=== PATIENT | male | born 1940 | race Caucasian/White ===

== ENCOUNTER → 2017-01-24 | Outpatient (CLI) | payer OTHER ==
[~2017-01-24] MED LIST: ATOR-22 PO; BIMA0.01 OPB; CARV25TA PO; CHOL100027 PO; GADAVIST IV PRN; LISI10TA PO; METO2.5T PO; NTRGSL/4 UT; PANT40TA PO; SITA50TA5 PO; TRAZ50TA35 PO
--- NOTE | 2017-01-24 11:41 | DIAGNOSTIC IMAGING REPORT ---
MRI OF THE BRAIN WITHOUT AND WITH IV CONTRAST CLINICAL HISTORY: I63.9 Stroke [id number] Occlusion of left internal carotid a COMPARISON STUDY: No previous studies for comparison. TECHNIQUE: MRI of the brain was performed from the vertex to the skull base utilizing various T1 and T2 weighted sequences. Following the IV administration of 9 mL of Gadavist contrast, additional enhanced images were obtained. FINDINGS: Sagittal T1, axial diffusion, proton density and T2 weighted axial, coronal FLAIR, and pre and post axial T1-weighted images were acquired. These were supplemented with post gadolinium coronal T1 weighted images. No intra or extra-axial mass lesions are visualized. Axial diffusion-weighted images reveal no evidence of acute or subacute infarction. Peripheral foci of increased signal on the diffusion-weighted images in the left hemisphere, likely are artifactual. There is no evidence of ventricular dilatation. Proton density T2-weighted and FLAIR images reveal scattered foci of increased T2 signal within the white matter, likely on a small vessel basis. There is an absent flow void within the left internal carotid artery, consistent with the clinical history of occlusion. There are foci of increased T2 signal within the mastoids, likely on an inflammatory basis There is mild left-sided dural enhancement, likely postsurgical. Postsurgical changes involve the left calvarium. IMPRESSION: 1. Postsurgical changes on the left 2. No evidence of intracranial mass 3. No evidence of acute or subacute infarction 4. Absent flow void within the left internal carotid artery consistent with history of occlusion 5. Scattered foci of increased T2 signal within the white matter, likely on a small vessel basis. Electronically signed by: Bhavesh Robison M.D. 01/24/2017 11:39 AM Dictated Date/Time: 01/24/2017 11:35 AM
--- NOTE | 2017-01-24 11:46 | DIAGNOSTIC IMAGING REPORT ---
MR ANGIOGRAM OF THE BRAIN CLINICAL HISTORY: Strokelike symptoms. COMPARISON STUDY: MRI of the brain performed concurrently on 01/24/2017. TECHNIQUE: 3-D [id number] MR angiography of the intracranial circulation is performed. 3-D tumble views are created and assessed. IV contrast was not administered for this examination. FINDINGS: There is a large left posterior communicating artery. The right P1 segment is diminutive. There is occlusion of the left internal carotid artery at the skull base. There is reconstitution at the carotid apex. The right internal carotid artery is widely patent at the skull base. The anterior and middle cervical arteries are patent bilaterally. The vertebrobasilar system and posterior cerebral arteries are widely patent. The right vertebral artery is dominant. There is no aneurysm or evidence of high-grade stenosis. The brain parenchyma is normal as visualized. IMPRESSION: 1. 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 There is reconstitution at the apex, likely through the northway of [place]. 2. The remaining intracranial vessels are patent. Electronically signed by: Eliot Bruner M.D. 01/24/2017 11:44 AM Dictated Date/Time: 01/24/2017 11:40 AM
--- NOTE | 2017-01-24 11:53 | DIAGNOSTIC IMAGING REPORT ---
MRA OF THE NECK WITH AND WITHOUT CONTRAST CLINICAL HISTORY: Stroke syndrome. Occlusion of left internal carotid artery. History of carotid bypass. COMPARISON STUDY: None. TECHNIQUE: Unenhanced and contrast-enhanced MRA of the neck was performed. Injection of 9 mL of Gadavist IV was uneventful. NASCET criteria were utilized to estimate the degree of carotid stenosis. FINDINGS: The origin of the brachiocephalic trunk is patent. There is no significant stenosis within the right common carotid or internal carotid artery. There is mild irregularity of the proximal right internal carotid artery likely due to atherosclerosis. The right vertebral artery is patent. The origin of the left vertebral artery is suboptimally assessed on this exam. The remainder of the left vertebral artery is patent. Please note that the MRA of the intracranial circulation will be reported separately. There is occlusion of the proximal left internal carotid artery. Note is made of a bypass graft which extends from the left external carotid artery branches to the intracranial circulation. Visualized portions of the graft are patent. However, the graft is difficult to assess at the level of the craniotomy due to susceptibility artifact from surgical material. However, the intracranial portion of the graft is patent and therefore the graft is likely patent. Apparent narrowing of the distal extracranial portion of the graft is noted. This could reflect stenosis or artifact. IMPRESSION: 1. Occlusion of the proximal left internal carotid artery. Visualized portions of the left carotid bypass graft are patent. Susceptibility artifact due to surgical material at the level of the craniotomy obscures the graft at this level. However, the distal intracranial portion of the graft is patent and therefore the graft is likely patent. Apparent narrowing of the distal extracranial portion of the graft could reflect artifact or stenosis. 2. Diminished contrast within the proximal left vertebral artery which may reflect stenosis or artifact. 3. Patent right common carotid and internal carotid arteries without significant stenosis. Electronically signed by: Trent Gr M.D. 01/24/2017 11:52 AM Dictated Date/Time: 01/24/2017 11:40 AM
== END | disposition home or self-care (01) ==
LOC: C.MRI 09:27
PROVIDERS: ATTEND Psychiatry & Neurology Neurology
DX: I65.22 Occlusion and stenosis of left carotid artery (principal); I63.9 Cerebral infarction, unspecified

== ENCOUNTER → 2017-09-04 | Outpatient (CLI) | payer OTHER ==
[~2017-09-04] MED LIST changes: +ASPI81TA28 PO; +CARV6.252 PO; -GADAVIST IV PRN; +LATA0.5S OP; +OXYC-57 PO; +PHEN-876 PO; +PRT/20 PO; +SERT25TA PO
== END | disposition home or self-care (01) ==
LOC: C.PATHSPEC 17:08
PROVIDERS: ATTEND Urology
DX: R31.0 Gross hematuria (principal)

== ENCOUNTER → 2017-10-13 | Outpatient (CLI) | payer OTHER ==
[~2017-10-13] MED LIST changes: -BIMA0.01 OPB; -CARV25TA PO; -METO2.5T PO; +OPTIRAY 320 IV PRN; -PANT40TA PO
--- NOTE | 2017-10-13 09:01 | DIAGNOSTIC IMAGING REPORT ---
CHEST CT WITH CONTRAST CT DOSE: 601.47 mGycm HISTORY: C67.9 Malignant tumor of urinary bladder C61 Neoplasm of prostate TECHNIQUE: Multiaxial CT images of the chest were performed following the intravenous administration of contrast. A dose lowering technique was utilized adhering to the principles of ALARA. COMPARISON: Abdomen and pelvis CT 08/01/2011. FINDINGS: There is a 4 mm indeterminate pulmonary nodule within the right upper lobe adjacent to the right minor fissure. This is best seen on image 144. Punctate calcified granuloma within the left lung apex on image 47. No pneumothorax. The central airways are patent. Poststernotomy changes. No suspicious lytic or blastic osseous lesions. The visualized liver, spleen, adrenal glands are unremarkable. No mediastinal lymphadenopathy. Subcentimeter bilateral hilar lymph nodes do not meet CT criteria for pathologic involvement. Normal caliber thoracic aorta. The central pulmonary arteries are patent. Minimal right pleural fluid. IMPRESSION: 1. An indeterminate 4 mm pulmonary nodule within the right upper lobe. Please refer to the chart below for recommended follow-up. 2. Minimal right pleural fluid. Please refer to below summary of Fleischner criteria recommendations for follow-up of incidental CT nodules (Wyatt Calderon, Guidelines for management of small pulmonary nodules detected on CT scans: A statement from the Fleischner Society, Radiology 237: [phone].) SOLID NODULES Solitary nodule size: <6 mm * Low risk patients: no follow-up needed * high risk patients: optional CT at 12 months Solitary nodule size: 6-8 mm * Low risk patients: follow-up at 6-12 months, then consider further follow-up at 18-24 months * high risk patients: initial follow-up CT at 6-12 months and then at 18-24 months if no change Solitary nodule size: >8 mm * either low or high risk patients - consider follow-up CT at 3 months, and/or CT-PET, and/or biopsy Multiple nodules size: <6 mm * Low risk patients: no routine follow-up * high risk patients: optional CT at 12 months Multiple nodules size: 6-8 mm * Low risk patients: follow-up at 3-6 months, then consider further follow-up at 18-24 months * high risk patients: follow-up at 3-6 months, then at 18-24 months if no change Multiple nodules size: >8 mm * Low risk patients: follow-up at 3-6 months, then consider further follow-up at 18-24 months * high risk patients: follow-up at 3-6 months, then at 18-24 months if no change Note: newly detected indeterminate nodule in persons 35 years of age or older. * Low risk patients: minimal or absent history of smoking and/or other known risk factors * high risk patients: history of smoking or of other known risk factors (e.g. first degree relative with lung cancer, or exposure to asbestos, radon, uranium) * if a nodule up to 8 mm is partly solid or is ground glass further follow-up is required after 24 months to exclude possible slow growing adenocarcinoma (MITZI) SUBSOLID NODULES Solitary pure ground-glass nodule * nodule size <6 mm - no CT follow-up required * nodule size >=6 mm - follow-up CT at 6-12 months, then every 2 years until 5 years Solitary part-solid nodule * nodule size <6 mm - no CT follow-up required * nodule size >=6 mm - follow-up CT at 3-6 months. If unchanged, and solid component remains <6 mm, then annual follow-up for 5 years Multiple subsolid nodules * nodule size <6 mm - follow-up CT at 3-6 months, consider further follow-up at 2 and 4 years if stable * nodule size >=6 mm - follow-up CT at 3-6 months, subsequent management based on the most suspicious nodule(s) Electronically signed by: Aleksandr Garcia M.D. 10/13/2017 8:59 AM Dictated Date/Time: 10/13/2017 8:49 AM
== END | disposition home or self-care (01) ==
LOC: C.CTS 08:29
PROVIDERS: ATTEND Urology
DX: C61 Malignant neoplasm of prostate (principal); C67.9 Malignant neoplasm of bladder, unspecified

== ENCOUNTER → 2017-10-21 | Outpatient (CLI) | payer OTHER ==
[~2017-10-21] MED LIST changes: +ASPEC81 PO; +DTR/5 PO; -OPTIRAY 320 IV PRN; +PANT40TA PO; +TAMS0.4C38 PO
[2017-10-21 12:18] LABS: HEMATOCRIT 39.9 % (42-52); MEAN CELL VOLUME 95.9 fL (80-100); MEAN CORPUSCULAR HGB CONC 32.3 g/dl (32-36); MEAN PLATELET VOLUME 10.2 fL (7.4-10.4); PLATELET COUNT 195 K/uL (130-400); RED BLOOD COUNT 4.16 M/uL (4.7-6.1); WHITE BLOOD COUNT 9.58 K/uL (4.8-10.8)
[2017-10-21 13:01] LABS: ALT/SGPT 34 U/L (12-78); BLOOD UREA NITROGEN 21 mg/dl (7-18); BUN/CREATININE RATIO 19.3 (10-20); CALCIUM 9.2 mg/dl (8.5-10.1); CARBON DIOXIDE 28 mmol/L (21-32); CHLORIDE 104 mmol/L (98-107); CREATININE 1.07 mg/dl (0.60-1.40); GLUCOSE 188 mg/dl (70-99); POTASSIUM 4.2 mmol/L (3.5-5.1); SODIUM 139 mmol/L (136-145)
[2017-10-21 13:03] LABS: ALKALINE PHOSPHATASE 53 U/L (45-117); AST/SGOT 20 U/L (15-37)
== END | disposition home or self-care (01) ==
LOC: C.LABPBG 10:26
PROVIDERS: ATTEND Urology
DX: C67.9 Malignant neoplasm of bladder, unspecified (principal); C61 Malignant neoplasm of prostate; E11.9 Type 2 diabetes mellitus without complications; R31.9 Hematuria, unspecified

== ENCOUNTER 2017-10-23 12:45 | Observation (INO) | payer OTHER ==
[~2017-10-23] VITALS: Ht 160 cm; Wt 88.5 kg
[~2017-10-23 12:45] MED LIST changes: -ASPEC81 PO; -PANT40TA PO
--- NOTE | 2017-10-23 13:28 | EMERGENCY ROOM VISIT NOTE ---
History Report prepared by Lana: Keyla Benoit Under the Supervision of: Dr. Raina Chávez M.D. First contact with patient: 13:20 Chief Complaint: URINARY SYMPTOMS Stated Complaint: UNCONTROLLED URINARY BLEEDING History of Present Illness The patient is a 77 year old male who presents to the Emergency Room with complaints of urinary symptoms beginning today. The patient states that he was referred to the ED due to bloody urine. The patient states that he is probably emptying his bladder, but is also expelling blood clots. Per his , the patient has been leaking urine and blood. The patient reports that he has back pain when he feels like he needs to urinate. He denies having fevers. He also denies being on blood thinners. The patient has a history of bladder cancer for which he will be starting chemo tx soon. Source of History: patient, spouse/significant other ( ) Onset: today Position: other (global) Quality: other (urinary symptoms ) Associated Symptoms: + back pain, No fevers Review of Systems See HPI for pertinent positives & negatives. A total of 10 systems reviewed and were otherwise negative. Past Medical & Surgical Medical Problems: (1) Diabetes mellitus type II, controlled (2) HLD (hyperlipidemia) (3) Hypertension (4) Prostate cancer Family History Cancer Heart disease Hypertension Social History Smoking Status: Never Smoker Marital Status: Housing Status: lives with significant other Occupation Status: retired Current/Historical Medications Scheduled Atorvastatin (Lipitor), 20 MG PO HS Cholecalciferol (Vitamin D 1000 Unit), 2,000 INTER.UNIT PO QAM Lisinopril (Prinivil), 10 MG PO QAM Nitroglycerin (Nitrostat), 0.4 MG UT PRN Pantoprazole (Protonix), 40 MG PO QAM Sitagliptin-Metformin Hcl (Janumet), 1 TAB PO QAM Trazodone Hcl (Trazodone), 25 MG PO QPM Allergies Coded Allergies: No Known Allergies (Unverified , 10/23/17) Physical Exam Vital Signs Date Time Temp Pulse Resp B/P (MAP) Pulse Ox O2 Delivery O2 Flow Rate FiO2 10/23/17 16:14 66 20 149/88 94 Room Air 10/23/17 15:18 59 22 138/71 96 Room Air 10/23/17 14:15 64 10/23/17 14:09 64 18 140/65 91 Room Air 10/23/17 12:58 36.4 68 18 139/84 92 Room Air Physical Exam Vital signs reviewed. General: Well-appearing male, in no significant distress. HEENT: No scleral icterus, PERRLA, neck supple. Atraumatic. Cardiovascular: Regular rate and rhythm, no extra sounds. Pulmonary: Clear to auscultation bilaterally, normal work of breathing. Abdomen: Soft, tenderness to palpation of suprapubic region, nondistended, positive bowel sounds. Musculoskeletal: Atraumatic, no peripheral edema. : Circumcised male. Incontinent of a grossly bloody urine. Neurologic: Patient awake alert and oriented x 3 Skin: Warm, dry, no rash Medical Decision & Procedures Laboratory Results Test 10/23/17 13:50 10/23/17 14:40 Immature Granulocyte % (Auto) 0.4 % White Blood Count 11.13 K/uL (4.8-10.8) Red Blood Count 4.07 M/uL (4.7-6.1) Hemoglobin 12.5 g/dL (14.0-18.0) Hematocrit 38.5 % (42-52) Mean Corpuscular Volume 94.6 fL (80-100) Mean Corpuscular Hemoglobin 30.7 pg (25-34) Mean Corpuscular Hemoglobin Concent 32.5 g/dl (32-36) Platelet Count 202 K/uL (130-400) Mean Platelet Volume 10.2 fL (7.4-10.4) Neutrophils (%) (Auto) 77.4 % Lymphocytes (%) (Auto) 11.8 % Monocytes (%) (Auto) 9.1 % Eosinophils (%) (Auto) 0.9 % Basophils (%) (Auto) 0.4 % Neutrophils # (Auto) 8.63 K/uL (1.4-6.5) Lymphocytes # (Auto) 1.31 K/uL (1.2-3.4) Monocytes # (Auto) 1.01 K/uL (0.11-0.59) Eosinophils # (Auto) 0.10 K/uL (0-0.5) Basophils # (Auto) 0.04 K/uL (0-0.2) Immature Granulocyte # (Auto) 0.04 K/uL (0.00-0.02) Activated Partial Thromboplast Time 28.1 SECONDS (21.0-31.0) Partial Thromboplastin Ratio 1.1 Total Bilirubin 0.5 mg/dl (0.2-1) Direct Bilirubin 0.2 mg/dl (0-0.2) Aspartate Amino Transf (AST/SGOT) 20 U/L (15-37) Alanine Aminotransferase (ALT/SGPT) 30 U/L (12-78) Alkaline Phosphatase 54 U/L (45-117) Total Protein 7.0 gm/dl (6.4-8.2) Albumin 3.7 gm/dl (3.4-5.0) Urine Pathogenic Casts /lpf (0) Laboratory results per my review. ED Course 1320: Past medical records reviewed. The patient was evaluated in room B7. A complete history and physical examination was performed. 1511: I reviewed the patient's case with Brenna Finney PA-C. She will evaluate the patient for further management. 1515: Upon reevaluation, the patient is resting comfortably. I discussed laboratory and radiographic results with him. He verbalized agreement of the treatment plan. The patient will be evaluated for further management and care. Oncology will also see the patient. Medical Decision The patient is a 77 year old male who presents to the ED with complaints of urinary symptoms. Differentials include bladder mass, kidney stone, urinary obstruction, prostatitis, UTI. This pt was evaluated and appeared to be in no distress. Bladder scan reveals 400 ml urine in bladder, a bruner was placed. Pt had >500 mL blood urine out. It was dark and irrigated to clear. Pt then again had grossly bloody urine. Pt was again irrigated. He was d/w [facility] of urology. Pt will be d/w hospitalist service for further management and urologic consultation. Pt expressed an understanding and agrees. Medication Reconcilliation Current Medication List: was personally reviewed by me Blood Pressure Screening Patient's blood pressure: Normal blood pressure Consults Time Called: 1440 Consulting Physician: Brenna Obando Returned Call: 1511 I reviewed the patient's case with Brenna Finney PA-C. She will evaluate the patient for further management. Impression Primary Impression: Gross hematuria Additional Impression: Bladder cancer Scribe Attestation The scribe's documentation has been prepared under my direction and personally reviewed by me in its entirety. I confirm that the note above accurately reflects all work, treatment, procedures, and medical decision making performed by me. Departure Information Dispostion Being Evaluated By Hospitalist Referrals Jono Souza M.D. (PCP) Patient Instructions My [facility] Problem Qualifiers
[2017-10-23 14:14] LABS: BASO % 0.4 %; BASO ABS # 0.04 K/uL (0-0.2); COMPLETE YES; EOS % 0.9 %; HEMATOCRIT 38.5 % (42-52); IG% 0.4 %; LYMPH % 11.8 %; LYMPH ABS # 1.31 K/uL (1.2-3.4); MEAN CELL VOLUME 94.6 fL (80-100); MEAN CORPUSCULAR HEMOGLOBIN 30.7 pg (25-34); MEAN CORPUSCULAR HGB CONC 32.5 g/dl (32-36); MEAN PLATELET VOLUME 10.2 fL (7.4-10.4); MONO % 9.1 %; NEUT % 77.4 %; PLATELET COUNT 202 K/uL (130-400); RED BLOOD COUNT 4.07 M/uL (4.7-6.1); WHITE BLOOD COUNT 11.13 K/uL (4.8-10.8)
[2017-10-23 14:23] LABS: PARTIAL THROMBOPLASTIN RATIO 1.1
[2017-10-23 14:34] LABS: BUN/CREATININE RATIO 22.3 (10-20); CALCIUM 9.4 mg/dl (8.5-10.1); CREATININE 1.07 mg/dl (0.60-1.40); POTASSIUM 4.1 mmol/L (3.5-5.1)
[2017-10-23] MEDS ORDERED: PANT40TA PO (14:50)
[2017-10-23 15:21] LABS: URINE APPEARANCE CLOUDY (CLEAR); URINE BILIRUBIN NEG (NEG); URINE COLOR RED; URINE NITRITE POS (NEG); URINE SPECIFIC GRAVITY 1.018 (1.000-1.030); UROBILINOGEN NEG (NEG); ZZURINE CULT IF INDIC CATH NO
[2017-10-23 15:28] LABS: MANUAL MICROSCOPIC REQUIRED? NO; REVIEW REQ? YES
[2017-10-23] MEDS ORDERED: GLUCAGON FOR INJ 1 MG VIAL SQ PRN (16:15)
[2017-10-23] MEDS ORDERED: GLUCOSE 40% GEL 15 GM TUBE PO PRN (16:15)
[2017-10-23] MEDS ORDERED: DEXTROSE 50% 50 ML SYR IV PRN (16:15)
[2017-10-23] MEDS ORDERED: GLUCOSE 10 TABS/TUBE PO PRN (16:15)
[2017-10-23 16:50] LABS: HEMATOCRIT 37.6 % (42-52)
[2017-10-23] MEDS ORDERED: IV FLUIDS COMPLETED PRN (17:00)
[2017-10-23] MEDS ORDERED: NITROGLYCERIN 0.4 MG SL PER TAB CHARGE UT PRN (17:00)
[2017-10-23 17:37] VITALS: BP 174/78; PULSE 70; TEMP 36.6; O2SAT 92
[2017-10-23] MEDS ORDERED: ACETAMINOPHEN 325 MG TAB PO PRN (17:45)
[2017-10-23] MEDS ORDERED: MoRPHine SULFATE 2 MG/ML CARP IV PRN (17:45)
[2017-10-23] MEDS: OXYCODONE HCL IR 5 MG TAB (IMMEDIATE RELEASE) PO PRN (17:49)
[2017-10-23 18:04] VITALS: BP 174/78; PULSE 70; TEMP 36.6; O2SAT 92; Ht 160 cm; Wt 88.5 kg
--- NOTE | 2017-10-23 19:16 | History and Physical ---
History & Physical Date & Time of Service: Oct 23, 2017 at 19:05 Chief Complaint: Bladder Cancer, Gross Hematuria Primary Care Physician: Jono Souza M.D. History of Present Illness Source: patient, family ( and daughter at bedside), clinic records, hospital records This is a 77yo M with PMH of newly diagnosed bladder cancer, h/o prostate cancer (treated with XRT and ADT 8 yrs ago), DM II, CAD, HTN and HLD who presents with worsening hematuria beginning this morning. Patient originally presented with hematuria and urinary discomfort a month ago and was found to have a 7cm bladder tumor. 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 Saw a urologist in [place] to discuss treatment options but due to previous h/o XRT to pelvis, the only remaining options were cystectomy and chemo. Both the urologist and patient felt that when weighing the risks and benefits, that medical oncology management with chemo was the better route. Patient had initial appt with Dr. Velásquez and is scheduled for his pre-treatment CT scan and hearing screen this week. Plans for Gemzar and Platinol to be initiated soon. Patient states that he has experiencing hematuria intermittently since bladder resection a few weeks ago but that it was significantly worse this morning. Describes hematuria as bright red with clots and states that he has been urinating frequently all day with some leakage as well. Associated symptoms include pain with urination that radiates to L flank and lower back. Denies any fever, chills, lightheadedness, CP, palpitations, SOB. Does not take any blood thinners. Past Medical/Surgical History Medical Problems: (1) Diabetes mellitus type II, controlled Status: Chronic (2) HLD (hyperlipidemia) Status: Chronic (3) Hypertension Status: Chronic (4) Prostate cancer Permanent Comment: Rising PSA pretreatment PSA 10.39 Status post biopsy revealing adenocarcinoma [place] 4+3, 4+4, 4+5, and 5+4. Biopsy stage TIIc Androgen deprivation from 07/09/2011 until January 2014 Status post completion of external beam radiation 12/11/2011 Status: Resolved Family History Cancer Heart disease Hypertension Social History Smoking Status: Former Smoker Alcohol Use: none Marital Status: Housing status: lives with significant other Occupational Status: retired Multi-Drug Resistant Organisms History of MDRO: No Allergies Coded Allergies: No Known Allergies (Unverified , 10/23/17) Home Medications Scheduled Aspirin (Aspirin EC Low Dose), 1 TAB PO DAILY Atorvastatin (Lipitor), 20 MG PO HS Cholecalciferol (Vitamin D 1000 Unit), 2,000 INTER.UNIT PO QAM Lisinopril (Prinivil), 10 MG PO QAM Nitroglycerin (Nitrostat), 0.4 MG UT PRN Pantoprazole (Protonix), 40 MG PO QAM Sitagliptin-Metformin Hcl (Janumet), 1 TAB PO QAM Trazodone Hcl (Trazodone), 25 MG PO QPM Review of Systems Ten systems reviewed and negative except as noted in the HPI. Physical Exam Vital Signs Date Time Temp Pulse Resp B/P (MAP) Pulse Ox O2 Delivery O2 Flow Rate FiO2 10/23/17 18:04 36.6 70 18 174/78 92 Room Air 10/23/17 17:37 36.6 70 18 174/78 (110) 92 Room Air 10/23/17 17:14 64 18 143/79 95 Room Air 10/23/17 16:14 66 20 149/88 94 Room Air 10/23/17 15:18 59 22 138/71 96 Room Air 10/23/17 14:15 64 10/23/17 14:09 64 18 140/65 91 Room Air 10/23/17 12:58 36.4 68 18 139/84 92 Room Air General Appearance: WD/WN, + mild distress Head: normocephalic, atraumatic Eyes: normal inspection, PERRL, sclerae normal ENT: normal ENT inspection, hearing grossly normal, pharynx normal (moist mucous membranes ) Neck: supple, no adenopathy, trachea midline Respiratory/Chest: chest non-tender, lungs clear, normal breath sounds, no respiratory distress, no accessory muscle use Cardiovascular: regular rate, rhythm, no murmur, normal peripheral pulses Abdomen/GI: non tender, soft, no organomegaly Genitourinary - Male: normal male genitalia, + pertinent finding (Puri catheter in place ) Back: normal inspection, no CVA tenderness, + pertinent finding (TTP in band distribution along lower back ) Extremities/Musculoskelatal: no calf tenderness, no pedal edema, non-tender Neurologic/Psych: no motor/sensory deficits, alert, normal mood/affect, oriented x 3 Skin: normal color, warm/dry, no rash Diagnostics Laboratory Results Results Past 24 Hours Test 10/23/17 13:50 10/23/17 14:40 10/23/17 16:35 10/23/17 18:00 Range/Units White Blood Count 11.13 4.8-10.8 K/uL Red Blood Count 4.07 4.7-6.1 M/uL Hemoglobin 12.5 12.4 14.0-18.0 g/dL Hematocrit 38.5 37.6 42-52 % Mean Corpuscular Volume 94.6 80-100 fL Mean Corpuscular Hemoglobin 30.7 25-34 pg Mean Corpuscular Hemoglobin Concent 32.5 32-36 g/dl Platelet Count 202 130-400 K/uL Mean Platelet Volume 10.2 7.4-10.4 fL Neutrophils (%) (Auto) 77.4 % Lymphocytes (%) (Auto) 11.8 % Monocytes (%) (Auto) 9.1 % Eosinophils (%) (Auto) 0.9 % Basophils (%) (Auto) 0.4 % Neutrophils # (Auto) 8.63 1.4-6.5 K/uL Lymphocytes # (Auto) 1.31 1.2-3.4 K/uL Monocytes # (Auto) 1.01 0.11-0.59 K/uL Eosinophils # (Auto) 0.10 0-0.5 K/uL Basophils # (Auto) 0.04 0-0.2 K/uL RDW Standard Deviation 43.1 36.4-46.3 fL RDW Coefficient of Variation 12.5 11.5-14.5 % Immature Granulocyte % (Auto) 0.4 % Immature Granulocyte # (Auto) 0.04 0.00-0.02 K/uL Prothrombin Time 11.0 9.0-12.0 SECONDS Prothromb Time International Ratio 1.0 0.9-1.1 Activated Partial Thromboplast Time 28.1 21.0-31.0 SECONDS Partial Thromboplastin Ratio 1.1 Sodium Level 140 136-145 mmol/L Potassium Level 4.1 3.5-5.1 mmol/L Chloride Level 105 98-107 mmol/L Carbon Dioxide Level 26 21-32 mmol/L Anion Gap 9.0 3-11 mmol/L Blood Urea Nitrogen 24 7-18 mg/dl Creatinine 1.07 0.60-1.40 mg/dl Est Creatinine Clear Calc Drug Dose 57.5 ml/min Estimated GFR () 76.7 Estimated GFR (Non- 66.1 BUN/Creatinine Ratio 22.3 10-20 Random Glucose 133 70-99 mg/dl Calcium Level 9.4 8.5-10.1 mg/dl Total Bilirubin 0.5 0.2-1 mg/dl Direct Bilirubin 0.2 0-0.2 mg/dl Aspartate Amino Transf (AST/SGOT) 20 15-37 U/L Alanine Aminotransferase (ALT/SGPT) 30 12-78 U/L Alkaline Phosphatase 54 45-117 U/L Total Protein 7.0 6.4-8.2 gm/dl Albumin 3.7 3.4-5.0 gm/dl Urine Color RED Urine Appearance CLOUDY CLEAR Urine pH 6.0 4.5-7.5 Urine Specific [place] 1.018 1.000-1.030 Urine Protein 3+ NEG Urine Glucose (UA) NEG NEG Urine Ketones NEG NEG Urine Occult Blood 3+ NEG Urine Nitrite POS NEG Urine Bilirubin NEG NEG Urine Urobilinogen NEG NEG Urine Leukocyte Esterase MODERATE NEG Urine WBC (Auto) 1-5 0-5 /hpf Urine RBC (Auto) >30 0-4 /hpf Urine Hyaline Casts (Auto) 0 0-5 /lpf Urine Epithelial Cells (Auto) 5-10 0-5 /lpf Urine Bacteria (Auto) NEG NEG Urine Pathogenic Casts 0 /lpf Bedside Glucose 124 70-99 mg/dl Impression Assessment and Plan This is a 77yo M with PMH of newly diagnosed bladder cancer, h/o prostate cancer (treated with XRT and ADT 8 yrs ago), DM II, CAD, HTN and HLD who presents with worsening hematuria beginning this morning. Hematuria: -In setting of muscle invasive urothelial cancer -Follows with Dr. Brown for urology and Dr. Velásquez for oncology -Serial H&H's, type and screen, transfuse <7 -Pain control -Per urology recommendations -Continuous bladder irrigation -NPO except meds after midnight DM II: -Hgb a1c of 6.4 in Aug 2017 -Home home agents -SSI while in-patient -BSG checks AC HS HTN: -Elevated 2/2 pain -Continue home dose lisinopril CAD: -H/o NH -Denies CP -Cont atorvastatin -Hold baby aspirin HLD: -Cont statin DVT Ppx: SCDs Code status: FULL PCP: [facility] Dispo: Plan to return home once medically stable Patient seen in collaboration with Dr. Ramirez. Please see addendum. ADDENDUM: I have seen and examined the patient and agree with the assessment and plan above. H/H is stable, no lightheadedness. Some bladder pain is present but controlled with pain meds. DO James Level of Care Med/Surg Advanced Directives Existing Living Will: No Existing Power of Design Chief: Yes () Resuscitation Status FULL RESUSCITATION VTE Prophylaxis VTE Risk Assessment Done? Y/N: Yes Risk Level: Moderate Given or contraindicated: SCD's, Contraindicated Social Service Consult None Apply
[2017-10-23 19:21] VITALS: BP 135/75; PULSE 71; TEMP 36.6; O2SAT 92
[2017-10-23] MEDS ORDERED: ASPEC81 PO (19:40)
[2017-10-23] MEDS: INSULIN ASPART 100 UNITS/ML 3 ML PEN SC SCH (21:00)
[2017-10-23] MEDS: ATORVASTATIN 20 MG TAB PO SCH (21:03)
[2017-10-23] MEDS: TRAZODONE HCL 50 MG TAB PO SCH (21:04)
[2017-10-23] MEDS: INSULIN GLARGINE SOLOSTAR 100 UNITS/ML 3 ML PEN SC SCH (21:06)
[2017-10-23 22:17] LABS: HEMATOCRIT 37.6 % (42-52)
[2017-10-23 23:29] VITALS: BP_SYST 122; BP_SYST 152; BP_DIAS 60; BP_DIAS 69; PULSE 65; PULSE 67; TEMP 36.6; TEMP 36.7; O2SAT 93; O2SAT 96
[2017-10-24 04:14] VITALS: BP 141/72; PULSE 60; TEMP 36.6; O2SAT 95
[2017-10-24 06:03] LABS: HEMATOCRIT 37.3 % (42-52); MEAN CELL VOLUME 94.7 fL (80-100); MEAN CORPUSCULAR HEMOGLOBIN 31.2 pg (25-34); MEAN PLATELET VOLUME 10.1 fL (7.4-10.4); PLATELET COUNT 208 K/uL (130-400); RED BLOOD COUNT 3.94 M/uL (4.7-6.1); WHITE BLOOD COUNT 12.02 K/uL (4.8-10.8)
[2017-10-24 06:09] LABS: INR 1.1 (0.9-1.1); PROTHROMBIN TIME (PATIENT) 11.4 SECONDS (9.0-12.0)
[2017-10-24] MEDS: INSULIN ASPART 100 UNITS/ML 3 ML PEN SC SCH ×4 (06:30→20:44)
[2017-10-24 06:33] LABS: ESTIMATED AVERAGE GLUCOSE 120 mg/dl; HA1C FLAG Normal (Normal)
[2017-10-24 06:36] LABS: BUN/CREATININE RATIO 21.1 (10-20); CALCIUM 8.9 mg/dl (8.5-10.1); CREATININE 1.04 mg/dl (0.60-1.40); POTASSIUM 3.7 mmol/L (3.5-5.1)
--- NOTE | 2017-10-24 07:06 | GENITOURINARY CONSULTATION ---
DATE OF CONSULTATION: 10/23/2017 REASON FOR THE CONSULT: Gross hematuria with clots. 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 He had some gross hematuria, was seen by Dr. Brown who has followed in the past for a Rudy 9 adenocarcinoma of the prostate that was treated aggressively with x-ray therapy, hormonal therapy and brachytherapy approximately 8 years ago. He had a large bladder tumor resection on September 18 which did show invasion. He did not have significant hematuria postoperatively until 3 days ago he began to develop some intermittent hematuria, had a hematocrit of 39.9 on the and today his hematuria is worse with clots. He presented here to the emergency room where he had a hematocrit of 38.5 and then just recently a repeat was 37.6. He had a catheter placed here with some irrigation with some clots. I did place a 3-way 22 Macedonian Puri catheter, irrigated him with some clots out and started him on 3-way bladder irrigation with normal saline. At this time, his urine is relatively pink and draining well. The patient has seen Dr. Strong to discuss cystectomy, but because of his cardiovascular disease, he is not felt to be a great candidate. He was to see oncology to discuss chemotherapy. Also, there have to be consideration given to possible radiation to treat this invasive cancer if cystectomy is not an option; however, he has had radiation to the bladder already and this may not be possible. 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 He has hyperlipidemia and diabetes mellitus. PAST SURGICAL HISTORY: Significant for coronary artery bypass surgery 25 years ago, carotid bypass surgery, hernia repair and TURBT. MEDICATIONS: Include oxybutynin, Xalatan, nitroglycerin spray, Coreg 6.25 mg a day, Lipitor 20 mg a day, trazodone 50 mg tablets daily, Janumet 50/500 mg tablets and Protonix 40 mg a day. SOCIAL HISTORY: He is a smoker, does not currently. He rarely drinks alcohol. 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 ALLERGIES: He has no known drug allergies. PHYSICAL EXAMINATION: GENERAL: The patient is a slightly overweight male in [id number] distress. He has no flank pain. He had a Puri catheter in place when I first saw him and this was changed. Of note, his previous stated recent hematocrit was 37.6 and a PSA that was done on 10/17/2017 was undetectable. GENITOURINARY: Prostate exam is deferred at this time. He has normal circumcised male phallus. Testes descended bilaterally. EXTREMITIES: Unremarkable. ABDOMEN: Soft, nontender. LUNGS: He has no respiratory distress. HEENT: Noncontributory. REVIEW OF SYSTEMS: Please refer to the review of systems done in the Emergency Room by the admitting hospitalists. PLAN: Serial H&H, bladder irrigation. He will be reevaluated in the a.m. We will keep him n.p.o. for the time being until we are sure that he does not develop clot retention. He may need to have alum bladder irrigation. We will discuss with Dr. Brown who will be elementary education tutor in the morning. Thank you very much.
[2017-10-24 07:27] VITALS: BP 144/78; PULSE 70; TEMP 36.7; O2SAT 92
[2017-10-24] MEDS: PANTOprazole SOD 40 MG TAB PO SCH (07:54)
[2017-10-24] MEDS: LISINOPRIL 10 MG TAB PO SCH (07:54)
[2017-10-24] MEDS: OXYCODONE HCL IR 5 MG TAB (IMMEDIATE RELEASE) PO PRN (07:54)
[2017-10-24] MEDS: CHOLECALCIFEROL 1000 INTER.UNIT TAB PO SCH (07:54)
[2017-10-24] MEDS: INSULIN GLARGINE SOLOSTAR 100 UNITS/ML 3 ML PEN SC SCH ×2 (07:57→20:43)
--- NOTE | 2017-10-24 09:25 | Progress Note ---
Subjective Date of Service: Oct 24, 2017. Subjective Pt evaluation today including: conversation w/ patient, chart review, lab review Voiding: bruner catheter in place (patent, draining light diallo colored urine with CBI running) 77 yo male with gross hematuria secondary to bladder cancer. Urine is light diallo without clot with CBI running this morning. H&H has remained stable. Pt denies pain this morning. He seems to be in good spirits. He was to start chemotherapy at [facility], but does not have a definitive date yet. Problem List Medical Problems: (1) Bladder cancer Status: Acute (2) Gross hematuria Status: Acute Review of Systems Constitutional: No fever, No chills Respiratory: No shortness of breath Cardiac: No chest pain Abdomen: No pain, No nausea, No vomiting Male : + hematuria Heme: + abnormal bleeding/bruising Objective Vital Signs Date Time Temp Pulse Resp B/P (MAP) Pulse Ox O2 Delivery O2 Flow Rate FiO2 10/24/17 07:27 36.7 70 19 144/78 (100) 92 10/24/17 04:14 36.6 60 18 141/72 (95) 95 Room Air 10/24/17 00:00 Room Air 10/23/17 23:29 36.6 67 20 152/69 (96) 93 Room Air 10/23/17 19:21 36.6 71 20 135/75 (95) 92 Room Air 10/23/17 18:04 36.6 70 18 174/78 92 Room Air 10/23/17 17:37 36.6 70 18 174/78 (110) 92 Room Air 10/23/17 17:14 64 18 143/79 95 Room Air 10/23/17 16:14 66 20 149/88 94 Room Air 10/23/17 15:18 59 22 138/71 96 Room Air 10/23/17 14:15 64 10/23/17 14:09 64 18 140/65 91 Room Air 10/23/17 12:58 36.4 68 18 139/84 92 Room Air Physical Exam General Appearance: no apparent distress, + obese Eyes: normal inspection ENT: hearing grossly normal Neck: no JVD Respiratory/Chest: no respiratory distress, no accessory muscle use Cardiovascular: no JVD Extremities: normal inspection Neurologic/Psychiatric: alert, normal mood/affect, oriented x 3 Skin: normal color Laboratory Results Last 24 Hours Test 10/23/17 13:50 10/23/17 14:40 10/23/17 16:35 10/23/17 18:00 White Blood Count 11.13 K/uL Red Blood Count 4.07 M/uL Hemoglobin 12.5 g/dL 12.4 g/dL Hematocrit 38.5 % 37.6 % Mean Corpuscular Volume 94.6 fL Mean Corpuscular Hemoglobin 30.7 pg Mean Corpuscular Hemoglobin Concent 32.5 g/dl Platelet Count 202 K/uL Mean Platelet Volume 10.2 fL Neutrophils (%) (Auto) 77.4 % Lymphocytes (%) (Auto) 11.8 % Monocytes (%) (Auto) 9.1 % Eosinophils (%) (Auto) 0.9 % Basophils (%) (Auto) 0.4 % Neutrophils # (Auto) 8.63 K/uL Lymphocytes # (Auto) 1.31 K/uL Monocytes # (Auto) 1.01 K/uL Eosinophils # (Auto) 0.10 K/uL Basophils # (Auto) 0.04 K/uL RDW Standard Deviation 43.1 fL RDW Coefficient of Variation 12.5 % Immature Granulocyte % (Auto) 0.4 % Immature Granulocyte # (Auto) 0.04 K/uL Prothrombin Time 11.0 SECONDS Prothromb Time International Ratio 1.0 Activated Partial Thromboplast Time 28.1 SECONDS Partial Thromboplastin Ratio 1.1 Sodium Level 140 mmol/L Potassium Level 4.1 mmol/L Chloride Level 105 mmol/L Carbon Dioxide Level 26 mmol/L Anion Gap 9.0 mmol/L Blood Urea Nitrogen 24 mg/dl Creatinine 1.07 mg/dl Est Creatinine Clear Calc Drug Dose 57.5 ml/min Estimated GFR () 76.7 Estimated GFR (Non- 66.1 BUN/Creatinine Ratio 22.3 Random Glucose 133 mg/dl Calcium Level 9.4 mg/dl Total Bilirubin 0.5 mg/dl Direct Bilirubin 0.2 mg/dl Aspartate Amino Transf (AST/SGOT) 20 U/L Alanine Aminotransferase (ALT/SGPT) 30 U/L Alkaline Phosphatase 54 U/L Total Protein 7.0 gm/dl Albumin 3.7 gm/dl Urine Color RED Urine Appearance CLOUDY Urine pH 6.0 Urine Specific [place] 1.018 Urine Protein 3+ Urine Glucose (UA) NEG Urine Ketones NEG Urine Occult Blood 3+ Urine Nitrite POS Urine Bilirubin NEG Urine Urobilinogen NEG Urine Leukocyte Esterase MODERATE Urine WBC (Auto) 1-5 /hpf Urine RBC (Auto) >30 /hpf Urine Hyaline Casts (Auto) 0 /lpf Urine Epithelial Cells (Auto) 5-10 /lpf Urine Bacteria (Auto) NEG Urine Pathogenic Casts /lpf Bedside Glucose 124 mg/dl Test 10/23/17 20:09 10/23/17 22:06 10/24/17 05:36 10/24/17 06:12 Bedside Glucose 156 mg/dl 147 mg/dl Hemoglobin 12.6 g/dL 12.3 g/dL Hematocrit 37.6 % 37.3 % White Blood Count 12.02 K/uL Red Blood Count 3.94 M/uL Mean Corpuscular Volume 94.7 fL Mean Corpuscular Hemoglobin 31.2 pg Mean Corpuscular Hemoglobin Concent 33.0 g/dl RDW Standard Deviation 42.8 fL RDW Coefficient of Variation 12.4 % Platelet Count 208 K/uL Mean Platelet Volume 10.1 fL Prothrombin Time 11.4 SECONDS Prothromb Time International Ratio 1.1 Sodium Level 137 mmol/L Potassium Level 3.7 mmol/L Chloride Level 105 mmol/L Carbon Dioxide Level 27 mmol/L Anion Gap 5.0 mmol/L Blood Urea Nitrogen 22 mg/dl Creatinine 1.04 mg/dl Est Creatinine Clear Calc Drug Dose 59.2 ml/min Estimated GFR () 79.3 Estimated GFR (Non- 68.4 BUN/Creatinine Ratio 21.1 Random Glucose 136 mg/dl Estimated Average Glucose 120 mg/dl Hemoglobin A1c 5.8 % Calcium Level 8.9 mg/dl Assessment and Plan A/P: Gross hematuria secondary to bladder cancer AFVSS. Hematuria improving. Will continue CBI for now. Would consider adding Alum to CBI if bleeding were to worsen. Will provide a diet this morning. Plan to avoid OR unless absolutely necessary. Continue to monitor H&H. Daily H&H should be fine unless bleeding worsening. Will continue to follow along with primary service.
[2017-10-24 10:11] LABS: HEMATOCRIT 39.1 % (42-52)
[2017-10-24] MEDS ORDERED: NURSING VERBAL MED ORDER ONE (10:15)
[2017-10-24] MEDS ORDERED: NURSING DECISION MEDICATION ORDER SCH (11:00)
[2017-10-24] MEDS ORDERED: MICONAZOLE NITRATE POWDER 43 GM EXT PRN (11:15)
[2017-10-24 15:31] VITALS: BP 137/76; PULSE 82; TEMP 36.4; O2SAT 94
[2017-10-24 16:00] VITALS: O2SAT 94
--- NOTE | 2017-10-24 19:26 | Progress Note ---
Internal Med Progress Note Date of Service: Oct 24, 2017. Provider Documentation: SUBJECTIVE: has mild discomfort at catheter site no fever or chills on CBI bladder irrigation catheter draining faint reddish urine no corey hematuria OBJECTIVE: Vital Signs-as noted below Exam: General-no sign of distress, conserving Eyes-sclera non icteric, PERRLA/EOMI ENT-normal oropharynx , Neck-no thyromegaly , trachea midline Lungs-CTA Heart-regular S1/S2 Abdomen-soft, non tender Extremities-no lower ext edema Neuro-AAO x3, no focal deficit Lab data as noted below. ASSESSMENT & PLAN: Hematuria: -In setting of muscle invasive urothelial cancer -Follows with Dr. Brown for urology and Dr. benavides for oncology appreciate input form urology continued with Cont bladder irrigation -hematuria has improved markedly .no drop in H&H cont to monitor no urological procedure needed at presenet DM II: -Hgb a1c of 6.4 in Aug 2017 -Home home agents -SSI while in-patient -BSG checks AC HS HTN: -Continue home dose lisinopril CAD: -H/o [place] -Denies CP -Cont atorvastatin -D/c Aspirin , given bladder Ca , recurrent bleeding risk remains high pt and his updated HLD: -Cont statin DVT Ppx: SCDs -due to hematuria Code status: FULL PCP: Harley Dispo: Plan to return home once medically stable given update over the phone Vital Signs: Date Time Temp Pulse Resp B/P (MAP) Pulse Ox O2 Delivery O2 Flow Rate FiO2 10/24/17 16:00 94 Room Air 10/24/17 15:31 36.4 82 18 137/76 (96) 94 10/24/17 08:00 Room Air 10/24/17 07:27 36.7 70 19 144/78 (100) 92 10/24/17 04:14 36.6 60 18 141/72 (95) 95 Room Air 10/24/17 00:00 Room Air 10/23/17 23:29 36.6 67 20 152/69 (96) 93 Room Air Lab Results: Results Past 24 Hours Test 10/23/17 22:06 10/24/17 05:36 10/24/17 06:12 10/24/17 10:01 Range/Units Hemoglobin 12.6 12.3 13.0 14.0-18.0 g/dL Hematocrit 37.6 37.3 39.1 42-52 % White Blood Count 12.02 4.8-10.8 K/uL Red Blood Count 3.94 4.7-6.1 M/uL Mean Corpuscular Volume 94.7 80-100 fL Mean Corpuscular Hemoglobin 31.2 25-34 pg Mean Corpuscular Hemoglobin Concent 33.0 32-36 g/dl RDW Standard Deviation 42.8 36.4-46.3 fL RDW Coefficient of Variation 12.4 11.5-14.5 % Platelet Count 208 130-400 K/uL Mean Platelet Volume 10.1 7.4-10.4 fL Prothrombin Time 11.4 9.0-12.0 SECONDS Prothromb Time International Ratio 1.1 0.9-1.1 Sodium Level 137 136-145 mmol/L Potassium Level 3.7 3.5-5.1 mmol/L Chloride Level 105 98-107 mmol/L Carbon Dioxide Level 27 21-32 mmol/L Anion Gap 5.0 3-11 mmol/L Blood Urea Nitrogen 22 7-18 mg/dl Creatinine 1.04 0.60-1.40 mg/dl Est Creatinine Clear Calc Drug Dose 59.2 ml/min Estimated GFR () 79.3 Estimated GFR (Non- 68.4 BUN/Creatinine Ratio 21.1 10-20 Random Glucose 136 70-99 mg/dl Estimated Average Glucose 120 mg/dl Hemoglobin A1c 5.8 4.5-5.6 % Calcium Level 8.9 8.5-10.1 mg/dl Bedside Glucose 147 70-99 mg/dl Test 10/24/17 11:47 10/24/17 16:27 10/24/17 20:24 Range/Units Bedside Glucose 177 154 142 70-99 mg/dl
[2017-10-24] MEDS: ATORVASTATIN 20 MG TAB PO SCH (20:39)
[2017-10-24] MEDS: TRAZODONE HCL 50 MG TAB PO SCH (20:40)
[2017-10-24 23:04] VITALS: BP 139/71; PULSE 68; TEMP 36.7; O2SAT 93
[2017-10-25 06:52] LABS: HEMATOCRIT 38.4 % (42-52); MEAN CELL VOLUME 94.1 fL (80-100); MEAN CORPUSCULAR HEMOGLOBIN 31.4 pg (25-34); MEAN CORPUSCULAR HGB CONC 33.3 g/dl (32-36); MEAN PLATELET VOLUME 10.5 fL (7.4-10.4); PLATELET COUNT 226 K/uL (130-400); RED BLOOD COUNT 4.08 M/uL (4.7-6.1); WHITE BLOOD COUNT 11.03 K/uL (4.8-10.8)
[2017-10-25 07:50] VITALS: BP 95/61; PULSE 68; TEMP 36.7; O2SAT 95
[2017-10-25 09:00] VITALS: BP 123/75; PULSE 92
[2017-10-25] MEDS: PANTOprazole SOD 40 MG TAB PO SCH (09:04)
[2017-10-25] MEDS: LISINOPRIL 10 MG TAB PO SCH (09:04)
[2017-10-25] MEDS: CHOLECALCIFEROL 1000 INTER.UNIT TAB PO SCH (09:04)
[2017-10-25] MEDS: INSULIN GLARGINE SOLOSTAR 100 UNITS/ML 3 ML PEN SC SCH ×2 (09:10→20:20)
[2017-10-25] MEDS: INSULIN ASPART 100 UNITS/ML 3 ML PEN SC SCH ×4 (09:10→20:18)
[2017-10-25] MEDS: OXYCODONE HCL IR 5 MG TAB (IMMEDIATE RELEASE) PO PRN (10:44)
[2017-10-25 11:07] LABS: URINE APPEARANCE CLEAR (CLEAR); URINE BILIRUBIN NEG (NEG); URINE COLOR YELLOW; URINE EPITHELIAL CELL AUTO 20-30 /lpf (0-5); URINE NITRITE NEG (NEG); URINE SPECIFIC GRAVITY 1.012 (1.000-1.030); UROBILINOGEN NEG (NEG); ZZURINE CULT IF INDIC CATH YES
[2017-10-25 11:11] LABS: MANUAL MICROSCOPIC REQUIRED? NO; REVIEW REQ? NO
--- NOTE | 2017-10-25 12:18 | Progress Note ---
Progress Note Date of Service Oct 25, 2017. Progress Note Patient's afebrile vital signs are stable Urine has cleared with CBI Patient has no complaints Abdomen is soft nontender Extremities show no calf pain or edema Hematocrit is stable Assessment Hematuria secondary to muscle invasive bladder cancer Hematuria has since cleared We'll discontinue CBI As long as his urine stays clear Will discontinue Puri tomorrow Patient is scheduled to start chemotherapy at [facility]
[2017-10-25 14:50] VITALS: BP 100/67; PULSE 95; TEMP 36.4; O2SAT 97
--- NOTE | 2017-10-25 18:41 | Progress Note ---
Internal Med Progress Note Date of Service: Oct 25, 2017. Provider Documentation: SUBJECTIVE: hematuria has resolved Puri draining clear yellow urine OBJECTIVE: Vital Signs-as noted below Exam: General-no sign of distress, conserving Eyes-sclera non icteric, PERRLA/EOMI ENT-normal oropharynx , Neck-no thyromegaly , trachea midline Lungs-CTA Heart-regular S1/S2 Abdomen-soft, non tender Extremities-no lower ext edema Neuro-AAO x3, no focal deficit Lab data as noted below. ASSESSMENT & PLAN: GROSS HEMATURIA resolved -In setting of invasive urothelial cancer -Follows with Dr. Brown for urology and Dr. benavides for oncology appreciate input form urology pt is treated with continuous bladder irrigation -hematuria has resolved , urine appears to be concentrated will give NSS @ 75 ml x 1 liter overnight plan is to D/c Puri tomorrow if no episode of hematuria overnight can be discharged home tomorrow Follow up with Heme onc for Chemo therapy given invasive bladder CA risk of recurrent Hematuria remains considerably high pt is asked not take Aspirin updated will be in hospital around noon time DM II: -Hgb a1c of 6.4 in Aug 2017 -SSI while in-patient -BSG checks AC HS HTN: -Continue home dose lisinopril CAD: -H/o [place] -Denies CP -Cont atorvastatin -D/c Aspirin , given bladder Ca , recurrent bleeding risk remains high pt and his updated HLD: -Cont statin DVT Ppx: SCDs -due to hematuria Code status: FULL PCP: Harley Dispo: discharge home tomorrow noon given update over the phone Vital Signs: Date Time Temp Pulse Resp B/P (MAP) Pulse Ox O2 Delivery O2 Flow Rate FiO2 10/25/17 16:00 Room Air 10/25/17 14:50 36.4 95 18 100/67 (78) 97 Room Air 10/25/17 09:00 92 123/75 (91) 10/25/17 08:15 Room Air 10/25/17 07:50 36.7 68 18 95/61 (72) 95 Room Air 10/25/17 00:15 Room Air 10/24/17 23:04 36.7 68 18 139/71 (93) 93 Room Air Lab Results: Results Past 24 Hours Test 10/24/17 20:24 10/25/17 05:48 10/25/17 07:35 10/25/17 10:42 Range/Units Bedside Glucose 142 146 70-99 mg/dl White Blood Count 11.03 4.8-10.8 K/uL Red Blood Count 4.08 4.7-6.1 M/uL Hemoglobin 12.8 14.0-18.0 g/dL Hematocrit 38.4 42-52 % Mean Corpuscular Volume 94.1 80-100 fL Mean Corpuscular Hemoglobin 31.4 25-34 pg Mean Corpuscular Hemoglobin Concent 33.3 32-36 g/dl RDW Standard Deviation 42.3 36.4-46.3 fL RDW Coefficient of Variation 12.4 11.5-14.5 % Platelet Count 226 130-400 K/uL Mean Platelet Volume 10.5 7.4-10.4 fL Urine Color YELLOW Urine Appearance CLEAR CLEAR Urine pH 5.0 4.5-7.5 Urine Specific [place] 1.012 1.000-1.030 Urine Protein NEG NEG Urine Glucose (UA) NEG NEG Urine Ketones NEG NEG Urine Occult Blood 3+ NEG Urine Nitrite NEG NEG Urine Bilirubin NEG NEG Urine Urobilinogen NEG NEG Urine Leukocyte Esterase LARGE NEG Urine WBC (Auto) >30 0-5 /hpf Urine RBC (Auto) 10-30 0-4 /hpf Urine Hyaline Casts (Auto) 1-5 0-5 /lpf Urine Epithelial Cells (Auto) 20-30 0-5 /lpf Urine Bacteria (Auto) NEG NEG Test 10/25/17 12:04 10/25/17 17:04 Range/Units Bedside Glucose 141 121 70-99 mg/dl Microbiology Results 10/25/17 Urine Culture, Received Pending
--- NOTE | 2017-10-25 18:43 | Discharge Instructions ---
Discharge Instructions Date of Service Oct 25, 2017. Admission Reason for Admission: Bladder Cancer, Gross Hematuria Discharge Discharge Diagnosis / Problem: BLADDER CANCER /HEMATURIA Discharge Goals Goal(s): Increase independence, Improve disease control, Diagnostic testing, Therapeutic intervention Activity Recommendations Activity Limitations: resume your previous activity . Instructions / Follow-Up Instructions / Follow-Up HOSPITAL FOLLOW UP WITH DR LIM IN A WEEK HEME ONC FOLLOW UP WITH DR CALLAWAY FOR CHEMO [place] FOLLOW UP WITH UROLOGY DR YBARRA IN OFFICE FOR CYSTOSCOPY AFTER COMPLETING CHEMO THERAPY PLEASE NOTIFY YOUR PHYSICIAN OR COME TO ER IF YOU NOTICE BLOOD IN URINE DO NOT TAKE ASPIRIN AVOID TAKING ANY FORM OF BLOOD THINNER -WILL CAUSE BLEEDING IN YOU URINARY BLADDER Current Hospital Diet Patient's current hospital diet: Diabetes Type 2 Diet Discharge Diet Recommended Diet: Diabetes Type 2 Diet Pending Studies Studies pending at discharge: no Laboratory Results Hemoglobin A1c Test 10/24/17 05:36 Range/Units Estimated Average Glucose 120 mg/dl Hemoglobin A1c 5.8 H 4.5-5.6 % Medical Emergencies . Who to Call and When: Medical Emergencies: If at any time you feel your situation is an emergency, please call 911 immediately. . Non-Emergent Contact Non-Emergency issues call your: Primary Care Provider . . "Provider Documentation" section prepared by Ria Auguste. . VTE Core Measure Inpt VTE Proph given/why not?: SCD's, Contraindicated
[2017-10-25] MEDS ORDERED: SODIUM CHLORIDE 0.9% 1000ML 1,000 ML IV SCH (20:00)
[2017-10-25] MEDS: ATORVASTATIN 20 MG TAB PO SCH (20:19)
[2017-10-25] MEDS: TRAZODONE HCL 50 MG TAB PO SCH (20:19)
[2017-10-25 22:46] VITALS: BP 146/71; PULSE 73; TEMP 36.6; O2SAT 92
[2017-10-26 07:21] VITALS: BP 136/82; PULSE 98; TEMP 36.3; O2SAT 94
[2017-10-26] MEDS: LISINOPRIL 10 MG TAB PO SCH (07:50)
[2017-10-26] MEDS: CHOLECALCIFEROL 1000 INTER.UNIT TAB PO SCH (07:50)
[2017-10-26] MEDS: OXYCODONE HCL IR 5 MG TAB (IMMEDIATE RELEASE) PO PRN (07:50)
[2017-10-26] MEDS: PANTOprazole SOD 40 MG TAB PO SCH (07:50)
[2017-10-26] MEDS: INSULIN GLARGINE SOLOSTAR 100 UNITS/ML 3 ML PEN SC SCH (07:53)
[2017-10-26] MEDS ORDERED: ALUMINUM/MAGNESIUM/SIMETH (MAALOX MAX) 30 ML UDC PO PRN (08:00)
[2017-10-26] MEDS: INSULIN ASPART 100 UNITS/ML 3 ML PEN SC SCH ×2 (09:00→12:51)
--- NOTE | 2017-10-26 10:56 | Progress Note ---
Progress Note Date of Service Oct 26, 2017. Progress Note Patient with high-grade muscle invasive bladder cancer admitted with gross hematuria Puri catheter has been removed Patient says he's been voiding fine urine is now clear Remains afebrile vital signs are stable Hematocrit and creatinine are stable He is scheduled to receive chemotherapy at [facility] He is stable for discharge from a urologic point of view He should follow-up in our office for cystoscopy after completion of his chemotherapy which I discussed with him
[2017-10-26 13:43] VITALS: BP 136/82; PULSE 98; TEMP 36.3; O2SAT 94
--- NOTE | 2017-10-26 16:34 | Discharge Summary ---
Discharge Summary Date of Service Oct 26, 2017. Discharge Summary Admission Date: Oct 23, 2017 at 16:27 Discharge Date: Oct 26, 2017 Discharge Disposition: Home Principal Diagnosis: BLADDER CANCER /HEMATURIA Consultations: UROLOGY DR BROWN Medication Reconciliation Continued Medications: Atorvastatin (Lipitor) 20 Mg Tab 20 MG PO HS, TAB Cholecalciferol (Vitamin D 1000 Unit) 1,000 Unit Cap 2000 INTER.UNIT PO QAM, CAP Lisinopril (Prinivil) 10 Mg Tab 10 MG PO QAM, 0 Refills Nitroglycerin (Nitrostat) 0.4 Mg Tab 0.4 MG UT PRN, 0 Refills Pantoprazole (Protonix) 40 Mg Tab 40 MG PO QAM Sitagliptin-Metformin Hcl (Janumet) 1 Tab Tab 1 TAB PO QAM 50/500 MG Trazodone Hcl (Trazodone) 50 Mg Tab 25 MG PO QPM Discontinued Medications: Aspirin (Aspirin EC Low Dose) 81 Mg Ectab 1 TAB PO DAILY Referrals At Discharge Follow up Referrals: Oncology/Hematology Referral - Please Call For Appointment with Mikhail Callaway M.D. Urologist Referral - Please Call For Appointment with Mikhail Brown MD Admission Information HPI (per Admitting provider): This is a 77yo M with PMH of newly diagnosed bladder cancer, h/o prostate cancer (treated with XRT and ADT 8 yrs ago), DM II, CAD, HTN and HLD who presents with worsening hematuria beginning this morning. Patient originally presented with hematuria and urinary discomfort a month ago and was found to have a 7cm bladder tumor. Underwent resection on 09/18 at [facility] and was found to have muscle invasive urothelial cancer. Saw a urologist in [place] to discuss treatment options but due to previous h/o XRT to pelvis, the only remaining options were cystectomy and chemo. Both the urologist and patient felt that when weighing the risks and benefits, that medical oncology management with chemo was the better route. Patient had initial appt with Dr. Velásquez and is scheduled for his pre-treatment CT scan and hearing screen this week. Plans for Gemzar and Platinol to be initiated soon. Patient states that he has experiencing hematuria intermittently since bladder resection a few weeks ago but that it was significantly worse this morning. Describes hematuria as bright red with clots and states that he has been urinating frequently all day with some leakage as well. Associated symptoms include pain with urination that radiates to L flank and lower back. Denies any fever, chills, lightheadedness, CP, palpitations, SOB. Does not take any blood thinners. Physical Exam (per Admitting): General Appearance: WD/WN, + mild distress Head: normocephalic, atraumatic Eyes: normal inspection, PERRL, sclerae normal ENT: normal ENT inspection, hearing grossly normal, pharynx normal (moist mucous membranes ) Neck: supple, no adenopathy, trachea midline Respiratory/Chest: chest non-tender, lungs clear, normal breath sounds, no respiratory distress, no accessory muscle use Cardiovascular: regular rate, rhythm, no murmur, normal peripheral pulses Abdomen/GI: non tender, soft, no organomegaly Genitourinary - Male: normal male genitalia, + pertinent finding (Puri catheter in place ) Back: normal inspection, no CVA tenderness, + pertinent finding (TTP in band distribution along lower back ) Extremities/Musculoskelatal: no calf tenderness, no pedal edema, non-tender Neurologic/Psych: no motor/sensory deficits, alert, normal mood/affect, oriented x 3 Skin: normal color, warm/dry, no rash Hospital Course feels fine , no further episode of hematuria since yesterday , Puri catheter d/ pedro luis this AM able to void clear urine no fever or chills stable to be discharged home Exam: General-no sign of distress, conserving Eyes-sclera non icteric, PERRLA/EOMI ENT-normal oropharynx , Neck-no thyromegaly , trachea midline Lungs-CTA Heart-regular S1/S2 Abdomen-soft, non tender Extremities-no lower ext edema Neuro-AAO x3, no focal deficit GROSS HEMATURIA resolved -In setting of invasive urothelial cancer -Follows with Dr. Brown for urology and Dr. benavides for oncology appreciate input form urology pt is treated with continuous bladder irrigation -hematuria has resolved , no episode of hematuria overnight Puri D/pedro luis this AM , able to void clear urine Urology evaluated the pt earlier stable to be discharged home today Follow up with Heme onc for Chemo therapy given invasive bladder CA risk of recurrent Hematuria remains considerably high pt is asked not take Aspirin pt will be followed at Urology Dr Brown's office after completion of Chemo tx for Cystoscopic eval of bladder DM II: resume out pt med at discharge HTN: -Continue home dose lisinopril CAD: -H/o [place] -Denies CP -Cont atorvastatin -D/c Aspirin , given bladder Ca , recurrent bleeding risk remains high pt and his updated HLD: -Cont statin DVT Ppx: SCDs -due to hematuria Code status: FULL PCP: Harley Dispo: discharge home today Discharge Instructions Discharge Instructions Date of Service Oct 25, 2017. Admission Reason for Admission: Bladder Cancer, Gross Hematuria Discharge Discharge Diagnosis / Problem: BLADDER CANCER /HEMATURIA Discharge Goals Goal(s): Increase independence, Improve disease control, Diagnostic testing, Therapeutic intervention Activity Recommendations Activity Limitations: resume your previous activity . Instructions / Follow-Up Instructions / Follow-Up HOSPITAL FOLLOW UP WITH DR LIM IN A WEEK HEME ONC FOLLOW UP WITH DR CALLAWAY FOR CHEMO TX FOLLOW UP WITH UROLOGY DR BROWN IN OFFICE FOR CYSTOSCOPY AFTER COMPLETING CHEMO THERAPY PLEASE NOTIFY YOUR PHYSICIAN OR COME TO ER IF YOU NOTICE BLOOD IN URINE DO NOT TAKE ASPIRIN AVOID TAKING ANY FORM OF BLOOD THINNER -WILL CAUSE BLEEDING IN YOU URINARY BLADDER Current Hospital Diet Patient's current hospital diet: Diabetes Type 2 Diet Discharge Diet Recommended Diet: Diabetes Type 2 Diet Pending Studies Studies pending at discharge: no Laboratory Results Hemoglobin A1c Test 10/24/17 05:36 Range/Units Estimated Average Glucose 120 mg/dl Hemoglobin A1c 5.8 H 4.5-5.6 % Medical Emergencies . Who to Call and When: Medical Emergencies: If at any time you feel your situation is an emergency, please call 911 immediately. . Non-Emergent Contact Non-Emergency issues call your: Primary Care Provider . . "Provider Documentation" section prepared by Ria Auguste. . VTE Core Measure Inpt VTE Proph given/why not?: SCD's, Contraindicated Additional Copies To Mikhail Brown MD, H. Jeanne M.D.
== END 2017-10-26 13:53 | disposition home or self-care (01) ==
LOC: C.EDB 12:46 → ENRESERV 15:59 → C.4E 16:27
PROVIDERS: ADMIT Hospitalist; ATTEND Hospitalist
DX: C67.9 Malignant neoplasm of bladder, unspecified (principal); R31.0 Gross hematuria; I25.10 Atherosclerotic heart disease of native coronary artery without angina pectoris; I10 Essential (primary) hypertension; E78.5 Hyperlipidemia, unspecified; E11.9 Type 2 diabetes mellitus without complications; Z79.899 Other long term (current) drug therapy; I25.2 Old myocardial infarction; Z85.46 Personal history of malignant neoplasm of prostate

== ENCOUNTER → 2017-10-31 | Outpatient (CLI) | payer OTHER ==
[~2017-10-31] MED LIST changes: +ASPI-320 PO; +CEPH500C PO; +CEPH500T PO; +CPR500 PO; +FURO20TA PO; +LCTX PO; +METR-163 PO; +PANT40TA PO; +PHEN-1043 PO; -PHEN-876 PO; -PRT/20 PO; -SERT25TA PO; +SERT50TA PO; +SITA50TA PO; -TAMS0.4C38 PO
[2017-10-31 13:23] VITALS: BP 91/58; PULSE 52; TEMP 36.3; O2SAT 95
--- NOTE | 2017-10-31 14:52 | Radiation Oncology Follow-Up ---
Radiation Oncology Follow-Up Date of Visit Oct 31, 2017. 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 Biopsy stage TIIc Androgen deprivation from 07/09/2011 until January 2014 Status post completion of external beam radiation 12/11/2011 Last Edited By: Yohana Sena on Jun 29, 2015 13:34 History of Present Illness Mr. mckeon is well known to our office from his prior treatment of prostate cancer. He had been diagnosed in 2010. He underwent hormone suppression. He had a prostate seed implant followed by external beam therapy. He tolerated this well. He has had recheck PSAs. Most recent PSA 07/17/2017 is less than 0.02. Today he completed an AUA score sheet and gave a score of 14. He completed expanded prostate cancer index composite for clinical practice and gave a score of 4 of 12 and urinary incontinence symptoms. He gave a score of 9 of 12 and urinary irritation symptoms. He gave a score of 3 of 12 and bowel symptoms. He gave a score of 10 of 12 in sexual symptoms. He gave a score of 5 of 12 and hormonal vitality symptoms. His total was 31 of 60. Interim History In August 2017 he developed lower urinary tract symptoms as well as gross hematuria. He was seen by Dr. Brown and was evaluated first with urine cytology. This was nondiagnostic. He then had an in office cystoscopy which revealed a bladder tumor. He was then brought to the emergency room for TURBT. That was performed on 09/18/2017. This revealed a poorly differentiated invasive urothelial carcinoma. This invades into the muscularis propria. There is no vascular invasion identified. Case [id number]. He is seen Dr. Madera in medical oncology. He was seen in [place] by Dr. Alexandre. He was felt due to his comorbidities he was not a candidate for cystectomy. Dr. Madera has recommended chemotherapy. He also had a second opinion with Dr. Sánchez. He was in agreement with Dr. Madera. He is now referred to our office to discuss radiation therapy. Allergies Coded Allergies: No Known Allergies (Unverified , 10/23/17) Home Medications Scheduled Atorvastatin (Lipitor), 20 MG PO HS Carvedilol (Coreg), 1 TAB PO BID Cholecalciferol (Vitamin D 1000 Unit), 2,000 INTER.UNIT PO QAM Latanoprost (Xalatan 0.005% Oph Yolanda), 1 DROPS OP HS Lisinopril (Prinivil), 10 MG PO QAM Nitroglycerin (Nitrostat), 0.4 MG UT PRN Pantoprazole (Protonix), 40 MG PO QAM Sitagliptin-Metformin Hcl (Janumet), 1 TAB PO QAM Trazodone Hcl (Trazodone), 25 MG PO QPM Scheduled PRN Oxybutynin Chloride (Ditropan), 1 TAB PO Q8 PRN for Bladder pain Oxycodone/Acetaminophen 5MG/325MG (Percocet 5MG/325MG), 1-2 TABLETS PO Q4H PRN for Pain Review of Systems Gastrointestinal: Symptoms: WNL GI Comments: 1 formed BM Q1-2 days;No fiber supplements; Oral: Symptoms: No Problems, Scant Saliva/Dry Mouth Respiratory: Symptoms: SOB With Exertion Urinary: Symptoms: Burning, Incontinence, Frequency Comments: Intermit. burning w/urination in penis;Urgency;2hrs is limit betw' n voids; Skin: Symptoms: No Problems Physical Exam Vital Signs Date Time Temp Pulse Resp B/P (MAP) Pulse Ox O2 Delivery O2 Flow Rate FiO2 10/31/17 13:23 36.3 52 20 91/58 95 Fatigue: None General Appearance: no apparent distress Eyes: normal inspection, EOMI ENT: normal ENT inspection, hearing grossly normal Respiratory/Chest: lungs clear, no respiratory distress, no accessory muscle use Cardiovascular: regular rate, rhythm, no gallop, no murmur Abdomen: non tender, soft, no organomegaly Extremities: no pedal edema Neurologic/Psychiatric: no motor/sensory deficits, alert, normal mood/affect Skin: warm/dry Pain Management Patient Reports Pain: No Pain Management Plan He denies pain therefore requires no pain management. Laboratory Laboratory Results: were reviewed, and pertinent findings noted in HPI Pathology Pathology Results: were reviewed, and pertinent findings noted below Pathology Comments [facility] SURGICAL PATHOLOGY REPORT Name MILES SIMS Case: [id number] SURGICAL PATHOLOGY REPORT Page 3 of [address] [address] Miles Torres M.D. bag sealer PATHOLOGY REPORT SURGICAL PATHOLOGY REPORT Page 1 of 2 Name MILES SIMS Age/Sex 77/M Location: [facility] MR# [id number] : 1940 Rm/Bed Physician: Mikhail Brown MD Case: [id number] Received 09/18/17 Specimen Date 09/18/17 CLINICAL HISTORY Bladder tumor. GROSS DESCRIPTION A. BLADDER The specimen is received in a container labeled as bladder tumor with patient name Miles Sims. The specimen consists of multiple irregular fragments of pink-ellington, red-carvajal and yellowish, soft to rubbery tissue, in the aggregate measuring 4 x 4 x 2.5 cm. A portion of the specimen is submitted for frozen section as AFS. Additional medical device sales representative sections are submitted for permanent sections in five cassettes as A. FROZEN SECTION DIAGNOSIS: HIGH-GRADE CARCINOMA. NO DEFINITIVE MUSCULARIS PROPRIA IN TISSUE SAMPLING. /PM B. BLADDER TUMOR The specimen is received in a container labeled as bladder tumor with patient name Miles Sims. The specimen consists of multiple irregular fragments of pink-ellington, red-carvajal and dark red, soft to rubbery tissue, in the aggregate measuring 6 x 6 x 2.5 cm. Enterprise Cloud Architect sections are submitted in five cassettes as B. SH/pw MICROSCOPIC DESCRIPTION Sections show a poorly differentiated invasive malignant neoplasm extensively involving the specimen. There is very extensive necrosis present. Muscularis propria tissue is present in the tumor and clearly invades the muscularis propria tissue. No lymph-vascular space invasion is noted. No carcinoma in situ or exophytic component is identified, though very little surface epithelium is present to evaluate. The tumor cells are strongly and fairly diffusely positive for vimentin, a nonspecific intermediate filament, and cytokeratin MARVIN, which is similar to the low molecular weight keratin CAM5.2. The tumor cells are negative for cytokeratin AE1/AE3, cytokeratin 903, cytokeratin 5/6, cytokeratin 7, and cytokeratin 20. The tumor cells are negative for P40 and P63, two markers of urothelial and squamous cell carcinomas. The tumor cells are negative for GATA3, another marker of urothelial carcinoma. Tumor cells are negative for S100 and Melan-A ruling out melanoma. The tumor cells are negative for smooth muscle actin and SMMS-1 ruling out leiomyosarcoma. They are also negative for the vascular marker CD31. Immunohistochemical stains at [facility] ([facility]) are performed for diagnostic reasons (i.e. detection of malignancy, tumor subtyping, infection identification), therapy selection (i.e. estrogen receptor) and genetic disorder evaluation (i.e. Garcia syndrome). The quantity and specific types of immunohistochemistry stains are purposely chosen in the context of the clinical history, morphologic findings and best clinical practice. Immunohistochemical stains are performed at [facility] on a C4 Imaging automated system with performance determined by the [facility] Laboratory. Some stains may be performed by other laboratories ([facility] or [facility]) with development and performance characteristics determined by that laboratory. When necessary, on- line positive controls are reviewed at that particular laboratory. These tests have not been cleared or approved for specific use by the U.S. Food and Drug Administration. The FDA has determined that such approval is not necessary. The test is used for clinical purposes. It should not be regarded as investigational or for research. This laboratory is certified under CLIA 1988 as qualified to perform high complexity testing. Immunohistochemistry performed on decalcified specimens is done with antigen retrieval which has been internally validated in the [facility] laboratory. Immunocytochemistry may be performed on alcohol fixed smears, cytospins or Thin Prep slides. Immunocytochemistry on all of these types of slides has been internally validated in the [facility] laboratory. FINAL DIAGNOSIS A. URINARY BLADDER, TRANSURETHRAL RESECTION: 1. POORLY DIFFERENTIATED INVASIVE CARCINOMA CONSISTENT WITH HIGH-GRADE UROTHELIAL CARCINOMA. SEE COMMENT. 2. TUMOR INVADES MUSCULARIS PROPRIA. 3. NO LYMPH-VASCULAR SPACE INVASION IDENTIFIED. B. URINARY BLADDER, TRANSURETHRAL RESECTION: 1. POORLY DIFFERENTIATED INVASIVE CARCINOMA CONSISTENT WITH HIGH-GRADE UROTHELIAL CARCINOMA. SEE COMMENT. 2. TUMOR INVADES MUSCULARIS PROPRIA. 3. NO LYMPH-VASCULAR SPACE INVASION IDENTIFIED. COMMENT: The tumor is extremely poorly differentiated with extensive necrosis. In some areas the tumor cells are clearly epithelioid and appear cohesive though in other areas the cells are more pleomorphic with a more single-cell appearance. In many areas there are extremely large cells with very large nuclei and prominent nucleoli. The cells generally have fairly abundant cytoplasm. No distinct spindle cell component is identified. The tumor cells are positive for cytokeratin MARVIN and vimentin and negative for numerous other markers. I considered whether this could be prostate carcinoma as the patient has a previous history of high-grade prostatic carcinoma ([id number]) but a stain for NKX3.1, a marker of prostate carcinomas, is negative. I also considered whether this could be a sarcoma or sarcomatoid carcinoma given the history of radiation therapy, the poorly differentiated nature of the tumor, and the strong staining for vimentin and absence of most cytokeratins. However given the fairly diffuse strong staining for cytokeratin MARVIN I am not able to identify a distinct sarcomatous component and therefore I would interpret this as being most likely a very poorly differentiated carcinoma that is most likely urothelial. Please see the microscopic description for a full list of immunohistochemical stains that were performed. This case was reviewed as an intradepartmental consultation with concurrence. BK/mario COPIES TO Jono Souza M.D. [address] [place] [address] Mikhail Brown MD [address] [place] [id number] Signed: <signature on file> 10/01/17 Tamir Trejo MD Imaging Imaging Studies: were reviewed, and pertinent findings noted below Imaging Comments Patient: MILES SIMS Address1: [address] [place] [address] Rec: [id number] Address2: Acct ID: [id number] [facility] Zip: [place] [address] Date: 1940 Sex: M Room/Bed: Ref Phy: Jono Souza M.D. SC: JULIO Att Phy: Lavon Strong D.O. Report #: [id number] Chiara Phy: Jono Souza M.D. Test: CX Admit Phy: Dry Mill Operator: GEOVANNA Interpreting Phy: Aleksandr Garcia MD Diagnosis: BLADDER AND PROSTATE CA Ordering Phy: TINY Strong Stephen H D.O. Service Date: 10/13/17 Admit Date: 10/13/17 MNE: [id number] CONF: DICTATED BY: Aleksandr Garcia M.D.]] CC: Jono Souza M.D., Stephen H., D.O. Endcc: [~ rep ct add3]] CHEST CT WITH CONTRAST CT DOSE: 601.47 mGycm HISTORY: C67.9 Malignant tumor of urinary bladder C61 Neoplasm of prostate TECHNIQUE: Multiaxial CT images of the chest were performed following the intravenous administration of contrast. A dose lowering technique was utilized adhering to the principles of ALARA. COMPARISON: Abdomen and pelvis CT 08/01/2011. FINDINGS: There is a 4 mm indeterminate pulmonary nodule within the right upper lobe adjacent to the right minor fissure. This is best seen on image 144. Punctate calcified granuloma within the left lung apex on image 47. No pneumothorax. The central airways are patent. Poststernotomy changes. No suspicious lytic or blastic osseous lesions. The visualized liver, spleen, adrenal glands are unremarkable. No mediastinal lymphadenopathy. Subcentimeter bilateral hilar lymph nodes do not meet CT criteria for pathologic involvement. Normal caliber thoracic aorta. The central pulmonary arteries are patent. Minimal right pleural fluid. IMPRESSION: 1. An indeterminate 4 mm pulmonary nodule within the right upper lobe. Please refer to the chart below for recommended follow-up. 2. Minimal right pleural fluid. Please refer to below summary of Fleischner criteria recommendations for follow-up of incidental CT nodules (Wyatt Calderon, Guidelines for management of small pulmonary nodules detected on CT scans: A statement from the Fleischner Society, Radiology 237: [phone].) SOLID NODULES Solitary nodule size: <6 mm * Low risk patients: no follow-up needed * high risk patients: optional CT at 12 months Solitary nodule size: 6-8 mm * Low risk patients: follow-up at 6-12 months, then consider further follow-up at 18-24 months * high risk patients: initial follow-up CT at 6-12 months and then at 18-24 months if no change Solitary nodule size: >8 mm * either low or high risk patients - consider follow-up CT at 3 months, and/or CT-PET, and/or biopsy Multiple nodules size: <6 mm * Low risk patients: no routine follow-up * high risk patients: optional CT at 12 months Multiple nodules size: 6-8 mm * Low risk patients: follow-up at 3-6 months, then consider further follow-up at 18-24 months * high risk patients: follow-up at 3-6 months, then at 18-24 months if no change Multiple nodules size: >8 mm * Low risk patients: follow-up at 3-6 months, then consider further follow-up at 18-24 months * high risk patients: follow-up at 3-6 months, then at 18-24 months if no change Note: newly detected indeterminate nodule in persons 35 years of age or older. * Low risk patients: minimal or absent history of smoking and/or other known risk factors * high risk patients: history of smoking or of other known risk factors (e.g. first degree relative with lung cancer, or exposure to asbestos, radon, uranium) * if a nodule up to 8 mm is partly solid or is ground glass further follow-up is required after 24 months to exclude possible slow growing adenocarcinoma (MITZI) SUBSOLID NODULES Solitary pure ground-glass nodule * nodule size <6 mm - no CT follow-up required * nodule size >=6 mm - follow-up CT at 6-12 months, then every 2 years until 5 years Solitary part-solid nodule * nodule size <6 mm - no CT follow-up required * nodule size >=6 mm - follow-up CT at 3-6 months. If unchanged, and solid component remains <6 mm, then annual follow-up for 5 years Multiple subsolid nodules * nodule size <6 mm - follow-up CT at 3-6 months, consider further follow-up at 2 and 4 years if stable * nodule size >=6 mm - follow-up CT at 3-6 months, subsequent management based on the most suspicious nodule(s) Electronically signed by: Aleksandr Garcia M.D. 10/13/2017 8:59 AM Dictated Date/Time: 10/13/2017 8:49 AM Date/Time of Imaging Study Study Completed: 09/03/2017 9:05 AM [facility] PACS Image Narrative EXAM CT ABDOMEN /PELVIS WITH/WITHOUT IV CONTRAST WITHOUT ORAL- 09/03/2017 9:05 am HISTORY GROSS HEMATURIA, FREQUENCY OF MICTURITION, PERSONAL HX MALIG LOLIS PROSTATE TECHNIQUE CT urogram was performed before and following the administration of IV contrast. Acquired images were also sent to an independent 3-D workstation and multiplanar/volume rendered reconstructions were performed. COMPARISON None. FINDINGS There is no nephrolithiasis or urinary tract calcification on precontrast imaging. There is a left renal cyst and too small to characterize subcentimeter hypoattenuating lesions in both kidneys. On excretion phase imaging, the entire urinary tract is well opacified and adequately distended . There is no mass, filling defect, wall thickening, or dilatation in the upper urinary tract. There is a 4.6 x 3 cm lobulated mass within the urinary bladder, compatible with neoplasm. Additional findings: Liver is unremarkable, without focal lesion. Gallbladder is unremarkable. No biliary dilatation. Spleen is unremarkable. Pancreas is unremarkable. Adrenal glands are unremarkable. GI tract is grossly unremarkable. Prostate brachytherapy seeds are present. No intra-abdominal or intrapelvic lymphadenopathy. No ascites or pneumoperitoneum. Abdominal aorta is normal in caliber with moderate calcification. Small fat containing ventral hernia. Multilevel degenerative changes in the spine. IMPRESSION Urinary bladder mass, compatible with neoplasm. Recommend cystoscopy. Authenticated By Authenticating Date Authenticating Time Reading Providers(s) VIVEK PALMA MD 09-08-2017 14:49 VIVEK PALMA MD Assessment & Plan (Attending) Mr. Sims is a 77-year-old male was diagnosed with a high-grade prostate cancer with Rudy grade 4+5 and 5+4 in June 2011. He was subsequently treated with combination therapy consisting of a course of hormonal suppression followed by prostate seed implant followed by a course of external radiation. Patient has had an excellent response with a prostate-specific antigen that is presently undetectable. Patient subsequently presented with hematuria in August 2017 and increasing bladder symptoms. A CT scan of the abdomen and pelvis with and without contrast was performed on 09/03/2017. This noted a 4.6 x 3.0 cm lobulated mass within the urinary bladder compatible with a bladder neoplasm. No intra- abdominal or intrapelvic lymphadenopathy was appreciated. The prostate seeds were again noted. Multilevel degenerative changes in the spine was appreciated. Dr. Brown performed a cystoscopy for the hematuria on 2016 and confirmed the presence of a bladder tumor. The patient therefore returned on September [address] Brown performed a TURBT. He identified a very large bladder tumor along the left lateral wall. A satellite lesion was also noted along the right trigone. The tumor was resected in its entirety and the area was fulgurated. The TUR resection specimen confirmed a poorly differentiated invasive carcinoma consistent with a high-grade urothelial carcinoma. The tumor invaded the muscularis propria. There was no lymphovascular space invasion identified. This was present in both tissue samples were excised. The tumor was felt to be extremely poorly differentiated with extensive necrosis. Given the prior diagnosis of a high-grade prostate cancer stains were performed to differentiate this from the prostatic primary. There also considered whether this could be a sarcoma or sarcomatoid carcinoma given the prior history of radiation and the poorly differentiated nature of the tumor. The staining however was consistent with a very poorly differentiated carcinoma likely urothelial. Case: [id number]. The patient was seen by Dr. Mikhail Madera for discussion of treatment options. Given the previous history of pelvic radiation he was appropriately concerned that the patient may not be a candidate for additional radiation. However he was kind enough to ask us to see the patient to review his chart and to evaluate the possibility of additional radiation. To that end we've pulled his previous radiation gonzalez. Although an aggressive treatment was delivered including prostate seed implant and pelvic dennis irradiation the patient's bladder received minimal radiation with the exception of the bladder neck and small portions of the trigone. I will didn't touch with Dr. Brown to have him better define for me exactly where this disease was. Given the description to date describes a lesion on the left lateral wall which may very well be outside of the previous radiation gonzalez. It would be best in order to make an appropriate decision to re-simulate the patient and reconstruct his prior treatment with outline of where the disease was identified on recent CAT scan and by discussion with Dr. Brown. If as anticipated the majority of the bladder is outside of the previous radiation field a decision will have to be made whether it is appropriate to proceed with additional radiation including the bladder neck. The patient is scheduled to receive systemic chemotherapy. I believe however if we can provide additional radiation in combination especially since the patient is not a surgical candidate that his outcome may be improved. I will discuss this with Dr. Madera and proceed according to the outcome of our discussion. Thank you for allowing us to participate in the care of this patient. This chart was completed in part utilizing [employer] Voice Recognition software. Attempts were made to minimize the grammatical errors, random word insertions, pronoun errors and incomplete sentences. Any formal questions or concerns about the content, text or information contained within the body of this dictation should be directly addressed to the provider for clarification. Anton Berry MD Department of Radiation Oncology VirgilioJulianna Portillo [facility] Total Time In Follow-Up I spent 20 minutes speaking to the patient performing examination. I spent 15 minutes reviewing information in completing this note. AK Total Time (Attending) In Follow-Up I spent 20 minutes in discussion of treatment options with the patient and his and 20 minutes reviewing his prior treatment records and his most recent scans, discussion with referring physicians and preparation of this document. NICOLAS Copy To Jono Souza M.D.; Mikhail Madera M.D. Problem Qualifiers (1) Bladder cancer: Bladder location: overlapping sites Qualified Codes: C67.8 - Malignant neoplasm of overlapping sites of bladder
== END | disposition home or self-care (01) ==
LOC: C.ONC 13:11
PROVIDERS: ATTEND Physician Assistant Medical
DX: C67.9 Malignant neoplasm of bladder, unspecified (principal); Z85.46 Personal history of malignant neoplasm of prostate

== ENCOUNTER → 2017-11-03 | Outpatient (CLI) | payer OTHER | END | disposition home or self-care (01) | LOC: C.ONC 08:10 | PROVIDERS: ATTEND Urology | DX: Z51.0 Encounter for antineoplastic radiation therapy (principal); C67.9 Malignant neoplasm of bladder, unspecified ==

== ENCOUNTER 2017-12-05 12:24 | Emergency (ER) | payer OTHER ==
[~2017-12-05] VITALS: Ht 157.5 cm; Wt 89.0 kg
[~2017-12-05 12:24] MED LIST changes: -ASPI-320 PO; -ASPI81TA28 PO; -CEPH500C PO; -CEPH500T PO; -CPR500 PO; -FURO20TA PO; -LCTX PO; -METR-163 PO; -PHEN-1043 PO; -SERT50TA PO; -SITA50TA PO
[2017-12-05 12:28] VITALS: TEMP 37; Ht 157.5 cm; Wt 89.0 kg
--- NOTE | 2017-12-05 13:13 | EMERGENCY ROOM VISIT NOTE ---
History First contact with patient: 12:42 Chief Complaint: INFECTION Stated Complaint: CELLULITIS L LOWER LEG Nursing Triage Summary: cellulitis of LLE History of Present Illness The patient is a 77 year old male who presents to the Emergency Room with complaints of swelling and redness to his left lower leg. The patient reports that he first noticed this last night. He had a visiting nurse come this morning and she told him she thought he had cellulitis. He called his primary care provider and they told him to come here. He reports it is slightly painful. He does have some leg swelling at baseline, but states that his left leg is more swollen than normal. He denies any history of cellulitis. He denies any recent injuries. He denies any fevers/chills. Review of Systems A complete 10 point review of systems was reviewed with the patient with pertinent positives and negatives as per history of present illness. All else were negative. Past Medical/Surgical History Medical Problems: (1) Diabetes mellitus type II, controlled (2) HLD (hyperlipidemia) (3) Hypertension (4) Prostate cancer Family History Cancer Heart disease Hypertension Social History Smoking Status: Former Smoker Marital Status: Housing Status: lives with significant other Occupation Status: retired Current/Historical Medications Scheduled Carvedilol (Coreg), 1 TAB PO BID Cephalexin Monohydrate (Keflex), 500 MG PO BID Cholecalciferol (Vitamin D 1000 Unit), 2,000 INTER.UNIT PO QAM Latanoprost (Xalatan 0.005% Oph Yolanda), 1 DROPS OP HS Lisinopril (Prinivil), 10 MG PO QAM Nitroglycerin (Nitrostat), 0.4 MG UT PRN Pantoprazole (Protonix), 40 MG PO QAM Sitagliptin-Metformin Hcl (Janumet), 1 TAB PO QAM Trazodone Hcl (Trazodone), 25 MG PO QPM Scheduled PRN Oxybutynin Chloride (Ditropan), 1 TAB PO Q8 PRN for Bladder pain Oxycodone/Acetaminophen 5MG/325MG (Percocet 5MG/325MG), 1-2 TABLETS PO Q4H PRN for Pain Physical Exam Vital Signs Date Time Temp Pulse Resp B/P (MAP) Pulse Ox O2 Delivery O2 Flow Rate FiO2 12/05/17 15:55 65 20 131/47 97 Room Air 12/05/17 14:28 67 20 133/57 96 Room Air 12/05/17 12:28 37.0 72 16 109/57 93 Physical Exam VITALS: Vitals are noted on the nurse's note and reviewed by myself. Vital signs stable. GENERAL: This is a 77-year-old male, in no acute distress, nondiaphoretic, well- developed well-nourished. EXTREMITIES: There is erythema extending from distal to the left knee to the left foot. 3+ pitting edema to the left lower extremity, 1+ pitting edema to the right lower extremity. No open wounds. NEURO: Patient was alert and oriented to person place and time. Medical Decision & Procedures ER Provider Diagnostic Interpretation: L VENOUS DOPP LOWER EXT UNILAT CLINICAL HISTORY: left leg pain, swelling, r/o DVT pain. Edema. TECHNIQUE: Venous Doppler COMPARISON STUDY: None FINDINGS: Normal evaluation of the venous structures of the left leg. Mild soft tissue edema lower calf. IMPRESSION: No evidence for acute deep venous thrombosis. Laboratory Results 12/05/17 13:05 Red Blood Count 3.10, Mean Corpuscular Volume 94.5, Mean Corpuscular Hemoglobin 31.3, Mean Corpuscular Hemoglobin Concent 33.1, Mean Platelet Volume 9.5, Neutrophils (%) (Auto) 84.3, Lymphocytes (%) (Auto) 11.5, Monocytes (%) (Auto) 3.0, Eosinophils (%) (Auto) 0.7, Basophils (%) (Auto) 0.3, Neutrophils # (Auto) 4.86, Lymphocytes # (Auto) 0.66, Monocytes # (Auto) 0.17, Eosinophils # (Auto) 0.04, Basophils # (Auto) 0.02 12/05/17 13:05 Test 12/05/17 13:05 White Blood Count 5.76 K/uL (4.8-10.8) Red Blood Count 3.10 M/uL (4.7-6.1) Hemoglobin 9.7 g/dL (14.0-18.0) Hematocrit 29.3 % (42-52) Mean Corpuscular Volume 94.5 fL (80-100) Mean Corpuscular Hemoglobin 31.3 pg (25-34) Mean Corpuscular Hemoglobin Concent 33.1 g/dl (32-36) Platelet Count 373 K/uL (130-400) Mean Platelet Volume 9.5 fL (7.4-10.4) Neutrophils (%) (Auto) 84.3 % Lymphocytes (%) (Auto) 11.5 % Monocytes (%) (Auto) 3.0 % Eosinophils (%) (Auto) 0.7 % Basophils (%) (Auto) 0.3 % Neutrophils # (Auto) 4.86 K/uL (1.4-6.5) Lymphocytes # (Auto) 0.66 K/uL (1.2-3.4) Monocytes # (Auto) 0.17 K/uL (0.11-0.59) Eosinophils # (Auto) 0.04 K/uL (0-0.5) Basophils # (Auto) 0.02 K/uL (0-0.2) RDW Standard Deviation 48.2 fL (36.4-46.3) RDW Coefficient of Variation 14.1 % (11.5-14.5) Immature Granulocyte % (Auto) 0.2 % Immature Granulocyte # (Auto) 0.01 K/uL (0.00-0.02) Anion Gap 7.0 mmol/L (3-11) Est Creatinine Clear Calc Drug Dose 36.6 ml/min Estimated GFR () 46.8 Estimated GFR (Non- 40.4 BUN/Creatinine Ratio 24.1 (10-20) Calcium Level 9.0 mg/dl (8.5-10.1) Medications Administered Medications (Trade) Dose Ordered Sig/Kailash Route Start Time Stop Time Status Last Admin Dose Admin Ceftriaxone Sodium (Rocephin Inj) 1 gm NOW STAT IV 12/05/17 15:06 12/05/17 15:08 DC 12/05/17 15:51 1 GM Medical Decision Differential diagnosis includes cellulitis, abscess, DVT, among others. The patient is a 77-year-old male who presents today complaining of left leg pain and swelling. Labs revealed no leukocytosis. Patient is anemic with hemoglobin of 9.7. Creatinine is elevated at 1.61. The patient's recent labs were obtained from the [facility] system and it does show that the patient has had a steady decline in his hemoglobin, with his most recent being 10.1 on . He has also had a gradually increasing creatinine, with his most recent at 1.5 on 12/01/17. The patient does have bladder cancer and is currently receiving chemotherapy. He does report he has had some hematuria intermittently, but nothing significant recently. I do feel that the patient's cellulitis may be treated as an outpatient with Keflex. He was given one dose of Rocephin in the ER. However, he will need very close follow-up with his primary care provider regarding these abnormal lab findings. I did discuss the case with his PCP, Dr. Souza. She will follow-up with the patient early next week. The patient was advised to return here if he has worsening cellulitis or other/concerning symptoms. The patient was independently evaluated by Dr. De Luna, ED attending physician, who agreed with my assessment and treatment plan. Based on the patient's presentation and work up, I feel the patient is stable for outpatient treatment. The patient was educated to return to the emergency department for any worsening of their current condition or new/concerning symptoms. He will follow up with his PCP. Medication Reconcilliation Current Medication List: was personally reviewed by me Blood Pressure Screening Patient's blood pressure: Normal blood pressure Impression Primary Impression: Cellulitis of left lower leg Departure Information Dispostion Home / Self-Care Condition GOOD Prescriptions Cephalexin Monohydrate (Keflex) 500 Mg Cap 500 MG PO BID for 10 Days, #20 CAP Prov: Karis Orellana ., HARMONY 12/05/17 Referrals Jono Souza M.D. (PCP) Patient Instructions My [facility] Additional Instructions You were prescribed Keflex to be taken twice daily as prescribed. This is an antibiotic. All antibiotics have the potential to cause diarrhea. Stop this medication and contact a medical provider if you were to develop any significant adverse side effects including: wheezing, shortness of breath, passing out, vomiting, or a diffuse rash. Always take antibiotics as directed and COMPLETE the ENTIRE course regardless of the improvement of your symptoms. Keep leg elevated to help reduce swelling. Return to the emergency department immediately if you have worsening redness, fevers, or any worsening or new/concerning symptoms.
[2017-12-05 13:41] LABS: BASO % 0.3 %; BASO ABS # 0.02 K/uL (0-0.2); EOS % 0.7 %; EOS ABS # 0.04 K/uL (0-0.5); HEMATOCRIT 29.3 % (42-52); HEMOGLOBIN 9.7 g/dL (14.0-18.0); IG# 0.01 K/uL (0.00-0.02); LYMPH % 11.5 %; LYMPH ABS # 0.66 K/uL (1.2-3.4); MEAN CELL VOLUME 94.5 fL (80-100); MEAN CORPUSCULAR HEMOGLOBIN 31.3 pg (25-34); MEAN CORPUSCULAR HGB CONC 33.1 g/dl (32-36); MEAN PLATELET VOLUME 9.5 fL (7.4-10.4); MONO ABS # 0.17 K/uL (0.11-0.59); NEUT % 84.3 %; NEUT ABS # 4.86 K/uL (1.4-6.5); PLATELET COUNT 373 K/uL (130-400); RED CELL DISTRIBUTION WIDTH CV 14.1 % (11.5-14.5); RED CELL DISTRIBUTION WIDTH SD 48.2 fL (36.4-46.3); WHITE BLOOD COUNT 5.76 K/uL (4.8-10.8)
[2017-12-05 14:12] LABS: CREATININE 1.61 mg/dl (0.60-1.40); POTASSIUM 4.2 mmol/L (3.5-5.1)
--- NOTE | 2017-12-05 14:54 | DIAGNOSTIC IMAGING REPORT ---
L VENOUS DOPP LOWER EXT UNILAT CLINICAL HISTORY: left leg pain, swelling, r/o DVT pain. Edema. TECHNIQUE: Venous Doppler COMPARISON STUDY: None FINDINGS: Normal evaluation of the venous structures of the left leg. Mild soft tissue edema lower calf. IMPRESSION: No evidence for acute deep venous thrombosis. The above report was generated using voice recognition software. It may contain grammatical, syntax or spelling errors. Electronically signed by: Michel Villafana M.D. 12/05/2017 2:53 PM Dictated Date/Time: 12/05/2017 2:52 PM
[2017-12-05] MEDS ORDERED: CEFTRIAXONE SOD INJ 1 GM ADDVIAL IV STA (15:06)
[2017-12-05] MEDS ORDERED: CEPH500C PO (15:12)
--- NOTE | 2017-12-05 15:30 | EMERGENCY ROOM VISIT NOTE ---
ED Visit Note First contact with patient: 14:15 This Patient was discussed with the physician User Interface Designer, Karis Orellana PA-C. The pertinent historical and physical exam findings were confirmed. I agree with the studies ordered and with the interpretations of these studies. I agree with the disposition and care plan.
[2017-12-05 15:55] VITALS: BP 131/47; PULSE 65; O2SAT 97
== END 2017-12-05 16:15 | disposition home or self-care (01) ==
LOC: C.EDB 12:27
DX: L03.116 Cellulitis of left lower limb (principal); E11.9 Type 2 diabetes mellitus without complications; E78.5 Hyperlipidemia, unspecified; I10 Essential (primary) hypertension; Z85.46 Personal history of malignant neoplasm of prostate; Z80.9 Family history of malignant neoplasm, unspecified; Z82.49 Family history of ischemic heart disease and other diseases of the circulatory system; Z87.891 Personal history of nicotine dependence; Z79.899 Other long term (current) drug therapy

== ENCOUNTER → 2018-01-12 | Outpatient (CLI) | payer OTHER ==
[~2018-01-12] MED LIST changes: -ATOR-22 PO
--- NOTE | 2018-01-12 13:17 | DIAGNOSTIC IMAGING REPORT ---
BILATERAL LOWER EXTREMITY VENOUS DOPPLER CLINICAL HISTORY: REDNESS/SWELLING BOTH LEGS, R/O DVT COMPARISON STUDY: Left lower extremity venous Doppler December 05, 2017. TECHNIQUE: Sonography of the deep venous system of the bilateral lower extremities was performed. Compression and augmentation were evaluated. FINDINGS: The bilateral common femoral, superficial femoral and popliteal veins were compressible. Augmentation was normal. Flow was shown within the deep calf vessels. Lower extremity edema was noted. IMPRESSION: No evidence of deep venous thrombus within the bilateral lower extremities. Electronically signed by: Trent Gr M.D. 01/12/2018 1:15 PM Dictated Date/Time: 01/12/2018 1:14 PM
== END | disposition home or self-care (01) ==
LOC: C.ULTR 12:33
PROVIDERS: ATTEND Urology
DX: C67.9 Malignant neoplasm of bladder, unspecified (principal); M79.89 Other specified soft tissue disorders

== ENCOUNTER 2018-01-22 04:30 | Inpatient (IN) | payer OTHER ==
[2018-01-22] VITALS (7 sets, daily range): BP systolic 130–159; BP diastolic 64–67; PULSE 77–102; TEMP 36.5–38.2; O2SAT 90–98; BMI 36.2
[~2018-01-22] VITALS: Ht 157.5 cm; Wt 84.5 kg
[2018-01-22] MEDS ORDERED: SODIUM CHLORIDE 0.9% 1000ML 1,000 ML IV STA (04:42)
[2018-01-22] MEDS ORDERED: FENTANYL CITRATE INJ 50 MCG/1 ML 2 ML VIAL IV STA ×2 (04:42→06:04)
--- NOTE | 2018-01-22 04:50 | EMERGENCY ROOM VISIT NOTE ---
History Report prepared by Lana: Carissa Zaman Under the Supervision of: Dr. Cb Almaraz M.D. First contact with patient: 04:37 Chief Complaint: FALL Stated Complaint: FALL/LEG PAIN History of Present Illness The patient is a 78 year old male who presents to the Emergency Room with complaints of a resolved trauma secondary to a fall that occurred prior to arrival. He states that he fell of the toilet, noting he was unable to stand up. The patient states that he landed on his buttocks, but is currently experiencing right leg pain. He denies any fevers, but reports that he has been feeling very weak and tired lately. The patient denies a history of having an irregular heart beat. Source of History: patient Onset: prior to arrival Position: other (global) Quality: other (trauma secondary to fall) Timing: resolved Associated Symptoms: + weakness (weak), No fevers Note: Associated symptoms include: feeling tired and right leg pain Review of Systems See HPI for pertinent positives & negatives. A total of 10 systems reviewed and were otherwise negative. Past Medical & Surgical Medical Problems: (1) Diabetes mellitus type II, controlled (2) HLD (hyperlipidemia) (3) Hypertension (4) Prostate cancer (5) Respiratory failure Family History Cancer Heart disease Hypertension Social History Smoking Status: Former Smoker Marital Status: Housing Status: lives with significant other Occupation Status: retired Current/Historical Medications Scheduled Carvedilol (Coreg), 1 TAB PO BID Cholecalciferol (Vitamin D 1000 Unit), 2,000 INTER.UNIT PO QAM Latanoprost (Xalatan 0.005% Oph Yolanda), 1 DROPS OP HS Lisinopril (Prinivil), 10 MG PO QAM Nitroglycerin (Nitrostat), 0.4 MG UT PRN Pantoprazole (Protonix), 40 MG PO QAM Sitagliptin-Metformin Hcl (Janumet), 1 TAB PO QAM Trazodone Hcl (Trazodone), 25 MG PO QPM Scheduled PRN Oxybutynin Chloride (Ditropan), 1 TAB PO Q8 PRN for Bladder pain Oxycodone/Acetaminophen 5MG/325MG (Percocet 5MG/325MG), 1-2 TABLETS PO Q4H PRN for Pain Allergies Coded Allergies: No Known Allergies (Unverified , 01/22/18) Physical Exam Vital Signs Date Time Temp Pulse Resp B/P (MAP) Pulse Ox O2 Delivery O2 Flow Rate FiO2 01/22/18 05:06 39.6 85 24 127/60 94 Nasal Cannula 2.0 01/22/18 04:50 88 Room Air 01/22/18 04:50 Nasal Cannula 2.0 01/22/18 04:41 104 01/22/18 04:32 37.6 112 24 144/69 91 Room Air Physical Exam GENERAL: Patient is unwell appearing, in mild distress, and uncomfortable. HEENT: No acute trauma, normocephalic atraumatic, mucous membranes are dry with cracked lips, no nasal congestion, no scleral icterus. NECK: No stridor, no adenopathy, no meningismus, trachea is midline. LUNGS: Mild junky cough with crackles in bilateral bases. HEART: Tachycardic rate. No murmurs, rubs, gallops appreciated. ABDOMEN: Soft, nontender, bowel sounds positive, no masses appreciated, no peritonitis. BACK: No midline tenderness, no CVA tenderness EXTREMITIES: Moderate pain with range of motion of right hip and tenderness with palpation. Moderate pedal edema bilaterally in lower legs. NEUROLOGIC: Alert and oriented, no acute motor or sensory deficits, no focal weakness, cranial nerves grossly intact. SKIN: Poor skin turgor. No rash, no jaundice, no diaphoresis. Medical Decision & Procedures ER Provider Diagnostic Interpretation: X ray results are stated below per my interpretation: Chest x-ray: 1 view: Chronic lung disease. No obvious pneumonia nor effusion appreciated. Right femur x-ray: 4 view: Orthotic changes. No fracture or dislocation appreciated. Pelvis x-ray: 1 view: Surgical clips over bladder. Laboratory Results 01/22/18 05:08 Red Blood Count 2.65, Mean Corpuscular Volume 98.1, Mean Corpuscular Hemoglobin 33.2, Mean Corpuscular Hemoglobin Concent 33.8, Mean Platelet Volume 9.4, Neutrophils (%) (Auto) 93.2, Lymphocytes (%) (Auto) 4.8, Monocytes (%) (Auto) 1.8, Eosinophils (%) (Auto) 0.0, Basophils (%) (Auto) 0.1, Neutrophils # (Auto) 6.80, Lymphocytes # (Auto) 0.35, Monocytes # (Auto) 0.13, Eosinophils # (Auto) 0.00, Basophils # (Auto) 0.01 01/22/18 05:08 Test 01/22/18 04:59 01/22/18 05:00 01/22/18 05:08 01/22/18 06:22 Bedside Lactic Acid Venous 1.28 mmol/L (0.90-1.70) Urine Color DK YELLOW Urine Appearance TURBID (CLEAR) Urine pH 5.5 (4.5-7.5) Urine Specific [place] 1.016 (1.000-1.030) Urine Protein 2+ (NEG) Urine Glucose (UA) NEG (NEG) Urine Ketones NEG (NEG) Urine Occult Blood 3+ (NEG) Urine Nitrite POS (NEG) Urine Bilirubin NEG (NEG) Urine Urobilinogen NEG (NEG) Urine Leukocyte Esterase LARGE (NEG) Urine WBC (Auto) >30 /hpf (0-5) Urine RBC (Auto) >30 /hpf (0-4) Urine Hyaline Casts (Auto) 1-5 /lpf (0-5) Urine Epithelial Cells (Auto) 0-5 /lpf (0-5) Urine Bacteria (Auto) 4+ (NEG) Urine Yeast (Auto) (NONE PRSENT) White Blood Count 7.30 K/uL (4.8-10.8) Red Blood Count 2.65 M/uL (4.7-6.1) Hemoglobin 8.8 g/dL (14.0-18.0) Hematocrit 26.0 % (42-52) Mean Corpuscular Volume 98.1 fL (80-100) Mean Corpuscular Hemoglobin 33.2 pg (25-34) Mean Corpuscular Hemoglobin Concent 33.8 g/dl (32-36) Platelet Count 154 K/uL (130-400) Mean Platelet Volume 9.4 fL (7.4-10.4) Neutrophils (%) (Auto) 93.2 % Lymphocytes (%) (Auto) 4.8 % Monocytes (%) (Auto) 1.8 % Eosinophils (%) (Auto) 0.0 % Basophils (%) (Auto) 0.1 % Neutrophils # (Auto) 6.80 K/uL (1.4-6.5) Lymphocytes # (Auto) 0.35 K/uL (1.2-3.4) Monocytes # (Auto) 0.13 K/uL (0.11-0.59) Eosinophils # (Auto) 0.00 K/uL (0-0.5) Basophils # (Auto) 0.01 K/uL (0-0.2) RDW Standard Deviation 58.8 fL (36.4-46.3) RDW Coefficient of Variation 16.5 % (11.5-14.5) Immature Granulocyte % (Auto) 0.1 % Immature Granulocyte # (Auto) 0.01 K/uL (0.00-0.02) Red Blood Cell Morphology Unremarkable Prothrombin Time 12.0 SECONDS (9.0-12.0) Prothromb Time International Ratio 1.1 (0.9-1.1) Anion Gap 9.0 mmol/L (3-11) Est Creatinine Clear Calc Drug Dose 40.4 ml/min Estimated GFR () 53.2 Estimated GFR (Non- 45.9 BUN/Creatinine Ratio 19.5 (10-20) Calcium Level 8.5 mg/dl (8.5-10.1) Magnesium Level 1.5 mg/dl (1.8-2.4) Total Bilirubin 0.6 mg/dl (0.2-1) Direct Bilirubin 0.3 mg/dl (0-0.2) Aspartate Amino Transf (AST/SGOT) 82 U/L (15-37) Alanine Aminotransferase (ALT/SGPT) 66 U/L (12-78) Alkaline Phosphatase 77 U/L (45-117) Total Creatine Kinase 58 U/L (39-308) Creatine Kinase MB 0.7 ng/ml (0.5-3.6) Creatine Kinase MB Ratio 1.2 (0-3.0) Troponin I < 0.015 ng/ml (0-0.045) Total Protein 6.3 gm/dl (6.4-8.2) Albumin 2.3 gm/dl (3.4-5.0) Laboratory results as reviewed by me. Medications Administered Medications (Trade) Dose Ordered Sig/Kailash Route Start Time Stop Time Status Last Admin Dose Admin Fentanyl Citrate (Fentanyl Inj) 25 mcg NOW STAT IV 01/22/18 04:42 01/22/18 04:44 DC 01/22/18 04:55 25 MCG Sodium Chloride 1,000 ml @ 999 mls/hr Q1H1M STAT IV 01/22/18 04:42 01/22/18 05:42 DC 01/22/18 04:55 999 MLS/HR Acetaminophen (Tylenol Tab) 1,000 mg NOW STAT PO 01/22/18 05:04 01/22/18 05:05 DC 01/22/18 05:13 1,000 MG Vancomycin HCl 1750 mg/Sodium Chloride 535 ml @ 200 mls/hr ONE STAT IV 01/22/18 05:21 01/22/18 08:01 01/22/18 06:19 200 MLS/HR Piperacillin Sod/ Tazobactam Sod (Zosyn Iv) 4.5 gm NOW STAT IV 01/22/18 05:21 01/22/18 05:23 DC 01/22/18 05:37 4.5 GM Sodium Chloride 1,000 ml @ 100 mls/hr Q10H ONCE IV 01/22/18 06:00 01/22/18 15:59 01/22/18 06:17 100 MLS/HR Fentanyl Citrate (Fentanyl Inj) 25 mcg NOW STAT IV 01/22/18 06:04 01/22/18 06:05 DC 01/22/18 06:18 25 MCG ECG Per My Interpretation Indication: weakness Rate (beats per minute): 108 Rhythm: sinus tachycardia Findings: no acute ischemic change, no ectopy, other (Periodically drop beats) ED Course 0438: The patient was evaluated in room B9. A complete history and physical exam was performed. 0507: I reevaluated the patient. He has a fever of 103 degrees Fahrenheit. 0540: Discussed the patient's case with Topher Diana. He will evaluate the patient for further treatment. Medical Decision Differential: Sepsis, Infectious (UTI/Pneumonia/Meningitis/etc), Metabolic/ Electrolyte Abnormality, Cardiac, Dehydration, Anemia, Hepatic, Endocrine, Toxicologic, Neurologic, amongst other pathologies entertained. 78 yr old male arrives following falling off toilet due to weakness. Notes several days feeling weak to point where unable to stand up after falling on buttocks this morning. Right hip pain but no clear evidence fracture at this time. He is febrile, tachycardic and mildly hypoxic. Sepsis order-set started and given 1 L NSS given clearly dehydrated. Not hypotensive nor lactic acidosis but with clear dehydration by exam and tach felt 1 L NSS reasonable. Hold on full 30ml/kg NSS bolus as he already has some evidence of congestive history by leg swelling. HgB noted to be a bit on low side trending down but without hypotension will hold off on transfusion at this point. Given empiric Zosyn/Vanco given just on abx last month for cellulitis and now I suspect he has UTI. Is complaining of some bladder pain but no further issues with hip pain. No headache, neck pain, nor head/neck injury thus will hold on CT imaging at this time. Medication Reconcilliation Current Medication List: was personally reviewed by me Blood Pressure Screening Patient's blood pressure: Normal blood pressure Blood pressure disposition: Did not require urgent referral Consults Time Called: 0540 Consulting Physician: Topher Diana Returned Call: [phone]: Discussed the patient's case with Topher Diana. He will evaluate the patient for further treatment. Impression Primary Impression: Sepsis Additional Impressions: UTI (urinary tract infection) Fall Scribe Attestation The scribe's documentation has been prepared under my direction and personally reviewed by me in its entirety. I confirm that the note above accurately reflects all work, treatment, procedures, and medical decision making performed by me. Departure Information Dispostion Being Evaluated By Hospitalist Referrals Jono Souza M.D. (PCP) Forms HOME CARE DOCUMENTATION FORM, IMPORTANT VISIT INFORMATION Patient Instructions My [facility] Problem Qualifiers
[2018-01-22] MEDS ORDERED: ACETAMINOPHEN 500 MG TAB PO STA (05:04)
[2018-01-22 05:19] LABS: BASO % 0.1 %; BASO ABS # 0.01 K/uL (0-0.2); HEMOGLOBIN 8.8 g/dL (14.0-18.0); IG# 0.01 K/uL (0.00-0.02); LYMPH % 4.8 %; LYMPH ABS # 0.35 K/uL (1.2-3.4); MEAN CELL VOLUME 98.1 fL (80-100); MEAN CORPUSCULAR HEMOGLOBIN 33.2 pg (25-34); MEAN CORPUSCULAR HGB CONC 33.8 g/dl (32-36); MEAN PLATELET VOLUME 9.4 fL (7.4-10.4); MONO % 1.8 %; MONO ABS # 0.13 K/uL (0.11-0.59); NEUT % 93.2 %; PLATELET COUNT 154 K/uL (130-400); RED CELL DISTRIBUTION WIDTH CV 16.5 % (11.5-14.5); RED CELL DISTRIBUTION WIDTH SD 58.8 fL (36.4-46.3)
[2018-01-22] MEDS ORDERED: PIPERACILLIN/TAZOBACTAM 4.5 GM/100ML D5W IV STA (05:21)
[2018-01-22] MEDS ORDERED: VANCOMYCIN IV 1,750 MG in SODIUM CHLORIDE 0.9% 500ML 500 ML IV STA (05:21)
[2018-01-22 05:28] LABS: INR 1.1 (0.9-1.1)
[2018-01-22] MEDS ORDERED: VANCOMYCIN CONSULT ACTIVE PRN (05:30)
[2018-01-22 05:38] LABS: ALBUMIN 2.3 gm/dl (3.4-5.0); ALT/SGPT 66 U/L (12-78); AST/SGOT 82 U/L (15-37); BLOOD UREA NITROGEN 28 mg/dl (7-18); CALCIUM 8.5 mg/dl (8.5-10.1); CARBON DIOXIDE 24 mmol/L (21-32); CREATININE 1.44 mg/dl (0.60-1.40); GLUCOSE 185 mg/dl (70-99); POTASSIUM 4.4 mmol/L (3.5-5.1); SODIUM 134 mmol/L (136-145)
[2018-01-22 05:43] LABS: ALKALINE PHOSPHATASE 77 U/L (45-117); CKMB 0.7 ng/ml (0.5-3.6); TOTAL PROTEIN 6.3 gm/dl (6.4-8.2)
[2018-01-22] MEDS ORDERED: SODIUM CHLORIDE 0.9% 1000ML 1,000 ML IV ONE (06:00)
--- NOTE | 2018-01-22 06:33 | DIAGNOSTIC IMAGING REPORT ---
PELVIS 1 OR 2 VIEW ROUTINE CLINICAL HISTORY: Right hip pain following fall. COMPARISON STUDY: CT of the abdomen and pelvis September 03, 2017. FINDINGS: There are brachytherapy seeds within the prostate gland. No fracture within the pelvis or hips is identified. There is mild osteoarthritis of both hips. The sacroiliac joints are intact. There is moderate vascular calcification. IMPRESSION: No acute fracture within the pelvis or hips. Electronically signed by: Trent Gr M.D. 01/22/2018 6:32 AM Dictated Date/Time: 01/22/2018 6:29 AM
--- NOTE | 2018-01-22 06:34 | DIAGNOSTIC IMAGING REPORT ---
R FEMUR 2 VIEWS ROUTINE CLINICAL HISTORY: fall right hip pain COMPARISON: CT of the abdomen and pelvis September 03, 2017. FINDINGS: There are brachytherapy seeds within the prostate. Alignment of the right hip and the right knee is anatomic. There is no acute fracture within the right femur. There is no right knee joint effusion. There is moderate vascular calcification. IMPRESSION: No acute fracture within the right femur. Electronically signed by: Trent Gr M.D. 01/22/2018 6:33 AM Dictated Date/Time: 01/22/2018 6:32 AM
--- NOTE | 2018-01-22 06:37 | DIAGNOSTIC IMAGING REPORT ---
CHEST ONE VIEW PORTABLE CLINICAL HISTORY: Fever. COMPARISON STUDY: Chest radiograph September 10, [address] October 13, 2017. FINDINGS: There are median sternotomy wires and clips from bypass grafting. No pneumothorax or pleural effusion is noted. There is no evidence for pulmonary edema. There is mild to moderate cardiomegaly. Increased bibasal markings likely reflect atelectasis. There is pulmonary vascular congestion. IMPRESSION: 1. Pulmonary vascular congestion without overt edema. 2. Increased bibasilar markings which favor atelectasis. Electronically signed by: Trent Gr M.D. 01/22/2018 6:35 AM Dictated Date/Time: 01/22/2018 6:33 AM
[2018-01-22] MEDS ORDERED: NITROGLYCERIN 0.4 MG SL PER TAB CHARGE SL PRN (06:45)
[2018-01-22] MEDS ORDERED: PROCHLORPERAZINE INJ 5 MG in SYRINGE 4 ML IV PRN (06:45)
[2018-01-22] MEDS ORDERED: GLUCOSE 10 TABS/TUBE PO PRN (06:45)
[2018-01-22] MEDS ORDERED: DEXTROSE 50% 50 ML SYR IV PRN (06:45)
[2018-01-22] MEDS ORDERED: GLUCOSE 40% GEL 15 GM TUBE PO PRN (06:45)
[2018-01-22] MEDS ORDERED: GLUCAGON FOR INJ 1 MG VIAL SQ PRN (06:45)
[2018-01-22] MEDS ORDERED: OPTIRAY 320 IV PRN (06:45)
[2018-01-22] MEDS ORDERED: PIPERACILL/TAZOBAC CONSULT ACTIVE PRN (07:00)
--- NOTE | 2018-01-22 07:06 | DIAGNOSTIC IMAGING REPORT ---
(CHEST FOR PE) ANGIO WITH CT DOSE: 527.59 mGy.cm HISTORY: Chest pain trauma. Dyspnea. TECHNIQUE: Multiaxial CT images of the chest were performed following the intravenous administration of contrast to evaluate the pulmonary arteries. Maximal intensity projection images were also obtained. A dose lowering technique was utilized adhering to the principles of ALARA. COMPARISON STUDY: 10/13/2017 FINDINGS: There is a normal caliber thoracic aorta with no evidence for dissection. There is no evidence for pulmonary embolus. No pleural effusions. No pneumothorax. The liver and spleen are unremarkable. No mediastinal or hilar lymphadenopathy. The central airways are patent. The lungs are clear. Moderate prominence of pulmonary vasculature. Trace pleural fluid both lung bases. Mild cardiomegaly compared to the prior exam. Several stable mediastinal and/or hilar nodes. 4 mm nodular density within the right upper lobe is unchanged. A potential 6 mm interval nodule peripheral aspect right midlung image 57 all this most likely represents a round atelectasis. IMPRESSION: No evidence for pulmonary embolus. Findings suggesting mild congestive failure. Unchanging minimal mediastinal/hilar adenopathy and pulmonary nodularity. 6 mm focus peripheral aspect right midlung suggestive of round atelectasis versus the unlikely possibility of an interval nodule at that site. A [address] follow-up is suggested. The above report was generated using voice recognition software. It may contain grammatical, syntax or spelling errors. Electronically signed by: Michel Villafana M.D. 01/22/2018 7:05 AM Dictated Date/Time: 01/22/2018 6:58 AM
[2018-01-22] MEDS ORDERED: CARVEDILOL 12.5 MG TAB ONE (07:12)
[2018-01-22] MEDS ORDERED: MAGNESIUM SULFATE 1GM / D5W 1 GM BAG ONE (07:12)
[2018-01-22] MEDS ORDERED: PHENAZOPYRIDINE HCL 200 MG TAB PO ONE (07:13)
[2018-01-22] MEDS ORDERED: PANTOprazole SOD 40 MG TAB ONE (07:13)
[2018-01-22] MEDS ORDERED: LEVALBUTEROL/IPRATROPIUM NEB INH STA (07:18)
[2018-01-22] MEDS ORDERED: ASPIRIN 81 MG ECTAB PO ONE (07:29)
[2018-01-22] MEDS ORDERED: LEVALBUTEROL 1.25MG/0.5ML NEB INH PRN (07:30)
[2018-01-22] MEDS ORDERED: PHENAZOPYRIDINE HCL 100 MG TAB PO ONE (07:30)
[2018-01-22] MEDS ORDERED: CARVEDILOL 6.25 MG TAB PO ONE (07:30)
[2018-01-22] MEDS ORDERED: INSULIN ASPART 100 UNITS/ML 3 ML PEN SC ONE (07:30)
[2018-01-22] MEDS ORDERED: IPRATROPIUM BROMIDE NEB SOLN 0.02% 2.5 ML VIAL INH PRN (07:30)
[2018-01-22] MEDS ORDERED: LEVALBUTEROL/IPRATROPIUM NEB INH PRN (07:30)
[2018-01-22] MEDS: ASPIRIN 81 MG ECTAB PO SCH (07:31)
[2018-01-22] MEDS: PANTOprazole SOD 40 MG TAB PO SCH (07:34)
[2018-01-22] MEDS: MAGNESIUM SULFATE 1GM / D5W 1 GM in PREMIXED IN D5W 100 ML IV SCH ×2 (07:34→12:31)
[2018-01-22] MEDS: HYDROmorphone INJ 0.5 MG/0.5 ML SYR IV PRN ×3 (07:40→14:16)
[2018-01-22] MEDS ORDERED: IPRATROPIUM BROMIDE NEB SOLN 0.02% 2.5 ML VIAL INH ONE (07:45)
[2018-01-22] MEDS ORDERED: ALBUMIN HUMAN 25% 12.5 GM/50 ML VIAL IV ONE (07:45)
[2018-01-22] MEDS ORDERED: LEVALBUTEROL 1.25MG/0.5ML NEB INH ONE (07:45)
--- NOTE | 2018-01-22 08:03 | HISTORY & PHYSICAL EXAMINATION ---
DATE OF ADMISSION: 01/22/2018 PRIMARY CARE DOCTOR: Dr. Souza CHIEF COMPLAINT: Weakness, bladder pain, fall. HISTORY OF PRESENT ILLNESS: History obtained from the patient and records. Medical history is significant for CAD sp CABG, CVA, hypertension, hyperlipidemia, past tobacco abuse, metastatic prostate cancer with lung mets status post radiation, ongoing chemotherapy, chronic anemia (baseline hemoglobin of 8-10 since 11/2017), DM2, on oral meds, chronic renal insufficiency (baseline creatinine 1.3 to 1.5 as per records), indwelling Puri catheter. Recent confinement 09/2017 for bladder cancer and hematuria. Last few days, the patient noted burning bladder discomfort. Nickel sized clots. The patient started on oxybutynin for bladder spasm by urologist office. No chest pain, no shortness of breath. No cough symptoms. Patient had fever and chills. Patient feeling weak, fell off the commode yesterday, complaining of some R achy hip pain, usual bilateral leg swelling. Patient brought to Emergency Room. Received Vanco and Zosyn for sepsis. MEDICAL HISTORY: As above. SURGERIES: He has had CABG, abdominal surgeries, urologic procedures. HOME MEDICATIONS: Percocet, Protonix, Janumet, trazodone, carvedilol, vitamin D, Xalatan, lisinopril, Nitrostat, Ditropan. ASA ALLERGIES: No known drug allergies. FAMILY HISTORY: Hypertension. PERSONAL AND SOCIAL HISTORY: Past tobacco abuse. No chronic intake of alcoholic beverages. Retired [employer] employee. REVIEW OF SYSTEMS: As per HPI, all 10 systems reviewed, all other ROS negative. PHYSICAL EXAMINATION: VITAL SIGNS: Blood pressure noted to be 144/90, pulse rate 112, RR 24, temperature 36.6, sats 88 on room air, later 94 on 2 liters. GENERAL: Noted to be uncomfortable, obese, no respiratory distress. SKIN: Pallor, warm. HEENT: Alopecia. Pale palpebral conjunctivae. No ptosis. Dry mucosa. NECK: Short neck, supple. CHEST: Decreased breath sounds. No tenderness. Healed incisional sternal scar. ABDOMEN: Some distention, nontender. HEART: Tachycardic. No murmur. EXTREMITIES: Bilateral lower extremity edema (chronic). No tenderness in his legs. Some LE scaling. NEUROLOGIC: Coherent. No gross focality except for mild hearing impairment. LABORATORY DATA: Hemoglobin 8.8, hematocrit 26, white cell count 7.3, platelets 154. Sodium noted to be 139, potassium 3.6, chloride 101, CO2 of 24, BUN 28, creatinine 1.40, glucose 185. Hemoglobin A1c from 10/2017 was 5.8. ABG: pH 7. 47, pCO2 of 34, pO2 of 76, sats 92 on 4 liters. Chest x-ray as per my interpretation, minimal congestion. Right femur x-ray, no fracture. Pelvic x-ray, no acute fracture. EKG as per my interpretation, rate 105, sinus tachycardia, no ischemia. UA, nitrite positive urine. ASSESSMENT: 1. Sepsis in an immunocompromised patient secondary to complicated urinary tract infection, history of indwelling Puri catheter. Prostate cancer w lung metastasis status post radiation therapy, hormonal tx, ongoing chemotherapy 2. Hypoxemic respiratory failure secondary to mild pulmonary congestion rule out pulmonary embolism. 3. Bilateral LE swelling ro deep venous thrombosis. 4. Coronary artery disease, status post coronary artery bypass grafting. 5. DM2 on oral meds, well controlled as of recent inpatient hemoglobin A1c from last year. 6. Chronic renal insufficiency. Creatinine at baseline. 7. Subacute anemia multifactorial : Intermittent hematuria, chemotherapy. 8. Past tobacco abuse. PLAN: PCU CS, [place] CT chest, PE study. Lower extremity Dopplers ro dvt ISS BG goal 140-180. DVT prophylaxis, Heparin subcu. Full code. MTDD
[2018-01-22 12:23] LABS: HEMATOCRIT 24.4 % (42-52); HEMOGLOBIN 7.8 g/dL (14.0-18.0)
[2018-01-22] MEDS: INSULIN ASPART 100 UNITS/ML 3 ML PEN SC SCH ×3 (12:31→20:50)
[2018-01-22] MEDS: PIPERACILL/TAZOBAC IV 4.5 GM in DEXTROSE 5% 100ML IV SCH ×2 (13:22→20:40)
[2018-01-22] MEDS ORDERED: HEPARIN SOD 5000 UNIT/0.5 ML CARP SQ SCH (14:00)
--- NOTE | 2018-01-22 14:46 | DIAGNOSTIC IMAGING REPORT ---
RIGHT LOWER EXTREMITY VENOUS DOPPLER CLINICAL HISTORY: Leg swelling. COMPARISON STUDY: No previous studies for comparison. TECHNIQUE: Sonography of the right lower external was performed. The patient deferred imaging of the left lower extremity. FINDINGS: The right common femoral, superficial femoral and popliteal veins were compressible. Augmentation was normal. Flow was shown within the deep calf vessels. Right lower extremity subcutaneous edema was noted. IMPRESSION: 1. No evidence of deep venous thrombus within the right lower extremity. 2. Patient deferred sonography of the left lower extremity. Electronically signed by: Trent Gr M.D. 01/22/2018 2:45 PM Dictated Date/Time: 01/22/2018 2:44 PM
[2018-01-22] MEDS: PHENAZOPYRIDINE HCL 100 MG TAB PO PRN (14:58)
[2018-01-22] MEDS ORDERED: INFLUENZA ADMINISTRATION CHARGE ONE (16:45)
[2018-01-22] MEDS ORDERED: INFLUENZA VACCINE HIGH DOSE 65+ 0.5 ML SYR IM. ONE (16:45)
[2018-01-22] MEDS: OXYCODONE/ACETAMINOPHEN 5-325 TAB PO PRN (18:14)
--- NOTE | 2018-01-22 20:27 | Progress Note ---
Medicine Progress Note Date & Time of Visit: Jan 22, 2018 at 19:59. Subjective Pt was seen and examined Lying in bed with no distress He said that he feels better today He has no more hematuria He said that his strength feels better he denies any chest pain, palpitation, dizziness and SOB Objective Last 8 Hrs Date Time Temp Pulse Resp B/P (MAP) Pulse Ox O2 Delivery O2 Flow Rate FiO2 01/22/18 19:11 38.2 100 20 131/67 (88) 93 Nasal Cannula 4.0 01/22/18 16:00 98 Nasal Cannula 4.0 01/22/18 15:20 36.8 102 24 159/67 (97) 91 Nasal Cannula 4.0 01/22/18 12:30 36.5 77 24 130/64 (86) 98 Nasal Cannula 4.0 01/22/18 12:10 78 28 108/60 96 01/22/18 12:00 96 Nasal Cannula 4.0 Physical Exam: General- No acute distress Head- atraumatic Eyes- PERRL, EOMI ENT- oropharynx clear Neck- supple, no JVD Lungs- No wheezing Heart- No murmur Abdomen- normal bowel sounds, soft Extremities- no calf tenderness Neuro- alert, oriented x 3; PERRL Skin- warm & dry Laboratory Results: Last 24 Hours Test 01/22/18 04:59 01/22/18 05:00 01/22/18 05:08 01/22/18 06:22 Bedside Lactic Acid Venous 1.28 mmol/L Urine Color DK YELLOW Urine Appearance TURBID Urine pH 5.5 Urine Specific [place] 1.016 Urine Protein 2+ Urine Glucose (UA) NEG Urine Ketones NEG Urine Occult Blood 3+ Urine Nitrite POS Urine Bilirubin NEG Urine Urobilinogen NEG Urine Leukocyte Esterase LARGE Urine WBC (Auto) >30 /hpf Urine RBC (Auto) >30 /hpf Urine Hyaline Casts (Auto) 1-5 /lpf Urine Epithelial Cells (Auto) 0-5 /lpf Urine Bacteria (Auto) 4+ Urine Yeast (Auto) White Blood Count 7.30 K/uL Red Blood Count 2.65 M/uL Hemoglobin 8.8 g/dL Hematocrit 26.0 % Mean Corpuscular Volume 98.1 fL Mean Corpuscular Hemoglobin 33.2 pg Mean Corpuscular Hemoglobin Concent 33.8 g/dl Platelet Count 154 K/uL Mean Platelet Volume 9.4 fL Neutrophils (%) (Auto) 93.2 % Lymphocytes (%) (Auto) 4.8 % Monocytes (%) (Auto) 1.8 % Eosinophils (%) (Auto) 0.0 % Basophils (%) (Auto) 0.1 % Neutrophils # (Auto) 6.80 K/uL Lymphocytes # (Auto) 0.35 K/uL Monocytes # (Auto) 0.13 K/uL Eosinophils # (Auto) 0.00 K/uL Basophils # (Auto) 0.01 K/uL RDW Standard Deviation 58.8 fL RDW Coefficient of Variation 16.5 % Immature Granulocyte % (Auto) 0.1 % Immature Granulocyte # (Auto) 0.01 K/uL Red Blood Cell Morphology Unremarkable Prothrombin Time 12.0 SECONDS Prothromb Time International Ratio 1.1 Sodium Level 134 mmol/L Potassium Level 4.4 mmol/L Chloride Level 101 mmol/L Carbon Dioxide Level 24 mmol/L Anion Gap 9.0 mmol/L Blood Urea Nitrogen 28 mg/dl Creatinine 1.44 mg/dl Est Creatinine Clear Calc Drug Dose 40.4 ml/min Estimated GFR () 53.2 Estimated GFR (Non- 45.9 BUN/Creatinine Ratio 19.5 Random Glucose 185 mg/dl Calcium Level 8.5 mg/dl Magnesium Level 1.5 mg/dl Total Bilirubin 0.6 mg/dl Direct Bilirubin 0.3 mg/dl Aspartate Amino Transf (AST/SGOT) 82 U/L Alanine Aminotransferase (ALT/SGPT) 66 U/L Alkaline Phosphatase 77 U/L Total Creatine Kinase 58 U/L Creatine Kinase MB 0.7 ng/ml Creatine Kinase MB Ratio 1.2 Troponin I < 0.015 ng/ml Total Protein 6.3 gm/dl Albumin 2.3 gm/dl Procalcitonin 2.48 ng/ml Thyroid Stimulating Hormone (TSH) 0.766 uIu/ml Arterial Blood pH 7.47 Arterial Blood Partial Pressure CO2 34 mmHg Arterial Blood Partial Pressure O2 76 mm/Hg Arterial Blood HCO3 24 mmol/L Arterial Blood Oxygen Saturation 92.4 % Arterial Blood Base Excess 1.0 mEq/L Arterial Blood Gas Delivery 2L Noé Test POS Test 01/22/18 08:01 01/22/18 11:52 01/22/18 12:26 01/22/18 16:14 Bedside Glucose 232 mg/dl 176 mg/dl 148 mg/dl Hemoglobin 7.8 g/dL Hematocrit 24.4 % Date/Time Source Procedure Growth Status 01/22/18 05:08 Blood Blood Culture Pending Received 01/22/18 05:08 Blood Blood Culture Pending Received 01/22/18 05:00 Urine,Catheterized Urine Culture Pending Received Assessment & Plan Sepsis Mostly due to complicated urinary tract infection History of indwelling Puri catheter due to Prostate cancer with lung metastasis Febrile and tachycardia on admission UA positive for nitrites and leukocytes Elevated procalcitonin On empirical abx with Vanco and Zosyn Received IVF Blood cx and urine cx pending Continue monitor Hematuria UA positive for occult blood Hx prostate cancer Hgb dropped to 7.8 from 8.8 on admission Will monitor H/H Transfused if H/H drops further Hypoxemic respiratory failure Secondary to mild pulmonary congestion CTA chest showed no evidence for pulmonary embolus. Findings suggesting mild congestive failure. Will consider low dose lasix if worsening Stable Bilateral LE Edema Doppler of LE showed no DVT Will get an echo Coronary artery disease status post coronary artery bypass grafting. On aspirin and cavedilol will consider to hold asa if hemoglobin drop further Stable DM2 on oral meds Will check Hba1c Continue monitor BS Chronic renal insufficiency. Creatinine at baseline. Anemia Mostly related to Hematuria/Chemo Hgb 7.8 Continue monitor H/H Transfuse if needed DVT px on heparin sub Will hold for now due to drop on hemoglobin Will do SCD for now CODE STATUS FULL CODE Current Inpatient Medications: Current Inpatient Medications Medications (Trade) Dose Ordered Sig/Kailash Route Start Time Stop Time Status Last Admin Dose Admin Ioversol (Optiray 320) 100 ml UD PRN IV 01/22/18 06:45 01/26/18 06:44 Prochlorperazine Edisylate 5 mg/ Syringe 5 ml @ 5 mls/min Q6H PRN IV 01/22/18 06:45 02/21/18 06:44 Miscellaneous Information (Consult) 1 ea UD PRN N/A 01/22/18 07:00 02/21/18 06:59 Phenazopyridine HCl (Pyridium Tab) 100 mg TID PRN PO 01/22/18 06:45 02/21/18 06:44 01/22/18 14:58 100 MG Heparin Sodium (Porcine) (Heparin Sq 5000 Unit/0.5ml) 5,000 unit Q8 SQ 01/22/18 14:00 02/21/18 13:59 01/22/18 13:25 5,000 UNIT Acetaminophen (Tylenol Tab) 650 mg Q4H PRN PO 01/22/18 06:45 02/21/18 06:44 Nitroglycerin (Nitrostat Tab) 0.4 mg UD PRN SL 01/22/18 06:45 02/21/18 06:44 Insulin Aspart (novoLOG ASPART) SLIDING SCALE If C... ACHS SC 01/22/18 11:00 02/21/18 10:59 Glucose (Glucose 40% Gel) 15-30 GRAMS 15 GRAMS... UD PRN PO 01/22/18 06:45 02/21/18 06:44 Glucose (Glucose Chew Tab) 4-8 Tablets 4 Tabl... UD PRN PO 01/22/18 06:45 02/21/18 06:44 Dextrose (Dextrose 50% 50ML Syringe) 25-50ML OF 50% DW IV FOR... UD PRN IV 01/22/18 06:45 02/21/18 06:44 Glucagon (Glucagon Inj) 1 mg UD PRN SQ 01/22/18 06:45 02/21/18 06:44 Hydromorphone HCl (Dilaudid Inj) 0.5 mg Q3H PRN IV 01/22/18 06:45 02/05/18 06:44 01/22/18 07:40 0.5 MG Carvedilol (Coreg Tab) 6.25 mg BID PO 01/22/18 21:00 02/21/18 20:59 Latanoprost (Xalatan Oph Soln) 1 drops HS OP 01/22/18 21:00 02/21/18 20:59 Oxybutynin Chloride (Ditropan Tab) 5 mg Q8 PRN PO 01/22/18 06:45 02/21/18 06:44 Oxycodone/ Acetaminophen (Percocet 5-325mg Tab) 1 tab Q4H PRN PO 01/22/18 06:45 02/05/18 06:44 01/22/18 18:14 1 TAB Pantoprazole Sodium (Protonix Tab) 40 mg QAM PO 01/22/18 09:00 3/31/18 08:59 01/22/18 07:34 40 MG Trazodone HCl (Desyrel Tab) 25 mg QPM PO 01/22/18 21:00 02/21/18 20:59 Aspirin (Ecotrin Tab) 81 mg QAM PO 01/22/18 09:00 02/21/18 08:59 01/22/18 07:31 81 MG Ipratropium [place] (Atrovent 0.02% 0.5MG/2.5ML Neb) 0.5 mg Q4H PRN INH 01/22/18 07:30 02/21/18 07:29 Levalbuterol (Xopenex 1.25MG/ 0.5ML Neb) 1.25 mg Q4H PRN INH 01/22/18 07:30 02/21/18 07:29 Piperacillin Sod/ Tazobactam Sod 4.5 gm/Dextrose 120 ml @ 30 mls/hr Q8H IV 01/22/18 12:00 02/01/18 11:59 01/22/18 13:22 30 MLS/HR Insulin Glargine (Lantus Solostar Pen) 5 units HS SC 01/22/18 21:00 02/21/18 20:59 UNV
[2018-01-22] MEDS: TRAZODONE HCL 50 MG TAB PO SCH (20:41)
[2018-01-22] MEDS: ACETAMINOPHEN 325 MG TAB PO PRN (20:41)
[2018-01-22] MEDS: CARVEDILOL 6.25 MG TAB PO SCH (20:41)
[2018-01-22] MEDS: INSULIN GLARGINE SOLOSTAR 100 UNITS/ML 3 ML PEN SC SCH (20:50)
[2018-01-22 21:11] LABS: HEMATOCRIT 25.2 % (42-52)
[2018-01-22] MEDS: LATANOPROST 0.005% OP SOLN 2.5 ML BTL OP SCH (22:00)
[2018-01-23] VITALS (7 sets, daily range): BP systolic 94–147; BP diastolic 58–86; PULSE 62–88; TEMP 36.1–37.2; O2SAT 88–98; Ht 157.5 cm; Wt 84.5 kg
[2018-01-23] MEDS: PIPERACILL/TAZOBAC IV 4.5 GM in DEXTROSE 5% 100ML IV SCH ×2 (04:11→13:02)
[2018-01-23 06:14] LABS: BASO % 0.3 %; BASO ABS # 0.01 K/uL (0-0.2); EOS % 0.8 %; EOS ABS # 0.03 K/uL (0-0.5); HEMATOCRIT 27.3 % (42-52); HEMOGLOBIN 8.5 g/dL (14.0-18.0); IG# 0.02 K/uL (0.00-0.02); LYMPH % 10.8 %; MEAN CELL VOLUME 100.4 fL (80-100); MEAN CORPUSCULAR HEMOGLOBIN 31.3 pg (25-34); MEAN CORPUSCULAR HGB CONC 31.1 g/dl (32-36); MONO % 5.9 %; MONO ABS # 0.22 K/uL (0.11-0.59); NEUT % 81.7 %; NEUT ABS # 3.02 K/uL (1.4-6.5); PLATELET COUNT 112 K/uL (130-400); RED CELL DISTRIBUTION WIDTH CV 16.3 % (11.5-14.5)
[2018-01-23 06:45] LABS: CALCIUM 8.1 mg/dl (8.5-10.1); CREATININE 1.34 mg/dl (0.60-1.40); POTASSIUM 3.6 mmol/L (3.5-5.1)
[2018-01-23] MEDS: INSULIN ASPART 100 UNITS/ML 3 ML PEN SC SCH ×4 (07:38→21:51)
[2018-01-23] MEDS: OXYCODONE/ACETAMINOPHEN 5-325 TAB PO PRN ×2 (07:42→15:16)
[2018-01-23] MEDS: ASPIRIN 81 MG ECTAB PO SCH (07:43)
[2018-01-23] MEDS: PANTOprazole SOD 40 MG TAB PO SCH (07:43)
[2018-01-23] MEDS: CARVEDILOL 6.25 MG TAB PO SCH ×2 (07:44→22:09)
--- NOTE | 2018-01-23 08:28 | Clinical Documentation Query ---
CLINICAL DOCUMENTATION QUERY 78 yo male admitted with sepsis and UTI. The patient was found to have hypoxemic respiratory failure secondary to mild pulmonary congestion and rule out pulmonary embolism. His initial sats were 88% on room air and he has a history of past tobacco abuse and cancer mets to lung. In your clinical opinion is this patient being managed for: ( ) Acute respiratory failure with hypoxia ( ) Not Agree ( ) Other explanation of clinical findings (Please Explain) ( ) Unable to determine (Please Define) ( ) Need to Discuss The medical record reflects the following clinical findings, treatment, and risk factors. Clinical Indicators: As above Treatment: O2 at 4L, telemetry, Atrovent and Albuterol nebulizers Risk Factors: Age, COPD, lung cancer, pulmonary congestion Please clarify and document your clinical opinion in the progress notes and discharge summary. Terms such as "probable", "suspected", "likely", "questionable", "possible", or "still to be ruled out" are acceptable. IF IN AGREEMENT, YOU MUST DOCUMENT ABOVE DIAGNOSTIC STATEMENT IN DAILY PROGRESS NOTES AND DISCHARGE SUMMARY. This document is not part of the patient's record. Thank You, Lilliam Su RN [phone]
[2018-01-23] MEDS: OXYBUTYNIN CHLORIDE 5 MG TAB PO PRN (09:35)
[2018-01-23] MEDS ORDERED: PERFLUTREN LIPID MICROSPHERE (DEFINITY) IV ONE (09:58)
[2018-01-23] MEDS: PHENAZOPYRIDINE HCL 100 MG TAB PO PRN (13:34)
--- NOTE | 2018-01-23 14:02 | ECHOCARDIOGRAM REPORT ---
*NOTICE TO RECEIVING [employer] This information is strictly Confidential and protected under [place] law. [place] law prohibits you from making any further disclosure of this information unless further disclosure is expressly permitted by the written consent of the person to whom it pertains or is authorized by law. A general authorization for the release of medical or other information is not sufficient for this purpose. Hospital accepts no responsibility if the information is made available to any other person, INCLUDING THE PATIENT. Interpretation Summary * Name: ANGIE SIMS Study Date: 01/23/2018 09:35 AM BP: 129/73 mmHg * Patient Location: C.2T\S\S230\S\1 HR: 87 * : 1940 (M/d/yyyy) Gender: Male Height: 62 in * Age: 78 yrs Ethnicity: CA Weight: 197 lb * Ordering Physician: An Albert * Referring Physician: Self, Referred * Performed By: Cherie Yang RDCS * * Reason For Study: Dyspnea, edema * BSA: 1.9 m2 * -- Conclusions -- * Normal LV chamber size and wall thickness. * Normal LV systolic function, EF 55-60%. * No segmental left ventricular wall motion abnormalities are noted. * Grade II diastolic dysfunction. * No significant valvular pathology. Procedure Details * A complete two-dimensional transthoracic echocardiogram was performed (2D, M-mode, Doppler and color flow Doppler). * A contrast injection of Definity was performed to improve assessment of LV function. * Contrast was injected into an intravenous site in the left arm. * One vial of Definity ultrasound contrast was diluted in normal saline to a total volume of 10 ml. A total of '2' ml of solution was administered during imaging. * Lot # [id number] of Definity utilized for procedure. * Expiration date 1 JAN 12. * The attending nurse who injected the contrast agent was Phyllis Reddy RN. Left Ventricle * The left ventricle is normal in size. * There is normal left ventricular wall thickness. * Ejection Fraction = 55-60%. * Left ventricular systolic function is normal. * No segmental left ventricular wall motion abnormalities are noted. * The left ventricular wall motion is normal at rest. Right Ventricle * The right ventricular cavity size is normal (basal dimension <4.2 cm in right ventricular apical 4-chamber view). * The right ventricular systolic function is normal as assessed by tricuspid annular plane systolic excursion (TAPSE) (normal >1.5 cm). Atria * The left atrial size is normal. * Right atrial size is normal. * No ASD detected; PFO is not assessed. * The interatrial septum bows toward right atrium consistent with elevated left atrial pressure. Mitral Valve * The mitral valve is normal in structure and function. Tricuspid Valve * The tricuspid valve is normal in structure and function. Aortic Valve * The aortic valve is not well visualized. * No hemodynamically significant valvular aortic stenosis. * There is no significant aortic regurgitation. Pulmonic Valve * The pulmonary valve is not well seen, but the Doppler examination is normal without significant regurgitation or stenosis. Great Vessels * The aortic root and proximal ascending aorta are normal sized. Pericardium/Pleural * There is no pericardial effusion. Left Ventricular Diastolic Function * Diastolic dysfunction, Grade II (pseudonormalization pattern). MMode 2D Measurements and Calculations IVSd 0.86 cm LVIDd 4.9 cm LVIDs 3.4 cm LVPWd 1.0 cm IVS/LVPW 0.84 FS 30.4 % EDV(Teich) 114.7 ml ESV(Teich) 48.6 ml EF(Teich) 57.6 % EDV(cubed) 120.2 ml ESV(cubed) 40.5 ml EF(cubed) 66.3 % LV mass(C)d 163.8 grams LV mass(C)dI 86.2 grams/m\S\2 SV(Teich) 66.1 ml SI(Teich) 34.8 ml/m\S\2 SV(cubed) 79.7 ml SI(cubed) 42.0 ml/m\S\2 Ao root diam 2.8 cm Ao root area 6.2 cm\S\2 ACS 2.0 cm asc Aorta Diam 3.2 cm LVOT diam 2.0 cm LVOT area 3.1 cm\S\2 LVAd ap4 38.0 cm\S\2 LVLd ap4 8.2 cm EDV(MOD-sp4) 147.2 ml EDV(sp4-el) 148.7 ml LVAs ap4 19.9 cm\S\2 LVLs ap4 6.6 cm ESV(MOD-sp4) 50.8 ml ESV(sp4-el) 50.8 ml EF(MOD-sp4) 65.5 % EF(sp4-el) 65.8 % LVAd ap2 40.8 cm\S\2 LVLd ap2 8.6 cm EDV(MOD-sp2) 159.1 ml EDV(sp2-el) 164.7 ml LVAs ap2 23.5 cm\S\2 LVLs ap2 6.9 cm ESV(MOD-sp2) 64.7 ml ESV(sp2-el) 68.4 ml EF(MOD-sp2) 59.3 % EF(sp2-el) 58.5 % LVLd %diff 3.7 % EDV(MOD-bp) 156.1 ml LVLs %diff 3.7 % ESV(MOD-bp) 58.1 ml EF(MOD-bp) 62.8 % SV(MOD-sp4) 96.3 ml SI(MOD-sp4) 50.7 ml/m\S\2 SV(MOD-sp2) 94.4 ml SI(MOD-sp2) 49.7 ml/m\S\2 SV(MOD-bp) 98.0 ml SI(MOD-bp) 51.6 ml/m\S\2 SV(sp4-el) 97.9 ml SI(sp4-el) 51.5 ml/m\S\2 SV(sp2-el) 96.4 ml SI(sp2-el) 50.7 ml/m\S\2 Doppler Measurements and Calculations MV E max miley 89.7 cm/sec MV A max miley 72.3 cm/sec MV E/A 1.2 MV dec time 0.31 sec Ao V2 max 123.4 cm/sec Ao max PG 6.1 mmHg Ao max PG (full) 2.4 mmHg BRENNAN(V,A) 2.5 cm\S\2 BRENNAN(V,D) 2.5 cm\S\2 LV V1 max PG 3.7 mmHg LV V1 max 96.5 cm/sec PA V2 max 85.5 cm/sec PA max PG 2.9 mmHg PA acc slope 718.3 cm/sec\S\2 PA acc time 0.10 sec PA pr(Accel) 34.6 mmHg
--- NOTE | 2018-01-23 19:01 | Progress Note ---
Medicine Progress Note Date & Time of Visit: Jan 23, 2018 at 18:57. Subjective Pt was seen and examined Sitting in bed with no distress Pt said that she feels better Denies any chest pain, palpitation and SOB Objective Last 8 Hrs Date Time Temp Pulse Resp B/P (MAP) Pulse Ox O2 Delivery O2 Flow Rate FiO2 01/23/18 15:04 37.0 88 18 137/71 (93) 96 Nasal Cannula 3.0 01/23/18 12:29 36.1 82 18 94/58 (70) 98 Physical Exam: General- No acute distress Head- atraumatic Eyes- PERRL, EOMI ENT- oropharynx clear Neck- supple, no JVD Lungs- No wheezing Heart- No murmur Abdomen- normal bowel sounds, soft Extremities- no calf tenderness Neuro- alert, oriented x 3; PERRL Skin- warm & dry Laboratory Results: Last 24 Hours Test 01/22/18 20:13 01/22/18 21:03 01/23/18 05:38 01/23/18 06:34 Bedside Glucose 185 mg/dl 142 mg/dl Hemoglobin 8.0 g/dL 8.5 g/dL Hematocrit 25.2 % 27.3 % White Blood Count 3.70 K/uL Red Blood Count 2.72 M/uL Mean Corpuscular Volume 100.4 fL Mean Corpuscular Hemoglobin 31.3 pg Mean Corpuscular Hemoglobin Concent 31.1 g/dl Platelet Count 112 K/uL Mean Platelet Volume 10.0 fL Neutrophils (%) (Auto) 81.7 % Lymphocytes (%) (Auto) 10.8 % Monocytes (%) (Auto) 5.9 % Eosinophils (%) (Auto) 0.8 % Basophils (%) (Auto) 0.3 % Neutrophils # (Auto) 3.02 K/uL Lymphocytes # (Auto) 0.40 K/uL Monocytes # (Auto) 0.22 K/uL Eosinophils # (Auto) 0.03 K/uL Basophils # (Auto) 0.01 K/uL RDW Standard Deviation 59.0 fL RDW Coefficient of Variation 16.3 % Immature Granulocyte % (Auto) 0.5 % Immature Granulocyte # (Auto) 0.02 K/uL Red Blood Cell Morphology Unremarkable Sodium Level 139 mmol/L Potassium Level 3.6 mmol/L Chloride Level 106 mmol/L Carbon Dioxide Level 27 mmol/L Anion Gap 6.0 mmol/L Blood Urea Nitrogen 23 mg/dl Creatinine 1.34 mg/dl Est Creatinine Clear Calc Drug Dose 43.4 ml/min Estimated GFR () 58.0 Estimated GFR (Non- 50.0 BUN/Creatinine Ratio 17.1 Random Glucose 119 mg/dl Calcium Level 8.1 mg/dl Magnesium Level 2.1 mg/dl Test 01/23/18 11:28 01/23/18 16:14 Bedside Glucose 139 mg/dl 156 mg/dl Assessment & Plan Sepsis Mostly due to complicated urinary tract infection History of indwelling Puri catheter due to Prostate cancer with lung metastasis Febrile and tachycardia on admission UA positive for nitrites and leukocytes Elevated procalcitonin On empirical abx Zosyn Received IVF Blood cx and urine positive for gram negative bacilli Continue IV zosyn Continue monitor Hematuria UA positive for occult blood Hx prostate cancer Hgb 8.8 on admission Hgb 8.5 today Transfused if H/H drops further Stable Hypoxemic respiratory failure Secondary to mild pulmonary congestion CTA chest showed no evidence for pulmonary embolus. Findings suggesting mild congestive failure. Will consider low dose lasix if worsening Stable Bilateral LE Edema Doppler of LE showed no DVT ECHO Normal LV chamber size and wall thickness. * Normal LV systolic function, EF 55-60%. * No segmental left ventricular wall motion abnormalities are noted. * Grade II diastolic dysfunction. * No significant valvular pathology. Coronary artery disease status post coronary artery bypass grafting. On aspirin and cavedilol will consider to hold asa if hemoglobin drop further Stable DM2 on oral meds Will check Hba1c Continue monitor BS Chronic renal insufficiency. Creatinine at baseline. Anemia Mostly related to Hematuria/Chemo Hgb 8.5 Continue monitor H/H Transfuse if needed DVT px on heparin sub Will hold for now due to drop on hemoglobin Will do SCD for now CODE STATUS FULL CODE Current Inpatient Medications: Current Inpatient Medications Medications (Trade) Dose Ordered Sig/Kailash Route Start Time Stop Time Status Last Admin Dose Admin Ioversol (Optiray 320) 100 ml UD PRN IV 01/22/18 06:45 01/26/18 06:44 Prochlorperazine Edisylate 5 mg/ Syringe 5 ml @ 5 mls/min Q6H PRN IV 01/22/18 06:45 02/21/18 06:44 Miscellaneous Information (Consult) 1 ea UD PRN N/A 01/22/18 07:00 02/21/18 06:59 Phenazopyridine HCl (Pyridium Tab) 100 mg TID PRN PO 01/22/18 06:45 02/21/18 06:44 01/23/18 13:34 100 MG Heparin Sodium (Porcine) (Heparin Sq 5000 Unit/0.5ml) 5,000 unit Q8 SQ 01/22/18 14:00 02/21/18 13:59 Future Hold 01/22/18 13:25 5,000 UNIT Acetaminophen (Tylenol Tab) 650 mg Q4H PRN PO 01/22/18 06:45 02/21/18 06:44 01/22/18 20:41 650 MG Nitroglycerin (Nitrostat Tab) 0.4 mg UD PRN SL 01/22/18 06:45 02/21/18 06:44 Insulin Aspart (novoLOG ASPART) SLIDING SCALE If C... ACHS SC 01/22/18 11:00 02/21/18 10:59 01/22/18 20:50 1 UNITS Glucose (Glucose 40% Gel) 15-30 GRAMS 15 GRAMS... UD PRN PO 01/22/18 06:45 02/21/18 06:44 Glucose (Glucose Chew Tab) 4-8 Tablets 4 Tabl... UD PRN PO 01/22/18 06:45 02/21/18 06:44 Dextrose (Dextrose 50% 50ML Syringe) 25-50ML OF 50% DW IV FOR... UD PRN IV 01/22/18 06:45 02/21/18 06:44 Glucagon (Glucagon Inj) 1 mg UD PRN SQ 01/22/18 06:45 02/21/18 06:44 Hydromorphone HCl (Dilaudid Inj) 0.5 mg Q3H PRN IV 01/22/18 06:45 02/05/18 06:44 01/22/18 07:40 0.5 MG Carvedilol (Coreg Tab) 6.25 mg BID PO 01/22/18 21:00 02/21/18 20:59 01/23/18 07:44 6.25 MG Latanoprost (Xalatan Oph Soln) 1 drops HS OP 01/22/18 21:00 02/21/18 20:59 01/22/18 22:00 1 DROPS Oxybutynin Chloride (Ditropan Tab) 5 mg Q8 PRN PO 01/22/18 06:45 02/21/18 06:44 01/23/18 09:35 5 MG Oxycodone/ Acetaminophen (Percocet 5-325mg Tab) 1 tab Q4H PRN PO 01/22/18 06:45 02/05/18 06:44 01/23/18 15:16 1 TAB Pantoprazole Sodium (Protonix Tab) 40 mg QAM PO 01/22/18 09:00 02/21/18 08:59 01/23/18 07:43 40 MG Trazodone HCl (Desyrel Tab) 25 mg QPM PO 01/22/18 21:00 02/21/18 20:59 01/22/18 20:41 25 MG Aspirin (Ecotrin Tab) 81 mg QAM PO 01/22/18 09:00 02/21/18 08:59 01/23/18 07:43 81 MG Ipratropium [place] (Atrovent 0.02% 0.5MG/2.5ML Neb) 0.5 mg Q4H PRN INH 01/22/18 07:30 02/21/18 07:29 Levalbuterol (Xopenex 1.25MG/ 0.5ML Neb) 1.25 mg Q4H PRN INH 01/22/18 07:30 02/21/18 07:29 Piperacillin Sod/ Tazobactam Sod 4.5 gm/Dextrose 120 ml @ 30 mls/hr Q8H IV 01/22/18 12:00 02/01/18 11:59 01/23/18 13:02 30 MLS/HR Insulin Glargine (Lantus Solostar Pen) 5 units HS SC 01/22/18 21:00 02/21/18 20:59 01/22/18 20:50 5 UNITS
[2018-01-23] MEDS: LATANOPROST 0.005% OP SOLN 2.5 ML BTL OP SCH (22:09)
[2018-01-23] MEDS: TRAZODONE HCL 50 MG TAB PO SCH (22:10)
[2018-01-23] MEDS: INSULIN GLARGINE SOLOSTAR 100 UNITS/ML 3 ML PEN SC SCH (22:11)
[2018-01-23] MEDS ORDERED: CEFEPIME IV 2,000 MG in SYRINGE 7.5 ML IV SCH (23:30)
[2018-01-24] MEDS: PHENAZOPYRIDINE HCL 100 MG TAB PO PRN (02:15)
[2018-01-24 03:32] VITALS: BP 158/56; PULSE 94; TEMP 37.1; O2SAT 90
[2018-01-24] MEDS: OXYCODONE/ACETAMINOPHEN 5-325 TAB PO PRN (04:00)
[2018-01-24 06:41] LABS: HEMATOCRIT 27.5 % (42-52); HEMOGLOBIN 8.9 g/dL (14.0-18.0); MEAN CELL VOLUME 98.2 fL (80-100); MEAN CORPUSCULAR HEMOGLOBIN 31.8 pg (25-34); MEAN CORPUSCULAR HGB CONC 32.4 g/dl (32-36); RED CELL DISTRIBUTION WIDTH CV 15.7 % (11.5-14.5); RED CELL DISTRIBUTION WIDTH SD 55.7 fL (36.4-46.3); WHITE BLOOD COUNT 2.19 K/uL (4.8-10.8)
[2018-01-24 07:11] LABS: MEAN PLATELET VOLUME 9.8 fL (7.4-10.4); PLATELET COUNT 81 K/uL (130-400)
[2018-01-24 07:13] LABS: BASO % 0.5 %; BASO ABS # 0.01 K/uL (0-0.2); EOS % 0.5 %; EOS ABS # 0.01 K/uL (0-0.5); IG# 0.01 K/uL (0.00-0.02); LYMPH % 28.8 %; LYMPH ABS # 0.63 K/uL (1.2-3.4); MONO ABS # 0.46 K/uL (0.11-0.59); NEUT % 48.7 %; NEUT ABS # 1.07 K/uL (1.4-6.5)
[2018-01-24 07:16] LABS: CALCIUM 8.3 mg/dl (8.5-10.1); CREATININE 1.45 mg/dl (0.60-1.40); POTASSIUM 3.6 mmol/L (3.5-5.1)
[2018-01-24 07:29] VITALS: BP 138/76; PULSE 57; TEMP 36.7; O2SAT 98
[2018-01-24 07:34] LABS: HEMOGLOBIN A1C 5.9 % (4.5-5.6)
[2018-01-24] MEDS: INSULIN ASPART 100 UNITS/ML 3 ML PEN SC SCH ×4 (07:43→21:00)
[2018-01-24] MEDS: CARVEDILOL 6.25 MG TAB PO SCH ×2 (07:48→22:23)
[2018-01-24] MEDS: OXYBUTYNIN CHLORIDE 5 MG TAB PO PRN ×2 (07:48→16:05)
[2018-01-24] MEDS: PANTOprazole SOD 40 MG TAB PO SCH (07:48)
[2018-01-24] MEDS: ASPIRIN 81 MG ECTAB PO SCH (07:49)
[2018-01-24] MEDS ORDERED: CEFEPIME CONSULT ACTIVE PRN (09:00)
[2018-01-24] MEDS ORDERED: NURSING VERBAL MED ORDER ONE (13:00)
[2018-01-24] MEDS ORDERED: PHENAZOPYRIDINE HCL 100 MG TAB PO PRN (13:30)
[2018-01-24 13:51] VITALS: BP 137/54; PULSE 68; TEMP 37.1; O2SAT 98
[2018-01-24 15:07] VITALS: BP 149/68; PULSE 74; TEMP 37.4; O2SAT 96
--- NOTE | 2018-01-24 16:30 | Progress Note ---
Medicine Progress Note Date & Time of Visit: Jan 24, 2018 at 16:11. Subjective Pt was seen and examined Lying in bed with no distress Pt said that he is having alot of bladder discomfort He would like the Puri to remove I told pt that Physical therapy recommended inpatient rehab Pt said that he wants to discharge home because his is 69yrs He said that his is at home. he said that he arranged for someone to stay with her Pt said that he will not go to rehab he said that his strength is getting better and he used a walker to ambulate in the house. Objective Last 8 Hrs Date Time Temp Pulse Resp B/P (MAP) Pulse Ox O2 Delivery O2 Flow Rate FiO2 01/24/18 15:07 37.4 74 18 149/68 (95) 96 Nasal Cannula 3.0 01/24/18 13:51 37.1 68 20 137/54 (81) 98 Nasal Cannula 3.0 01/24/18 12:05 Nasal Cannula 3.0 Physical Exam: General- No acute distress Head- atraumatic Eyes- PERRL, EOMI ENT- oropharynx clear Neck- supple, no JVD Lungs- No wheezing Heart- No murmur Abdomen- normal bowel sounds, soft Extremities- no calf tenderness Neuro- alert, oriented x 3; PERRL Skin- warm & dry Laboratory Results: Last 24 Hours Test 01/23/18 16:14 01/23/18 20:30 01/24/18 06:04 01/24/18 06:47 Bedside Glucose 156 mg/dl 166 mg/dl 143 mg/dl White Blood Count 2.19 K/uL Red Blood Count 2.80 M/uL Hemoglobin 8.9 g/dL Hematocrit 27.5 % Mean Corpuscular Volume 98.2 fL Mean Corpuscular Hemoglobin 31.8 pg Mean Corpuscular Hemoglobin Concent 32.4 g/dl Platelet Count 81 K/uL Mean Platelet Volume 9.8 fL Neutrophils (%) (Auto) 48.7 % Lymphocytes (%) (Auto) 28.8 % Monocytes (%) (Auto) 21.0 % Eosinophils (%) (Auto) 0.5 % Basophils (%) (Auto) 0.5 % Neutrophils # (Auto) 1.07 K/uL Lymphocytes # (Auto) 0.63 K/uL Monocytes # (Auto) 0.46 K/uL Eosinophils # (Auto) 0.01 K/uL Basophils # (Auto) 0.01 K/uL RDW Standard Deviation 55.7 fL RDW Coefficient of Variation 15.7 % Immature Granulocyte % (Auto) 0.5 % Immature Granulocyte # (Auto) 0.01 K/uL Platelet Estimate DECREASED Red Blood Cell Morphology Unremarkable Sodium Level 136 mmol/L Potassium Level 3.6 mmol/L Chloride Level 104 mmol/L Carbon Dioxide Level 23 mmol/L Anion Gap 9.0 mmol/L Blood Urea Nitrogen 24 mg/dl Creatinine 1.45 mg/dl Est Creatinine Clear Calc Drug Dose 39.8 ml/min Estimated GFR () 52.7 Estimated GFR (Non- 45.5 BUN/Creatinine Ratio 16.4 Random Glucose 128 mg/dl Estimated Average Glucose 123 mg/dl Hemoglobin A1c 5.9 % Calcium Level 8.3 mg/dl Test 01/24/18 11:54 Bedside Glucose 134 mg/dl Date/Time Source Procedure Growth Status 01/24/18 15:59 Blood Blood Culture Pending Received 01/24/18 15:49 Blood Blood Culture Pending Received Assessment & Plan Sepsis Mostly due to complicated urinary tract infection History of indwelling Puri catheter due to Prostate cancer with lung metastasis Febrile and tachycardia on admission UA positive for nitrites and leukocytes Elevated procalcitonin On empirical abx Zosyn Received IVF Blood cx and urine positive for gram negative bacilli Continue IV zosyn Continue monitor 01/24 clinically improved blood cx and urine cx grew E.coli Repeat blood cx pending Consider to change abx to cipro if repeat blood cx negative Afebrile Hematuria UA positive for occult blood Hx prostate cancer Hgb 8.8 on admission Hgb 8.9 today Has been complaint of alot of bladder discomfort Pyridium increased to q6h Will consult urology Hypoxemic respiratory failure Secondary to mild pulmonary congestion CTA chest showed no evidence for pulmonary embolus. Findings suggesting mild congestive failure. Will consider low dose lasix if worsening Stable Bilateral LE Edema Doppler of LE showed no DVT ECHO Normal LV chamber size and wall thickness. * Normal LV systolic function, EF 55-60%. * No segmental left ventricular wall motion abnormalities are noted. * Grade II diastolic dysfunction. * No significant valvular pathology. Coronary artery disease status post coronary artery bypass grafting. On aspirin and cavedilol will consider hold asa if hemoglobin drop further in the setting of hematuria Stable DM2 on oral meds Hba1c 5.9 Continue monitor BS Chronic renal insufficiency. Creatinine at baseline. creatine 1.4 Anemia Mostly related to Hematuria/Chemo Hgb 8.9 Continue monitor H/H Transfuse if needed DVT px Will hold heparin subq for now due to drop on hemoglobin Will do SCD for now CODE STATUS FULL CODE Current Inpatient Medications: Current Inpatient Medications Medications (Trade) Dose Ordered Sig/Kailash Route Start Time Stop Time Status Last Admin Dose Admin Ioversol (Optiray 320) 100 ml UD PRN IV 01/22/18 06:45 01/26/18 06:44 Prochlorperazine Edisylate 5 mg/ Syringe 5 ml @ 5 mls/min Q6H PRN IV 01/22/18 06:45 02/21/18 06:44 Heparin Sodium (Porcine) (Heparin Sq 5000 Unit/0.5ml) 5,000 unit Q8 SQ 01/22/18 14:00 02/21/18 13:59 Future Hold 01/22/18 13:25 5,000 UNIT Acetaminophen (Tylenol Tab) 650 mg Q4H PRN PO 01/22/18 06:45 02/21/18 06:44 01/22/18 20:41 650 MG Nitroglycerin (Nitrostat Tab) 0.4 mg UD PRN SL 01/22/18 06:45 02/21/18 06:44 Insulin Aspart (novoLOG ASPART) SLIDING SCALE If C... ACHS SC 01/22/18 11:00 02/21/18 10:59 01/22/18 20:50 1 UNITS Glucose (Glucose 40% Gel) 15-30 GRAMS 15 GRAMS... UD PRN PO 01/22/18 06:45 02/21/18 06:44 Glucose (Glucose Chew Tab) 4-8 Tablets 4 Tabl... UD PRN PO 01/22/18 06:45 02/21/18 06:44 Dextrose (Dextrose 50% 50ML Syringe) 25-50ML OF 50% DW IV FOR... UD PRN IV 01/22/18 06:45 02/21/18 06:44 Glucagon (Glucagon Inj) 1 mg UD PRN SQ 01/22/18 06:45 02/21/18 06:44 Hydromorphone HCl (Dilaudid Inj) 0.5 mg Q3H PRN IV 01/22/18 06:45 02/05/18 06:44 01/22/18 07:40 0.5 MG Carvedilol (Coreg Tab) 6.25 mg BID PO 01/22/18 21:00 02/21/18 20:59 01/24/18 07:48 6.25 MG Latanoprost (Xalatan Oph Soln) 1 drops HS OP 01/22/18 21:00 02/21/18 20:59 01/23/18 22:09 1 DROPS Oxybutynin Chloride (Ditropan Tab) 5 mg Q8 PRN PO 01/22/18 06:45 02/21/18 06:44 01/24/18 16:05 5 MG Oxycodone/ Acetaminophen (Percocet 5-325mg Tab) 1 tab Q4H PRN PO 01/22/18 06:45 02/05/18 06:44 01/24/18 04:00 1 TAB Pantoprazole Sodium (Protonix Tab) 40 mg QAM PO 01/22/18 09:00 02/21/18 08:59 01/24/18 07:48 40 MG Trazodone HCl (Desyrel Tab) 25 mg QPM PO 01/22/18 21:00 02/21/18 20:59 01/23/18 22:10 25 MG Aspirin (Ecotrin Tab) 81 mg QAM PO 01/22/18 09:00 02/21/18 08:59 01/24/18 07:49 81 MG Ipratropium [place] (Atrovent 0.02% 0.5MG/2.5ML Neb) 0.5 mg Q4H PRN INH 01/22/18 07:30 02/21/18 07:29 Levalbuterol (Xopenex 1.25MG/ 0.5ML Neb) 1.25 mg Q4H PRN INH 01/22/18 07:30 02/21/18 07:29 Insulin Glargine (Lantus Solostar Pen) 5 units HS SC 01/22/18 21:00 02/21/18 20:59 01/23/18 22:11 5 UNITS Cefepime HCl (Consult) 1 ea UD PRN N/A 01/24/18 09:00 02/23/18 08:59 Cefepime HCl 2000 mg/Syringe 20 ml @ 5 mls/min Q24H IV 01/23/18 23:30 02/02/18 23:29 01/23/18 23:49 5 MLS/MIN Phenazopyridine HCl (Pyridium Tab) 100 mg Q6 PO 01/24/18 18:00 02/23/18 17:59
[2018-01-24] MEDS: PHENAZOPYRIDINE HCL 100 MG TAB PO SCH ×2 (17:24→23:40)
[2018-01-24 20:05] VITALS: BP 168/67; PULSE 69; TEMP 36.8; O2SAT 95
[2018-01-24] MEDS: LATANOPROST 0.005% OP SOLN 2.5 ML BTL OP SCH (21:00)
[2018-01-24] MEDS: TRAZODONE HCL 50 MG TAB PO SCH (22:21)
[2018-01-24] MEDS: INSULIN GLARGINE SOLOSTAR 100 UNITS/ML 3 ML PEN SC SCH (22:26)
[2018-01-24 22:38] VITALS: BP 163/64; PULSE 77
[2018-01-24] MEDS: CEFTRIAXONE SOD INJ 1 GM in DEXTROSE 5% ADD-VANTAGE 50ML 50 ML IV SCH (23:40)
[2018-01-25] VITALS (8 sets, daily range): BP systolic 97–157; BP diastolic 51–75; PULSE 55–90; TEMP 36.4–37.2; O2SAT 92–97
[2018-01-25] MEDS: PHENAZOPYRIDINE HCL 100 MG TAB PO SCH ×3 (05:01→18:58)
[2018-01-25] MEDS: OXYCODONE/ACETAMINOPHEN 5-325 TAB PO PRN ×3 (05:27→18:58)
[2018-01-25 07:55] LABS: HEMATOCRIT 26.2 % (42-52); HEMOGLOBIN 8.6 g/dL (14.0-18.0); MEAN CELL VOLUME 96.7 fL (80-100); MEAN CORPUSCULAR HEMOGLOBIN 31.7 pg (25-34); MEAN CORPUSCULAR HGB CONC 32.8 g/dl (32-36); RED CELL DISTRIBUTION WIDTH CV 15.7 % (11.5-14.5); RED CELL DISTRIBUTION WIDTH SD 54.7 fL (36.4-46.3); WHITE BLOOD COUNT 5.15 K/uL (4.8-10.8)
[2018-01-25 08:01] LABS: MEAN PLATELET VOLUME 10.2 fL (7.4-10.4); PLATELET COUNT 68 K/uL (130-400)
[2018-01-25 08:23] LABS: BASO % 0.2 %; BASO ABS # 0.01 K/uL (0-0.2); EOS % 0.2 %; EOS ABS # 0.01 K/uL (0-0.5); IG# 0.06 K/uL (0.00-0.02); LYMPH % 15.5 %; MONO % 15.9 %; MONO ABS # 0.82 K/uL (0.11-0.59); NEUT ABS # 3.45 K/uL (1.4-6.5)
[2018-01-25 08:28] LABS: CALCIUM 8.7 mg/dl (8.5-10.1); CREATININE 1.14 mg/dl (0.60-1.40); POTASSIUM 3.1 mmol/L (3.5-5.1)
[2018-01-25] MEDS ORDERED: POTASSIUM CHLORIDE 20 MEQ TABCR PO STA (08:41)
[2018-01-25] MEDS ORDERED: POTASSIUM CHLORIDE 10 MEQ TABCR PO STA ×2 (08:58→23:44)
[2018-01-25] MEDS: INSULIN ASPART 100 UNITS/ML 3 ML PEN SC SCH ×4 (09:34→21:04)
[2018-01-25] MEDS: ASPIRIN 81 MG ECTAB PO SCH (09:37)
[2018-01-25] MEDS: OXYBUTYNIN CHLORIDE 5 MG TAB PO PRN (09:37)
[2018-01-25] MEDS: CARVEDILOL 6.25 MG TAB PO SCH ×2 (09:37→21:00)
[2018-01-25] MEDS: PANTOprazole SOD 40 MG TAB PO SCH (09:38)
--- NOTE | 2018-01-25 13:14 | Urology Consultation ---
History General Date of Service: Jan 25, 2018. Primary Care Physician: Jono Souza M.D. History of Present Illness 78-year-old white male with a invasive poorly differentiated bladder cancer. He was felt not to be an operative candidate so is currently receiving chemotherapy. He was admitted to the hospital with some hematuria as well as some lower abdominal pain. Today he says the lower abdominal pain is subsiding. He has had a hematuria on and off. Currently has a Puri catheter which he has had for about a week Laboratory Date/Time Source Procedure Growth Status 01/24/18 15:59 Blood Blood Culture Pending Received 01/24/18 15:49 Blood Blood Culture Pending Received Last 24 Hours Test 01/24/18 16:48 01/24/18 20:33 01/25/18 06:33 01/25/18 07:24 Bedside Glucose 165 mg/dl 140 mg/dl 139 mg/dl White Blood Count 5.15 K/uL Red Blood Count 2.71 M/uL Hemoglobin 8.6 g/dL Hematocrit 26.2 % Mean Corpuscular Volume 96.7 fL Mean Corpuscular Hemoglobin 31.7 pg Mean Corpuscular Hemoglobin Concent 32.8 g/dl Platelet Count 68 K/uL Mean Platelet Volume 10.2 fL Neutrophils (%) (Auto) 67.0 % Lymphocytes (%) (Auto) 15.5 % Monocytes (%) (Auto) 15.9 % Eosinophils (%) (Auto) 0.2 % Basophils (%) (Auto) 0.2 % Neutrophils # (Auto) 3.45 K/uL Lymphocytes # (Auto) 0.80 K/uL Monocytes # (Auto) 0.82 K/uL Eosinophils # (Auto) 0.01 K/uL Basophils # (Auto) 0.01 K/uL RDW Standard Deviation 54.7 fL RDW Coefficient of Variation 15.7 % Immature Granulocyte % (Auto) 1.2 % Immature Granulocyte # (Auto) 0.06 K/uL Red Blood Cell Morphology Unremarkable Sodium Level 138 mmol/L Potassium Level 3.1 mmol/L Chloride Level 104 mmol/L Carbon Dioxide Level 25 mmol/L Anion Gap 9.0 mmol/L Blood Urea Nitrogen 21 mg/dl Creatinine 1.14 mg/dl Est Creatinine Clear Calc Drug Dose 50.6 ml/min Estimated GFR () 70.5 Estimated GFR (Non- 60.8 BUN/Creatinine Ratio 18.3 Random Glucose 132 mg/dl Calcium Level 8.7 mg/dl Test 01/25/18 11:47 Bedside Glucose 138 mg/dl Problem List Medical Problems: (1) Bladder cancer Status: Acute (2) Fall Status: Acute (3) Gross hematuria Status: Acute (4) Sepsis Status: Acute (5) UTI (urinary tract infection) Status: Acute Family History Cancer Heart disease Hypertension Social History Hx Tobacco Use In Past Year?: No (SMOKED 1 PPD -quit 20 years ago) Marital status: Housing status: lives with significant other Occupation status: retired History of MDRO No Allergies Coded Allergies: No Known Allergies (Unverified , 01/22/18) Medications Home Medications: Home Meds and Scripts Medications Dose Route/Sig Max Daily Dose Days Date Category Dose Instructions Coreg (Carvedilol) 6.25 Mg Tab 1 Tab PO BID 90 10/31/17 Reported Xalatan 0.005% Oph Yolanda (Latanoprost) 0.005 % Yolanda 1 Drops OP HS 10/31/17 Reported Percocet 5MG/325MG (Oxycodone/Acetaminophen) Tab 1-2 Tablets PO Q4H PRN 10/31/17 Reported PAIN Ditropan (Oxybutynin Chloride) 5 Mg Tab 1 Tab PO Q8 PRN 30 10/31/17 Reported Protonix (Pantoprazole Sodium) 40 Mg Tab 40 Mg PO QAM 10/23/17 Reported Trazodone (Trazodone HCl) 50 Mg Tab 25 Mg PO QPM 06/28/14 Reported Janumet (Sitagliptin-Metformin Hcl) 1 Tab Tab 1 Tab PO QAM 06/28/14 Reported 50/500 MG Vitamin D 1000 Unit (Cholecalciferol) 1,000 Unit Cap 2,000 Inter.unit PO QAM 06/23/12 Reported Nitrostat (Nitroglycerin) 0.4 Mg Tab 0.4 Mg UT PRN 07/24/11 Reported Prinivil (Lisinopril) 10 Mg Tab 10 Mg PO QAM 07/24/11 Reported Inpatient Medications: Current Inpatient Medications Medications (Trade) Dose Ordered Sig/Kailash Route Start Time Stop Time Status Last Admin Dose Admin Ioversol (Optiray 320) 100 ml UD PRN IV 01/22/18 06:45 01/26/18 06:44 Prochlorperazine Edisylate 5 mg/ Syringe 5 ml @ 5 mls/min Q6H PRN IV 01/22/18 06:45 02/21/18 06:44 Heparin Sodium (Porcine) (Heparin Sq 5000 Unit/0.5ml) 5,000 unit Q8 SQ 01/22/18 14:00 02/21/18 13:59 Future Hold 01/22/18 13:25 5,000 UNIT Acetaminophen (Tylenol Tab) 650 mg Q4H PRN PO 01/22/18 06:45 02/21/18 06:44 01/22/18 20:41 650 MG Nitroglycerin (Nitrostat Tab) 0.4 mg UD PRN SL 01/22/18 06:45 02/21/18 06:44 Insulin Aspart (novoLOG ASPART) SLIDING SCALE If C... ACHS SC 01/22/18 11:00 02/21/18 10:59 01/22/18 20:50 1 UNITS Glucose (Glucose 40% Gel) 15-30 GRAMS 15 GRAMS... UD PRN PO 01/22/18 06:45 02/21/18 06:44 Glucose (Glucose Chew Tab) 4-8 Tablets 4 Tabl... UD PRN PO 01/22/18 06:45 02/21/18 06:44 Dextrose (Dextrose 50% 50ML Syringe) 25-50ML OF 50% DW IV FOR... UD PRN IV 01/22/18 06:45 02/21/18 06:44 Glucagon (Glucagon Inj) 1 mg UD PRN SQ 01/22/18 06:45 02/21/18 06:44 Hydromorphone HCl (Dilaudid Inj) 0.5 mg Q3H PRN IV 01/22/18 06:45 02/05/18 06:44 01/22/18 07:40 0.5 MG Carvedilol (Coreg Tab) 6.25 mg BID PO 01/22/18 21:00 02/21/18 20:59 01/25/18 09:37 6.25 MG Latanoprost (Xalatan Oph Soln) 1 drops HS OP 01/22/18 21:00 02/21/18 20:59 01/24/18 21:00 1 DROPS Oxybutynin Chloride (Ditropan Tab) 5 mg Q8 PRN PO 01/22/18 06:45 02/21/18 06:44 01/25/18 09:37 5 MG Oxycodone/ Acetaminophen (Percocet 5-325mg Tab) 1 tab Q4H PRN PO 01/22/18 06:45 02/05/18 06:44 01/25/18 10:59 1 TAB Pantoprazole Sodium (Protonix Tab) 40 mg QAM PO 01/22/18 09:00 02/21/18 08:59 01/25/18 09:38 40 MG Trazodone HCl (Desyrel Tab) 25 mg QPM PO 01/22/18 21:00 02/21/18 20:59 01/24/18 22:21 25 MG Aspirin (Ecotrin Tab) 81 mg QAM PO 01/22/18 09:00 02/21/18 08:59 01/25/18 09:37 81 MG Ipratropium [place] (Atrovent 0.02% 0.5MG/2.5ML Neb) 0.5 mg Q4H PRN INH 01/22/18 07:30 02/21/18 07:29 Levalbuterol (Xopenex 1.25MG/ 0.5ML Neb) 1.25 mg Q4H PRN INH 01/22/18 07:30 02/21/18 07:29 Insulin Glargine (Lantus Solostar Pen) 5 units HS SC 01/22/18 21:00 02/21/18 20:59 01/24/18 22:26 5 UNITS Phenazopyridine HCl (Pyridium Tab) 100 mg Q6 PO 01/24/18 18:00 02/23/18 17:59 01/25/18 12:39 100 MG Ceftriaxone Sodium 1 gm/ Dextrose 50 ml @ 100 mls/hr Q24H IV 01/24/18 23:00 02/03/18 22:59 01/24/18 23:40 100 MLS/HR Review of Systems Review of Systems Additional Comments: Review of systems reviewed from his admitting H&P and ER note Physical Exam Vital Signs: Vital Signs Past 12 Hours Date Time Temp Pulse Resp B/P (MAP) Pulse Ox O2 Delivery O2 Flow Rate FiO2 01/25/18 12:08 36.7 72 20 97/51 (66) 92 Room Air 01/25/18 07:09 36.9 55 18 136/73 (94) 97 Nasal Cannula 2.0 01/25/18 04:35 36.5 78 18 131/74 (93) 93 Nasal Cannula 2.0 01/25/18 04:00 Nasal Cannula 2.0 Physical Exam: General Appearance: WD/WN, no apparent distress ENT: hearing grossly normal Neck: no JVD Respiratory/Chest: no respiratory distress, no accessory muscle use Cardiovascular: regular rate, rhythm Gastrointestinal: Abdomen: normal abdomen Genitourinary - Male: Urethral Meatus: normal urethral meatus Testes: normal testes Epididymides: normal epididymides Scrotum: normal scrotum Assessment & Plan Assessment & Plan Assessment 78-year-old male with invasive bladder cancer also history of prostate cancer post radiation therapy Currently he says the Puri is not bothering him he is not really having any pain anymore he does have some hematuria which is not unusual given the fact that he has advanced bladder cancer At this point no urologic intervention is needed He should continue on with his chemotherapy
--- NOTE | 2018-01-25 15:22 | DIAGNOSTIC IMAGING REPORT ---
[facility]UB CLINICAL HISTORY: Generalized abdominal pain. FINDINGS: An AP, portable, supine abdominal radiograph is correlated with abdominal CT dated 08/01/2011. There are mildly distended and gas-filled loops of small bowel. There is also mild gaseous distention of the colon. No evidence of intraperitoneal free air is seen on this supine examination. There are no abnormal abdominal calcifications. Brachytherapy seeds are noted in the prostate. Pelvic phleboliths are observed. The skeletal structures are osteopenic. Moderate lumbosacral spondylosis is identified. IMPRESSION: 1. There is no radiographic evidence of high-grade small bowel obstruction. 2. There is gaseous distention of the small bowel as well as several loops of colon. Correlate clinically for evidence of a nonspecific enteritis. 3. No evidence of intraperitoneal free air is seen. Electronically signed by: Eilot Bruner M.D. 01/25/2018 3:20 PM Dictated Date/Time: 01/25/2018 3:19 PM
--- NOTE | 2018-01-25 17:17 | Progress Note ---
Medicine Progress Note Date & Time of Visit: Jan 25, 2018 at 17:14. Subjective Pt was seen and examined Lying in bed with no distress Pt said that he feels much better today He said that his breathing feels good Continue to refuse to go to rehab denies any chest pain, palpitation and SOB Objective Last 8 Hrs Date Time Temp Pulse Resp B/P (MAP) Pulse Ox O2 Delivery O2 Flow Rate FiO2 01/25/18 15:45 Room Air 01/25/18 15:16 36.7 64 18 138/73 (94) 93 Room Air 01/25/18 12:08 36.7 72 20 97/51 (66) 92 Room Air 01/25/18 12:00 Nasal Cannula 3.0 Physical Exam: General- No acute distress Head- atraumatic Eyes- PERRL, EOMI ENT- oropharynx clear Neck- supple, no JVD Lungs- No wheezing Heart- No murmur Abdomen- normal bowel sounds, soft Extremities- no calf tenderness Neuro- alert, oriented x 3; PERRL Skin- warm & dry Laboratory Results: Last 24 Hours Test 01/24/18 20:33 01/25/18 06:33 01/25/18 07:24 01/25/18 11:47 Bedside Glucose 140 mg/dl 139 mg/dl 138 mg/dl White Blood Count 5.15 K/uL Red Blood Count 2.71 M/uL Hemoglobin 8.6 g/dL Hematocrit 26.2 % Mean Corpuscular Volume 96.7 fL Mean Corpuscular Hemoglobin 31.7 pg Mean Corpuscular Hemoglobin Concent 32.8 g/dl Platelet Count 68 K/uL Mean Platelet Volume 10.2 fL Neutrophils (%) (Auto) 67.0 % Lymphocytes (%) (Auto) 15.5 % Monocytes (%) (Auto) 15.9 % Eosinophils (%) (Auto) 0.2 % Basophils (%) (Auto) 0.2 % Neutrophils # (Auto) 3.45 K/uL Lymphocytes # (Auto) 0.80 K/uL Monocytes # (Auto) 0.82 K/uL Eosinophils # (Auto) 0.01 K/uL Basophils # (Auto) 0.01 K/uL RDW Standard Deviation 54.7 fL RDW Coefficient of Variation 15.7 % Immature Granulocyte % (Auto) 1.2 % Immature Granulocyte # (Auto) 0.06 K/uL Red Blood Cell Morphology Unremarkable Sodium Level 138 mmol/L Potassium Level 3.1 mmol/L Chloride Level 104 mmol/L Carbon Dioxide Level 25 mmol/L Anion Gap 9.0 mmol/L Blood Urea Nitrogen 21 mg/dl Creatinine 1.14 mg/dl Est Creatinine Clear Calc Drug Dose 50.6 ml/min Estimated GFR () 70.5 Estimated GFR (Non- 60.8 BUN/Creatinine Ratio 18.3 Random Glucose 132 mg/dl Calcium Level 8.7 mg/dl Test 01/25/18 16:29 Bedside Glucose 134 mg/dl Assessment & Plan Sepsis Mostly due to complicated urinary tract infection History of indwelling Puri catheter due to Prostate cancer with lung metastasis Febrile and tachycardia on admission UA positive for nitrites and leukocytes Elevated procalcitonin On empirical abx Zosyn Received IVF Blood cx and urine positive for gram negative bacilli Continue IV zosyn Continue monitor 3/4 clinically improved blood cx and urine cx grew E.coli Repeat blood cx pending Consider to change abx to cipro if repeat blood cx negative Afebrile Hematuria UA positive for occult blood Hx prostate cancer Hgb 8.8 on admission Hgb 8.6 today Has been complaint of alot of bladder discomfort Pyridium increased to q6h Urology on board hemoglobin stable Acute Hypoxia respiratory failure Secondary to mild pulmonary congestion CTA chest showed no evidence for pulmonary embolus. Findings suggesting mild congestive failure. Will consider low dose lasix if worsening Stable Bilateral LE Edema Doppler of LE showed no DVT ECHO Normal LV chamber size and wall thickness. * Normal LV systolic function, EF 55-60%. * No segmental left ventricular wall motion abnormalities are noted. * Grade II diastolic dysfunction. * No significant valvular pathology. Coronary artery disease status post coronary artery bypass grafting. On aspirin and cavedilol will consider hold asa if hemoglobin drop further in the setting of hematuria Stable DM2 on oral meds Hba1c 5.9 Continue monitor BS Chronic renal insufficiency. Creatinine at baseline. creatine 1.4 Anemia Mostly related to Hematuria/Chemo Hgb 8.6 Continue monitor H/H Transfuse if needed DVT px Will hold heparin subq for now due to drop on hemoglobin Will do SCD for now CODE STATUS FULL CODE Current Inpatient Medications: Current Inpatient Medications Medications (Trade) Dose Ordered Sig/Kailash Route Start Time Stop Time Status Last Admin Dose Admin Ioversol (Optiray 320) 100 ml UD PRN IV 01/22/18 06:45 01/26/18 06:44 Prochlorperazine Edisylate 5 mg/ Syringe 5 ml @ 5 mls/min Q6H PRN IV 01/22/18 06:45 02/21/18 06:44 Heparin Sodium (Porcine) (Heparin Sq 5000 Unit/0.5ml) 5,000 unit Q8 SQ 01/22/18 14:00 02/21/18 13:59 Future Hold 01/22/18 13:25 5,000 UNIT Acetaminophen (Tylenol Tab) 650 mg Q4H PRN PO 01/22/18 06:45 02/21/18 06:44 01/22/18 20:41 650 MG Nitroglycerin (Nitrostat Tab) 0.4 mg UD PRN SL 01/22/18 06:45 02/21/18 06:44 Insulin Aspart (novoLOG ASPART) SLIDING SCALE If C... ACHS SC 01/22/18 11:00 02/21/18 10:59 01/22/18 20:50 1 UNITS Glucose (Glucose 40% Gel) 15-30 GRAMS 15 GRAMS... UD PRN PO 01/22/18 06:45 02/21/18 06:44 Glucose (Glucose Chew Tab) 4-8 Tablets 4 Tabl... UD PRN PO 01/22/18 06:45 02/21/18 06:44 Dextrose (Dextrose 50% 50ML Syringe) 25-50ML OF 50% DW IV FOR... UD PRN IV 01/22/18 06:45 02/21/18 06:44 Glucagon (Glucagon Inj) 1 mg UD PRN SQ 01/22/18 06:45 02/21/18 06:44 Hydromorphone HCl (Dilaudid Inj) 0.5 mg Q3H PRN IV 01/22/18 06:45 02/05/18 06:44 01/22/18 07:40 0.5 MG Carvedilol (Coreg Tab) 6.25 mg BID PO 01/22/18 21:00 02/21/18 20:59 01/25/18 09:37 6.25 MG Latanoprost (Xalatan Oph Soln) 1 drops HS OP 01/22/18 21:00 02/21/18 20:59 01/24/18 21:00 1 DROPS Oxybutynin Chloride (Ditropan Tab) 5 mg Q8 PRN PO 01/22/18 06:45 02/21/18 06:44 01/25/18 09:37 5 MG Oxycodone/ Acetaminophen (Percocet 5-325mg Tab) 1 tab Q4H PRN PO 01/22/18 06:45 02/05/18 06:44 01/25/18 10:59 1 TAB Pantoprazole Sodium (Protonix Tab) 40 mg QAM PO 01/22/18 09:00 02/21/18 08:59 01/25/18 09:38 40 MG Trazodone HCl (Desyrel Tab) 25 mg QPM PO 01/22/18 21:00 02/21/18 20:59 01/24/18 22:21 25 MG Aspirin (Ecotrin Tab) 81 mg QAM PO 01/22/18 09:00 02/21/18 08:59 01/25/18 09:37 81 MG Ipratropium [place] (Atrovent 0.02% 0.5MG/2.5ML Neb) 0.5 mg Q4H PRN INH 01/22/18 07:30 02/21/18 07:29 Levalbuterol (Xopenex 1.25MG/ 0.5ML Neb) 1.25 mg Q4H PRN INH 01/22/18 07:30 02/21/18 07:29 Insulin Glargine (Lantus Solostar Pen) 5 units HS SC 01/22/18 21:00 02/21/18 20:59 01/24/18 22:26 5 UNITS Phenazopyridine HCl (Pyridium Tab) 100 mg Q6 PO 01/24/18 18:00 02/23/18 17:59 01/25/18 12:39 100 MG Ceftriaxone Sodium 1 gm/ Dextrose 50 ml @ 100 mls/hr Q24H IV 01/24/18 23:00 02/03/18 22:59 01/24/18 23:40 100 MLS/HR
[2018-01-25] MEDS ORDERED: HALOPERIDOL LACTATE 5 MG/ML 1 ML VIAL IM PRN (20:15)
[2018-01-25] MEDS: TRAZODONE HCL 50 MG TAB PO SCH (21:00)
[2018-01-25] MEDS: LATANOPROST 0.005% OP SOLN 2.5 ML BTL OP SCH (21:01)
[2018-01-25] MEDS: INSULIN GLARGINE SOLOSTAR 100 UNITS/ML 3 ML PEN SC SCH (21:05)
[2018-01-25 21:24] LABS: CALCIUM 8.3 mg/dl (8.5-10.1); CREATININE 1.46 mg/dl (0.60-1.40); POTASSIUM 3.4 mmol/L (3.5-5.1)
[2018-01-25] MEDS: HALOPERIDOL 1 MG TAB PO PRN (21:53)
[2018-01-25] MEDS: CEFTRIAXONE SOD INJ 1 GM in DEXTROSE 5% ADD-VANTAGE 50ML 50 ML IV SCH (22:49)
[2018-01-25] MEDS ORDERED: NSS + 20MEQ KCL 1000ML 1,000 ML IV ONE (23:45)
[2018-01-26] MEDS: PHENAZOPYRIDINE HCL 100 MG TAB PO SCH ×5 (00:08→23:26)
[2018-01-26] MEDS: MAGNESIUM SULFATE 1GM / D5W 1 GM in PREMIXED IN D5W 100 ML IV SCH ×2 (00:20→01:49)
[2018-01-26] MEDS: OXYCODONE/ACETAMINOPHEN 5-325 TAB PO PRN ×2 (01:54→14:46)
[2018-01-26] MEDS: HALOPERIDOL 1 MG TAB PO PRN (02:45)
[2018-01-26 04:43] VITALS: BP 115/69; PULSE 97; TEMP 36.4; O2SAT 94
[2018-01-26 06:22] LABS: HEMOGLOBIN 9.2 g/dL (14.0-18.0); MEAN CELL VOLUME 96.6 fL (80-100); MEAN CORPUSCULAR HEMOGLOBIN 31.7 pg (25-34); MEAN CORPUSCULAR HGB CONC 32.9 g/dl (32-36); NUCLEATED RED BLOOD CELL ABS 0.02 K/uL (0-0); RED CELL DISTRIBUTION WIDTH CV 15.6 % (11.5-14.5); RED CELL DISTRIBUTION WIDTH SD 54.8 fL (36.4-46.3); WHITE BLOOD COUNT 7.11 K/uL (4.8-10.8)
[2018-01-26 06:50] LABS: PLATELET COUNT 92 K/uL (130-400)
[2018-01-26 06:54] LABS: CALCIUM 8.5 mg/dl (8.5-10.1); CREATININE 1.5 mg/dl (0.60-1.40); POTASSIUM 3.7 mmol/L (3.5-5.1)
[2018-01-26] MEDS: INSULIN ASPART 100 UNITS/ML 3 ML PEN SC SCH ×4 (07:00→20:57)
[2018-01-26 07:06] LABS: BASO % 0.3 %; BASO ABS # 0.02 K/uL (0-0.2); EOS % 0.1 %; EOS ABS # 0.01 K/uL (0-0.5); IG# 0.17 K/uL (0.00-0.02); LYMPH % 19.7 %; MONO ABS # 1.14 K/uL (0.11-0.59); NEUT % 61.5 %; NEUT ABS # 4.37 K/uL (1.4-6.5)
[2018-01-26 07:39] VITALS: BP 166/72; PULSE 82; TEMP 36.8; O2SAT 91
[2018-01-26] MEDS: CARVEDILOL 6.25 MG TAB PO SCH ×2 (08:35→20:57)
[2018-01-26] MEDS: ASPIRIN 81 MG ECTAB PO SCH (08:36)
[2018-01-26] MEDS: PANTOprazole SOD 40 MG TAB PO SCH (08:36)
--- NOTE | 2018-01-26 11:10 | Progress Note ---
Subjective Date of Service: Jan 26, 2018. Subjective Pt evaluation today including: conversation w/ patient, chart review, lab review Voiding: bruner catheter in place (patent, draining diallo colored urine with some old clot ) 78 yo male with bladder cancer and gross hematuria. Bruner in place draining diallo colored urine with some old clot. Blood and urine cultures growing ac sensitive e coli. Pt denies pain. Problem List Medical Problems: (1) Bladder cancer Status: Acute (2) Fall Status: Acute (3) Gross hematuria Status: Acute (4) Sepsis Status: Acute (5) UTI (urinary tract infection) Status: Acute Review of Systems Constitutional: No fever, No chills Respiratory: No shortness of breath Cardiac: No chest pain Abdomen: No pain, No nausea, No vomiting Male : + hematuria Heme: + abnormal bleeding/bruising Objective Vital Signs Date Time Temp Pulse Resp B/P (MAP) Pulse Ox O2 Delivery O2 Flow Rate FiO2 01/26/18 07:39 36.8 82 20 166/72 (103) 91 Room Air 01/26/18 07:35 Room Air 01/26/18 04:43 36.4 97 24 115/69 (84) 94 Room Air 01/26/18 04:00 Room Air 01/26/18 00:00 Room Air 01/25/18 23:08 36.6 90 22 157/61 (93) 92 Room Air 01/25/18 21:05 78 147/70 (95) 01/25/18 19:23 36.4 74 24 152/75 (100) 93 Room Air 01/25/18 18:45 Room Air 01/25/18 15:45 Room Air 01/25/18 15:16 36.7 64 18 138/73 (94) 93 Room Air 01/25/18 12:08 36.7 72 20 97/51 (66) 92 Room Air 01/25/18 12:00 Nasal Cannula 3.0 Physical Exam General Appearance: no apparent distress Eyes: normal inspection ENT: hearing grossly normal Neck: no JVD Respiratory/Chest: no respiratory distress, no accessory muscle use Cardiovascular: no JVD Extremities: normal inspection Neurologic/Psychiatric: alert, normal mood/affect, oriented x 3 Skin: normal color Laboratory Results Last 24 Hours Test 01/25/18 11:47 01/25/18 16:29 3/4/18 20:31 01/25/18 20:38 Bedside Glucose 138 mg/dl 134 mg/dl 183 mg/dl Sodium Level 139 mmol/L Potassium Level 3.4 mmol/L Chloride Level 105 mmol/L Carbon Dioxide Level 26 mmol/L Anion Gap 8.0 mmol/L Blood Urea Nitrogen 21 mg/dl Creatinine 1.46 mg/dl Est Creatinine Clear Calc Drug Dose 39.5 ml/min Estimated GFR () 52.3 Estimated GFR (Non- 45.1 BUN/Creatinine Ratio 14.6 Random Glucose 153 mg/dl Calcium Level 8.3 mg/dl Magnesium Level 1.5 mg/dl Test 01/26/18 05:46 01/26/18 06:28 White Blood Count 7.11 K/uL Red Blood Count 2.90 M/uL Hemoglobin 9.2 g/dL Hematocrit 28.0 % Mean Corpuscular Volume 96.6 fL Mean Corpuscular Hemoglobin 31.7 pg Mean Corpuscular Hemoglobin Concent 32.9 g/dl Platelet Count 92 K/uL Mean Platelet Volume 11.0 fL Neutrophils (%) (Auto) 61.5 % Lymphocytes (%) (Auto) 19.7 % Monocytes (%) (Auto) 16.0 % Eosinophils (%) (Auto) 0.1 % Basophils (%) (Auto) 0.3 % Neutrophils # (Auto) 4.37 K/uL Lymphocytes # (Auto) 1.40 K/uL Monocytes # (Auto) 1.14 K/uL Eosinophils # (Auto) 0.01 K/uL Basophils # (Auto) 0.02 K/uL RDW Standard Deviation 54.8 fL RDW Coefficient of Variation 15.6 % Immature Granulocyte % (Auto) 2.4 % Immature Granulocyte # (Auto) 0.17 K/uL Nucleated RBC Absolute Count (auto) 0.02 K/uL Nucleated Red Blood Cells % 0.2 % Hypersegmented Polys 1+ Sodium Level 138 mmol/L Potassium Level 3.7 mmol/L Chloride Level 106 mmol/L Carbon Dioxide Level 24 mmol/L Anion Gap 8.0 mmol/L Blood Urea Nitrogen 21 mg/dl Creatinine 1.50 mg/dl Est Creatinine Clear Calc Drug Dose 38.2 ml/min Estimated GFR () 50.6 Estimated GFR (Non- 43.7 BUN/Creatinine Ratio 13.7 Random Glucose 192 mg/dl Calcium Level 8.5 mg/dl Magnesium Level 1.9 mg/dl Bedside Glucose 178 mg/dl Assessment and Plan A/P: Bladder cancer, gross hematuria, UTI with sepsis AFVSS. Recommend transition to 10-14 days of oral abx prior to d/c home. Will continue bruner catheter for now. Irrigate bruner catheter PRN for clots. Continue to monitor H&H. Supportive management with transfusions PRN. Plan for trial of void prior to d/c home. Continue chemo per oncology for bladder cancer. Will continue to follow along with primary service.
[2018-01-26 11:27] VITALS: BP 127/75; PULSE 98; TEMP 36.5; O2SAT 91
[2018-01-26 15:11] VITALS: BP 149/76; PULSE 74; TEMP 37.2; O2SAT 92
[2018-01-26 19:18] VITALS: BP 143/70; PULSE 74; TEMP 37.1; O2SAT 93
--- NOTE | 2018-01-26 19:42 | Progress Note ---
Medicine Progress Note Date & Time of Visit: Jan 26, 2018 at 19:33. Subjective Pt was seen and examined Sitting in chair with no distress Pt said that he starting to feels stronger Physical therapy recommended inpatient rehab after much discussion with patient, he agreed to go to rehab for therapy denies any chest pain, palpitation, dizziness and SOB Objective Last 8 Hrs Date Time Temp Pulse Resp B/P (MAP) Pulse Ox O2 Delivery O2 Flow Rate FiO2 01/26/18 19:18 37.1 74 18 143/70 (94) 93 Nasal Cannula 2.0 01/26/18 15:40 Room Air 01/26/18 15:11 37.2 74 18 149/76 (100) 92 Room Air 01/26/18 11:45 Room Air Physical Exam: General- No acute distress Head- atraumatic Eyes- PERRL, EOMI ENT- oropharynx clear Neck- supple, no JVD Lungs- No wheezing Heart- No murmur Abdomen- normal bowel sounds, soft Extremities- no calf tenderness Neuro- alert, oriented x 3; PERRL Skin- warm & dry Laboratory Results: Last 24 Hours Test 01/25/18 20:31 01/25/18 20:38 01/26/18 05:46 01/26/18 06:28 Bedside Glucose 183 mg/dl 178 mg/dl Sodium Level 139 mmol/L 138 mmol/L Potassium Level 3.4 mmol/L 3.7 mmol/L Chloride Level 105 mmol/L 106 mmol/L Carbon Dioxide Level 26 mmol/L 24 mmol/L Anion Gap 8.0 mmol/L 8.0 mmol/L Blood Urea Nitrogen 21 mg/dl 21 mg/dl Creatinine 1.46 mg/dl 1.50 mg/dl Est Creatinine Clear Calc Drug Dose 39.5 ml/min 38.2 ml/min Estimated GFR () 52.3 50.6 Estimated GFR (Non- 45.1 43.7 BUN/Creatinine Ratio 14.6 13.7 Random Glucose 153 mg/dl 192 mg/dl Calcium Level 8.3 mg/dl 8.5 mg/dl Magnesium Level 1.5 mg/dl 1.9 mg/dl White Blood Count 7.11 K/uL Red Blood Count 2.90 M/uL Hemoglobin 9.2 g/dL Hematocrit 28.0 % Mean Corpuscular Volume 96.6 fL Mean Corpuscular Hemoglobin 31.7 pg Mean Corpuscular Hemoglobin Concent 32.9 g/dl Platelet Count 92 K/uL Mean Platelet Volume 11.0 fL Neutrophils (%) (Auto) 61.5 % Lymphocytes (%) (Auto) 19.7 % Monocytes (%) (Auto) 16.0 % Eosinophils (%) (Auto) 0.1 % Basophils (%) (Auto) 0.3 % Neutrophils # (Auto) 4.37 K/uL Lymphocytes # (Auto) 1.40 K/uL Monocytes # (Auto) 1.14 K/uL Eosinophils # (Auto) 0.01 K/uL Basophils # (Auto) 0.02 K/uL RDW Standard Deviation 54.8 fL RDW Coefficient of Variation 15.6 % Immature Granulocyte % (Auto) 2.4 % Immature Granulocyte # (Auto) 0.17 K/uL Nucleated RBC Absolute Count (auto) 0.02 K/uL Nucleated Red Blood Cells % 0.2 % Hypersegmented Polys 1+ Test 01/26/18 10:42 01/26/18 16:21 Bedside Glucose 139 mg/dl 177 mg/dl Assessment & Plan Sepsis Mostly due to complicated urinary tract infection History of indwelling Puri catheter due to Prostate cancer with lung metastasis Febrile and tachycardia on admission UA positive for nitrites and leukocytes Elevated procalcitonin On empirical abx Zosyn Received IVF Blood cx and urine positive for gram negative bacilli Continue IV zosyn Continue monitor 01/26 clinically improved blood cx and urine cx grew E.coli Repeat blood cx no growth Will change abx to oral Cipro to complete 14 days course of abx Afebrile Hematuria UA positive for occult blood Hx prostate cancer Hgb 8.8 on admission Hgb 9.2 today Pyridium increased to q6h Urology on board hemoglobin stable Denies any bladder pain Acute Hypoxia respiratory failure Secondary to mild pulmonary congestion CTA chest showed no evidence for pulmonary embolus. Findings suggesting mild congestive failure. Stable Ambulatory dysfunction Continue PT/OT PT/OT recommended rehab Fall precaution Waiting for placement to rehab Bilateral LE Edema Doppler of LE showed no DVT ECHO Normal LV chamber size and wall thickness. * Normal LV systolic function, EF 55-60%. * No segmental left ventricular wall motion abnormalities are noted. * Grade II diastolic dysfunction. * No significant valvular pathology. Coronary artery disease status post coronary artery bypass grafting. On aspirin and cavedilol will consider hold asa if hemoglobin drop further in the setting of hematuria Stable DM2 on oral meds Hba1c 5.9 Continue monitor BS Chronic renal insufficiency. Creatinine at baseline. His creatine from outpatient chart has been fluctuated from 1.5 to 1.8 and 2.2 Creatine 1.5 avoid nephrotoxic agents Anemia Mostly related to Hematuria/Chemo Hgb 9.2 Continue monitor H/H Transfuse if needed DVT px On SCD for now CODE STATUS FULL CODE Disposition Waiting for placement to rehab Consultants: Urology Current Inpatient Medications: Current Inpatient Medications Medications (Trade) Dose Ordered Sig/Kailash Route Start Time Stop Time Status Last Admin Dose Admin Prochlorperazine Edisylate 5 mg/ Syringe 5 ml @ 5 mls/min Q6H PRN IV 01/22/18 06:45 02/21/18 06:44 Heparin Sodium (Porcine) (Heparin Sq 5000 Unit/0.5ml) 5,000 unit Q8 SQ 01/22/18 14:00 02/21/18 13:59 Future Hold 01/22/18 13:25 5,000 UNIT Acetaminophen (Tylenol Tab) 650 mg Q4H PRN PO 01/22/18 06:45 02/21/18 06:44 01/22/18 20:41 650 MG Nitroglycerin (Nitrostat Tab) 0.4 mg UD PRN SL 01/22/18 06:45 02/21/18 06:44 Insulin Aspart (novoLOG ASPART) SLIDING SCALE If C... ACHS SC 01/22/18 11:00 02/21/18 10:59 01/25/18 21:04 1 UNITS Glucose (Glucose 40% Gel) 15-30 GRAMS 15 GRAMS... UD PRN PO 01/22/18 06:45 02/21/18 06:44 Glucose (Glucose Chew Tab) 4-8 Tablets 4 Tabl... UD PRN PO 01/22/18 06:45 02/21/18 06:44 Dextrose (Dextrose 50% 50ML Syringe) 25-50ML OF 50% DW IV FOR... UD PRN IV 01/22/18 06:45 02/21/18 06:44 Glucagon (Glucagon Inj) 1 mg UD PRN SQ 01/22/18 06:45 02/21/18 06:44 Hydromorphone HCl (Dilaudid Inj) 0.5 mg Q3H PRN IV 01/22/18 06:45 02/05/18 06:44 01/22/18 07:40 0.5 MG Carvedilol (Coreg Tab) 6.25 mg BID PO 01/22/18 21:00 02/21/18 20:59 01/26/18 08:35 6.25 MG Latanoprost (Xalatan Oph Soln) 1 drops HS OP 01/22/18 21:00 02/21/18 20:59 01/25/18 21:01 1 DROPS Oxybutynin Chloride (Ditropan Tab) 5 mg Q8 PRN PO 01/22/18 06:45 02/21/18 06:44 01/25/18 09:37 5 MG Oxycodone/ Acetaminophen (Percocet 5-325mg Tab) 1 tab Q4H PRN PO 01/22/18 06:45 02/05/18 06:44 01/26/18 14:46 1 TAB Pantoprazole Sodium (Protonix Tab) 40 mg QAM PO 01/22/18 09:00 02/21/18 08:59 01/26/18 08:36 40 MG Trazodone HCl (Desyrel Tab) 25 mg QPM PO 01/22/18 21:00 02/21/18 20:59 01/25/18 21:00 25 MG Aspirin (Ecotrin Tab) 81 mg QAM PO 01/22/18 09:00 02/21/18 08:59 01/26/18 08:36 81 MG Ipratropium [place] (Atrovent 0.02% 0.5MG/2.5ML Neb) 0.5 mg Q4H PRN INH 01/22/18 07:30 02/21/18 07:29 Levalbuterol (Xopenex 1.25MG/ 0.5ML Neb) 1.25 mg Q4H PRN INH 01/22/18 07:30 02/21/18 07:29 Insulin Glargine (Lantus Solostar Pen) 5 units HS SC 01/22/18 21:00 02/21/18 20:59 01/25/18 21:05 5 UNITS Phenazopyridine HCl (Pyridium Tab) 100 mg Q6 PO 01/24/18 18:00 02/23/18 17:59 01/26/18 17:20 100 MG Ceftriaxone Sodium 1 gm/ Dextrose 50 ml @ 100 mls/hr Q24H IV 01/24/18 23:00 02/03/18 22:59 01/25/18 22:49 100 MLS/HR Haloperidol Lactate (Haldol Inj) 2 mg Q2H PRN IM 01/25/18 20:15 02/24/18 20:14 Haloperidol (Haldol Tab) 2 mg Q4H PRN PO 01/25/18 20:15 02/24/18 20:14 01/26/18 02:45 2 MG
[2018-01-26] MEDS: TRAZODONE HCL 50 MG TAB PO SCH (20:58)
[2018-01-26] MEDS: LATANOPROST 0.005% OP SOLN 2.5 ML BTL OP SCH (20:58)
[2018-01-26] MEDS: INSULIN GLARGINE SOLOSTAR 100 UNITS/ML 3 ML PEN SC SCH (21:00)
[2018-01-26 23:22] VITALS: BP 162/74; PULSE 71; TEMP 37; O2SAT 94
[2018-01-26] MEDS: CEFTRIAXONE SOD INJ 1 GM in DEXTROSE 5% ADD-VANTAGE 50ML 50 ML IV SCH (23:26)
[2018-01-27] VITALS (8 sets, daily range): BP systolic 132–175; BP diastolic 65–79; PULSE 62–89; TEMP 36.5–37.7; O2SAT 1–97
[2018-01-27] MEDS: PHENAZOPYRIDINE HCL 100 MG TAB PO SCH ×4 (05:34→23:52)
[2018-01-27 06:34] LABS: HEMOGLOBIN 8.7 g/dL (14.0-18.0); MEAN CELL VOLUME 98.9 fL (80-100); MEAN CORPUSCULAR HEMOGLOBIN 31.9 pg (25-34); MEAN CORPUSCULAR HGB CONC 32.2 g/dl (32-36); MEAN PLATELET VOLUME 11.1 fL (7.4-10.4); PLATELET COUNT 141 K/uL (130-400); RED CELL DISTRIBUTION WIDTH CV 16.3 % (11.5-14.5); RED CELL DISTRIBUTION WIDTH SD 57.5 fL (36.4-46.3)
[2018-01-27 07:02] LABS: CREATININE 1.33 mg/dl (0.60-1.40); POTASSIUM 3.5 mmol/L (3.5-5.1)
[2018-01-27] MEDS: ASPIRIN 81 MG ECTAB PO SCH (08:17)
[2018-01-27] MEDS: CARVEDILOL 6.25 MG TAB PO SCH ×2 (08:17→20:43)
[2018-01-27] MEDS: INSULIN ASPART 100 UNITS/ML 3 ML PEN SC SCH ×4 (08:18→20:49)
[2018-01-27] MEDS: PANTOprazole SOD 40 MG TAB PO SCH (08:18)
--- NOTE | 2018-01-27 09:45 | Progress Note ---
Subjective Date of Service: Jan 27, 2018. Subjective Pt evaluation today including: conversation w/ patient, chart review, lab review Voiding: bruner catheter in place (patent, draining diallo colored urine ) 78 yo male with bladder cancer, gross hematuria, and urosepsis. Pt denies any pain today. Blood and urine cultures grew ac sensitive e coli. Bruner catheter draining light diallo colored urine. H&H noted to be 8.7 and 27.0. Pt reports some bladder discomfort today, but otherwise feels well. Problem List Medical Problems: (1) Bladder cancer Status: Acute (2) Fall Status: Acute (3) Gross hematuria Status: Acute (4) Sepsis Status: Acute (5) UTI (urinary tract infection) Status: Acute Review of Systems Constitutional: No fever, No chills Respiratory: No shortness of breath Cardiac: No chest pain Abdomen: No pain, No nausea, No vomiting Male : + hematuria Heme: No abnormal bleeding/bruising Objective Vital Signs Date Time Temp Pulse Resp B/P (MAP) Pulse Ox O2 Delivery O2 Flow Rate FiO2 01/27/18 08:00 Nasal Cannula 2.0 01/27/18 07:56 36.5 88 20 150/68 (95) 97 01/27/18 03:40 Nasal Cannula 2.0 01/27/18 02:41 36.6 62 20 161/72 (101) 97 Nasal Cannula 2.0 01/26/18 23:30 Nasal Cannula 2.0 01/26/18 23:22 37.0 71 20 162/74 (103) 94 Nasal Cannula 2.0 01/26/18 21:04 Nasal Cannula 2.0 01/26/18 19:18 37.1 74 18 143/70 (94) 93 Nasal Cannula 2.0 01/26/18 15:40 Room Air 01/26/18 15:11 37.2 74 18 149/76 (100) 92 Room Air 01/26/18 11:45 Room Air 01/26/18 11:27 36.5 98 20 127/75 (92) 91 Room Air Physical Exam General Appearance: no apparent distress Eyes: normal inspection ENT: hearing grossly normal Neck: no JVD Respiratory/Chest: no respiratory distress, no accessory muscle use Cardiovascular: no JVD Extremities: normal inspection Neurologic/Psychiatric: alert, normal mood/affect, oriented x 3 Skin: normal color Laboratory Results Last 24 Hours Test 01/26/18 10:42 01/26/18 16:21 01/26/18 20:18 01/27/18 05:26 Bedside Glucose 139 mg/dl 177 mg/dl 177 mg/dl White Blood Count 7.20 K/uL Red Blood Count 2.73 M/uL Hemoglobin 8.7 g/dL Hematocrit 27.0 % Mean Corpuscular Volume 98.9 fL Mean Corpuscular Hemoglobin 31.9 pg Mean Corpuscular Hemoglobin Concent 32.2 g/dl Platelet Count 141 K/uL Mean Platelet Volume 11.1 fL RDW Standard Deviation 57.5 fL RDW Coefficient of Variation 16.3 % Neutrophils % (Manual) 80.9 % Lymphocytes % (Manual) 13.0 % Monocytes % (Manual) 3.5 % Metamyelocytes % 0.9 % Myelocytes % 1.7 % Neutrophils # (Manual) 5.82 K/uL Total Absolute Neutrophils 5.82 K/uL Lymphocytes # (Manual) 0.94 K/uL Total Absolute Lymphocytes 0.94 K/uL Monocytes # (Manual) 0.25 K/uL Metamyelocytes # 0.06 K/uL Myelocytes # 0.12 K/uL Red Blood Cell Morphology Unremarkable Sodium Level 141 mmol/L Potassium Level 3.5 mmol/L Chloride Level 108 mmol/L Carbon Dioxide Level 28 mmol/L Anion Gap 5.0 mmol/L Blood Urea Nitrogen 18 mg/dl Creatinine 1.33 mg/dl Est Creatinine Clear Calc Drug Dose 42.8 ml/min Estimated GFR () 58.5 Estimated GFR (Non- 50.5 BUN/Creatinine Ratio 13.7 Random Glucose 144 mg/dl Calcium Level 8.0 mg/dl Test 01/27/18 06:29 Bedside Glucose 136 mg/dl Assessment and Plan A/P: Bladder cancer, gross hematuria, UTI with sepsis AFVSS. Recommend transition to 10-14 days of oral abx prior to d/c home. Will continue bruner catheter for now. Irrigate bruner catheter PRN for clots. Continue to monitor H&H. Supportive management with transfusions PRN. Plan for trial of void prior to d/c home. Continue chemo per oncology for bladder cancer. Continue Pyridium and oxybutynin PRN for bladder discomfort. The pt is scheduled to f/u with Dr. Strong on 02-03. Will keep as scheduled.
--- NOTE | 2018-01-27 13:40 | Progress Note ---
Internal Med Progress Note Date of Service: Jan 27, 2018. Provider Documentation: SUBJECTIVE: The patient was seen and examined Wants to go home Awaiting for Rehab placement Has ambulatory dysfunction OBJECTIVE: Vital Signs-as noted below Exam: General-No distress at rest Eyes-normal ENT-normal Neck-supple Lungs-clear to ausucltate bilaterally Heart-Regular Abdomen-Benign,no masses,regla sound present Extremities-no edema Neuro-AA Pleasantly confused Lab data as noted below. ASSESSMENT & PLAN: Sepsis Mostly due to complicated urinary tract infection History of indwelling Puri catheter due to Prostate cancer with lung metastasis On empirical abx Zosyn Blood cx and urine positive E Coli-pansensitive Continue IV zosyn and now on Ceftriaxone Will change abx to oral Cipro to complete 14 days course of abx Clinically a lot better Hematuria UA positive for occult blood Hx prostate cancer Hgb 8.8 on admission Pyridium increased to q6h Urology on board-appreciate input hemoglobin stable Denies any bladder pain Acute Hypoxia respiratory failure Secondary to mild pulmonary congestion CTA chest showed no evidence for pulmonary embolus. Findings suggesting mild congestive failure. Stable Ambulatory dysfunction Continue PT/OT PT/OT recommended rehab Fall precaution Waiting for placement to rehab but he wants to go home Bilateral LE Edema Doppler of LE showed no DVT ECHO Normal LV chamber size and wall thickness. * Normal LV systolic function, EF 55-60%. * No segmental left ventricular wall motion abnormalities are noted. * Grade II diastolic dysfunction. * No significant valvular pathology. Coronary artery disease status post coronary artery bypass grafting. On aspirin and cavedilol will consider hold asa if hemoglobin drop further in the setting of hematuria Stable DM2 on oral meds Hba1c 5.9 Continue monitor BS Chronic renal insufficiency. Creatinine at baseline. His creatine from outpatient chart has been fluctuated from 1.5 to 1.8 and 2.2 Creatine 1.5 -normalized avoid nephrotoxic agents Anemia Mostly related to Hematuria/Chemo Hgb 9.2 Continue monitor H/H Transfuse if needed DVT px On SCD for now CODE STATUS FULL CODE Disposition Waiting for placement to rehab Consultants: Urology Awaiting placement Vital Signs: Date Time Temp Pulse Resp B/P (MAP) Pulse Ox O2 Delivery O2 Flow Rate FiO2 01/27/18 12:00 Nasal Cannula 2.0 01/27/18 12:00 36.5 89 18 148/79 (102) 96 01/27/18 08:00 Nasal Cannula 2.0 01/27/18 07:56 36.5 88 20 150/68 (95) 97 01/27/18 03:40 Nasal Cannula 2.0 01/27/18 02:41 36.6 62 20 161/72 (101) 97 Nasal Cannula 2.0 01/26/18 23:30 Nasal Cannula 2.0 01/26/18 23:22 37.0 71 20 162/74 (103) 94 Nasal Cannula 2.0 01/26/18 21:04 Nasal Cannula 2.0 01/26/18 19:18 37.1 74 18 143/70 (94) 93 Nasal Cannula 2.0 01/26/18 15:40 Room Air 01/26/18 15:11 37.2 74 18 149/76 (100) 92 Room Air Lab Results: Results Past 24 Hours Test 01/26/18 16:21 01/26/18 20:18 01/27/18 05:26 01/27/18 06:29 Range/Units Bedside Glucose 177 177 136 70-99 mg/dl White Blood Count 7.20 4.8-10.8 K/uL Red Blood Count 2.73 4.7-6.1 M/uL Hemoglobin 8.7 14.0-18.0 g/dL Hematocrit 27.0 42-52 % Mean Corpuscular Volume 98.9 80-100 fL Mean Corpuscular Hemoglobin 31.9 25-34 pg Mean Corpuscular Hemoglobin Concent 32.2 32-36 g/dl Platelet Count 141 130-400 K/uL Mean Platelet Volume 11.1 7.4-10.4 fL RDW Standard Deviation 57.5 36.4-46.3 fL RDW Coefficient of Variation 16.3 11.5-14.5 % Neutrophils % (Manual) 80.9 % Lymphocytes % (Manual) 13.0 % Monocytes % (Manual) 3.5 % Metamyelocytes % 0.9 % Myelocytes % 1.7 % Neutrophils # (Manual) 5.82 1.4-6.5 K/uL Total Absolute Neutrophils 5.82 1.4-6.5 K/uL Lymphocytes # (Manual) 0.94 1.2-3.4 K/uL Total Absolute Lymphocytes 0.94 1.2-3.4 K/uL Monocytes # (Manual) 0.25 0.11-0.59 K/uL Metamyelocytes # 0.06 0-0 K/uL Myelocytes # 0.12 0-0 K/uL Red Blood Cell Morphology Unremarkable Sodium Level 141 136-145 mmol/L Potassium Level 3.5 3.5-5.1 mmol/L Chloride Level 108 98-107 mmol/L Carbon Dioxide Level 28 21-32 mmol/L Anion Gap 5.0 3-11 mmol/L Blood Urea Nitrogen 18 7-18 mg/dl Creatinine 1.33 0.60-1.40 mg/dl Est Creatinine Clear Calc Drug Dose 42.8 ml/min Estimated GFR () 58.5 Estimated GFR (Non- 50.5 BUN/Creatinine Ratio 13.7 10-20 Random Glucose 144 70-99 mg/dl Calcium Level 8.0 8.5-10.1 mg/dl Test 01/27/18 11:28 Range/Units Bedside Glucose 168 70-99 mg/dl
[2018-01-27] MEDS: TRAZODONE HCL 50 MG TAB PO SCH (20:43)
[2018-01-27] MEDS: LATANOPROST 0.005% OP SOLN 2.5 ML BTL OP SCH (20:46)
[2018-01-27] MEDS: INSULIN GLARGINE SOLOSTAR 100 UNITS/ML 3 ML PEN SC SCH (20:52)
[2018-01-27] MEDS: ACETAMINOPHEN 325 MG TAB PO PRN (21:59)
[2018-01-27] MEDS: CEFTRIAXONE SOD INJ 1 GM in DEXTROSE 5% ADD-VANTAGE 50ML 50 ML IV SCH (23:46)
[2018-01-28] VITALS (7 sets, daily range): BP systolic 146–167; BP diastolic 66–70; PULSE 65–100; TEMP 36.6–37.2; O2SAT 91–98
[2018-01-28] MEDS: OXYBUTYNIN CHLORIDE 5 MG TAB PO PRN ×2 (03:34→11:48)
[2018-01-28] MEDS: PHENAZOPYRIDINE HCL 100 MG TAB PO SCH ×3 (06:08→19:06)
[2018-01-28 06:31] LABS: BASO % 0.3 %; BASO ABS # 0.03 K/uL (0-0.2); EOS % 1.2 %; HEMATOCRIT 29.7 % (42-52); HEMOGLOBIN 9.5 g/dL (14.0-18.0); IG# 0.32 K/uL (0.00-0.02); LYMPH ABS # 1.64 K/uL (1.2-3.4); MEAN CELL VOLUME 99.7 fL (80-100); MEAN CORPUSCULAR HEMOGLOBIN 31.9 pg (25-34); MEAN PLATELET VOLUME 10.7 fL (7.4-10.4); MONO % 12.9 %; MONO ABS # 1.11 K/uL (0.11-0.59); NEUT % 62.9 %; NEUT ABS # 5.42 K/uL (1.4-6.5); PLATELET COUNT 216 K/uL (130-400); RED CELL DISTRIBUTION WIDTH CV 16.6 % (11.5-14.5); RED CELL DISTRIBUTION WIDTH SD 58.7 fL (36.4-46.3); WHITE BLOOD COUNT 8.62 K/uL (4.8-10.8)
[2018-01-28 07:03] LABS: CALCIUM 8.3 mg/dl (8.5-10.1); CREATININE 1.26 mg/dl (0.60-1.40); POTASSIUM 3.6 mmol/L (3.5-5.1)
[2018-01-28] MEDS: ASPIRIN 81 MG ECTAB PO SCH (08:10)
[2018-01-28] MEDS: INSULIN ASPART 100 UNITS/ML 3 ML PEN SC SCH ×4 (08:11→21:00)
[2018-01-28] MEDS: CARVEDILOL 6.25 MG TAB PO SCH ×2 (08:11→20:56)
[2018-01-28] MEDS: PANTOprazole SOD 40 MG TAB PO SCH (08:12)
--- NOTE | 2018-01-28 10:06 | Progress Note ---
Subjective Date of Service: Jan 28, 2018. Subjective Pt evaluation today including: conversation w/ patient, chart review, lab review Voiding: bruner catheter in place (patent, draining light diallo colored urine ) 78 yo male with bladder cancer and urosepsis. Bruner continues to drain light diallo colored urine. Pt on 1-1 observation currently. Reportedly had some confusion and agitation yesterday. He is currently alert and oriented this morning. States he is slightly agitated from having to remain in the hospital. C/o feeling worn down, but otherwise denies pain. Problem List Medical Problems: (1) Bladder cancer Status: Acute (2) Fall Status: Acute (3) Gross hematuria Status: Acute (4) Sepsis Status: Acute (5) UTI (urinary tract infection) Status: Acute Review of Systems Constitutional: + fatigue, No fever, No chills ENT: No sore throat Respiratory: No shortness of breath Cardiac: No chest pain Abdomen: No pain, No nausea, No vomiting Male : + hematuria Heme: + abnormal bleeding/bruising Objective Vital Signs Date Time Temp Pulse Resp B/P (MAP) Pulse Ox O2 Delivery O2 Flow Rate FiO2 01/28/18 08:00 Nasal Cannula 2.0 01/28/18 07:22 36.7 65 20 161/66 (97) 94 Nasal Cannula 2.0 01/28/18 04:00 Nasal Cannula 2.0 01/28/18 03:07 36.9 65 18 146/70 (95) 91 2.0 01/27/18 23:59 Nasal Cannula 2.0 01/27/18 23:22 1.0 01/27/18 23:16 37.7 66 18 132/67 (88) 94 Room Air 01/27/18 20:38 76 175/79 (111) 92 Nasal Cannula 3.0 01/27/18 19:42 36.7 71 16 163/65 (97) 96 Nasal Cannula 2.0 01/27/18 19:30 Nasal Cannula 2.0 01/27/18 16:00 Nasal Cannula 2.0 01/27/18 15:08 36.8 81 19 158/72 (100) 91 Room Air 01/27/18 12:00 Nasal Cannula 2.0 01/27/18 12:00 36.5 89 18 148/79 (102) 96 Physical Exam General Appearance: no apparent distress Eyes: normal inspection ENT: hearing grossly normal Neck: no JVD Respiratory/Chest: no respiratory distress, no accessory muscle use Cardiovascular: no JVD Extremities: normal inspection Neurologic/Psychiatric: alert, normal mood/affect, oriented x 3 Skin: normal color Laboratory Results Last 24 Hours Test 01/27/18 11:28 01/27/18 16:11 01/27/18 20:47 01/28/18 06:05 Bedside Glucose 168 mg/dl 157 mg/dl 143 mg/dl White Blood Count 8.62 K/uL Red Blood Count 2.98 M/uL Hemoglobin 9.5 g/dL Hematocrit 29.7 % Mean Corpuscular Volume 99.7 fL Mean Corpuscular Hemoglobin 31.9 pg Mean Corpuscular Hemoglobin Concent 32.0 g/dl Platelet Count 216 K/uL Mean Platelet Volume 10.7 fL Neutrophils (%) (Auto) 62.9 % Lymphocytes (%) (Auto) 19.0 % Monocytes (%) (Auto) 12.9 % Eosinophils (%) (Auto) 1.2 % Basophils (%) (Auto) 0.3 % Neutrophils # (Auto) 5.42 K/uL Lymphocytes # (Auto) 1.64 K/uL Monocytes # (Auto) 1.11 K/uL Eosinophils # (Auto) 0.10 K/uL Basophils # (Auto) 0.03 K/uL RDW Standard Deviation 58.7 fL RDW Coefficient of Variation 16.6 % Immature Granulocyte % (Auto) 3.7 % Immature Granulocyte # (Auto) 0.32 K/uL Sodium Level 141 mmol/L Potassium Level 3.6 mmol/L Chloride Level 109 mmol/L Carbon Dioxide Level 25 mmol/L Anion Gap 7.0 mmol/L Blood Urea Nitrogen 18 mg/dl Creatinine 1.26 mg/dl Est Creatinine Clear Calc Drug Dose 44.8 ml/min Estimated GFR () 62.5 Estimated GFR (Non- 53.9 BUN/Creatinine Ratio 14.2 Random Glucose 120 mg/dl Calcium Level 8.3 mg/dl Assessment and Plan A/P: Bladder cancer, gross hematuria, UTI with sepsis AFVSS. Recommend transition to 10-14 days of oral abx prior to d/c home. Will continue bruner catheter in place. Irrigate bruner catheter PRN for clots. H& H stable at 9.5 and 29.7. Continue chemo per oncology for bladder cancer. Continue Pyridium and oxybutynin PRN for bladder discomfort. The pt is scheduled to f/u with Dr. Strong on 02-03. Will keep as scheduled. No further management at this time. Recall PRN issues. Thanks for allowing us to participate in this pt's care.
[2018-01-28] MEDS: OXYCODONE/ACETAMINOPHEN 5-325 TAB PO PRN (11:16)
--- NOTE | 2018-01-28 13:59 | Progress Note ---
Internal Med Progress Note Date of Service: Jan 28, 2018. Provider Documentation: SUBJECTIVE: The patient was seen and examined Wants to go home Awaiting for Rehab placement Has ambulatory dysfunction Requiring 1 to 1 sitter -will not qualify to be discharged now Otherwise denies any symptoms OBJECTIVE: Vital Signs-as noted below Exam: General-No distress at rest Eyes-normal ENT-normal Neck-supple Lungs-clear to ausucltate bilaterally Heart-Regular Abdomen-Benign,no masses,bowel sound present Extremities-no edema Neuro-AA Pleasantly confused Lab data as noted below. ASSESSMENT & PLAN: Sepsis Mostly due to complicated urinary tract infection History of indwelling Puri catheter due to Prostate cancer with lung metastasis On empirical abx Zosyn Blood cx and urine positive E Coli-pansensitive Continue IV Zosyn and now on Ceftriaxone Will change abx to oral Cipro to complete 14 days course of abx Clinically a lot better Awaiting placement Hematuria UA positive for occult blood Hx prostate cancer Hgb 8.8 on admission Pyridium increased to q6h Urology on board-appreciate input hemoglobin stable Denies any bladder pain Hematuria continues but decreased Acute Hypoxia respiratory failure Secondary to mild pulmonary congestion CTA chest showed no evidence for pulmonary embolus. Findings suggesting mild congestive failure. Stable No SOB at rest Ambulatory dysfunction Continue PT/OT PT/OT recommended rehab Fall precaution Waiting for placement to rehab but he wants to go home Bilateral LE Edema Doppler of LE showed no DVT ECHO Normal LV chamber size and wall thickness. * Normal LV systolic function, EF 55-60%. * No segmental left ventricular wall motion abnormalities are noted. * Grade II diastolic dysfunction. * No significant valvular pathology. Coronary artery disease status post coronary artery bypass grafting. On aspirin and cavedilol will consider hold asa if hemoglobin drop further in the setting of hematuria Stable DM2 on oral meds Hba1c 5.9 Continue monitor BS Chronic renal insufficiency. Creatinine at baseline. His creatine from outpatient chart has been fluctuated from 1.5 to 1.8 and 2.2 Creatine 1.5 -normalized avoid nephrotoxic agents Anemia Mostly related to Hematuria/Chemo Hgb 9.2 Continue monitor H/H Transfuse if needed- Hb stable at >9.0 DVT px On SCD for now CODE STATUS FULL CODE Disposition Waiting for placement to rehab Consultants: Urology Awaiting placement Vital Signs: Date Time Temp Pulse Resp B/P (MAP) Pulse Ox O2 Delivery O2 Flow Rate FiO2 3/7/18 12:00 Nasal Cannula 2.0 01/28/18 11:20 36.6 100 20 167/70 (102) 98 Nasal Cannula 2.0 01/28/18 08:00 Nasal Cannula 2.0 01/28/18 07:22 36.7 65 20 161/66 (97) 94 Nasal Cannula 2.0 01/28/18 04:00 Nasal Cannula 2.0 01/28/18 03:07 36.9 65 18 146/70 (95) 91 2.0 01/27/18 23:59 Nasal Cannula 2.0 01/27/18 23:22 1.0 01/27/18 23:16 37.7 66 18 132/67 (88) 94 Room Air 01/27/18 20:38 76 175/79 (111) 92 Nasal Cannula 3.0 01/27/18 19:42 36.7 71 16 163/65 (97) 96 Nasal Cannula 2.0 01/27/18 19:30 Nasal Cannula 2.0 01/27/18 16:00 Nasal Cannula 2.0 01/27/18 15:08 36.8 81 19 158/72 (100) 91 Room Air Lab Results: Results Past 24 Hours Test 01/27/18 16:11 01/27/18 20:47 01/28/18 06:05 01/28/18 06:45 Range/Units Bedside Glucose 157 143 121 70-99 mg/dl White Blood Count 8.62 4.8-10.8 K/uL Red Blood Count 2.98 4.7-6.1 M/uL Hemoglobin 9.5 14.0-18.0 g/dL Hematocrit 29.7 42-52 % Mean Corpuscular Volume 99.7 80-100 fL Mean Corpuscular Hemoglobin 31.9 25-34 pg Mean Corpuscular Hemoglobin Concent 32.0 32-36 g/dl Platelet Count 216 130-400 K/uL Mean Platelet Volume 10.7 7.4-10.4 fL Neutrophils (%) (Auto) 62.9 % Lymphocytes (%) (Auto) 19.0 % Monocytes (%) (Auto) 12.9 % Eosinophils (%) (Auto) 1.2 % Basophils (%) (Auto) 0.3 % Neutrophils # (Auto) 5.42 1.4-6.5 K/uL Lymphocytes # (Auto) 1.64 1.2-3.4 K/uL Monocytes # (Auto) 1.11 0.11-0.59 K/uL Eosinophils # (Auto) 0.10 0-0.5 K/uL Basophils # (Auto) 0.03 0-0.2 K/uL RDW Standard Deviation 58.7 36.4-46.3 fL RDW Coefficient of Variation 16.6 11.5-14.5 % Immature Granulocyte % (Auto) 3.7 % Immature Granulocyte # (Auto) 0.32 0.00-0.02 K/uL Sodium Level 141 136-145 mmol/L Potassium Level 3.6 3.5-5.1 mmol/L Chloride Level 109 98-107 mmol/L Carbon Dioxide Level 25 21-32 mmol/L Anion Gap 7.0 3-11 mmol/L Blood Urea Nitrogen 18 7-18 mg/dl Creatinine 1.26 0.60-1.40 mg/dl Est Creatinine Clear Calc Drug Dose 44.8 ml/min Estimated GFR () 62.5 Estimated GFR (Non- 53.9 BUN/Creatinine Ratio 14.2 10-20 Random Glucose 120 70-99 mg/dl Calcium Level 8.3 8.5-10.1 mg/dl Test 01/28/18 11:27 Range/Units Bedside Glucose 130 70-99 mg/dl
[2018-01-28] MEDS ORDERED: LORAZEPAM 0.5 MG TAB PO STA (18:18)
[2018-01-28] MEDS: LATANOPROST 0.005% OP SOLN 2.5 ML BTL OP SCH (20:55)
[2018-01-28] MEDS: TRAZODONE HCL 50 MG TAB PO SCH (20:57)
[2018-01-28] MEDS: INSULIN GLARGINE SOLOSTAR 100 UNITS/ML 3 ML PEN SC SCH (21:02)
[2018-01-29] MEDS: CEFTRIAXONE SOD INJ 1 GM in DEXTROSE 5% ADD-VANTAGE 50ML 50 ML IV SCH (00:51)
[2018-01-29] MEDS: PHENAZOPYRIDINE HCL 100 MG TAB PO SCH ×4 (00:52→18:03)
[2018-01-29 07:04] VITALS: BP 156/74; PULSE 74; TEMP 37; O2SAT 91
[2018-01-29 07:36] LABS: BASO % 0.5 %; BASO ABS # 0.05 K/uL (0-0.2); HEMATOCRIT 32.6 % (42-52); HEMOGLOBIN 10.4 g/dL (14.0-18.0); IG# 0.23 K/uL (0.00-0.02); MEAN CORPUSCULAR HEMOGLOBIN 31.9 pg (25-34); MEAN CORPUSCULAR HGB CONC 31.9 g/dl (32-36); MEAN PLATELET VOLUME 10.6 fL (7.4-10.4); MONO % 14.1 %; MONO ABS # 1.35 K/uL (0.11-0.59); NEUT ABS # 5.54 K/uL (1.4-6.5); PLATELET COUNT 289 K/uL (130-400); RED CELL DISTRIBUTION WIDTH CV 16.6 % (11.5-14.5); RED CELL DISTRIBUTION WIDTH SD 60.2 fL (36.4-46.3); WHITE BLOOD COUNT 9.57 K/uL (4.8-10.8)
[2018-01-29] MEDS: INSULIN ASPART 100 UNITS/ML 3 ML PEN SC SCH ×4 (07:44→20:39)
[2018-01-29] MEDS: CARVEDILOL 6.25 MG TAB PO SCH ×2 (07:45→20:46)
[2018-01-29] MEDS: ASPIRIN 81 MG ECTAB PO SCH (07:45)
[2018-01-29] MEDS: PANTOprazole SOD 40 MG TAB PO SCH (07:45)
[2018-01-29 08:04] LABS: CALCIUM 8.5 mg/dl (8.5-10.1); CREATININE 1.3 mg/dl (0.60-1.40); POTASSIUM 3.5 mmol/L (3.5-5.1)
[2018-01-29] MEDS: OXYCODONE/ACETAMINOPHEN 5-325 TAB PO PRN ×2 (09:10→14:18)
[2018-01-29] MEDS: OXYBUTYNIN CHLORIDE 5 MG TAB PO PRN ×2 (09:38→18:38)
--- NOTE | 2018-01-29 12:37 | Progress Note ---
Internal Med Progress Note Date of Service: Jan 29, 2018. Provider Documentation: SUBJECTIVE: The patient was seen and examined Wants to go home Awaiting for Rehab placement Has ambulatory dysfunction Off of 1 to 1 sitter No issues overnight -will transfer to [facility] today OBJECTIVE: Vital Signs-as noted below Exam: General-No distress at rest Eyes-normal ENT-normal Neck-supple Lungs-clear to ausucltate bilaterally Heart-Regular Abdomen-Benign,no masses,bowel sound present Extremities-no edema Neuro-AA Pleasantly confused Lab data as noted below. ASSESSMENT & PLAN: Sepsis Mostly due to complicated urinary tract infection History of indwelling Puri catheter due to Prostate cancer with lung metastasis On empirical abx Zosyn Blood cx and urine positive E Coli-pansensitive Continue IV Zosyn and now on Ceftriaxone Will change abx to oral Cipro to complete 14 days course of abx Clinically a lot better Awaiting placement Will start Cirpo orally to continue for 14 days in total Hematuria UA positive for occult blood Hx prostate cancer Hgb 8.8 on admission Pyridium increased to q6h Urology on board-appreciate input hemoglobin stable Denies any bladder pain Hematuria continues but decreased Acute Hypoxia respiratory failure Secondary to mild pulmonary congestion CTA chest showed no evidence for pulmonary embolus. Findings suggesting mild congestive failure. Stable No SOB at rest and remaisn stable Ambulatory dysfunction Continue PT/OT PT/OT recommended rehab Fall precaution Waiting for placement to rehab but he wants to go home Bilateral LE Edema Doppler of LE showed no DVT ECHO Normal LV chamber size and wall thickness. * Normal LV systolic function, EF 55-60%. * No segmental left ventricular wall motion abnormalities are noted. * Grade II diastolic dysfunction. * No significant valvular pathology. Coronary artery disease status post coronary artery bypass grafting. On aspirin and cavedilol will consider hold asa if hemoglobin drop further in the setting of hematuria Stable DM2 on oral meds Hba1c 5.9 Continue monitor BS Chronic renal insufficiency. Creatinine at baseline. His creatine from outpatient chart has been fluctuated from 1.5 to 1.8 and 2.2 Creatine 1.5 -normalized avoid nephrotoxic agents Anemia Mostly related to Hematuria/Chemo Hgb 9.2 Continue monitor H/H Transfuse if needed- Hb stable at >10 DVT px On SCD for now CODE STATUS FULL CODE Disposition Waiting for placement to rehab Consultants: Urology Awaiting placement Discharge to today Vital Signs: Date Time Temp Pulse Resp B/P (MAP) Pulse Ox O2 Delivery O2 Flow Rate FiO2 01/29/18 09:23 Nasal Cannula 2.0 01/29/18 07:04 37.0 74 20 156/74 (101) 91 01/29/18 00:00 Nasal Cannula 2.0 01/28/18 23:36 37.2 69 16 159/68 (98) 93 Nasal Cannula 2.0 01/28/18 20:53 66 160/67 (98) 94 Nasal Cannula 2.0 01/28/18 17:30 36.9 67 18 96 2.0 01/28/18 17:15 Nasal Cannula 2.0 01/28/18 16:04 36.9 67 18 164/67 (99) 96 Nasal Cannula 2.0 01/28/18 16:00 Nasal Cannula 2.0 Lab Results: Results Past 24 Hours Test 01/28/18 16:22 01/28/18 20:31 01/29/18 06:58 01/29/18 07:33 Range/Units Bedside Glucose 118 128 105 70-99 mg/dl White Blood Count 9.57 4.8-10.8 K/uL Red Blood Count 3.26 4.7-6.1 M/uL Hemoglobin 10.4 14.0-18.0 g/dL Hematocrit 32.6 42-52 % Mean Corpuscular Volume 100.0 80-100 fL Mean Corpuscular Hemoglobin 31.9 25-34 pg Mean Corpuscular Hemoglobin Concent 31.9 32-36 g/dl Platelet Count 289 130-400 K/uL Mean Platelet Volume 10.6 7.4-10.4 fL Neutrophils (%) (Auto) 58.0 % Lymphocytes (%) (Auto) 24.0 % Monocytes (%) (Auto) 14.1 % Eosinophils (%) (Auto) 1.0 % Basophils (%) (Auto) 0.5 % Neutrophils # (Auto) 5.54 1.4-6.5 K/uL Lymphocytes # (Auto) 2.30 1.2-3.4 K/uL Monocytes # (Auto) 1.35 0.11-0.59 K/uL Eosinophils # (Auto) 0.10 0-0.5 K/uL Basophils # (Auto) 0.05 0-0.2 K/uL RDW Standard Deviation 60.2 36.4-46.3 fL RDW Coefficient of Variation 16.6 11.5-14.5 % Immature Granulocyte % (Auto) 2.4 % Immature Granulocyte # (Auto) 0.23 0.00-0.02 K/uL Sodium Level 141 136-145 mmol/L Potassium Level 3.5 3.5-5.1 mmol/L Chloride Level 107 98-107 mmol/L Carbon Dioxide Level 27 21-32 mmol/L Anion Gap 6.0 3-11 mmol/L Blood Urea Nitrogen 18 7-18 mg/dl Creatinine 1.30 0.60-1.40 mg/dl Est Creatinine Clear Calc Drug Dose 43.4 ml/min Estimated GFR () 60.1 Estimated GFR (Non- 51.9 BUN/Creatinine Ratio 13.7 10-20 Random Glucose 107 70-99 mg/dl Calcium Level 8.5 8.5-10.1 mg/dl Test 01/29/18 11:19 Range/Units Bedside Glucose 139 70-99 mg/dl
[2018-01-29 15:33] VITALS: PULSE 75; O2SAT 96
[2018-01-29 15:48] VITALS: BP 155/63; PULSE 70; TEMP 36.4; O2SAT 91
[2018-01-29 16:00] VITALS: O2SAT 91
[2018-01-29] MEDS: HYDROmorphone INJ 0.5 MG/0.5 ML SYR IV PRN (16:06)
[2018-01-29] MEDS: TRAZODONE HCL 50 MG TAB PO SCH (20:39)
[2018-01-29] MEDS: LATANOPROST 0.005% OP SOLN 2.5 ML BTL OP SCH (20:39)
[2018-01-29] MEDS: INSULIN GLARGINE SOLOSTAR 100 UNITS/ML 3 ML PEN SC SCH (20:43)
[2018-01-29 20:45] VITALS: BP 154/69; PULSE 61
[2018-01-29 23:13] VITALS: BP 127/68; PULSE 70; TEMP 36.6; O2SAT 91
[2018-01-30] MEDS: PHENAZOPYRIDINE HCL 100 MG TAB PO SCH ×3 (00:34→11:46)
[2018-01-30] MEDS: CEFTRIAXONE SOD INJ 1 GM in DEXTROSE 5% ADD-VANTAGE 50ML 50 ML IV SCH (00:34)
[2018-01-30] MEDS: OXYCODONE/ACETAMINOPHEN 5-325 TAB PO PRN ×2 (00:36→09:45)
[2018-01-30] MEDS: HYDROmorphone INJ 0.5 MG/0.5 ML SYR IV PRN (02:12)
[2018-01-30] MEDS: OXYBUTYNIN CHLORIDE 5 MG TAB PO PRN ×2 (06:38→13:47)
[2018-01-30 07:00] VITALS: BP 143/69; PULSE 91; TEMP 36.9; O2SAT 91
[2018-01-30] MEDS: INSULIN ASPART 100 UNITS/ML 3 ML PEN SC SCH ×2 (07:20→11:39)
[2018-01-30] MEDS: ASPIRIN 81 MG ECTAB PO SCH (07:38)
[2018-01-30] MEDS: PANTOprazole SOD 40 MG TAB PO SCH (07:38)
[2018-01-30] MEDS: CARVEDILOL 6.25 MG TAB PO SCH (07:38)
--- NOTE | 2018-01-30 12:28 | Progress Note ---
Internal Med Progress Note Date of Service: Jan 30, 2018. Provider Documentation: SUBJECTIVE: The patient was seen and examined Denies any symptoms today Did not need any more Haldol and OFF 1 to 1 sitter Awaiting transfer to [facility] OBJECTIVE: Vital Signs-as noted below Exam: General-No distress at rest Eyes-normal ENT-normal Neck-supple Lungs-clear to ausucltate bilaterally Heart-Regular Abdomen-Benign,no masses,bowel sound present Extremities-no edema Neuro-AA Pleasantly confused Lab data as noted below. ASSESSMENT & PLAN: Sepsis Mostly due to complicated urinary tract infection History of indwelling Bruner catheter due to Prostate cancer with lung metastasis On empirical abx Zosyn Blood cx and urine positive E Coli-pansensitive Continue IV Zosyn and now on Ceftriaxone Will change abx to oral Cipro to complete 14 days course of abx Clinically a lot better Awaiting placement Started on Cirpo orally to continue for 14 days in total Hematuria UA positive for occult blood Hx prostate cancer Hgb 8.8 on admission Pyridium increased to q6h Urology on board-appreciate input hemoglobin stable Denies any bladder pain Hematuria continues but decreased Need to keep bruner in place for now Acute Hypoxia respiratory failure Secondary to mild pulmonary congestion CTA chest showed no evidence for pulmonary embolus. Findings suggesting mild congestive failure. Stable No SOB at rest and remains stable Ambulatory dysfunction Continue PT/OT PT/OT recommended rehab Fall precaution Waiting for placement to rehab but he wants to go home Bilateral LE Edema Doppler of LE showed no DVT ECHO Normal LV chamber size and wall thickness. * Normal LV systolic function, EF 55-60%. * No segmental left ventricular wall motion abnormalities are noted. * Grade II diastolic dysfunction. * No significant valvular pathology. Coronary artery disease status post coronary artery bypass grafting. On aspirin and cavedilol will consider hold asa if hemoglobin drop further in the setting of hematuria Stable DM2 on oral meds Hba1c 5.9 Continue monitor BS Chronic renal insufficiency. Creatinine at baseline. His creatine from outpatient chart has been fluctuated from 1.5 to 1.8 and 2.2 Creatine 1.5 -normalized avoid nephrotoxic agents Anemia Mostly related to Hematuria/Chemo Hgb 9.2 Continue monitor H/H Transfuse if needed- Hb stable at >10 DVT px On SCD for now CODE STATUS FULL CODE Disposition Waiting for placement to rehab Consultants: Urology Awaiting placement Discharge to today Vital Signs: Date Time Temp Pulse Resp B/P (MAP) Pulse Ox O2 Delivery O2 Flow Rate FiO2 01/30/18 09:19 Nasal Cannula 2.0 01/30/18 07:00 36.9 91 18 143/69 (93) 91 Room Air 01/30/18 00:00 Nasal Cannula 2.0 01/29/18 23:13 36.6 70 18 127/68 (87) 91 Nasal Cannula 2.0 01/29/18 20:45 61 154/69 (97) 01/29/18 16:00 91 Nasal Cannula 2.0 01/29/18 15:48 36.4 70 16 155/63 (93) 91 Nasal Cannula 2.0 01/29/18 15:33 75 96 Lab Results: Results Past 24 Hours Test 01/29/18 16:18 01/29/18 20:16 01/30/18 07:03 01/30/18 11:11 Range/Units Bedside Glucose 162 157 114 153 70-99 mg/dl
[2018-01-30 12:52] VITALS: BP 143/69; PULSE 91; TEMP 36.9; O2SAT 91
[2018-01-30] MEDS ORDERED: CIPROFLOXACIN 500 MG TAB PO SCH (13:00)
[2018-01-30] MEDS ORDERED: OXYC-57 PO (14:08)
[2018-01-30] MEDS ORDERED: LCTX PO (14:08)
[2018-01-30] MEDS ORDERED: CPR500 PO (14:08)
[2018-01-30] MEDS ORDERED: ASPEC81 PO (14:08)
--- NOTE | 2018-01-30 14:12 | Discharge Instructions ---
Discharge Instructions Date of Service Jan 30, 2018. Admission Reason for Admission: Respiratory Failure Discharge Discharge Diagnosis / Problem: Complicated UTI,Urinary Bladder Cancer, Discharge Goals Goal(s): Prevent Disease Progression Activity Recommendations Activity Level: Assistance Required Therapies: Physical Therapy, Occupational Therapy . Additional Information Patient informed of condition: Yes Advance Directives: No DNR: No Level of Care: Skilled Communicable Disease: No Prognosis: Stable Oxygen at (LPM): 2 liters/min via NC PRN Puri Catheter: Yes (Keep it for 6 more days) Instructions / Follow-Up Instructions / Follow-Up As per provider,Dr Strong on 02/03/18 and keep taking Chemotherapy. Current Hospital Diet Patient's current hospital diet: Diabetes Type 2 Diet, AHA Diet (Heart Healthy) Discharge Diet Recommended Diet: AHA Diet (Heart Healthy), Diabetes Type 2 Diet Pending Studies Studies pending at discharge: no Laboratory Results Hemoglobin A1c Test 01/24/18 06:04 Range/Units Estimated Average Glucose 123 mg/dl Hemoglobin A1c 5.9 H 4.5-5.6 % Medical Emergencies . Who to Call and When: Medical Emergencies: If at any time you feel your situation is an emergency, please call 911 immediately. . Non-Emergent Contact Non-Emergency issues call your: Primary Care Provider . Past History Medical & Surgical History: (1) Bladder cancer (2) Cellulitis of left lower leg (3) Respiratory failure (4) Sepsis (5) UTI (urinary tract infection) (6) Prostate cancer (7) Hypertension (8) HLD (hyperlipidemia) (9) Diabetes mellitus type II, controlled . "Provider Documentation" section prepared by Paulo Ha. . Core Measure Problem Core Measures: None
[2018-01-30] MEDS ORDERED: LACTOBACILLUS ACIDOPHILUS (FLORANEX) TAB PO SCH (21:00)
--- NOTE | 2018-01-31 07:50 | Discharge Summary ---
Discharge Summary Date of Service Jan 31, 2018. Discharge Summary Admission Date: Jan 22, 2018 at 06:16 Discharge Date: Jan 30, 2018 Discharge Disposition: detention facility Principal Diagnosis: Complicated UTI-secondary to E Coli Bacteremia,Urinary Bladder Cancer, Secondary Diagnoses/Problems: Please see H&P and Hospital progress note Consultations: Urology Medication Reconciliation New Medications: Aspirin (Aspirin EC Low Dose) 81 Mg Ectab 81 MG PO QAM for 30 Days, #30 Ciprofloxacin (Ciprofloxacin HCl) 500 Mg Tab 500 MG PO BID for 6 Days, #12 TAB Lactobacillus Acidophilus (Floranex) 1 Tab Tab 2 TAB PO BID for 10 Days, #40 TAB Continued Medications: Carvedilol (Coreg) 6.25 Mg Tab 1 TAB PO BID for 90 Days, #180 TAB 1 Refill Cholecalciferol (Vitamin D 1000 Unit) 1,000 Unit Cap 2000 INTER.UNIT PO QAM, CAP Latanoprost (Xalatan 0.005% Oph Yolanda) 0.005 % Yolanda 1 DROPS OP HS, #7.5 ML 3 Refills Nitroglycerin (Nitrostat) 0.4 Mg Tab 0.4 MG UT PRN, 0 Refills Oxybutynin Chloride (Ditropan) 5 Mg Tab 1 TAB PO Q8 PRN for Bladder pain for 30 Days, #90 TAB 11 Refills Oxycodone/Acetaminophen 5MG/325MG (Percocet 5MG/325MG) Tab 1-2 TABLETS PO Q4H PRN for Pain for 7 Days, #30 TAB (This prescription has been renewed) PAIN Pantoprazole (Protonix) 40 Mg Tab 40 MG PO QAM Sitagliptin-Metformin Hcl (Janumet) 1 Tab Tab 1 TAB PO QAM 50/500 MG Trazodone Hcl (Trazodone) 50 Mg Tab 25 MG PO QPM Discontinued Medications: Lisinopril (Prinivil) 10 Mg Tab 10 MG PO QAM, 0 Refills Admission Information HPI (per Admitting provider): DATE OF ADMISSION: 01/22/2018 PRIMARY CARE DOCTOR: Dr. Souza CHIEF COMPLAINT: Weakness, bladder pain, fall. HISTORY OF PRESENT ILLNESS: History obtained from the patient and records. Medical history is significant for CAD sp CABG, CVA, hypertension, hyperlipidemia, past tobacco abuse, metastatic prostate cancer with lung mets status post radiation, ongoing chemotherapy, chronic anemia (baseline hemoglobin of 8-10 since 11/2017), DM2, on oral meds, chronic renal insufficiency (baseline creatinine 1.3 to 1.5 as per records), indwelling Bruner catheter. Recent confinement 09/2017 for bladder cancer and hematuria. Last few days, the patient noted burning bladder discomfort. Nickel sized clots. The patient started on oxybutynin for bladder spasm by urologist office. No chest pain, no shortness of breath. No cough symptoms. Patient had fever and chills. Patient feeling weak, fell off the commode yesterday, complaining of some R achy hip pain, usual bilateral leg swelling. Patient brought to Emergency Room. Received Vanco and Zosyn for sepsis. MEDICAL HISTORY: As above. SURGERIES: He has had CABG, abdominal surgeries, urologic procedures. HOME MEDICATIONS: Percocet, Protonix, Janumet, trazodone, carvedilol, vitamin D, Xalatan, lisinopril, Nitrostat, Ditropan. ASA ALLERGIES: No known drug allergies. FAMILY HISTORY: Hypertension. PERSONAL AND SOCIAL HISTORY: Past tobacco abuse. No chronic intake of alcoholic beverages. Retired [employer] employee. REVIEW OF SYSTEMS: As per HPI, all 10 systems reviewed, all other ROS negative. PHYSICAL EXAMINATION: VITAL SIGNS: Blood pressure noted to be 144/90, pulse rate 112, RR 24, temperature 36.6, sats 88 on room air, later 94 on 2 liters. GENERAL: Noted to be uncomfortable, obese, no respiratory distress. SKIN: Pallor, warm. HEENT: Alopecia. Pale palpebral conjunctivae. No ptosis. Dry mucosa. NECK: Short neck, supple. CHEST: Decreased breath sounds. No tenderness. Healed incisional sternal scar. ABDOMEN: Some distention, nontender. HEART: Tachycardic. No murmur. EXTREMITIES: Bilateral lower extremity edema (chronic). No tenderness in his legs. Some LE scaling. NEUROLOGIC: Coherent. No gross focality except for mild hearing impairment. LABORATORY DATA: Hemoglobin 8.8, hematocrit 26, white cell count 7.3, platelets 154. Sodium noted to be 139, potassium 3.6, chloride 101, CO2 of 24, BUN 28, creatinine 1.40, glucose 185. Hemoglobin A1c from 10/2017 was 5.8. ABG: pH 7. 47, pCO2 of 34, pO2 of 76, sats 92 on 4 liters. Chest x-ray as per my interpretation, minimal congestion. Right femur x-ray, no fracture. Pelvic x-ray, no acute fracture. EKG as per my interpretation, rate 105, sinus tachycardia, no ischemia. UA, nitrite positive urine. ASSESSMENT: 1. Sepsis in an immunocompromised patient secondary to complicated urinary tract infection, history of indwelling Bruner catheter. Prostate cancer w lung metastasis status post radiation therapy, hormonal tx, ongoing chemotherapy 2. Hypoxemic respiratory failure secondary to mild pulmonary congestion rule out pulmonary embolism. 3. Bilateral LE swelling ro deep venous thrombosis. 4. Coronary artery disease, status post coronary artery bypass grafting. 5. DM2 on oral meds, well controlled as of recent inpatient hemoglobin A1c from last year. 6. Chronic renal insufficiency. Creatinine at baseline. 7. Subacute anemia multifactorial : Intermittent hematuria, chemotherapy. 8. Past tobacco abuse. PLAN: PCU CS, Zosyn CT chest, PE study. Lower extremity Dopplers ro dvt ISS BG goal 140-180. DVT prophylaxis, Heparin subcu. Full code. Hospital Course Sepsis Mostly due to complicated urinary tract infection History of indwelling Bruner catheter due to Prostate cancer with lung metastasis On empirical abx Zosyn Blood cx and urine positive E Coli-pansensitive Continue IV Zosyn and now on Ceftriaxone Will change abx to oral Cipro to complete 14 days course of abx Clinically a lot better Awaiting placement Started on Cirpo orally to continue for 14 days in total Hematuria UA positive for occult blood Hx prostate cancer Hgb 8.8 on admission Pyridium increased to q6h Urology on board-appreciate input hemoglobin stable Denies any bladder pain Hematuria continues but decreased Need to keep bruner in place for now Acute Hypoxia respiratory failure Secondary to mild pulmonary congestion CTA chest showed no evidence for pulmonary embolus. Findings suggesting mild congestive failure. Stable No SOB at rest and remains stable Ambulatory dysfunction Continue PT/OT PT/OT recommended rehab Fall precaution Waiting for placement to rehab but he wants to go home Bilateral LE Edema Doppler of LE showed no DVT ECHO Normal LV chamber size and wall thickness. * Normal LV systolic function, EF 55-60%. * No segmental left ventricular wall motion abnormalities are noted. * Grade II diastolic dysfunction. * No significant valvular pathology. Coronary artery disease status post coronary artery bypass grafting. On aspirin and cavedilol will consider hold asa if hemoglobin drop further in the setting of hematuria Stable DM2 on oral meds Hba1c 5.9 Continue monitor BS Chronic renal insufficiency. Creatinine at baseline. His creatine from outpatient chart has been fluctuated from 1.5 to 1.8 and 2.2 Creatine 1.5 -normalized avoid nephrotoxic agents Anemia Mostly related to Hematuria/Chemo Hgb 9.2 Continue monitor H/H Transfuse if needed- Hb stable at >10 DVT px On SCD for now CODE STATUS FULL CODE Disposition Waiting for placement to rehab Consultants: Urology Awaiting placement Discharge to today Total time spent on discharge = This includes examination of the patient, discharge planning, medication reconciliation, and communication with other providers. Discharge Instructions Date of Service Jan 30, 2018. Admission Reason for Admission: Respiratory Failure Discharge Discharge Diagnosis / Problem: Complicated UTI,Urinary Bladder Cancer, Discharge Goals Goal(s): Prevent Disease Progression Activity Recommendations Activity Level: Assistance Required Therapies: Physical Therapy, Occupational Therapy . Additional Information Patient informed of condition: Yes Advance Directives: No DNR: No Level of Care: Skilled Communicable Disease: No Prognosis: Stable Oxygen at (LPM): 2 liters/min via NC PRN Bruner Catheter: Yes (Keep it for 6 more days) Instructions / Follow-Up Instructions / Follow-Up As per provider,Dr Strong on 02/03/18 and keep taking Chemotherapy. Current Hospital Diet Patient's current hospital diet: Diabetes Type 2 Diet, AHA Diet (Heart Healthy) Discharge Diet Recommended Diet: AHA Diet (Heart Healthy), Diabetes Type 2 Diet Pending Studies Studies pending at discharge: no Laboratory Results Hemoglobin A1c Test 01/24/18 06:04 Range/Units Estimated Average Glucose 123 mg/dl Hemoglobin A1c 5.9 H 4.5-5.6 % Medical Emergencies . Who to Call and When: Medical Emergencies: If at any time you feel your situation is an emergency, please call 911 immediately. . Non-Emergent Contact Non-Emergency issues call your: Primary Care Provider . Past History Medical & Surgical History: (1) Bladder cancer (2) Cellulitis of left lower leg (3) Respiratory failure (4) Sepsis (5) UTI (urinary tract infection) (6) Prostate cancer (7) Hypertension (8) HLD (hyperlipidemia) (9) Diabetes mellitus type II, controlled . "Provider Documentation" section prepared by Paulo Ha. . Core Measure Problem Core Measures: None <Electronically signed by Paulo Ha M.D.> Additional Copies To Jono Souza M.D.
--- NOTE | 2018-02-03 11:00 | EDITING REQUIRED CODING QUERY ---
CODING QUERY To promote full compliance with coding requirements relating to patient care, provider participation is requested in all cases of physician coder uncertainty. Please assist us with the question(s) below: Coding Question(s): Patient admitted with Sepsis due to complicated UTI with a history of current indwelling urinary catheter. Please document, if known or suspected, the etiology of the UTI. Thanks for your help! Spencer Rizzo [facility] Physician's Response(s): Complicated UTI secondary to E Coli bacteremia Principal Diagnosis: "_that condition established after study, to be chiefly responsible for occasioning the admission of the patient to the hospital for care." Co-Existing Principal Diagnosis: "_when two or more diagnoses equally meet the criteria for principal diagnosis as determined by the circumstances of admission, diagnostic work up, and/or therapy provided, and the Alphabetic Index, Tabular List, or another coding guideline does not provide sequencing direction, any one of the diagnoses may be sequenced first." "When the physician has documented what appears to be a current diagnosis in the body of the record, but has not included the diagnosis in the final diagnostic statement, the physician should be asked whether the diagnosis should be added." (Source [facility] 2 QTR90. p3-4)
== END 2018-01-30 20:05 | DRG 871 ==
LOC: EDBD 04:30 → C.EDB 04:32 → C.EDINP 06:16 → ENRESERV 11:22 → C.2T 12:37 → ENRESERV 01-28 15:37 → C.MS2W 01-28 17:42
PROVIDERS: ADMIT Internal Medicine; ATTEND Internal Medicine
DX: A41.51 Sepsis due to Escherichia coli [E. coli] (principal); J96.01 Acute respiratory failure with hypoxia; N39.0 Urinary tract infection, site not specified; C78.00 Secondary malignant neoplasm of unspecified lung; I25.10 Atherosclerotic heart disease of native coronary artery without angina pectoris; E11.9 Type 2 diabetes mellitus without complications; E78.5 Hyperlipidemia, unspecified; I10 Essential (primary) hypertension; C67.9 Malignant neoplasm of bladder, unspecified; Z87.891 Personal history of nicotine dependence; Z95.1 Presence of aortocoronary bypass graft; Z79.82 Long term (current) use of aspirin; Z92.3 Personal history of irradiation; D64.81 Anemia due to antineoplastic chemotherapy; I50.9 Heart failure, unspecified; C61 Malignant neoplasm of prostate; R31.0 Gross hematuria

== ENCOUNTER 2018-02-11 13:08 | Observation (INO) | payer OTHER ==
[~2018-02-11] VITALS: Ht 157.5 cm; Wt 88.2 kg
[~2018-02-11 13:08] MED LIST changes: +ASPEC81 PO; +CPR500 PO; +LCTX PO; -LISI10TA PO
--- NOTE | 2018-02-11 13:31 | EMERGENCY ROOM VISIT NOTE ---
History Report prepared by Lana: Jose Alejo Under the Supervision of: Dr. Tamir Hayes M.D. 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 He states that he was sent to the ED for evaluation of his heart and memory. He reports abdominal pain. He denies any pain, fever, headache, falls, chest pain, or shortness of breath. He states that his legs are normally red. He denies any increase in swelling in his legs. He reports recent weight loss. He notes that he has intermittent urinary symptoms, though states that his urine is normal. He states that he tried to remove his catheter. Per nursing staff, the patient removed the bag. The patient has a history of prostate cancer. He states that he has been keeping up with is fluid intake. He states that he lives with his . Source of History: patient, nursing staff Onset: SALON/SPA MANAGER Position: other (general) Quality: other (altered mental status) Timing: other (recurrent) Associated Symptoms: + abdominal pain, + urinary symptoms, No fevers, No headache, No chest pain, No SOB Note: He denies any falls. He denies any new leg pain or leg swelling, though notes redness in his legs. Review of Systems See HPI for pertinent positives & negatives. A total of 10 systems reviewed and were otherwise negative. Past Medical & Surgical Medical Problems: (1) Diabetes mellitus type II, controlled (2) HLD (hyperlipidemia) (3) Hypertension (4) Prostate cancer (5) Respiratory failure Old medical records were reviewed. Nurse's notes were reviewed and I agree with. Family History Cancer Heart disease Hypertension Social History Smoking Status: Former Smoker Alcohol Use: none Drug Use: none Marital Status: Housing Status: lives with significant other Occupation Status: retired Current/Historical Medications Scheduled Aspirin (Aspirin Ec), 81 MG PO DAILY Carvedilol (Coreg), 1 TAB PO BID Cholecalciferol (Vitamin D 1000 Unit), 2,000 INTER.UNIT PO QAM Latanoprost (Xalatan 0.005% Oph Yolanda), 1 DROPS OP HS Nitroglycerin (Nitrostat), 0.4 MG UT PRN Pantoprazole (Protonix), 40 MG PO QAM Sitagliptin-Metformin Hcl (Janumet), 1 TAB PO QAM Trazodone Hcl (Trazodone), 25 MG PO QPM Scheduled PRN Oxybutynin Chloride (Ditropan), 1 TAB PO Q8 PRN for Bladder pain Allergies Coded Allergies: No Known Allergies (Unverified , 02/11/18) Physical Exam Vital Signs Date Time Temp Pulse Resp B/P (MAP) Pulse Ox O2 Delivery O2 Flow Rate FiO2 02/11/18 17:12 80 18 154/56 96 Room Air 02/11/18 15:12 70 18 139/83 95 Room Air 02/11/18 14:51 66 16 138/66 95 Room Air 02/11/18 14:22 66 02/11/18 13:15 36.2 67 16 149/78 95 Room Air Physical Exam General: Non-ill appearing older male in no acute distress. Alert and oriented x3, answers questions appropriately. HEENT: Normal cephalic atraumatic. Pupils are equal round and reactive to light. Extraocular movements are intact. Oropharynx is pink with moist mucous membranes. No swelling of the mouth lips or tongue. Neck: Supple with a midline trachea. No meningeal signs or stiffness, no JVD or bruits. No Stridor. Chest: Clear to auscultation bilaterally. No wheezes or rhonchi. No increased work of breathing. Heart: regular rate and rhythm. Abdomen: Soft nontender, nondistended without rebound guarding or rigidity. : Puri catheter in place with clear yellow urine Extremities: No cyanosis clubbing. No calf tenderness or assymetry. Mild bilateral LE edema with mild redness, left greater than right. Spine/Back. Non tender to palpation. No CVA tenderness Skin: Good turgor without rashes. Neurologic exam: Cranial nerves two through 12 are intact. Motor and sensation are intact and symmetrical throughout. Medical Decision & Procedures ER Provider Diagnostic Interpretation: Radiology results as stated below per my review and radiologist interpretation: CHEST ONE VIEW PORTABLE CLINICAL HISTORY: Atypical chest pain COMPARISON STUDY: January 22, 2018 FINDINGS: The heart remains mildly enlarged. There are postsurgical changes of a midline sternotomy. There is mild interstitial thickening/edema similar to the prior study. There is no lobar consolidation.[ No significant pleural effusions are visualized IMPRESSION: No change the prior study. Cardiomegaly and suspected mild pulmonary vascular congestion. No evidence of focal pulmonary consolidation Electronically signed by: Bhavesh Robison M.D. 02/11/2018 2:07 PM Dictated Date/Time: 02/11/2018 2:06 PM HEAD WITHOUT CONTRAST (CT) CT DOSE: 537.48 mGy.cm HISTORY: Mental status change eval for altered loc TECHNIQUE: Multiaxial CT images of the head were performed without the use of intravenous contrast. A dose lowering technique was utilized adhering to the principles of ALARA. Comparison: None. Findings: The paranasal sinuses and mastoid air cells are clear. Findings of a prior left-sided craniotomy. Craniotomy flap appears to be aligned appropriately. Density characteristics of the brain appear unremarkable. No evidence for acute intracranial hemorrhage. Ventricular system is midline. Impression: No acute process. The above report was generated using voice recognition software. It may contain grammatical, syntax or spelling errors. Electronically signed by: Michel Villafana M.D. 02/11/2018 2:42 PM Dictated Date/Time: 02/11/2018 2:40 PM Laboratory Results 02/11/18 14:10 Red Blood Count 3.34, Mean Corpuscular Volume 98.5, Mean Corpuscular Hemoglobin 30.8, Mean Corpuscular Hemoglobin Concent 31.3, Mean Platelet Volume 9.7, Neutrophils (%) (Auto) 77.5, Lymphocytes (%) (Auto) 16.4, Monocytes (%) (Auto) 4.8, Eosinophils (%) (Auto) 0.7, Basophils (%) (Auto) 0.4, Neutrophils # (Auto) 6.39, Lymphocytes # (Auto) 1.35, Monocytes # (Auto) 0.40, Eosinophils # (Auto) 0.06, Basophils # (Auto) 0.03 02/11/18 14:10 Test 02/11/18 14:10 02/11/18 14:45 White Blood Count 8.25 K/uL (4.8-10.8) Red Blood Count 3.34 M/uL (4.7-6.1) Hemoglobin 10.3 g/dL (14.0-18.0) Hematocrit 32.9 % (42-52) Mean Corpuscular Volume 98.5 fL (80-100) Mean Corpuscular Hemoglobin 30.8 pg (25-34) Mean Corpuscular Hemoglobin Concent 31.3 g/dl (32-36) Platelet Count 263 K/uL (130-400) Mean Platelet Volume 9.7 fL (7.4-10.4) Neutrophils (%) (Auto) 77.5 % Lymphocytes (%) (Auto) 16.4 % Monocytes (%) (Auto) 4.8 % Eosinophils (%) (Auto) 0.7 % Basophils (%) (Auto) 0.4 % Neutrophils # (Auto) 6.39 K/uL (1.4-6.5) Lymphocytes # (Auto) 1.35 K/uL (1.2-3.4) Monocytes # (Auto) 0.40 K/uL (0.11-0.59) Eosinophils # (Auto) 0.06 K/uL (0-0.5) Basophils # (Auto) 0.03 K/uL (0-0.2) RDW Standard Deviation 55.6 fL (36.4-46.3) RDW Coefficient of Variation 15.4 % (11.5-14.5) Immature Granulocyte % (Auto) 0.2 % Immature Granulocyte # (Auto) 0.02 K/uL (0.00-0.02) Anion Gap 5.0 mmol/L (3-11) Est Creatinine Clear Calc Drug Dose 49.9 ml/min Estimated GFR () 66.9 Estimated GFR (Non- 57.8 BUN/Creatinine Ratio 20.7 (10-20) Calcium Level 8.9 mg/dl (8.5-10.1) Total Bilirubin 0.4 mg/dl (0.2-1) Direct Bilirubin 0.2 mg/dl (0-0.2) Aspartate Amino Transf (AST/SGOT) 46 U/L (15-37) Alanine Aminotransferase (ALT/SGPT) 37 U/L (12-78) Alkaline Phosphatase 69 U/L (45-117) Total Creatine Kinase 21 U/L (39-308) Creatine Kinase MB 0.6 ng/ml (0.5-3.6) Creatine Kinase MB Ratio 2.9 (0-3.0) Troponin I < 0.015 ng/ml (0-0.045) Total Protein 6.9 gm/dl (6.4-8.2) Albumin 2.7 gm/dl (3.4-5.0) Lipase 47 U/L (73-393) Thyroid Stimulating Hormone (TSH) 1.950 uIu/ml (0.300-4.500) Urine Color ORANGE Urine Appearance CLOUDY (CLEAR) Urine pH 7.0 (4.5-7.5) Urine Specific [place] 1.013 (1.000-1.030) Urine Protein 2+ (NEG) Urine Glucose (UA) NEG (NEG) Urine Ketones NEG (NEG) Urine Occult Blood 3+ (NEG) Urine Nitrite NEG (NEG) Urine Bilirubin NEG (NEG) Urine Urobilinogen NEG (NEG) Urine Leukocyte Esterase LARGE (NEG) Urine WBC (Auto) >30 /hpf (0-5) Urine RBC (Auto) >30 /hpf (0-4) Urine Hyaline Casts (Auto) 5-10 /lpf (0-5) Urine Epithelial Cells (Auto) 0-5 /lpf (0-5) Urine Bacteria (Auto) NEG (NEG) Laboratory studies as stated above per my review. Medications Administered Medications (Trade) Dose Ordered Sig/Kailash Route Start Time Stop Time Status Last Admin Dose Admin Ceftriaxone Sodium (Rocephin Inj) 1 gm NOW STAT IV 02/11/18 15:50 02/11/18 15:51 DC 02/11/18 15:59 1 GM ECG Per My Interpretation Indication: altered mental status Rate (beats per minute): 64 Rhythm: normal sinus Findings: PAC (occasional), no acute ischemic change Comparison ECG Date: PACs now present when compared to 01/28/2018 ED Course 1323: Past medical records reviewed. The patient was evaluated in room A11B, and a complete history and physical examination were performed. 1412: I reassessed the patient at this time. He is stable. 1510: Ordered Rocephin 1 gm IV 1552: I spoke with the patients . She states that he was trying to pull his catheter out while at home. 1559: I spoke with [facility]. We discussed the patient's case. She states that she will teach the patient how to self-cath. 1615: I spoke with the patient's daughter. She states that the patient cannot self-catheterize himself. 1626: [facility] the patient' s case. The patient will be evaluated by the [facility] for further management. 1636: I spoke with [facility]. She states that he has been calling their office and he seemed confused as well. Medical Decision Differentials include, but are not limited to: infection, intracranial process, cardiac disease, and electrolyte or metabolic abnormality. This patient comes in as described above. He was placed in room A-10. He is here for treatment and evaluation of possible altered mental status. at present he appears awake and alert and answers all questions appropriately. There was concern by home nursing apparently. He denies any fall or trauma. he denies any acute complaints. He has a Puri catheter bag in place that he attempted to remove part of it but was replaced ultimately there is yellow urine in the bag. He is afebrile here and has stable vital signs. IV access was established multiple blood testing was obtained as well as urinalysis and culture. CAT scan of his head as well as EKG and chest x-ray was obtained. He was reassessed frequently. His CAT scan of his head was unremarkable. He has no focal neurologic deficits here. EKG was unremarkable. He has fever to suggest infection. His urinalysis does suggest a possible infection however is from a catheterized urine. I did cover him with Rocephin 1 g IV. I talked to both the and the daughter they are very uncomfortable taking him home apparently he has been very confused at home although he seems to be doing okay now. 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 He has been trying to pull his catheter out and the keep having to call the home nurse to replace it. I did discuss the case with Ernestine Pate as I initially thought he could go home with follow-up for education on how to catheter changes the daughter does not feel that they can do this at home either and is concerned about him going home. in light of this, I had the [facility] team see him for likely admission for further treatment and evaluation and possible placement. Medication Reconcilliation Current Medication List: was personally reviewed by me Blood Pressure Screening Patient's blood pressure: Elevated blood pressure referred to hospitalist Consults Time Called: 1540 Consulting Physician: [facility] Returned Call: [phone] I spoke with [facility]. We discussed the patient's case. She states that she will teach the patient how to self-cath. 1636: I spoke with [facility]. She states that he has been calling their office and he seemed confused as well. Additional Consults: Time Called: 1622 Consulted Physician: [facility] Returned Call: [phone] Additional Comments: I spoke with Domen[facility]. We discussed the patient's case. [facility] Impression Primary Impression: Altered mental status Additional Impression: UTI (urinary tract infection) Scribe Attestation The scribe's documentation has been prepared under my direction and personally reviewed by me in its entirety. I confirm that the note above accurately reflects all work, treatment, procedures, and medical decision making performed by me. Departure Information Dispostion Being Evaluated By Hospitalist Referrals Jono Souza M.D. (PCP) Patient Instructions [facility] Problem Qualifiers
--- NOTE | 2018-02-11 14:09 | DIAGNOSTIC IMAGING REPORT ---
CHEST ONE VIEW PORTABLE CLINICAL HISTORY: Atypical chest pain COMPARISON STUDY: January 22, 2018 FINDINGS: The heart remains mildly enlarged. There are postsurgical changes of a midline sternotomy. There is mild interstitial thickening/edema similar to the prior study. There is no lobar consolidation.[ No significant pleural effusions are visualized IMPRESSION: No change the prior study. Cardiomegaly and suspected mild pulmonary vascular congestion. No evidence of focal pulmonary consolidation Electronically signed by: Bhavesh Robison M.D. 02/11/2018 2:07 PM Dictated Date/Time: 02/11/2018 2:06 PM
[2018-02-11 14:36] LABS: BASO % 0.4 %; BASO ABS # 0.03 K/uL (0-0.2); EOS % 0.7 %; EOS ABS # 0.06 K/uL (0-0.5); HEMATOCRIT 32.9 % (42-52); HEMOGLOBIN 10.3 g/dL (14.0-18.0); IG# 0.02 K/uL (0.00-0.02); LYMPH % 16.4 %; LYMPH ABS # 1.35 K/uL (1.2-3.4); MEAN CELL VOLUME 98.5 fL (80-100); MEAN CORPUSCULAR HEMOGLOBIN 30.8 pg (25-34); MEAN CORPUSCULAR HGB CONC 31.3 g/dl (32-36); MEAN PLATELET VOLUME 9.7 fL (7.4-10.4); MONO % 4.8 %; NEUT % 77.5 %; NEUT ABS # 6.39 K/uL (1.4-6.5); PLATELET COUNT 263 K/uL (130-400); RED CELL DISTRIBUTION WIDTH CV 15.4 % (11.5-14.5); RED CELL DISTRIBUTION WIDTH SD 55.6 fL (36.4-46.3); WHITE BLOOD COUNT 8.25 K/uL (4.8-10.8)
--- NOTE | 2018-02-11 14:43 | DIAGNOSTIC IMAGING REPORT ---
HEAD WITHOUT CONTRAST (CT) CT DOSE: 537.48 mGy.cm HISTORY: Mental status change eval for altered loc TECHNIQUE: Multiaxial CT images of the head were performed without the use of intravenous contrast. A dose lowering technique was utilized adhering to the principles of ALARA. Comparison: None. Findings: The paranasal sinuses and mastoid air cells are clear. Findings of a prior left-sided craniotomy. Craniotomy flap appears to be aligned appropriately. Density characteristics of the brain appear unremarkable. No evidence for acute intracranial hemorrhage. Ventricular system is midline. Impression: No acute process. The above report was generated using voice recognition software. It may contain grammatical, syntax or spelling errors. Electronically signed by: Michel Villafana M.D. 02/11/2018 2:42 PM Dictated Date/Time: 02/11/2018 2:40 PM
[2018-02-11 14:57] LABS: ALBUMIN 2.7 gm/dl (3.4-5.0); ALT/SGPT 37 U/L (12-78); AST/SGOT 46 U/L (15-37); BLOOD UREA NITROGEN 25 mg/dl (7-18); CALCIUM 8.9 mg/dl (8.5-10.1); CARBON DIOXIDE 29 mmol/L (21-32); CREATININE 1.19 mg/dl (0.60-1.40); GLUCOSE 108 mg/dl (70-99); LIPASE 47 U/L (73-393); POTASSIUM 4.5 mmol/L (3.5-5.1); SODIUM 140 mmol/L (136-145)
[2018-02-11 15:08] LABS: ALKALINE PHOSPHATASE 69 U/L (45-117); CKMB 0.6 ng/ml (0.5-3.6); TOTAL PROTEIN 6.9 gm/dl (6.4-8.2)
[2018-02-11] MEDS ORDERED: ASPI81TA28 PO (15:35)
[2018-02-11] MEDS ORDERED: CEFTRIAXONE SOD INJ 1 GM ADDVIAL IV STA (15:50)
[2018-02-11] MEDS ORDERED: NITROGLYCERIN 0.4 MG SL PER TAB CHARGE SL PRN (17:45)
[2018-02-11] MEDS ORDERED: ACETAMINOPHEN 325 MG TAB PO PRN (17:45)
[2018-02-11] MEDS ORDERED: MAGNESIUM HYDROXIDE SUSP 30 ML UDC PO PRN (18:00)
[2018-02-11] MEDS ORDERED: ONDANSETRON INJ 2 MG/ML 2 ML VIAL IV PRN (18:00)
[2018-02-11] MEDS ORDERED: GLUCAGON FOR INJ 1 MG VIAL SQ PRN (18:15)
[2018-02-11] MEDS ORDERED: DEXTROSE 50% 50 ML SYR IV PRN (18:15)
[2018-02-11] MEDS ORDERED: GLUCOSE 10 TABS/TUBE PO PRN (18:15)
[2018-02-11] MEDS ORDERED: GLUCOSE 40% GEL 15 GM TUBE PO PRN (18:15)
[2018-02-11] MEDS ORDERED: IV FLUIDS COMPLETED PRN (18:30)
[2018-02-11] MEDS ORDERED: SODIUM CHLORIDE 0.9% 1000ML 1,000 ML IV SCH (19:15)
[2018-02-11 19:16] VITALS: BP 164/54; PULSE 79; TEMP 36.8; O2SAT 91
[2018-02-11 19:23] VITALS: BP 169/54; PULSE 82; TEMP 36.8; O2SAT 92
--- NOTE | 2018-02-11 19:30 | History and Physical ---
History & Physical Date & Time of Service: Feb 11, 2018 at 18:08 Chief Complaint: AMS Primary Care Physician: Jono Souza M.D. History of Present Illness Source: patient, clinic records, hospital records Pt is 78 y/o M with PMH CAD S/P CABG, HTN, HLD, CVA, prostate CA S/P radiation and hormonal treatment, bladder CA with probable lung metastases currently receiving chemo presented to ER with complaint of intermittent confusion. Patient not surgical candidate secondary to comorbidities. Last chemo 02/[address] Velásquez. Patient reports that he believes during the night he accidentally pulled on Manuel catheter. Patient reports couple days ago had catheter changed by urology. Spoke to patient's Azra on phone. She reports has noticed intermittent confusion with patient for "a while", does not think any worsening over the past week or since previous admission. She reports patient has been pulling on Manuel catheter during the middle the night and has had to have Manuel catheter changed multiple times by home health nurses. Reports patient seen by Dr. Strong-urology on 02/09/18 and had Manuel catheter changed at that point time. Reports that she believes patient pulled on catheter again last night during the night. Today has not noticed any blood in Manuel catheter bag or noticed any drainage coming from around Manuel catheter. Patient does report that he has noticed that he has had in his behavior and reports has said mean things to his but he typically would not say. Reports is under stress with sewage problems at his house this week. Patient with history of hospital admission 01/22/18-01/31/18 for urosepsis, E. coli pansensitive. Discharged on Cipro which patient reports finished. Was discharged to [facility] secondary to ambulatory dysfunction. Patient has since returned home and reports his using walker to ambulate, denies any recent falls. Reports history of chronic lower extremity edema and erythema. Denies any worsening. Reports intermittent pain to bilateral lower extremities with associated paresthesias. On 01/22/2018 patient had ultrasound lower extremity to rule out DVT. However patient only allowed to have completed on right leg which was negative for DVT. Patient reports has been eating and drinking normally. Patient denies any headache, dizziness, syncope, fever/chills, diaphoresis, N/V/D/C, vision changes, neck pain, CP, SOB, orthopnea, palpitations, cough, sore throat, choking, otalgia, rhinorrhea, abdominal pain, rashes. Past Medical/Surgical History Medical Problems: (1) Diabetes mellitus type II, controlled Status: Chronic (2) HLD (hyperlipidemia) Status: Chronic (3) Hypertension Status: Chronic (4) Prostate cancer Permanent Comment: Rising PSA pretreatment PSA 10.39 Status post biopsy revealing adenocarcinoma [place] 4+3, 4+4, 4+5, and 5+4. Biopsy stage TIIc Androgen deprivation from 07/09/2011 until January 2014 Status post completion of external beam radiation 12/11/2011 Status: Resolved Family History Cancer Heart disease Hypertension Social History Smoking Status: Former Smoker Smokeless Tobacco Use: No Alcohol Use: none Drug Use: none Marital Status: Housing status: lives with significant other Occupational Status: retired Allergies Coded Allergies: No Known Allergies (Unverified , 02/11/18) Home Medications Scheduled Aspirin (Aspirin Ec), 81 MG PO DAILY Carvedilol (Coreg), 1 TAB PO BID Cholecalciferol (Vitamin D 1000 Unit), 2,000 INTER.UNIT PO QAM Latanoprost (Xalatan 0.005% Oph Yolanda), 1 DROPS OP HS Nitroglycerin (Nitrostat), 0.4 MG UT PRN Pantoprazole (Protonix), 40 MG PO QAM Sitagliptin-Metformin Hcl (Janumet), 1 TAB PO QAM Trazodone Hcl (Trazodone), 25 MG PO QPM Scheduled PRN Oxybutynin Chloride (Ditropan), 1 TAB PO Q8 PRN for Bladder pain Review of Systems See HPI for pertinent positives & negatives. All other systems reviewed and were otherwise negative Physical Exam Vital Signs Date Time Temp Pulse Resp B/P (MAP) Pulse Ox O2 Delivery O2 Flow Rate FiO2 02/11/18 17:12 80 18 154/56 96 Room Air 02/11/18 15:12 70 18 139/83 95 Room Air 02/11/18 14:51 66 16 138/66 95 Room Air 02/11/18 14:22 66 02/11/18 13:15 36.2 67 16 149/78 95 Room Air General Appearance: WD/WN, no apparent distress Head: normocephalic, atraumatic Eyes: normal inspection, PERRL, EOMI, sclerae normal ENT: hearing grossly normal, pharynx normal, + pertinent finding (mucous membranes moist) Neck: supple, no JVD, trachea midline Respiratory/Chest: lungs clear, normal breath sounds, no respiratory distress Cardiovascular: regular rate, rhythm, normal peripheral pulses Abdomen/GI: normal bowel sounds, non tender, soft Genitourinary - Male: + pertinent finding (manuel catheter in place, no blood noted to bag) Extremities/Musculoskelatal: no calf tenderness, + pertinent finding ( Bilateral lower extremities with edema and erythema and scattered exoriations and dry skin. non-tender to palpation) Neurologic/Psych: alert, normal mood/affect, oriented x 3 (Pt alert and oriented x 3 at this time with normal mood and is cooperative) Skin: warm/dry Diagnostics Laboratory Results Results Past 24 Hours Test 02/11/18 14:10 02/11/18 14:45 Range/Units White Blood Count 8.25 4.8-10.8 K/uL Red Blood Count 3.34 4.7-6.1 M/uL Hemoglobin 10.3 14.0-18.0 g/dL Hematocrit 32.9 42-52 % Mean Corpuscular Volume 98.5 80-100 fL Mean Corpuscular Hemoglobin 30.8 25-34 pg Mean Corpuscular Hemoglobin Concent 31.3 32-36 g/dl Platelet Count 263 130-400 K/uL Mean Platelet Volume 9.7 7.4-10.4 fL Neutrophils (%) (Auto) 77.5 % Lymphocytes (%) (Auto) 16.4 % Monocytes (%) (Auto) 4.8 % Eosinophils (%) (Auto) 0.7 % Basophils (%) (Auto) 0.4 % Neutrophils # (Auto) 6.39 1.4-6.5 K/uL Lymphocytes # (Auto) 1.35 1.2-3.4 K/uL Monocytes # (Auto) 0.40 0.11-0.59 K/uL Eosinophils # (Auto) 0.06 0-0.5 K/uL Basophils # (Auto) 0.03 0-0.2 K/uL RDW Standard Deviation 55.6 36.4-46.3 fL RDW Coefficient of Variation 15.4 11.5-14.5 % Immature Granulocyte % (Auto) 0.2 % Immature Granulocyte # (Auto) 0.02 0.00-0.02 K/uL Sodium Level 140 136-145 mmol/L Potassium Level 4.5 3.5-5.1 mmol/L Chloride Level 106 98-107 mmol/L Carbon Dioxide Level 29 21-32 mmol/L Anion Gap 5.0 3-11 mmol/L Blood Urea Nitrogen 25 7-18 mg/dl Creatinine 1.19 0.60-1.40 mg/dl Est Creatinine Clear Calc Drug Dose 49.9 ml/min Estimated GFR () 66.9 Estimated GFR (Non- 57.8 BUN/Creatinine Ratio 20.7 10-20 Random Glucose 108 70-99 mg/dl Calcium Level 8.9 8.5-10.1 mg/dl Total Bilirubin 0.4 0.2-1 mg/dl Direct Bilirubin 0.2 0-0.2 mg/dl Aspartate Amino Transf (AST/SGOT) 46 15-37 U/L Alanine Aminotransferase (ALT/SGPT) 37 12-78 U/L Alkaline Phosphatase 69 45-117 U/L Total Creatine Kinase 21 39-308 U/L Creatine Kinase MB 0.6 0.5-3.6 ng/ml Creatine Kinase MB Ratio 2.9 0-3.0 Troponin I < 0.015 0-0.045 ng/ml Total Protein 6.9 6.4-8.2 gm/dl Albumin 2.7 3.4-5.0 gm/dl Lipase 47 73-393 U/L Thyroid Stimulating Hormone (TSH) 1.950 0.300-4.500 uIu/ml Urine Color ORANGE Urine Appearance CLOUDY CLEAR Urine pH 7.0 4.5-7.5 Urine Specific [place] 1.013 1.000-1.030 Urine Protein 2+ NEG Urine Glucose (UA) NEG NEG Urine Ketones NEG NEG Urine Occult Blood 3+ NEG Urine Nitrite NEG NEG Urine Bilirubin NEG NEG Urine Urobilinogen NEG NEG Urine Leukocyte Esterase LARGE NEG Urine WBC (Auto) >30 0-5 /hpf Urine RBC (Auto) >30 0-4 /hpf Urine Hyaline Casts (Auto) 5-10 0-5 /lpf Urine Epithelial Cells (Auto) 0-5 0-5 /lpf Urine Bacteria (Auto) NEG NEG Microbiology Results 02/11/18 Blood Culture, Ordered Pending 02/11/18 Blood Culture, Ordered Pending 02/11/18 Urine Culture, Received Pending Diagnostic Radiology CXR: IMPRESSION: No change the prior study. Cardiomegaly and suspected mild pulmonary vascular congestion. No evidence of focal pulmonary consolidation CT HEAD: Impression: No acute process. EKG EKG: sinus rhythm, rate 64, PAC Read by band edger: Sinus rhythm with Premature atrial complexes Otherwise normal ECG When compared with ECG of 28-JAN-2018 07:52, Premature atrial complexes are now Present Nonspecific T wave abnormality no longer evident in Lateral leads Confirmed by SHANE TRUJILLO ([id number]) on 02/11/2018 4:33:51 PM Impression Assessment and Plan ALTERED MENTAL STATUS Pt with intermittent confusion and has been pulling on Manuel catheter. Suspect metabolic encephalopathy from UTI. DDX: dementia, brain mets Pt given Rocephin in ER. Currently pt alert and oriented and pleasant -continue Rocephin -if no improvement may need to consider MRI to r/o brain mets POSSIBLE UTI Pt with indwelling manuel catheter and has been pulling on catheter and reported multiple catheter changes by home health. Reported last changed 02/09/18. [facility]. Hx urosepsis - e. coli pansensitive on 01/22/18 and d /c on cipro. U/A: 3+ blood, large leukocytosis, >30 WBC, >RBC. no leukocytosis today. Does not appear septic -pending urine culture -pending blood cultures -Rocephin -IVF -urology consult BLADDER CA with POSSIBLE LUNG METASTASIS, HX PROSTATE CA Pt s/p radiation and hormone therapy for prostate CA. Currently being treated for bladder CA with chemo, following with Dr Velásquez. -urology consult -continue oxybutynin CKD Cr: 1.19, baseline ~1.2 -monitor renal functions -avoid nephrotoxic agents when possible Hx CAD s/p CABG Denies CP, SOB, no acute changes on EKG noted -continue ASA, beta boogie CHRONIC ANEMIA Hgb: 10, stable -monitor H&H DM II HA1c: 5.9 on 02/08 -hold oral meds -Novolog sliding scale per protocol CHRONIC LE EDEMA Pt with u/s RLE on 01/22/18 to r/o DVT, at that time refused LLE -Pt denying repeat LE U/S today. Will continue to monitor and consider U/S LE if worsening symptoms DVT Prophylaxis -SCD Disposition admit tele Full Code as per discussion with pt Follows with Dr Souza for routine care Pt was seen with Dr Auguste. See addendum ATTENDING ADDENDUM: Patient seen and examined care coordinated with Kelsey Long PA-C 78-year-old male, history of dementia, metastatic bladder cancer metastases to [place] history of prostate cancer-on chronic indwelling Manuel catheter due to urinary retention. Brought to ER with worsening of mental status/confusion patient has been intermittently pulling at Manuel catheter Pulled out catheter yesterday home health visiting nurse reinserted PHYSICAL EXAM: Please refer to physical exam by Kelsey Long PA-C ATTENDING ADDENDUM: Patient seen and examined care coordinated with Kelsey Long PA-C 78-year-old male, history of dementia, metastatic bladder cancer metastases to [place] history of prostate cancer-on chronic indwelling Manuel catheter due to urinary retention. Brought to ER with worsening of mental status/confusion patient has been intermittently pulling at Manuel catheter Pulled out catheter yesterday home health visiting nurse reinserted PHYSICAL EXAM: Please refer to physical exam by Kelsey Long PA-C CONFUSION/METABOLIC ENCEPHALOPATHY: Baseline dementia, presents with possible urinary tract infection, traumatic injury to urethra due to Manuel catheter, acute renal failure. Patient will be treated for urinary tract infection IV hydration Order for fall precaution URINARY TRACT INFECTION Has chronic indwelling Manuel patient has been pulling at Manuel catheter, pulled out catheter once empiric antibiotic with IV Rocephin Follow urine culture METASTATIC BLADDER CANCER/CHRONIC INDWELLING MANUEL: Metastatis lungs Manuel catheter for chronic urinary retention Currently on palliative chemo gemcitabine Developed hematuria, possible due to manipulation of Manuel/traumatic injury urology consulted DVT prophylaxis: Moderate to high risk SCD and teds Pharmacological anticoagulation not ordered, as hematuria noted possible secondary to traumatic injury due to Manuel CODE STATUS: Full code very poor prognosis CODE STATUS needs to be readdressed with the family members Please refer to further documentation by Kelsey Long PA-C for discussion of other chronic issues Ria Auguste MD : : Resuscitation Status Full code VTE Prophylaxis Will order VTE Prophylaxis: Yes Additional Copies To Jono Souza M.D.
[2018-02-11 19:55] VITALS: BP 169/54; PULSE 82; TEMP 36.8; O2SAT 92; Ht 157.5 cm; Wt 88.2 kg
[2018-02-11] MEDS: MoRPHine SULFATE 2 MG/ML CARP IV PRN (21:21)
[2018-02-11] MEDS ORDERED: INFLUENZA ADMINISTRATION CHARGE ONE (21:30)
[2018-02-11] MEDS ORDERED: INFLUENZA VACCINE HIGH DOSE 65+ 0.5 ML SYR IM. ONE (21:30)
[2018-02-11 21:32] VITALS: BP 143/95; PULSE 91
[2018-02-11] MEDS: OXYBUTYNIN CHLORIDE 5 MG TAB PO PRN (21:34)
[2018-02-11] MEDS: CARVEDILOL 6.25 MG TAB PO SCH (21:35)
[2018-02-11] MEDS: TRAZODONE HCL 50 MG TAB PO SCH (21:36)
[2018-02-11] MEDS: LATANOPROST 0.005% OP SOLN 2.5 ML BTL OP SCH (21:36)
[2018-02-11] MEDS: INSULIN ASPART 100 UNITS/ML 3 ML PEN SC SCH (21:40)
[2018-02-11 23:48] VITALS: O2SAT 92
[2018-02-12] VITALS (8 sets, daily range): BP systolic 115–147; BP diastolic 58–77; PULSE 62–103; TEMP 36.6–37.8; O2SAT 91–94
[2018-02-12 06:44] LABS: HEMATOCRIT 30.5 % (42-52); HEMOGLOBIN 9.4 g/dL (14.0-18.0); MEAN CELL VOLUME 97.1 fL (80-100); MEAN CORPUSCULAR HEMOGLOBIN 29.9 pg (25-34); MEAN CORPUSCULAR HGB CONC 30.8 g/dl (32-36); PLATELET COUNT 215 K/uL (130-400); RED CELL DISTRIBUTION WIDTH CV 15.4 % (11.5-14.5); RED CELL DISTRIBUTION WIDTH SD 54.5 fL (36.4-46.3)
[2018-02-12 07:18] LABS: CALCIUM 8.8 mg/dl (8.5-10.1); CREATININE 1.12 mg/dl (0.60-1.40)
[2018-02-12] MEDS: CARVEDILOL 6.25 MG TAB PO SCH ×2 (08:31→20:12)
[2018-02-12] MEDS: PANTOprazole SOD 40 MG TAB PO SCH (08:31)
[2018-02-12] MEDS: ASPIRIN 81 MG ECTAB PO SCH (08:31)
[2018-02-12] MEDS: CHOLECALCIFEROL 1000 INTER.UNIT TAB PO SCH (08:31)
[2018-02-12] MEDS: INSULIN ASPART 100 UNITS/ML 3 ML PEN SC SCH ×4 (08:33→20:59)
[2018-02-12] MEDS: OXYBUTYNIN CHLORIDE 5 MG TAB PO PRN ×2 (08:56→17:41)
[2018-02-12] MEDS: MoRPHine SULFATE 2 MG/ML CARP IV PRN ×2 (09:50→16:20)
[2018-02-12] MEDS: PHENAZOPYRIDINE HCL 200 MG TAB PO PRN (14:25)
--- NOTE | 2018-02-12 15:00 | Urology Consultation ---
History General Date of Service: Feb 12, 2018. Chief Complaint: gross hematuria, bladder cancer, pt pulling out bruner catheter Primary Care Physician: Jono Souza M.D. Pt seen a urologist before?: Yes (Dr. Can, Dr. Strong) If yes, why?: prostate and bladder cancer History of Present Illness 78 yo male admitted for AMS. Pt with a hx of prostate and bladder cancer. Currently on gemcitabine for his metastatic bladder cancer. Per his family and our office notes, he has been having episodes of confusion leading to bruner catheter issues. He has ripped his bruner catheter out at one point as well as tied it into a knot at other time. He currently has mitts in place to prevent pulling on bruner. Bruner currently draining light diallo colored urine. H&H is 9.4 and 30.5. Pt denies pain today. States he is at [facility], but says the year is 2024. He did know the president is Richard Bowling. He says he just wants to go home. Per RN, the pt has had periods of intermittent confusion since last evening. Imaging Imaging: CT (head-no evidence for metastatic disease) Laboratory Last 24 Hours Test 02/11/18 14:10 02/11/18 14:45 02/11/18 18:54 02/11/18 21:00 White Blood Count 8.25 K/uL Red Blood Count 3.34 M/uL Hemoglobin 10.3 g/dL Hematocrit 32.9 % Mean Corpuscular Volume 98.5 fL Mean Corpuscular Hemoglobin 30.8 pg Mean Corpuscular Hemoglobin Concent 31.3 g/dl Platelet Count 263 K/uL Mean Platelet Volume 9.7 fL Neutrophils (%) (Auto) 77.5 % Lymphocytes (%) (Auto) 16.4 % Monocytes (%) (Auto) 4.8 % Eosinophils (%) (Auto) 0.7 % Basophils (%) (Auto) 0.4 % Neutrophils # (Auto) 6.39 K/uL Lymphocytes # (Auto) 1.35 K/uL Monocytes # (Auto) 0.40 K/uL Eosinophils # (Auto) 0.06 K/uL Basophils # (Auto) 0.03 K/uL RDW Standard Deviation 55.6 fL RDW Coefficient of Variation 15.4 % Immature Granulocyte % (Auto) 0.2 % Immature Granulocyte # (Auto) 0.02 K/uL Sodium Level 140 mmol/L Potassium Level 4.5 mmol/L Chloride Level 106 mmol/L Carbon Dioxide Level 29 mmol/L Anion Gap 5.0 mmol/L Blood Urea Nitrogen 25 mg/dl Creatinine 1.19 mg/dl Est Creatinine Clear Calc Drug Dose 49.9 ml/min Estimated GFR () 66.9 Estimated GFR (Non- 57.8 BUN/Creatinine Ratio 20.7 Random Glucose 108 mg/dl Calcium Level 8.9 mg/dl Total Bilirubin 0.4 mg/dl Direct Bilirubin 0.2 mg/dl Aspartate Amino Transf (AST/SGOT) 46 U/L Alanine Aminotransferase (ALT/SGPT) 37 U/L Alkaline Phosphatase 69 U/L Total Creatine Kinase 21 U/L Creatine Kinase MB 0.6 ng/ml Creatine Kinase MB Ratio 2.9 Troponin I < 0.015 ng/ml Total Protein 6.9 gm/dl Albumin 2.7 gm/dl Lipase 47 U/L Thyroid Stimulating Hormone (TSH) 1.950 uIu/ml Urine Color ORANGE Urine Appearance CLOUDY Urine pH 7.0 Urine Specific [place] 1.013 Urine Protein 2+ Urine Glucose (UA) NEG Urine Ketones NEG Urine Occult Blood 3+ Urine Nitrite NEG Urine Bilirubin NEG Urine Urobilinogen NEG Urine Leukocyte Esterase LARGE Urine WBC (Auto) >30 /hpf Urine RBC (Auto) >30 /hpf Urine Hyaline Casts (Auto) 5-10 /lpf Urine Epithelial Cells (Auto) 0-5 /lpf Urine Bacteria (Auto) NEG Bedside Glucose 131 mg/dl 167 mg/dl Test 02/12/18 06:24 02/12/18 07:19 02/12/18 11:11 White Blood Count 8.60 K/uL Red Blood Count 3.14 M/uL Hemoglobin 9.4 g/dL Hematocrit 30.5 % Mean Corpuscular Volume 97.1 fL Mean Corpuscular Hemoglobin 29.9 pg Mean Corpuscular Hemoglobin Concent 30.8 g/dl RDW Standard Deviation 54.5 fL RDW Coefficient of Variation 15.4 % Platelet Count 215 K/uL Mean Platelet Volume 10.0 fL Sodium Level 139 mmol/L Potassium Level 4.0 mmol/L Chloride Level 105 mmol/L Carbon Dioxide Level 27 mmol/L Anion Gap 7.0 mmol/L Blood Urea Nitrogen 20 mg/dl Creatinine 1.12 mg/dl Est Creatinine Clear Calc Drug Dose 49.8 ml/min Estimated GFR () 72.0 Estimated GFR (Non- 62.1 BUN/Creatinine Ratio 17.9 Random Glucose 134 mg/dl Calcium Level 8.8 mg/dl Bedside Glucose 149 mg/dl 145 mg/dl Problem List Medical Problems: (1) Altered mental status Status: Acute (2) Bladder cancer Status: Acute (3) Fall Status: Acute (4) Gross hematuria Status: Acute (5) Sepsis Status: Acute (6) UTI (urinary tract infection) Status: Acute (7) UTI (urinary tract infection) Status: Acute Past History cancer (bladder), cancer - prostate, coronary artery disease, CVA/TIA/stroke, diabetes, hypertension Past Surgical History: coronary bypass surgery, other (hernia repair, TURBT) Family History Cancer Heart disease Hypertension Social History Hx Tobacco Use In Past Year?: No (smoked 1 ppd-quit 20 years ago ) Smoking: other (former smoker) Marital status: Housing status: lives with significant other Occupation status: retired History of MDRO No Allergies Coded Allergies: No Known Allergies (Unverified , 02/11/18) Medications Home Medications: Home Meds and Scripts Medications Dose Route/Sig Max Daily Dose Days Date Category Dose Instructions Aspirin Ec (Aspirin) 81 Mg Tab 81 Mg PO DAILY 02/11/18 Reported Coreg (Carvedilol) 6.25 Mg Tab 1 Tab PO BID 10/31/17 Reported Xalatan 0.005% Oph Yolanda (Latanoprost) 0.005 % Yolanda 1 Drops OP HS 10/31/17 Reported Ditropan (Oxybutynin Chloride) 5 Mg Tab 1 Tab PO Q8 PRN 10/31/17 Reported Protonix (Pantoprazole Sodium) 40 Mg Tab 40 Mg PO QAM 10/23/17 Reported Trazodone (Trazodone HCl) 50 Mg Tab 25 Mg PO QPM 06/28/14 Reported Janumet (Sitagliptin-Metformin Hcl) 1 Tab Tab 1 Tab PO QAM 06/28/14 Reported 50/500 MG Vitamin D 1000 Unit (Cholecalciferol) 1,000 Unit Cap 2,000 Inter.unit PO QAM 06/23/12 Reported Nitrostat (Nitroglycerin) 0.4 Mg Tab 0.4 Mg UT PRN 07/24/11 Reported Inpatient Medications: Current Inpatient Medications Medications (Trade) Dose Ordered Sig/[place] Route Start Time Stop Time Status Last Admin Dose Admin Acetaminophen (Tylenol Tab) 650 mg Q4H PRN PO 02/11/18 17:45 03/13/18 17:44 Nitroglycerin (Nitrostat Tab) 0.4 mg UD PRN SL 02/11/18 17:45 03/13/18 17:44 Magnesium Hydroxide (Milk Of Magnesia Susp) 30 ml Q12H PRN PO 02/11/18 18:00 03/13/18 17:59 Ondansetron HCl (Zofran Inj) 4 mg Q6H PRN IV 02/11/18 18:00 03/13/18 17:59 Ceftriaxone Sodium 1 gm/ Dextrose 50 ml @ 100 mls/hr Q24H IV 02/12/18 16:00 02/17/18 15:59 Insulin Aspart (novoLOG ASPART) SLIDING SCALE If C... ACHS SC 02/11/18 21:00 03/13/18 20:59 02/12/18 12:22 3 UNITS Glucose (Glucose 40% Gel) 15-30 GRAMS 15 GRAMS... UD PRN PO 02/11/18 18:15 03/13/18 18:14 Glucose (Glucose Chew Tab) 4-8 Tablets 4 Tabl... UD PRN PO 02/11/18 18:15 03/13/18 18:14 Dextrose (Dextrose 50% 50ML Syringe) 25-50ML OF 50% DW IV FOR... UD PRN IV 02/11/18 18:15 03/13/18 18:14 Glucagon (Glucagon Inj) 1 mg UD PRN SQ 02/11/18 18:15 03/13/18 18:14 Aspirin (Ecotrin Tab) 81 mg DAILY PO 02/12/18 09:00 03/14/18 08:59 02/12/18 08:31 81 MG Carvedilol (Coreg Tab) 6.25 mg BID PO 02/11/18 21:00 03/13/18 20:59 02/12/18 08:31 6.25 MG Cholecalciferol (Vitamin D Tab) 2,000 inter.unit QAM PO 02/12/18 09:00 03/14/18 08:59 02/12/18 08:31 2,000 INTER.UNIT Latanoprost (Xalatan Oph Soln) 1 drops HS OP 02/11/18 21:00 03/13/18 20:59 02/11/18 21:36 1 DROPS Oxybutynin Chloride (Ditropan Tab) 5 mg Q8 PRN PO 02/11/18 18:15 03/13/18 18:14 02/12/18 08:56 5 MG Pantoprazole Sodium (Protonix Tab) 40 mg QAM PO 02/12/18 09:00 03/14/18 08:59 02/12/18 08:31 40 MG Trazodone HCl (Desyrel Tab) 25 mg QPM PO 02/11/18 21:00 03/13/18 20:59 02/11/18 21:36 25 MG Miscellaneous (Iv Fluids Completed) 1 ea PRN PRN N/A 02/11/18 18:30 02/11/19 18:29 Sodium Chloride 1,000 ml @ 15 mls/hr Q24H IV 02/11/18 19:15 02/12/18 19:14 02/11/18 19:31 15 MLS/HR Morphine Sulfate (MoRPHine SULFATE INJ) 0.5 mg Q6 PRN IV 02/11/18 21:15 02/25/18 21:14 02/12/18 09:50 0.5 MG Phenazopyridine HCl (Pyridium Tab) 200 mg TID PRN PO 02/12/18 13:15 03/14/18 13:14 Review of Systems Review of Systems Constitutional: No fever, No chills Eyes: No double vision Neurological: No dizzy Endocrine: No excessive thirst Gastrointestinal: No abdominal pain, No nausea, No vomiting Cardiovascular: No chest pain Respiratory: No shortness of breath Skin: No rash Musculoskeletal: No back pain Male : + urinary retention, + blood in urine Physical Exam Vital Signs: Vital Signs Past 12 Hours Date Time Temp Pulse Resp B/P (MAP) Pulse Ox O2 Delivery O2 Flow Rate FiO2 02/12/18 12:00 Room Air 02/12/18 11:50 36.7 62 18 129/70 (89) 94 Room Air 02/12/18 08:00 Room Air 02/12/18 07:53 93 Room Air 02/12/18 07:50 37.0 76 18 140/77 (98) 93 Room Air 02/12/18 04:49 37.8 88 18 115/58 (77) 92 Room Air 02/12/18 04:00 Room Air Physical Exam: General Appearance: no apparent distress Eyes: bilateral eyes normal inspection ENT: hearing grossly normal Neck: no JVD Respiratory/Chest: no respiratory distress, no accessory muscle use Cardiovascular: no JVD Extremities: normal inspection Neurologic/Psychiatric: alert, normal mood/affect Skin: normal color Assessment & Plan Assessment & Plan A/P: Urinary retention, gross hematuria, bladder cancer, prostate cancer, AMS AFVSS. Unfortunately the pt has chronic UR requiring a bruner catheter. If the pt continues to be confused and pulling on bruner catheter, I would recommend the bruner be removed and he be transitioned to CIC. Certainly could attempt bladder scans qshift and CIC for PVR >250ml while inpatient. This becomes more difficult as an outpatient if his is unwilling or unable to do CIC for him at home. In this event, he may be better off placed at an SNF where he can receive this care. May want to consider SNF in the setting of worsening confusion and possibly hospice as an option for his metastatic bladder cancer. Thanks for the consult. Will continue to follow along with the pt.
[2018-02-12] MEDS: CEFTRIAXONE SOD INJ 1 GM in DEXTROSE 5% ADD-VANTAGE 50ML 50 ML IV SCH (16:14)
[2018-02-12] MEDS: TRAZODONE HCL 50 MG TAB PO SCH (20:12)
[2018-02-12] MEDS: LATANOPROST 0.005% OP SOLN 2.5 ML BTL OP SCH (20:12)
[2018-02-12] MEDS ORDERED: MoRPHine SULFATE 2 MG/ML CARP IV STA (20:25)
--- NOTE | 2018-02-12 21:54 | Progress Note ---
Medicine Progress Note Date & Time of Visit: Feb 12, 2018 at 21:54. Subjective Patient denies any complaints, is intermittently confused and yelling out. States he has intermittent pain in his abdomen and bladder. Alleviated with pain meds partially. No overnight events noted. Tolerating PO. Objective Last 8 Hrs Date Time Temp Pulse Resp B/P (MAP) Pulse Ox O2 Delivery O2 Flow Rate FiO2 02/12/18 19:40 Room Air 02/12/18 19:05 36.7 62 16 136/58 (84) 91 Room Air 02/12/18 16:00 Room Air 02/12/18 15:31 36.6 69 16 142/63 (89) 93 Room Air Physical Exam: GENERAL: Patient is in no acute distress. HEENT: No acute trauma, normocephalic, mucous membranes moist, no nasal congestion, no scleral icterus. NECK: No stridor, trachea is midline. LUNGS: Clear to auscultation bilaterally, no wheeze, no rhonchi, breath sounds equal. HEART: Without murmurs gallops or rubs, regular rate and rhythm. ABDOMEN: Soft, nontender, bowel sounds positive EXTREMITIES: No cyanosis or edema, full range of motion of all the joints without pain or difficulty, no signs for acute trauma. NEUROLOGIC: Oriented x 3, no acute motor or sensory deficits, no focal weakness. SKIN: No rash, no jaundice, no diaphoresis. Laboratory Results: Last 24 Hours Test 02/12/18 06:24 02/12/18 07:19 02/12/18 11:11 02/12/18 16:32 White Blood Count 8.60 K/uL Red Blood Count 3.14 M/uL Hemoglobin 9.4 g/dL Hematocrit 30.5 % Mean Corpuscular Volume 97.1 fL Mean Corpuscular Hemoglobin 29.9 pg Mean Corpuscular Hemoglobin Concent 30.8 g/dl RDW Standard Deviation 54.5 fL RDW Coefficient of Variation 15.4 % Platelet Count 215 K/uL Mean Platelet Volume 10.0 fL Sodium Level 139 mmol/L Potassium Level 4.0 mmol/L Chloride Level 105 mmol/L Carbon Dioxide Level 27 mmol/L Anion Gap 7.0 mmol/L Blood Urea Nitrogen 20 mg/dl Creatinine 1.12 mg/dl Est Creatinine Clear Calc Drug Dose 49.8 ml/min Estimated GFR () 72.0 Estimated GFR (Non- 62.1 BUN/Creatinine Ratio 17.9 Random Glucose 134 mg/dl Calcium Level 8.8 mg/dl Bedside Glucose 149 mg/dl 145 mg/dl 131 mg/dl Test 02/12/18 20:07 Bedside Glucose 97 mg/dl Assessment & Plan ALTERED MENTAL STATUS: -intermittent confusion, has been pulling on Bruner catheter. -no evidence of infection -CT head negative, no obvious mets noted -would recommend evaluation for dementia -was given Rocephin, can stop as cultures negative -if no improvement may need to consider MRI to r/o brain mets CHRONIC INDWELLING CATHETER, NO UTI -pt with indwelling bruner catheter and has been pulling on catheter and reported multiple catheter changes by home health. Reported last changed . Following with [facility]-urology. Hx urosepsis - e. coli pansensitive on 01/22/18 and d/c on cipro. -U/A: 3+ blood, large leukocytosis, >30 WBC, >RBC. no leukocytosis today. Does not appear septic -urine culture negative -blood cultures negative -Rocephin -IV fluids initially, now off -Urology consulted, suggested patient could have bruner removed and undergo CIC 4 times a day as an alternate if he has difficulty keeping the bruner catheter in BLADDER CA with POSSIBLE LUNG METASTASIS, HX PROSTATE CA -s/p radiation and hormone therapy for prostate CA. -currently being treated for bladder CA with chemo, following with Dr Velásquez. -Urology consulted -continue oxybutynin CKD STAGE II-III: -Cr at baseline ~1.2 -monitor renal functions -avoid nephrotoxic agents when possible CAD s/p previous CABG -no symptoms of CP, SOB -no acute changes on EKG noted -continue ASA, beta boogie CHRONIC ANEMIA: -Hgb: 10, stable -monitor DM TYPE II: -HbA1c: 5.9% on 02/08 -hold oral meds -Novolog sliding scale per protocol CHRONIC LE EDEMA: -recent US of RLE on 01/22/18 to r/o DVT, but at that time refused LLE, again denying repeat LE U/S today. Will continue to monitor and consider U/S LE if worsening symptoms Current Inpatient Medications: Current Inpatient Medications Medications (Trade) Dose Ordered Sig/Kailash Route Start Time Stop Time Status Last Admin Dose Admin Acetaminophen (Tylenol Tab) 650 mg Q4H PRN PO 02/11/18 17:45 03/13/18 17:44 02/12/18 20:13 650 MG Nitroglycerin (Nitrostat Tab) 0.4 mg UD PRN SL 02/11/18 17:45 03/13/18 17:44 Magnesium Hydroxide (Milk Of Magnesia Susp) 30 ml Q12H PRN PO 02/11/18 18:00 03/13/18 17:59 Ondansetron HCl (Zofran Inj) 4 mg Q6H PRN IV 02/11/18 18:00 03/13/18 17:59 Ceftriaxone Sodium 1 gm/ Dextrose 50 ml @ 100 mls/hr Q24H IV 02/12/18 16:00 02/17/18 15:59 02/12/18 16:14 100 MLS/HR Insulin Aspart (novoLOG ASPART) SLIDING SCALE If C... ACHS SC 02/11/18 21:00 03/13/18 20:59 02/12/18 17:38 5 UNITS Glucose (Glucose 40% Gel) 15-30 GRAMS 15 GRAMS... UD PRN PO 02/11/18 18:15 03/13/18 18:14 Glucose (Glucose Chew Tab) 4-8 Tablets 4 Tabl... UD PRN PO 02/11/18 18:15 03/13/18 18:14 Dextrose (Dextrose 50% 50ML Syringe) 25-50ML OF 50% DW IV FOR... UD PRN IV 02/11/18 18:15 03/13/18 18:14 Glucagon (Glucagon Inj) 1 mg UD PRN SQ 02/11/18 18:15 03/13/18 18:14 Aspirin (Ecotrin Tab) 81 mg DAILY PO 02/12/18 09:00 03/14/18 08:59 02/12/18 08:31 81 MG Carvedilol (Coreg Tab) 6.25 mg BID PO 02/11/18 21:00 03/13/18 20:59 02/12/18 20:12 6.25 MG Cholecalciferol (Vitamin D Tab) 2,000 inter.unit QAM PO 02/12/18 09:00 03/14/18 08:59 02/12/18 08:31 2,000 INTER.UNIT Latanoprost (Xalatan Oph Soln) 1 drops HS OP 02/11/18 21:00 03/13/18 20:59 02/12/18 20:12 1 DROPS Oxybutynin Chloride (Ditropan Tab) 5 mg Q8 PRN PO 02/11/18 18:15 03/13/18 18:14 02/12/18 17:41 5 MG Pantoprazole Sodium (Protonix Tab) 40 mg QAM PO 02/12/18 09:00 03/14/18 08:59 02/12/18 08:31 40 MG Trazodone HCl (Desyrel Tab) 25 mg QPM PO 02/11/18 21:00 03/13/18 20:59 02/12/18 20:12 25 MG Miscellaneous (Iv Fluids Completed) 1 ea PRN PRN N/A 02/11/18 18:30 02/11/19 18:29 Morphine Sulfate (MoRPHine SULFATE INJ) 0.5 mg Q6 PRN IV 02/11/18 21:15 02/25/18 21:14 02/12/18 16:20 0.5 MG Phenazopyridine HCl (Pyridium Tab) 200 mg TID PRN PO 02/12/18 13:15 03/14/18 13:14 02/12/18 14:25 200 MG
[2018-02-13] MEDS: PHENAZOPYRIDINE HCL 200 MG TAB PO PRN ×3 (00:18→18:47)
[2018-02-13] MEDS: MoRPHine SULFATE 2 MG/ML CARP IV PRN ×2 (01:43→08:51)
[2018-02-13 04:41] VITALS: BP 145/65; PULSE 72; TEMP 37; O2SAT 94
[2018-02-13 07:47] VITALS: BP 175/72; PULSE 93; TEMP 36.9; O2SAT 94
[2018-02-13] MEDS: PANTOprazole SOD 40 MG TAB PO SCH (08:16)
[2018-02-13] MEDS: CHOLECALCIFEROL 1000 INTER.UNIT TAB PO SCH (08:16)
[2018-02-13] MEDS: OXYBUTYNIN CHLORIDE 5 MG TAB PO PRN ×2 (08:16→18:48)
[2018-02-13] MEDS: CARVEDILOL 6.25 MG TAB PO SCH (08:16)
[2018-02-13] MEDS: ASPIRIN 81 MG ECTAB PO SCH (08:16)
[2018-02-13] MEDS: INSULIN ASPART 100 UNITS/ML 3 ML PEN SC SCH ×3 (08:21→18:50)
--- NOTE | 2018-02-13 10:04 | Progress Note ---
Subjective Date of Service: Feb 13, 2018. Subjective Pt evaluation today including: conversation w/ patient, chart review, lab review Voiding: bruner catheter in place (patent, draining light diallo colored urine ) 78 yo male with metastatic bladder cancer. Pt continues to c/o bladder pain this morning. He felt the Pyridium helped with his pain. Last dose was at 0018. He is due for another dose at this time. He did get his dose of Ditropan this morning. Pt is alert and oriented this morning. He is tearful stating he just wants to go home and wants relief from pain. He states there has been discussion about him moving to an SNF in [place]. Problem List Medical Problems: (1) Altered mental status Status: Acute (2) Bladder cancer Status: Acute (3) Fall Status: Acute (4) Gross hematuria Status: Acute (5) Sepsis Status: Acute (6) UTI (urinary tract infection) Status: Acute (7) UTI (urinary tract infection) Status: Acute Review of Systems Constitutional: No fever, No chills Respiratory: + shortness of breath (intermittent) Cardiac: No chest pain Abdomen: No pain, No nausea, No vomiting Male : + hematuria Heme: + abnormal bleeding/bruising Objective Vital Signs Date Time Temp Pulse Resp B/P (MAP) Pulse Ox O2 Delivery O2 Flow Rate FiO2 02/13/18 08:00 Room Air 02/13/18 07:47 36.9 93 20 175/72 (106) 94 02/13/18 04:41 37.0 72 18 145/65 (91) 94 Room Air 02/13/18 04:00 Room Air 02/13/18 00:00 Room Air 02/12/18 23:20 36.7 73 16 138/58 (84) 93 Room Air 02/12/18 19:40 Room Air 02/12/18 19:05 36.7 62 16 136/58 (84) 91 Room Air 02/12/18 16:00 Room Air 02/12/18 15:31 36.6 69 16 142/63 (89) 93 Room Air 02/12/18 12:00 Room Air 02/12/18 11:50 36.7 62 18 129/70 (89) 94 Room Air Physical Exam General Appearance: + mild distress, + obese Eyes: normal inspection ENT: hearing grossly normal Neck: no JVD Respiratory/Chest: no respiratory distress, no accessory muscle use Cardiovascular: no JVD Extremities: normal inspection Neurologic/Psychiatric: alert, normal mood/affect, oriented x 3 Skin: normal color Laboratory Results Last 24 Hours Test 02/12/18 11:11 02/12/18 16:32 02/12/18 20:07 02/13/18 07:27 Bedside Glucose 145 mg/dl 131 mg/dl 97 mg/dl 137 mg/dl Assessment and Plan A/P: Urinary retention, gross hematuria, bladder cancer, prostate cancer, AMS AFVSS. Nursing staff made aware of pt's pain this morning and to give him some Pyridium. Unfortunately the pt has chronic UR requiring a bruner catheter. I think a combination of his bladder cancer and bruner catheter are the source of his pain. Blood and urine cultures noted to be negative. If the pt continues to be confused and pulling on bruner catheter, I would recommend the bruner be removed and he be transitioned to CIC. Certainly could attempt bladder scans qshift and CIC for PVR >250ml while inpatient. This becomes more difficult as an outpatient if his is unwilling or unable to do CIC for him at home. In this event, he may be better off placed at an SNF where he can receive this care. May want to consider SNF in the setting of worsening confusion and possibly hospice as an option for his metastatic bladder cancer. Will continue to follow along intermittently.
[2018-02-13 11:21] VITALS: BP 119/71; PULSE 85; TEMP 37.3; O2SAT 91
[2018-02-13 14:46] VITALS: BP 109/65; PULSE 86; TEMP 37.6; O2SAT 93
[2018-02-13] MEDS ORDERED: PHEN-1043 PO (15:59)
[2018-02-13] MEDS: CEFTRIAXONE SOD INJ 1 GM in DEXTROSE 5% ADD-VANTAGE 50ML 50 ML IV SCH (16:00)
--- NOTE | 2018-02-13 16:08 | Discharge Instructions ---
Discharge Instructions Date of Service Feb 13, 2018. Admission Reason for Admission: Altered Mental Status, Uti Discharge Discharge Diagnosis / Problem: Altered mental status Discharge Goals Goal(s): Therapeutic intervention Activity Recommendations Activity Level: Assistance Required . Additional Information Patient informed of condition: Yes Advance Directives: Yes DNR: No Level of Care: Skilled Communicable Disease: No Prognosis: Stable Bruner Catheter: Yes Instructions / Follow-Up Instructions / Follow-Up Please follow up with Primary Care physician in 5-7 days; please have a referral to Geriatric-Psych for evaluation Please follow up with [facility] Urology Current Hospital Diet Patient's current hospital diet: AHA Diet (Heart Healthy) Discharge Diet Recommended Diet: AHA Diet (Heart Healthy) Pending Studies Studies pending at discharge: no Physician Orders On Transfer Special Precautions: If patient has issues with bruner catheter, can remove it and perform straight catheterization every 6-8 hours Laboratory Results Hemoglobin A1c Test 01/24/18 06:04 Range/Units Estimated Average Glucose 123 mg/dl Hemoglobin A1c 5.9 H 4.5-5.6 % Medical Emergencies . Who to Call and When: Medical Emergencies: If at any time you feel your situation is an emergency, please call 911 immediately. . Non-Emergent Contact Non-Emergency issues call your: Primary Care Provider . . "Provider Documentation" section prepared by Lizbeth Flynn. . Core Measure Problem Core Measures: None
[2018-02-13 16:15] VITALS: BP 109/65; PULSE 86; TEMP 37.6; O2SAT 93
--- NOTE | 2018-02-13 23:09 | Discharge Summary ---
Discharge Summary Date of Service Feb 13, 2018. Discharge Summary Admission Date: Feb 11, 2018 at 17:45 Discharge Date: Feb 13, 2018 Discharge Disposition: [facility] facility Principal Diagnosis: Altered mental status, hematuria Medication Reconciliation New Medications: Phenazopyridine HCl (Phenazopyridine HCl) 200 Mg Tab 200 MG PO TID PRN for Bladder pain, #14 TAB Continued Medications: Aspirin (Aspirin Ec) 81 Mg Tab 81 MG PO DAILY Carvedilol (Coreg) 6.25 Mg Tab 1 TAB PO BID, TAB Cholecalciferol (Vitamin D 1000 Unit) 1,000 Unit Cap 2000 INTER.UNIT PO QAM, CAP Latanoprost (Xalatan 0.005% Oph Yolanda) 0.005 % Yolanda 1 DROPS OP HS, ML Nitroglycerin (Nitrostat) 0.4 Mg Tab 0.4 MG UT PRN Oxybutynin Chloride (Ditropan) 5 Mg Tab 1 TAB PO Q8 PRN for Bladder pain, TAB Pantoprazole (Protonix) 40 Mg Tab 40 MG PO QAM Sitagliptin-Metformin Hcl (Janumet) 1 Tab Tab 1 TAB PO QAM 50/500 MG Trazodone Hcl (Trazodone) 50 Mg Tab 25 MG PO QPM Admission Information HPI (per Admitting provider): Pt is 78 y/o M with PMH CAD S/P CABG, HTN, HLD, CVA, prostate CA S/P radiation and hormonal treatment, bladder CA with probable lung metastases currently receiving chemo presented to ER with complaint of intermittent confusion. Patient not surgical candidate secondary to comorbidities. Last chemo 02/[address] Velásquez. Patient reports that he believes during the night he accidentally pulled on Bruner catheter. Patient reports couple days ago had catheter changed by urology. Spoke to patient's Azra on phone. She reports has noticed intermittent confusion with patient for "a while", does not think any worsening over the past week or since previous admission. She reports patient has been pulling on Bruner catheter during the middle the night and has had to have Bruner catheter changed multiple times by home health nurses. Reports patient seen by Dr. Strong-urology on 02/09/18 and had Bruner catheter changed at that point time. Reports that she believes patient pulled on catheter again last night during the night. Today has not noticed any blood in Bruner catheter bag or noticed any drainage coming from around Bruner catheter. Patient does report that he has noticed that he has had in his behavior and reports has said mean things to his but he typically would not say. Reports is under stress with sewage problems at his house this week. Patient with history of hospital admission 01/22/18-01/31/18 for urosepsis, E. coli pansensitive. Discharged on Cipro which patient reports finished. Was discharged to [facility] secondary to ambulatory dysfunction. Patient has since returned home and reports his using walker to ambulate, denies any recent falls. Reports history of chronic lower extremity edema and erythema. Denies any worsening. Reports intermittent pain to bilateral lower extremities with associated paresthesias. On 01/22/2018 patient had ultrasound lower extremity to rule out DVT. However patient only allowed to have completed on right leg which was negative for DVT. Patient reports has been eating and drinking normally. Patient denies any headache, dizziness, syncope, fever/chills, diaphoresis, N/V/D/C, vision changes, neck pain, CP, SOB, orthopnea, palpitations, cough, sore throat, choking, otalgia, rhinorrhea, abdominal pain, rashes. Physical Exam (per Admitting): General Appearance: WD/WN, no apparent distress Head: normocephalic, atraumatic Eyes: normal inspection, PERRL, EOMI, sclerae normal ENT: hearing grossly normal, pharynx normal, + pertinent finding (mucous membranes moist) Neck: supple, no JVD, trachea midline Respiratory/Chest: lungs clear, normal breath sounds, no respiratory distress Cardiovascular: regular rate, rhythm, normal peripheral pulses Abdomen/GI: normal bowel sounds, non tender, soft Genitourinary - Male: + pertinent finding (bruner catheter in place, no blood noted to bag) Extremities/Musculoskelatal: no calf tenderness, + pertinent finding ( Bilateral lower extremities with edema and erythema and scattered exoriations and dry skin. non-tender to palpation) Neurologic/Psych: alert, normal mood/affect, oriented x 3 (Pt alert and oriented x 3 at this time with normal mood and is cooperative) Skin: warm/dry Hospital Course ALTERED MENTAL STATUS: -intermittent confusion, has been pulling on Bruner catheter. -no evidence of infection -CT head negative, no obvious mets noted -would recommend evaluation for dementia -was given Rocephin, can stop as cultures negative -if no improvement may need to consider MRI to r/o brain mets CHRONIC INDWELLING CATHETER, NO UTI -pt with indwelling bruner catheter and has been pulling on catheter and reported multiple catheter changes by home health. Reported last changed . Following with [facility]urology. Hx urosepsis - e. coli pansensitive on 01/22/18 and d/c on cipro. -U/A: 3+ blood, large leukocytosis, >30 WBC, >RBC. no leukocytosis today. Does not appear septic -urine culture negative -blood cultures negative -Rocephin -IV fluids initially, now off -Urology consulted, suggested patient could have bruner removed and undergo CIC 4 times a day as an alternate if he has difficulty keeping the bruner catheter in ; also started on Pyridium PRN BLADDER CA with POSSIBLE LUNG METASTASIS, HX PROSTATE CA -s/p radiation and hormone therapy for prostate CA. -currently being treated for bladder CA with chemo, following with Dr Velásquez. -Urology consulted -continue oxybutynin CKD STAGE II-III: -Cr at baseline ~1.2 -monitor renal functions -avoid nephrotoxic agents when possible CAD s/p previous CABG -no symptoms of CP, SOB -no acute changes on EKG noted -continue ASA, beta boogie CHRONIC ANEMIA: -Hgb: 10, stable -monitor DM TYPE II: -HbA1c: 5.9% on 02/08 -hold oral meds -Novolog sliding scale per protocol CHRONIC LE EDEMA: -recent US of RLE on 01/22/18 to r/o DVT, but at that time refused LLE, again denying repeat LE U/S today. Will continue to monitor and consider U/S LE if worsening symptoms PHYSICAL EXAM ON DAY OF DISCHARGE: GENERAL: Patient is in no acute distress. HEENT: No acute trauma, normocephalic, mucous membranes moist, no nasal congestion, no scleral icterus. NECK: No stridor, trachea is midline. LUNGS: Clear to auscultation bilaterally, no wheeze, no rhonchi, breath sounds equal. HEART: Without murmurs gallops or rubs, regular rate and rhythm. ABDOMEN: Soft, nontender, bowel sounds positive EXTREMITIES: No cyanosis; B/L LE edema, moving all the extremities without pain or difficulty, no signs for acute trauma. NEUROLOGIC: Oriented, no acute motor or sensory deficits, no focal weakness. SKIN: No rash, no jaundice, no diaphoresis. Total time spent on discharge = 37 This includes examination of the patient, discharge planning, medication reconciliation, and communication with other providers. Discharge Instructions see patient instructions
== END 2018-02-13 20:06 ==
LOC: EDBD 13:08 → C.EDA 13:09 → C.MED 17:45 → ENRESERV 18:03
PROVIDERS: ADMIT Hospitalist; ATTEND Internal Medicine
DX: R41.0 Disorientation, unspecified (principal); R60.9 Edema, unspecified; I25.10 Atherosclerotic heart disease of native coronary artery without angina pectoris; E11.9 Type 2 diabetes mellitus without complications; I12.9 Hypertensive chronic kidney disease with stage 1 through stage 4 chronic kidney disease, or unspecified chronic kidney disease; N18.3 Chronic kidney disease, stage 3 (moderate); E78.5 Hyperlipidemia, unspecified; C67.9 Malignant neoplasm of bladder, unspecified; D64.9 Anemia, unspecified; R33.9 Retention of urine, unspecified; Z95.1 Presence of aortocoronary bypass graft; Z87.891 Personal history of nicotine dependence; Z79.82 Long term (current) use of aspirin; Z85.46 Personal history of malignant neoplasm of prostate; Z86.73 Personal history of transient ischemic attack (TIA), and cerebral infarction without residual deficits; Z82.49 Family history of ischemic heart disease and other diseases of the circulatory system

== ENCOUNTER 2018-03-06 13:23 | Inpatient (IN) | payer OTHER ==
[~2018-03-06] VITALS: Ht 167.6 cm; Wt 86.7 kg
[~2018-03-06 13:23] MED LIST changes: -ASPEC81 PO; +ASPI81TA28 PO; -CPR500 PO; -LCTX PO; -OXYC-57 PO; +PHEN-1043 PO
--- NOTE | 2018-03-06 14:04 | EMERGENCY ROOM VISIT NOTE ---
History Report prepared by Lana: Konstantin Snowden Under the Supervision of: Dr. Xu Collado M.D. First contact with patient: 13:47 Chief Complaint: URINARY SYMPTOMS Stated Complaint: BLOOD IN CATEHETER Nursing Triage Summary: pt here with dark urine, pt pulled out bruner this am, home health nurse placed a new one. bruner is draining properly. pt states some discomfort with movement at penis History of Present Illness The patient is a 78 year old male with bladder cancer who presents to the Emergency Room with complaints of persistent urinary symptoms that started yesterday. Per the patient's family, the patient tore out his catheter yesterday , and the home health nurse had difficulty putting it back in, so she had to put a second one in. Ever since then, the patient has had trouble sitting, and he has been complaining of bladder pain. The patient has been noted to have a lot of blood clots, but urine is draining okay through the Bruner. The urine is noted to be dark. Dr. Velásquez of oncology is treating the cancer, and Dr. Strong of urology is treating the patient as well. The patient also reports increasing shortness of breath with ambulation, as well as bilateral leg pain, and swelling and redness over the bilateral legs which have been present "for months". Source of History: patient, family Onset: Yesterday Position: other (global) Symptom Intensity: had to have second catheter put in Quality: other (urinary symptoms) Timing: other (persistent) Associated Symptoms: + SOB, + abdominal pain Note: Associated symptoms: Bladder pain. Dark urine. Lots of clots. Bilateral leg pain , swelling, redness for months. Review of Systems See HPI for pertinent positives and negatives. A total of ten systems were reviewed and were otherwise negative. Past Medical & Surgical Medical Problems: (1) Bladder cancer (2) C. difficile diarrhea (3) CAD (coronary artery disease) (4) CKD (chronic kidney disease), stage III (5) Diabetes mellitus type II, controlled (6) HLD (hyperlipidemia) (7) Hypertension (8) Lung metastases (9) Prostate cancer Surgical Problems: (1) Hx of CABG Family History Cancer Heart disease Hypertension Social History Smoking Status: Never Smoker Alcohol Use: none Drug Use: none Marital Status: Housing Status: lives with significant other Occupation Status: retired Current/Historical Medications Scheduled Aspirin (Aspirin Ec), 81 MG PO DAILY Carvedilol (Coreg), 1 TAB PO BID Cephalexin (Cephalexin), 1 TAB PO TID Cholecalciferol (Vitamin D 1000 Unit), 2,000 INTER.UNIT PO QAM Furosemide (Lasix), 20 MG PO DAILY Latanoprost (Xalatan 0.005% Oph Yolanda), 1 DROPS OP HS Metronidazole (Flagyl), 500 MG PO BID Nitroglycerin (Nitrostat), 0.4 MG UT PRN Pantoprazole (Protonix), 40 MG PO QAM Sertraline (Zoloft), 1 TAB PO DAILY Sitagliptin Phosphate (Januvia), 1 TAB PO DAILY Trazodone Hcl (Trazodone), 25 MG PO QPM Scheduled PRN Oxybutynin Chloride (Ditropan), 1 TAB PO Q8 PRN for Bladder pain Phenazopyridine HCl (Phenazopyridine HCl), 200 MG PO TID PRN for Bladder pain Allergies Coded Allergies: No Known Allergies (Unverified , 02/11/18) Physical Exam Vital Signs Date Time Temp Pulse Resp B/P (MAP) Pulse Ox O2 Delivery O2 Flow Rate FiO2 03/06/18 15:20 81 20 150/69 93 Room Air 03/06/18 13:35 37.0 71 16 138/80 92 Room Air Physical Exam Physical Exam GENERAL: He is oriented to person, place, and time. He appears well-developed and well-nourished. He does not appear distressed. ____ HENT: Exam performed. Head: Normocephalic and atraumatic. Right Ear: External ear normal. No mastoid tenderness. Left Ear: External ear normal. No mastoid tenderness. Mouth/Throat: The oropharynx is clear and moist. No trismus in the jaw. No dental abscesses or uvula swelling. No oropharyngeal exudate or tonsillar abscesses. ____ EYES: Conjunctivae and EOM are normal. Pupils are equal, round, and reactive to light. Right eye exhibits no discharge. Left eye exhibits no discharge. No scleral icterus. ____ NECK: Normal range of motion. Neck supple. No JVD present. No spinous process tenderness present. No carotid bruit present. No rigidity. No tracheal deviation and normal range of motion present. No Brudzinski's sign and no Kernig 's sign noted. ____ CV: Normal rate, regular rhythm, normal heart sounds and intact distal pulses. There is no peripheral edema. Palpable radial pulses bue. ____ PULM/CHEST: Effort normal and breath sounds normal. No respiratory distress. No stridor. He has no wheezes. He has no rales. Chest Wall: He exhibits no tenderness. ____ ABD: The abdomen is soft. Bowel sounds are normal. He has no distension. No mass is present. Tenderness to the palpation of the suprapubic area. There is no rebound, no guarding, no Falk's sign and no tenderness at McBurney's point. Rovsig negative : Bruner in place. Dry blood around Bruner. The Bruner is draining properly. MUSC/SKEL: Normal range of motion. Bilateral erythema over the bilateral anterior lower extremities. Bullae in the left lower extremity, Nikolsky negative, no drainage. LYMPH: No cervical adenopathy. ____ NEURO: He is alert and oriented to person, place, and time. He has normal strength. No cranial nerve deficit or sensory deficit. Coordination and gait normal. GCS eye subscore is 4. GCS verbal subscore is 5. GCS motor subscore is 6. Cerebellar tests wnl. ____ SKIN: Skin is warm and dry. He is not diaphoretic. ____ PSYCH: He has a normal mood and affect. He behavior is normal. Judgment and thought content normal. ____ Medical Decision & Procedures ER Provider Diagnostic Interpretation: Radiology results as stated below per my review and radiologist interpretation: CHEST 2 VIEWS ROUTINE CLINICAL HISTORY: 78 years-old Male presenting with nel, blood in catheter. TECHNIQUE: Portable upright AP view of the chest was obtained. COMPARISON: 02/11/2018. FINDINGS: Median sternotomy wires and mediastinal surgical clips. Atherosclerosis of the aortic arch. Cardiac silhouette mildly enlarged. Mild pulmonary vascular prominence unchanged. Bandlike opacity in the left lung base. No other focal opacity. No large effusion or pneumothorax. Degenerative changes of the bilateral acromioclavicular joints. Upper abdomen normal. IMPRESSION: 1. Mild cardiomegaly. 2. Left basilar atelectasis suspected. 3. No other convincing evidence of acute cardiopulmonary disease. Electronically signed by: Miles Coleman M.D. 03/06/2018 3:56 PM Dictated Date/Time: 03/06/2018 3:54 PM Laboratory Results 03/06/18 14:35 Red Blood Count 3.72, Mean Corpuscular Volume 92.7, Mean Corpuscular Hemoglobin 29.3, Mean Corpuscular Hemoglobin Concent 31.6, Mean Platelet Volume 9.4, Neutrophils (%) (Auto) 78.1, Lymphocytes (%) (Auto) 8.9, Monocytes (%) (Auto) 10.9, Eosinophils (%) (Auto) 0.7, Basophils (%) (Auto) 0.2, Neutrophils # (Auto ) 14.55, Lymphocytes # (Auto) 1.67, Monocytes # (Auto) 2.04, Eosinophils # (Auto ) 0.13, Basophils # (Auto) 0.04 03/06/18 14:35 Test 03/06/18 14:35 03/06/18 15:55 White Blood Count 18.66 K/uL (4.8-10.8) Red Blood Count 3.72 M/uL (4.7-6.1) Hemoglobin 10.9 g/dL (14.0-18.0) Hematocrit 34.5 % (42-52) Mean Corpuscular Volume 92.7 fL (80-100) Mean Corpuscular Hemoglobin 29.3 pg (25-34) Mean Corpuscular Hemoglobin Concent 31.6 g/dl (32-36) Platelet Count 323 K/uL (130-400) Mean Platelet Volume 9.4 fL (7.4-10.4) Neutrophils (%) (Auto) 78.1 % Lymphocytes (%) (Auto) 8.9 % Monocytes (%) (Auto) 10.9 % Eosinophils (%) (Auto) 0.7 % Basophils (%) (Auto) 0.2 % Neutrophils # (Auto) 14.55 K/uL (1.4-6.5) Lymphocytes # (Auto) 1.67 K/uL (1.2-3.4) Monocytes # (Auto) 2.04 K/uL (0.11-0.59) Eosinophils # (Auto) 0.13 K/uL (0-0.5) Basophils # (Auto) 0.04 K/uL (0-0.2) RDW Standard Deviation 51.8 fL (36.4-46.3) RDW Coefficient of Variation 15.1 % (11.5-14.5) Immature Granulocyte % (Auto) 1.2 % Immature Granulocyte # (Auto) 0.23 K/uL (0.00-0.02) D-Dimer 3140 ug/L FEU (0-500) Anion Gap 7.0 mmol/L (3-11) Est Creatinine Clear Calc Drug Dose 22.1 ml/min Estimated GFR () 24.4 Estimated GFR (Non- 21.1 BUN/Creatinine Ratio 12.6 (10-20) Calcium Level 9.3 mg/dl (8.5-10.1) Magnesium Level 2.0 mg/dl (1.8-2.4) Troponin I < 0.015 ng/ml (0-0.045) Pro-B-Type Natriuretic Peptide 1068 pg/ml (0-1800) Urine Color ORANGE Urine Appearance CLOUDY (CLEAR) Urine pH (4.5-7.5) Urine Specific [place] 1.012 (1.000-1.030) Urine Protein (NEG) Urine Glucose (UA) (NEG) Urine Ketones (NEG) Urine Occult Blood (NEG) Urine Nitrite (NEG) Urine Bilirubin (NEG) Urine Urobilinogen (NEG) Urine Leukocyte Esterase (NEG) Urine RBC >30 /hpf (0-4) Urine WBC 5-10 /hpf (0-5) Urine Epithelial Cells 0-5 /lpf (0-5) Urine Bacteria NEG (NEG) Laboratory results reviewed by me Medications Administered Medications (Trade) Dose Ordered Sig/Kailash Route Start Time Stop Time Status Last Admin Dose Admin Oxycodone/ Acetaminophen (Percocet 5-325mg Tab) 1 tab NOW ONCE PO 03/06/18 15:45 03/06/18 15:46 DC 03/06/18 15:53 1 TAB Vancomycin HCl (Vancomycin 1gm Ed/Asu Omnicell) 1 gm NOW STAT IV 03/06/18 16:08 03/06/18 16:10 DC 03/06/18 16:16 1 GM ECG Per My Interpretation Indication: SOB/dyspnea Rate (beats per minute): 80 Rhythm: sinus rhythm Findings: PVC, other (no ST elevation or ST depression) ED Course 1400: The patient was evaluated in room A4B. A complete history and physical exam was performed. 1545: Percocet 5-325mg Tab 1 tab PO. 1604: Labs show leukocytosis of 18.66. Creatinine elevated 2.74, baseline of 1.12. D-dimer elevated at 3140. I discussed the patient with Milagros Obando - she will evaluate the patient for further treatment. The patient will be started on antibiotics for cellulitis of the lower extremity. I discussed the patient's elevated d-dimer and shortness of breath, and she says to hold off on coagulation right now given the patient's hematuria. Medical Decision Labs show leukocytosis of 18.66. Creatinine elevated 2.74, baseline of 1.12. D -dimer elevated at 3140. I discussed the patient with Milagros Obando - she will evaluate the patient for further treatment. The patient will be started on antibiotics for cellulitis of the lower extremity. I discussed the patient's elevated d-dimer and shortness of breath, and she says to hold off on coagulation right now given the patient's hematuria. Medication Reconcilliation Current Medication List: was personally reviewed by me Blood Pressure Screening Patient's blood pressure: Elevated blood pressure Blood pressure disposition: Elevated BP felt to be situational Consults Time Called: 1600 Consulting Physician: Milagros Obando Returned Call: 1604 I discussed the patient with Milagros Obando - she will evaluate the patient for further treatment. The patient will be started on antibiotics for cellulitis of the lower extremity. I discussed the patient's elevated d- dimer and shortness of breath, and she says to hold off on coagulation right now given the patient's hematuria. Impression Primary Impression: VILMA (acute kidney injury) Additional Impression: Cellulitis Scribe Attestation The scribe's documentation has been prepared under my direction and personally reviewed by me in its entirety. I confirm that the note above accurately reflects all work, treatment, procedures, and medical decision making performed by me. The chart was completed utilizing [employer] voice recognition software. Grammatical errors, random word insertions, pronoun errors, and incomplete sentences are an occasional consequence of this system due to software limitations, ambient noise, and hardware issues. Any formal questions or concerns about the content, text, or information contained within the body of this dictation should be directly addressed to the physician for clarification. Departure Information Dispostion Being Evaluated By Hospitalist Referrals Jono Souza M.D. (PCP) Patient Instructions My [facility] Problem Qualifiers Additional Impression: Cellulitis Site of cellulitis: extremity Site of cellulitis of extremity: lower extremity Laterality: unspecified laterality Qualified Codes: L03.119 - Cellulitis of unspecified part of limb
[2018-03-06] MEDS ORDERED: OPTIRAY 300 IV PRN (14:45)
[2018-03-06 14:58] LABS: BASO % 0.2 %; BASO ABS # 0.04 K/uL (0-0.2); EOS % 0.7 %; EOS ABS # 0.13 K/uL (0-0.5); HEMATOCRIT 34.5 % (42-52); HEMOGLOBIN 10.9 g/dL (14.0-18.0); IG# 0.23 K/uL (0.00-0.02); LYMPH % 8.9 %; LYMPH ABS # 1.67 K/uL (1.2-3.4); MEAN CELL VOLUME 92.7 fL (80-100); MEAN CORPUSCULAR HEMOGLOBIN 29.3 pg (25-34); MEAN CORPUSCULAR HGB CONC 31.6 g/dl (32-36); MEAN PLATELET VOLUME 9.4 fL (7.4-10.4); MONO % 10.9 %; MONO ABS # 2.04 K/uL (0.11-0.59); NEUT % 78.1 %; NEUT ABS # 14.55 K/uL (1.4-6.5); PLATELET COUNT 323 K/uL (130-400); RED CELL DISTRIBUTION WIDTH CV 15.1 % (11.5-14.5); RED CELL DISTRIBUTION WIDTH SD 51.8 fL (36.4-46.3); WHITE BLOOD COUNT 18.66 K/uL (4.8-10.8)
[2018-03-06 15:18] LABS: BLOOD UREA NITROGEN 34 mg/dl (7-18); CALCIUM 9.3 mg/dl (8.5-10.1); CARBON DIOXIDE 26 mmol/L (21-32); GLUCOSE 170 mg/dl (70-99); POTASSIUM 4.4 mmol/L (3.5-5.1); SODIUM 137 mmol/L (136-145)
[2018-03-06 15:19] LABS: CREATININE 2.74 mg/dl (0.60-1.40)
[2018-03-06] MEDS ORDERED: NURSING VERBAL MED ORDER ONE (15:30)
[2018-03-06] MEDS ORDERED: OXYCODONE/ACETAMINOPHEN 5-325 TAB PO ONE (15:45)
--- NOTE | 2018-03-06 15:57 | DIAGNOSTIC IMAGING REPORT ---
CHEST 2 VIEWS ROUTINE CLINICAL HISTORY: 78 years-old Male presenting with nel, blood in catheter. TECHNIQUE: Portable upright AP view of the chest was obtained. COMPARISON: 02/11/2018. FINDINGS: Median sternotomy wires and mediastinal surgical clips. Atherosclerosis of the aortic arch. Cardiac silhouette mildly enlarged. Mild pulmonary vascular prominence unchanged. Bandlike opacity in the left lung base. No other focal opacity. No large effusion or pneumothorax. Degenerative changes of the bilateral acromioclavicular joints. Upper abdomen normal. IMPRESSION: 1. Mild cardiomegaly. 2. Left basilar atelectasis suspected. 3. No other convincing evidence of acute cardiopulmonary disease. Electronically signed by: Miles Coleman M.D. 03/06/2018 3:56 PM Dictated Date/Time: 03/06/2018 3:54 PM
[2018-03-06] MEDS ORDERED: VANCOMYCIN 1GM ED/ASU OMNICELL IV STA (16:08)
[2018-03-06] MEDS ORDERED: ACETAMINOPHEN 325 MG TAB PO PRN (17:00)
[2018-03-06] MEDS ORDERED: SITA50TA PO (17:01)
[2018-03-06] MEDS ORDERED: METR-163 PO (17:01)
[2018-03-06] MEDS ORDERED: FURO20TA PO (17:01)
[2018-03-06] MEDS ORDERED: SERT50TA PO (17:01)
[2018-03-06] MEDS ORDERED: CEPH500T PO (17:01)
[2018-03-06] MEDS ORDERED: GLUCOSE 40% GEL 15 GM TUBE PO PRN (17:15)
[2018-03-06] MEDS ORDERED: DEXTROSE 50% 50 ML SYR IV PRN (17:15)
[2018-03-06] MEDS ORDERED: GLUCAGON FOR INJ 1 MG VIAL SQ PRN (17:15)
[2018-03-06] MEDS ORDERED: PHENAZOPYRIDINE HCL 200 MG TAB PO PRN (17:15)
[2018-03-06] MEDS ORDERED: GLUCOSE 10 TABS/TUBE PO PRN (17:15)
[2018-03-06] MEDS ORDERED: OXYBUTYNIN CHLORIDE 5 MG TAB PO PRN (17:15)
[2018-03-06] MEDS ORDERED: VANCOMYCIN CONSULT ACTIVE SCH (17:24)
[2018-03-06] MEDS ORDERED: PIPERACILL/TAZOBAC CONSULT ACTIVE SCH (17:30)
[2018-03-06] MEDS ORDERED: PIPERACILLIN/TAZOBACTAM 4.5 GM/100ML D5W IV ONE (17:30)
[2018-03-06 18:10] VITALS: BP 144/67; PULSE 68; TEMP 37.3; O2SAT 93; BMI 29.5
[2018-03-06] MEDS ORDERED: METRONIDAZOLE 500 MG TAB PO SCH (20:00)
--- NOTE | 2018-03-06 20:06 | History and Physical ---
History & Physical Date & Time of Service: Mar 06, 2018 ~ 16:30 Chief Complaint: Bloody urine Primary Care Physician: Jono Souza M.D. History of Present Illness 78-year-old male who presents the ED with hematuria. Patient was recently admitted to [facility] 02/11 through 02/13 for altered mental status. Patient was discharged [facility] at that time. Patient was discharged from [facility] about 1 week ago. Daughter is the bedside who provides some history. Patient has a chronic indwelling Puri. He has history of pulling on the catheter. Patient reports that due to increased pain yesterday, he tried to remove the catheter himself. It was also not draining yesterday. Home nursing came to evaluate the patient today who after 3 attempts was able to get the Puri catheter replaced. It then started to drain grossly bloody urine. Of note, when patient was discharged from [facility], he was discharged on cephalexin for cellulitis and UTI and also Flagyl for C. difficile. Daughter reports she was not aware of these 2 new medications and they were not picked up until yesterday. Patient denies abdominal pain, nausea , vomiting, or diarrhea. He has had increasing redness and swelling to the left lower extremity with development of blisters. He denies fever and chills. No chest pain or shortness of breath. He denies lightheadedness, dizziness, diaphoresis, or syncopal events. In the ED, patient was found to have a creatinine of 2.7 which is markedly elevated from his baseline. WBC 18 K, afebrile, vital signs stable. Patient was given a dose of IV vancomycin in the ED. 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 difficile diarrhea Status: Chronic (3) CAD (coronary artery disease) Status: Chronic (4) CKD (chronic kidney disease), stage III Status: Chronic (5) Diabetes mellitus type II, controlled Status: Chronic (6) HLD (hyperlipidemia) Status: Chronic (7) Hypertension Status: Chronic (8) Lung metastases Status: Chronic (9) Prostate cancer Permanent Comment: Rising PSA pretreatment PSA 10.39 Status post biopsy revealing adenocarcinoma [place] 4+3, 4+4, 4+5, and 5+4. Biopsy stage TIIc Androgen deprivation from 07/09/2011 until January 2014 Status post completion of external beam radiation 12/11/2011 Status: Chronic Surgical Problems: (1) Hx of CABG Status: Chronic Family History Noncontributory secondary to patient's advanced age Social History Smoking Status: Former Smoker Alcohol Use: none Allergies Coded Allergies: No Known Allergies (Unverified , 02/11/18) Home Medications Scheduled Aspirin (Aspirin Ec), 81 MG PO DAILY Carvedilol (Coreg), 1 TAB PO BID Cephalexin (Cephalexin), 1 TAB PO TID Cholecalciferol (Vitamin D 1000 Unit), 2,000 INTER.UNIT PO QAM Furosemide (Lasix), 20 MG PO DAILY Latanoprost (Xalatan 0.005% Oph Yolanda), 1 DROPS OP HS Metronidazole (Flagyl), 500 MG PO BID Nitroglycerin (Nitrostat), 0.4 MG UT PRN Pantoprazole (Protonix), 40 MG PO QAM Sertraline (Zoloft), 1 TAB PO DAILY Sitagliptin Phosphate (Januvia), 1 TAB PO DAILY Trazodone Hcl (Trazodone), 25 MG PO QPM Scheduled PRN Oxybutynin Chloride (Ditropan), 1 TAB PO Q8 PRN for Bladder pain Phenazopyridine HCl (Phenazopyridine HCl), 200 MG PO TID PRN for Bladder pain Review of Systems ROS per HPI, all other systems reviewed and negative Physical Exam Vital Signs Date Time Temp Pulse Resp B/P (MAP) Pulse Ox O2 Delivery O2 Flow Rate FiO2 03/06/18 18:10 37.3 68 20 144/67 93 Room Air 03/06/18 17:04 67 20 118/50 93 Room Air 03/06/18 15:20 81 20 150/69 93 Room Air 03/06/18 13:35 37.0 71 16 138/80 92 Room Air General Appearance: WD/WN, no apparent distress Head: normocephalic, atraumatic Eyes: normal inspection, EOMI, sclerae normal ENT: hearing grossly normal, + pertinent finding (Mucous membranes moist) Neck: supple, no JVD, trachea midline Respiratory/Chest: lungs clear, normal breath sounds, no respiratory distress Cardiovascular: regular rate, rhythm, normal peripheral pulses, + pertinent finding (+1-2 edema BL LE, L > R) Abdomen/GI: normal bowel sounds, non tender, soft, no organomegaly Genitourinary - Male: + pertinent finding (Puri in place draining orange/red urine with clots) Extremities/Musculoskelatal: normal inspection, no calf tenderness, normal capillary refill Neurologic/Psych: no motor/sensory deficits, alert, normal mood/affect, oriented x 3, + pertinent finding (Forgetful, poor insight) Skin: + pertinent finding (Erythema noted to left anterior altamirano with a few clear fluid-filled blisters, mild erythema noted to right lower extremity, BL LE warm to touch) Diagnostics Laboratory Results 03/06/18 14:35 Red Blood Count 3.72, Mean Corpuscular Volume 92.7, Mean Corpuscular Hemoglobin 29.3, Mean Corpuscular Hemoglobin Concent 31.6, Mean Platelet Volume 9.4, Neutrophils (%) (Auto) 78.1, Lymphocytes (%) (Auto) 8.9, Monocytes (%) (Auto) 10.9, Eosinophils (%) (Auto) 0.7, Basophils (%) (Auto) 0.2, Neutrophils # (Auto ) 14.55, Lymphocytes # (Auto) 1.67, Monocytes # (Auto) 2.04, Eosinophils # (Auto ) 0.13, Basophils # (Auto) 0.04 03/06/18 14:35 Test 03/06/18 14:35 03/06/18 15:55 03/06/18 20:49 White Blood Count 18.66 K/uL (4.8-10.8) Red Blood Count 3.72 M/uL (4.7-6.1) Hemoglobin 10.9 g/dL (14.0-18.0) Hematocrit 34.5 % (42-52) Mean Corpuscular Volume 92.7 fL (80-100) Mean Corpuscular Hemoglobin 29.3 pg (25-34) Mean Corpuscular Hemoglobin Concent 31.6 g/dl (32-36) Platelet Count 323 K/uL (130-400) Mean Platelet Volume 9.4 fL (7.4-10.4) Neutrophils (%) (Auto) 78.1 % Lymphocytes (%) (Auto) 8.9 % Monocytes (%) (Auto) 10.9 % Eosinophils (%) (Auto) 0.7 % Basophils (%) (Auto) 0.2 % Neutrophils # (Auto) 14.55 K/uL (1.4-6.5) Lymphocytes # (Auto) 1.67 K/uL (1.2-3.4) Monocytes # (Auto) 2.04 K/uL (0.11-0.59) Eosinophils # (Auto) 0.13 K/uL (0-0.5) Basophils # (Auto) 0.04 K/uL (0-0.2) RDW Standard Deviation 51.8 fL (36.4-46.3) RDW Coefficient of Variation 15.1 % (11.5-14.5) Immature Granulocyte % (Auto) 1.2 % Immature Granulocyte # (Auto) 0.23 K/uL (0.00-0.02) D-Dimer 3140 ug/L FEU (0-500) Anion Gap 7.0 mmol/L (3-11) Est Creatinine Clear Calc Drug Dose 22.1 ml/min Estimated GFR () 24.4 Estimated GFR (Non- 21.1 BUN/Creatinine Ratio 12.6 (10-20) Calcium Level 9.3 mg/dl (8.5-10.1) Magnesium Level 2.0 mg/dl (1.8-2.4) Troponin I < 0.015 ng/ml (0-0.045) Pro-B-Type Natriuretic Peptide 1068 pg/ml (0-1800) Urine Color ORANGE Urine Appearance CLOUDY (CLEAR) Urine pH (4.5-7.5) Urine Specific Ada 1.012 (1.000-1.030) Urine Protein (NEG) Urine Glucose (UA) (NEG) Urine Ketones (NEG) Urine Occult Blood (NEG) Urine Nitrite (NEG) Urine Bilirubin (NEG) Urine Urobilinogen (NEG) Urine Leukocyte Esterase (NEG) Urine RBC >30 /hpf (0-4) Urine WBC 5-10 /hpf (0-5) Urine Epithelial Cells 0-5 /lpf (0-5) Urine Bacteria NEG (NEG) Bedside Glucose 152 mg/dl (70-99) Results Past 24 Hours Test 03/06/18 14:35 4/13/18 15:55 Range/Units White Blood Count 18.66 4.8-10.8 K/uL Red Blood Count 3.72 4.7-6.1 M/uL Hemoglobin 10.9 14.0-18.0 g/dL Hematocrit 34.5 42-52 % Mean Corpuscular Volume 92.7 80-100 fL Mean Corpuscular Hemoglobin 29.3 25-34 pg Mean Corpuscular Hemoglobin Concent 31.6 32-36 g/dl Platelet Count 323 130-400 K/uL Mean Platelet Volume 9.4 7.4-10.4 fL Neutrophils (%) (Auto) 78.1 % Lymphocytes (%) (Auto) 8.9 % Monocytes (%) (Auto) 10.9 % Eosinophils (%) (Auto) 0.7 % Basophils (%) (Auto) 0.2 % Neutrophils # (Auto) 14.55 1.4-6.5 K/uL Lymphocytes # (Auto) 1.67 1.2-3.4 K/uL Monocytes # (Auto) 2.04 0.11-0.59 K/uL Eosinophils # (Auto) 0.13 0-0.5 K/uL Basophils # (Auto) 0.04 0-0.2 K/uL RDW Standard Deviation 51.8 36.4-46.3 fL RDW Coefficient of Variation 15.1 11.5-14.5 % Immature Granulocyte % (Auto) 1.2 % Immature Granulocyte # (Auto) 0.23 0.00-0.02 K/uL D-Dimer 3140 0-500 ug/L FEU Sodium Level 137 136-145 mmol/L Potassium Level 4.4 3.5-5.1 mmol/L Chloride Level 104 98-107 mmol/L Carbon Dioxide Level 26 21-32 mmol/L Anion Gap 7.0 3-11 mmol/L Blood Urea Nitrogen 34 7-18 mg/dl Creatinine 2.74 0.60-1.40 mg/dl Est Creatinine Clear Calc Drug Dose 22.1 ml/min Estimated GFR () 24.4 Estimated GFR (Non- 21.1 BUN/Creatinine Ratio 12.6 10-20 Random Glucose 170 70-99 mg/dl Calcium Level 9.3 8.5-10.1 mg/dl Magnesium Level 2.0 1.8-2.4 mg/dl Troponin I < 0.015 0-0.045 ng/ml Pro-B-Type Natriuretic Peptide 1068 0-1800 pg/ml Urine Color ORANGE Urine Appearance CLOUDY CLEAR Urine pH 4.5-7.5 Urine Specific Ada 1.012 1.000-1.030 Urine Protein NEG Urine Glucose (UA) NEG Urine Ketones NEG Urine Occult Blood NEG Urine Nitrite NEG Urine Bilirubin NEG Urine Urobilinogen NEG Urine Leukocyte Esterase NEG Urine RBC >30 0-4 /hpf Urine WBC 5-10 0-5 /hpf Urine Epithelial Cells 0-5 0-5 /lpf Urine Bacteria NEG NEG Microbiology Results 03/06/18 Blood Culture, Received Pending 03/06/18 Blood Culture, Received Pending 03/06/18 Urine Culture, Received Pending 03/06/18 Gram Stain, Received Pending 03/06/18 Wound Culture, Received Pending Diagnostic Radiology CXR IMPRESSION: 1. Mild cardiomegaly. 2. Left basilar atelectasis suspected. 3. No other convincing evidence of acute cardiopulmonary disease. Impression Assessment and Plan VILMA ON CKD STAGE III -Admit to [facility] -Patient presenting from home with hematuria; patient attempted to self remove Puri catheter yesterday and it was not draining -Creatinine today 2.7, baseline creatinine runs in the mid ones -Possibly postobstructive uropathy from nondraining Puri and possible prerenal component due to poor p.o. intake -Puri was replaced by home health nursing and is now draining well -IVF -Follow renal functions, should improve now that Puri is draining and with IVF LEFT LOWER EXTREMITY CELLULITIS -Left lower extremity with erythema and fluid filled blisters -Discharged from [facility] 1 week ago and was to be taking cephalexin for cellulitis and UTI however prescription was not picked up -S/P Vanco in the ED, will continue with and add Zosyn for now -Wound and blood cultures (noted cultures obtained after antibiotics given) -WBC 18 K, however does not appear septic POSSIBLE UTI -antibiotics as above -Follow urine culture HEMATURIA -Has chronic indwelling Puri catheter -Hematuria likely due to trauma from attempted self removal -Will consult urology for any further recommendations -Hemoglobin stable C. DIFFICILE -Diagnosed at [facility] -Was discharged on metronidazole however prescription was not picked up from the pharmacy -Will start oral vancomycin 125 every 6 hours HISTORY OF BLADDER CANCER WITH POSSIBLE LUNG METASTASES -Follows with Dr. Velásquez -Currently receiving gemcitabine weekly HISTORY OF CORONARY ARTERY DISEASE -Appears stable, no reports chest pain -Continue aspirin and beta-boogie DIABETES -Hgb A1c 5.9 01/2018 -Hold oral agents and utilize NovoLog per protocol while hospitalized DVT PROPHYLAXIS -SCDs due to hematuria CODE STATUS -Patient is a full code as per my discussion with him. DISPOSITION -In my clinical judgment this beneficiary meets acute admission criteria, established by [facility], that includes being hospitalized through two midnights. ADDENDUM: I have seen and examined the patient and agree with the assessment and plan as above. The patient was placed on Flagyl at [facility] for c-diff, but per IDSA guidelines, vanc is now first line option for initial episode of c-diff, so we are switching to that until antibiotics are completed. He is reporting severe pain and was just given some Tylenol. Will schedule this for now and give narcotics for breakthrough. Also scheduling pyridium and stopping Detrol. D-dimer was drawn in ER and positive so LE us were ordered for legs and VQ scan. Pt is on chronic oxygen, clinical picture doesn't appear to be consistent with PE. With bleeding anticoauglation is contraindicated. With LE cellulitis there is alot of pain and wounds that are weeping making SCDs contraindicated as well. Appreciate Urology recs. Expect creatinine to improve after Puri replacement. James, Advanced Directives Existing Living Will: No Existing Power of Blueprint Clerk: No Resuscitation Status VTE Prophylaxis Will order VTE Prophylaxis: No Reason for no VTE drug order: Contraindicated Reason no Mechanical VTE Order: Contraindicated
[2018-03-06] MEDS ORDERED: PIPERACILL/TAZOBAC IV 3.375 GM in NSS 100 ML IV ONE (20:15)
[2018-03-06] MEDS ORDERED: VANCOMYCIN IV 1,000 MG in SODIUM CHLORIDE 0.9% 250ML 250 ML IV SCH (20:15)
[2018-03-06] MEDS: SODIUM CHLORIDE 0.9% 1000ML 1,000 ML IV SCH (20:18)
[2018-03-06] MEDS: LATANOPROST 0.005% OP SOLN 2.5 ML BTL OP SCH (20:25)
[2018-03-06] MEDS: TRAZODONE HCL 50 MG TAB PO SCH (20:26)
[2018-03-06] MEDS: CARVEDILOL 6.25 MG TAB PO SCH (20:27)
[2018-03-06 20:28] VITALS: BP 133/66; PULSE 67; TEMP 36.6; O2SAT 91
[2018-03-06] MEDS ORDERED: VANCOMYCIN IV 1,000 MG in SODIUM CHLORIDE 0.9% 250ML 250 ML IV ONE (20:45)
[2018-03-06] MEDS: VANCOMYCIN HCL 125 MG/2.5ML SOLN PO SCH (21:20)
[2018-03-06] MEDS: RASPBERRY SYRUP 5 ML UDP PO SCH (21:20)
[2018-03-06] MEDS: INSULIN ASPART 100 UNITS/ML 3 ML PEN SC SCH (21:23)
--- NOTE | 2018-03-06 23:05 | DIAGNOSTIC IMAGING REPORT ---
LUNG IMAGING VQ CLINICAL HISTORY: 78 years-old Male presenting with elevated d. dimer, shortness of breath, history of Prostate cancer, bilateral leg pain. TECHNIQUE: Immediately following the inhalation of 30.5 mCi of technetium 99 M DTPA for the ventilation scan and the intravenous administration of 6.5 mCi of technetium 99 M MAA for the perfusion scan, anterior, oblique, lateral, and posterior views of the chest were obtained. Modified PIOPED II criteria were utilized for assessment. COMPARISON: Chest x-ray performed the same day. FINDINGS: Cardiomegaly noted. Radiotracer evident in the right upper extremity likely from injection and/or uptake by lymph nodes. No mismatched defects are identified on this examination. Perfusion and ventilation to both lungs is preserved. Radiotracer accumulation in the upper airway or hypopharynx noted. Reference: Modified PIOPED II criteria Normal: No perfusion defects. Very low likelihood ratio: Nonsegmental, perfusion defect < chest x-ray lesion, 1-3 small segmental defects, solitary triple matched defect (< or = 1 segment) in mid or upper lung, stripe sign, solitary large pleural effusion, > or = to 2 matched defects with regionally normal chest x-ray. High likelihood ratio: > or = 2 large mismatch segmental defects. Nondiagnostic: All other findings. IMPRESSION: Normal. Electronically signed by: Miles Coleman M.D. 03/06/2018 11:03 PM Dictated Date/Time: 03/06/2018 11:01 PM
[2018-03-07] MEDS ORDERED: MoRPHine SULFATE 2 MG/ML CARP ONE (00:12)
[2018-03-07] MEDS ORDERED: MoRPHine SULFATE 2 MG/ML CARP IV ONE (00:15)
[2018-03-07] MEDS ORDERED: PHENAZOPYRIDINE HCL 200 MG TAB PO STA (01:33)
[2018-03-07] MEDS: PIPERACILL/TAZOBAC IV 3.375 GM in NSS 100ML IV SCH ×3 (02:27→17:41)
[2018-03-07] MEDS: VANCOMYCIN HCL 125 MG/2.5ML SOLN PO SCH ×4 (03:43→20:44)
[2018-03-07] MEDS: RASPBERRY SYRUP 5 ML UDP PO SCH ×4 (03:43→20:44)
[2018-03-07] MEDS: ACETAMINOPHEN 500 MG TAB PO SCH ×3 (03:44→19:22)
[2018-03-07 06:04] LABS: HEMATOCRIT 31.6 % (42-52); HEMOGLOBIN 10.1 g/dL (14.0-18.0); MEAN CELL VOLUME 92.9 fL (80-100); MEAN CORPUSCULAR HEMOGLOBIN 29.7 pg (25-34); MEAN PLATELET VOLUME 9.5 fL (7.4-10.4); PLATELET COUNT 284 K/uL (130-400); RED CELL DISTRIBUTION WIDTH CV 15.1 % (11.5-14.5); RED CELL DISTRIBUTION WIDTH SD 51.6 fL (36.4-46.3); WHITE BLOOD COUNT 16.62 K/uL (4.8-10.8)
--- NOTE | 2018-03-07 06:04 | DIAGNOSTIC IMAGING REPORT ---
ULTRASOUND VENOUS DOPPLER LWR EXT BILA CLINICAL HISTORY: Bilateral leg edema COMPARISON STUDY: 01/22/2018 FINDINGS: Real-time and color flow Doppler imaging were performed. Flow was seen within the femoral, popliteal and calf veins with no intraluminal thrombus demonstrated. The saphenous vein is patent. There is bilateral lower extremity edema. IMPRESSION: No evidence of lower extremity DVT. Electronically signed by: Bhavesh Robison M.D. 03/07/2018 6:03 AM Dictated Date/Time: 03/07/2018 6:02 AM
[2018-03-07] MEDS ORDERED: MoRPHine SULFATE 2 MG/ML CARP IV STA (06:19)
[2018-03-07 06:37] LABS: CALCIUM 8.4 mg/dl (8.5-10.1); CREATININE 2.51 mg/dl (0.60-1.40); POTASSIUM 4.4 mmol/L (3.5-5.1)
[2018-03-07 07:09] VITALS: BP 142/67; PULSE 67; TEMP 37; O2SAT 91
[2018-03-07] MEDS: ASPIRIN 81 MG ECTAB PO SCH (07:52)
[2018-03-07] MEDS: SERTRALINE HCL 50 MG TAB PO SCH (07:52)
[2018-03-07] MEDS: PHENAZOPYRIDINE HCL 200 MG TAB PO SCH ×3 (07:53→19:21)
[2018-03-07] MEDS: CARVEDILOL 6.25 MG TAB PO SCH ×2 (07:53→19:21)
[2018-03-07] MEDS: CHOLECALCIFEROL 1000 INTER.UNIT TAB PO SCH (07:53)
[2018-03-07] MEDS: SODIUM CHLORIDE 0.9% 1000ML 1,000 ML IV SCH ×3 (07:54→17:49)
[2018-03-07] MEDS: PANTOprazole SOD 40 MG TAB PO SCH (07:54)
[2018-03-07] MEDS: INSULIN ASPART 100 UNITS/ML 3 ML PEN SC SCH ×4 (08:35→20:46)
--- NOTE | 2018-03-07 09:34 | Urology Consultation ---
History General Date of Service: Mar 07, 2018. Primary Care Physician: Jono Souza M.D. Pt seen a urologist before?: Yes History of Present Illness 78-year-old male with muscle invasive bladder cancer, in the midst of chemotherapy Admitted after gross hematuria believed to be secondary to Puri trauma (self DC of catheter) Additionally noted to have renal failure Creatinine on admission 2.76 -during his most recent admission in late January, his creatinine was 1.12 No repeat imaging upon arrival After numerous efforts, Puri catheter was replaced by the nursing staff His urine has progressively cleared overnight He subjectively reports that he does not feel particularly well -but not drastically different from baseline He does complain of some pain in the right lower quadrant Laboratory Labs were reviewed and are within normal limits unless listed below. Labs are available in the chart and at [facility] Problem List Medical Problems: (1) VILMA (acute kidney injury) Status: Acute (2) Altered mental status Status: Acute (3) Bladder cancer Status: Acute (4) Cellulitis Status: Acute (5) Fall Status: Acute (6) Gross hematuria Status: Acute (7) Sepsis Status: Acute (8) UTI (urinary tract infection) Status: Acute (9) UTI (urinary tract infection) Status: Acute Past History cancer, cancer - prostate, coronary artery disease, CVA/TIA/stroke, diabetes, hypertension Past Surgical History: coronary bypass surgery, other Family History Cancer Heart disease Hypertension Social History Hx Tobacco Use In Past Year?: No (smoked 1 ppd-quit 20 years ago ) Smoking: other History of MDRO No Allergies Coded Allergies: No Known Allergies (Unverified , 02/11/18) Medications Home Medications: Home Meds and Scripts Medications Dose Route/Sig Max Daily Dose Days Date Category Zoloft (Sertraline HCl) 50 Mg Tab 1 Tab PO DAILY 30 03/06/18 Reported Flagyl (Metronidazole) 500 Mg Tab 500 Mg PO BID 03/06/18 Reported Lasix (Furosemide) 20 Mg Tab 20 Mg PO DAILY 03/06/18 Reported Januvia (Sitagliptin Phosphate) 50 Mg Tab 1 Tab PO DAILY 30 03/06/18 Reported Cephalexin 500 Mg Tab 1 Tab PO TID 10 03/06/18 Reported Phenazopyridine HCl 200 Mg Tab 200 Mg PO TID PRN 02/13/18 Rx Aspirin Ec (Aspirin) 81 Mg Tab 81 Mg PO DAILY 02/11/18 Reported Coreg (Carvedilol) 6.25 Mg Tab 1 Tab PO BID 10/31/17 Reported Xalatan 0.005% Oph Yolanda (Latanoprost) 0.005 % Yolanda 1 Drops OP HS 10/31/17 Reported Ditropan (Oxybutynin Chloride) 5 Mg Tab 1 Tab PO Q8 PRN 10/31/17 Reported Protonix (Pantoprazole Sodium) 40 Mg Tab 40 Mg PO QAM 10/23/17 Reported Trazodone (Trazodone HCl) 50 Mg Tab 25 Mg PO QPM 06/28/14 Reported Vitamin D 1000 Unit (Cholecalciferol) 1,000 Unit Cap 2,000 Inter.unit PO QAM 06/23/12 Reported Nitrostat (Nitroglycerin) 0.4 Mg Tab 0.4 Mg UT PRN 07/24/11 Reported Inpatient Medications: Current Inpatient Medications Medications (Trade) Dose Ordered Sig/Kailash Route Start Time Stop Time Status Last Admin Dose Admin Ioversol (Optiray 300) 100 ml UD PRN IV 03/06/18 14:45 03/10/18 14:44 Ondansetron HCl (Zofran Inj) 4 mg Q6H PRN IV 03/06/18 17:00 04/05/18 16:59 Sodium Chloride 1,000 ml @ 100 mls/hr Q10H IV 03/06/18 17:00 04/05/18 16:59 03/07/18 07:54 100 MLS/HR Insulin Aspart (novoLOG ASPART) SLIDING SCALE If C... ACHS SC 03/06/18 21:00 04/05/18 20:59 03/06/18 21:23 1 UNITS Glucose (Glucose 40% Gel) 15-30 GRAMS 15 GRAMS... UD PRN PO 03/06/18 17:15 04/05/18 17:14 Glucose (Glucose Chew Tab) 4-8 Tablets 4 Tabl... UD PRN PO 03/06/18 17:15 04/05/18 17:14 Dextrose (Dextrose 50% 50ML Syringe) 25-50ML OF 50% DW IV FOR... UD PRN IV 03/06/18 17:15 04/05/18 17:14 Glucagon (Glucagon Inj) 1 mg UD PRN SQ 03/06/18 17:15 04/05/18 17:14 Miscellaneous Information (Consult) 1 ea UD N/A 03/06/18 17:24 04/05/18 17:23 Aspirin (Ecotrin Tab) 81 mg DAILY PO 03/07/18 08:00 04/06/18 08:59 03/07/18 07:52 81 MG Carvedilol (Coreg Tab) 6.25 mg BID PO 03/06/18 20:00 04/05/18 20:59 03/07/18 07:53 6.25 MG Cholecalciferol (Vitamin D Tab) 2,000 inter.unit QAM PO 03/07/18 08:00 04/06/18 08:59 03/07/18 07:53 2,000 INTER.UNIT Latanoprost (Xalatan Oph Soln) 1 drops HS OP 03/06/18 21:00 04/05/18 20:59 03/06/18 20:25 1 DROPS Pantoprazole Sodium (Protonix Tab) 40 mg QAM PO 03/07/18 08:00 04/06/18 08:59 03/07/18 07:54 40 MG Sertraline HCl (Zoloft Tab) 50 mg DAILY PO 03/07/18 08:00 04/06/18 08:59 03/07/18 07:52 50 MG Trazodone HCl (Desyrel Tab) 25 mg QPM PO 03/06/18 21:00 04/05/18 20:59 03/06/18 20:26 25 MG Miscellaneous Information (Consult) 1 ea N/A 03/06/18 17:30 04/05/18 17:29 Piperacillin Sod/ Tazobactam Sod 3.375 gm/Sodium Chloride 115 ml @ 28.75 mls/ hr Q8H IV 03/07/18 02:00 03/17/18 01:59 03/07/18 02:27 28.75 MLS/HR Vancomycin HCl (Vancomycin Oral Soln) 125 mg Q6H PO 03/06/18 21:00 03/20/18 20:59 03/07/18 07:59 125 MG Raspberry (Raspberry Syrup 5ml Cup) 5 ml Q6H PO 03/06/18 21:00 03/20/18 20:59 03/07/18 07:56 5 ML Phenazopyridine HCl (Pyridium Tab) 200 mg TID PO 03/07/18 08:00 04/05/18 17:14 03/07/18 07:53 200 MG Acetaminophen (Tylenol Tab) 1,000 mg Q8H PO 03/07/18 04:00 04/06/18 03:59 03/07/18 03:44 1,000 MG Review of Systems Review of Systems Constitutional: No see HPI, No fever, No chills, No frequent headaches, No weight loss, No problem reported Eyes: No see HPI, No blurred vision, No double vision, No eye pain, No loss of night vision, No problem reported Neurological: No see HPI, No dizzy, No passing out, No numbness/tingling, No seizures, No problem reported Gastrointestinal: + abdominal pain Cardiovascular: No see HPI, No heart murmur, No chest pain, No angina, No irregular heartbeat, No palpitations, No swelling ankles/feet, No problem reported Respiratory: No see HPI, No shortness of breath, No wheezing, No coughing up blood, No chronic cough, No problem reported Skin: No see HPI, No rash, No boils, No dry skin, No problem reported Musculoskeletal: No see HPI, No joint pain, No neck pain, No back pain, No arthritis, No problem reported Blood / Lymphatic: + bleed easily, No bruise easily, No swollen glands, No problem reported Ears / Nose / Throat: No see HPI, No hearing loss, No sinus, No hoarse voice, No sore throat, No problem reported Male : + urinary retention, + weak stream, + blood in urine All Other Systems: Reviewed and Negative Physical Exam Vital Signs: Vital Signs Past 12 Hours Date Time Temp Pulse Resp B/P (MAP) Pulse Ox O2 Delivery O2 Flow Rate FiO2 03/07/18 07:09 37.0 67 20 142/67 (92) 91 Room Air 03/07/18 00:00 Room Air Physical Exam: General Appearance: no apparent distress Eyes: bilateral eyes normal inspection ENT: hearing grossly normal Neck: no adenopathy Respiratory/Chest: no respiratory distress, no accessory muscle use Cardiovascular: no gallop Gastrointestinal: Abdomen: RLQ tenderness (Tender to deep palpation in the right lower quadrant, no rebound, no guarding) Bladder: normal bladder (Nontender in the midline of the suprapubic area, Puri catheter in place draining relatively clear urine with a small amount of blood tinge ) Renal: normal renal (No CVA tenderness) Extremities: no pedal edema Neurologic/Psychiatric: alert, normal mood/affect Skin: normal color, warm/dry Lymphatic: no adenopathy Assessment & Plan Assessment & Plan Invasive bladder cancer, in the midst of chemotherapy Continue Puri catheter -I suspect majority of his bleeding was secondary to his self DC of his prior catheter. Urine appears to be clearing appropriately Avoid any intervention if possible Not a candidate for radiation secondary to prior prostate cancer driven radiation of the pelvis Poor surgical candidate If creatinine does not improve significantly over the next 24-48 hours, image with ultrasound or CT to ensure no change in the upper tracts Urine output overnight, however, implies that it likely was bladder outlet obstruction driving his renal failure
[2018-03-07] MEDS ORDERED: LIDOCAINE HCL 2% JELLY 30 ML TUBE EXT ONE (10:52)
--- NOTE | 2018-03-07 14:38 | Progress Note ---
Medicine Progress Note Date & Time of Visit: Mar 07, 2018 at 14:06. Subjective Pt was seen and examined Lying in bed with no distress watching TV Pt said that his is admitted in the hospital as well He said that he continue to have the bladder pain He said that he does not have any diarrhea Denies any chest pain, palpitation and SOB and fever Objective Last 8 Hrs Date Time Temp Pulse Resp B/P (MAP) Pulse Ox O2 Delivery O2 Flow Rate FiO2 03/07/18 08:00 Room Air 03/07/18 07:09 37.0 67 20 142/67 (92) 91 Room Air Physical Exam: General- No acute distress Head- atraumatic Eyes- PERRL, EOMI ENT- oropharynx clear Neck- supple, no JVD Lungs- clear to auscultation Heart- regular rhythm Abdomen- normal bowel sounds,tender in hypogastric area with palpation Extremities- no calf tenderness, Dressing in LLE Neuro- alert, oriented PERRL Skin- warm & dry, mild erythema in left LE Laboratory Results: Last 24 Hours Test 03/06/18 14:35 03/06/18 15:55 03/06/18 20:49 03/07/18 05:19 White Blood Count 18.66 K/uL 16.62 K/uL Red Blood Count 3.72 M/uL 3.40 M/uL Hemoglobin 10.9 g/dL 10.1 g/dL Hematocrit 34.5 % 31.6 % Mean Corpuscular Volume 92.7 fL 92.9 fL Mean Corpuscular Hemoglobin 29.3 pg 29.7 pg Mean Corpuscular Hemoglobin Concent 31.6 g/dl 32.0 g/dl Platelet Count 323 K/uL 284 K/uL Mean Platelet Volume 9.4 fL 9.5 fL Neutrophils (%) (Auto) 78.1 % Lymphocytes (%) (Auto) 8.9 % Monocytes (%) (Auto) 10.9 % Eosinophils (%) (Auto) 0.7 % Basophils (%) (Auto) 0.2 % Neutrophils # (Auto) 14.55 K/uL Lymphocytes # (Auto) 1.67 K/uL Monocytes # (Auto) 2.04 K/uL Eosinophils # (Auto) 0.13 K/uL Basophils # (Auto) 0.04 K/uL RDW Standard Deviation 51.8 fL 51.6 fL RDW Coefficient of Variation 15.1 % 15.1 % Immature Granulocyte % (Auto) 1.2 % Immature Granulocyte # (Auto) 0.23 K/uL D-Dimer 3140 ug/L FEU Sodium Level 137 mmol/L 141 mmol/L Potassium Level 4.4 mmol/L 4.4 mmol/L Chloride Level 104 mmol/L 110 mmol/L Carbon Dioxide Level 26 mmol/L 25 mmol/L Anion Gap 7.0 mmol/L 6.0 mmol/L Blood Urea Nitrogen 34 mg/dl 29 mg/dl Creatinine 2.74 mg/dl 2.51 mg/dl Est Creatinine Clear Calc Drug Dose 22.1 ml/min 24.1 ml/min Estimated GFR () 24.4 27.2 Estimated GFR (Non- 21.1 23.4 BUN/Creatinine Ratio 12.6 11.6 Random Glucose 170 mg/dl 138 mg/dl Calcium Level 9.3 mg/dl 8.4 mg/dl Magnesium Level 2.0 mg/dl Troponin I < 0.015 ng/ml Pro-B-Type Natriuretic Peptide 1068 pg/ml Urine Color ORANGE Urine Appearance CLOUDY Urine pH Urine Specific [place] 1.012 Urine Protein Urine Glucose (UA) Urine Ketones Urine Occult Blood Urine Nitrite Urine Bilirubin Urine Urobilinogen Urine Leukocyte Esterase Urine RBC >30 /hpf Urine WBC 5-10 /hpf Urine Epithelial Cells 0-5 /lpf Urine Bacteria NEG Bedside Glucose 152 mg/dl Test 03/07/18 07:30 03/07/18 11:54 03/07/18 13:01 Bedside Glucose 147 mg/dl 134 mg/dl Date/Time Source Procedure Growth Status 03/06/18 17:07 Blood Blood Culture Pending Received 03/06/18 16:59 Blood Blood Culture Pending Received 03/06/18 15:55 Urine,Catheterized Urine Culture - Preliminary NO GROWTH - LESS THAN 1,000 COLONIES/... Resulted 03/06/18 18:50 Drainage - Surface Leg Lower Left Gram Stain - Final Resulted 03/06/18 18:50 Wound Culture - Preliminary Staph Species Resulted Assessment & Plan VILMA ON CKD STAGE III Present to the ER with hematuria Creatinine on admission 2.7 Received IVF Creatine today 2.5 Avoid nephrotoxic agents Continue holding lasix Continue IVF If creatine does not improve, will get a renal u/s Monitor BMP LEFT LOWER EXTREMITY CELLULITIS Left lower extremity erythema and fluid filled blisters on admission WBC elevated on admission 18K, trending down to 16K Erythema improves Received Vanco IV in the ER on Zosyn and Vanco Consider to deescalate abx Wound culture grew staph species blood cx pending HEMATURIA Mostly related due to trauma from the [facility] urology on board recommended to continue follow and do not attempt any intervention Monitor hemoglobin Stable POSSIBLE UTI was supposed to start on Keflex as an outpatient, but never garbage pick up man the script. UA negative and urine cx no growth Afebrile Elevated WBC Already on zosyn C. DIFFICILE Diagnosed at [facility] Denies any diarrhea Was discharged on metronidazole however prescription was not picked up from the pharmacy Continue oral vancomycin 125 every 6 hours HISTORY OF BLADDER CANCER WITH POSSIBLE LUNG METASTASES Follows with Dr. Velásquez Currently receiving gemcitabine weekly Not a candidate for radiation therapy due to prior prostate cancer Poor prognosis Bladder pain Starting on tramadol, if not improve, will do Percocet ELEVATED D-DIMER V/Q scan normal Doppler LE negative for DVT Saturated well on RA HISTORY OF CORONARY ARTERY DISEASE asymptomatic Continue aspirin and beta-boogie DIABETES Hgb A1c 5.9 01/2018 Hold oral agents On NovoLog per protocol while hospitalized DVT PROPHYLAXIS SCDs due to hematuria CODE STATUS FULL CODE DISPOSITION Will discharge once medically stable Current Inpatient Medications: Current Inpatient Medications Medications (Trade) Dose Ordered Sig/Kailash Route Start Time Stop Time Status Last Admin Dose Admin Ioversol (Optiray 300) 100 ml UD PRN IV 03/06/18 14:45 03/10/18 14:44 Ondansetron HCl (Zofran Inj) 4 mg Q6H PRN IV 03/06/18 17:00 04/05/18 16:59 Sodium Chloride 1,000 ml @ 100 mls/hr Q10H IV 03/06/18 17:00 04/05/18 16:59 03/07/18 07:54 100 MLS/HR Insulin Aspart (novoLOG ASPART) SLIDING SCALE If C... ACHS SC 03/06/18 21:00 04/05/18 20:59 03/07/18 12:45 3 UNITS Glucose (Glucose 40% Gel) 15-30 GRAMS 15 GRAMS... UD PRN PO 03/06/18 17:15 04/05/18 17:14 Glucose (Glucose Chew Tab) 4-8 Tablets 4 Tabl... UD PRN PO 03/06/18 17:15 04/05/18 17:14 Dextrose (Dextrose 50% 50ML Syringe) 25-50ML OF 50% DW IV FOR... UD PRN IV 03/06/18 17:15 04/05/18 17:14 Glucagon (Glucagon Inj) 1 mg UD PRN SQ 03/06/18 17:15 04/05/18 17:14 Miscellaneous Information (Consult) 1 ea UD N/A 03/06/18 17:24 04/05/18 17:23 Aspirin (Ecotrin Tab) 81 mg DAILY PO 03/07/18 08:00 04/06/18 08:59 03/07/18 07:52 81 MG Carvedilol (Coreg Tab) 6.25 mg BID PO 03/06/18 20:00 04/05/18 20:59 03/07/18 07:53 6.25 MG Cholecalciferol (Vitamin D Tab) 2,000 inter.unit QAM PO 03/07/18 08:00 04/06/18 08:59 03/07/18 07:53 2,000 INTER.UNIT Latanoprost (Xalatan Oph Soln) 1 drops HS OP 03/06/18 21:00 04/05/18 20:59 03/06/18 20:25 1 DROPS Pantoprazole Sodium (Protonix Tab) 40 mg QAM PO 03/07/18 08:00 04/06/18 08:59 03/07/18 07:54 40 MG Sertraline HCl (Zoloft Tab) 50 mg DAILY PO 03/07/18 08:00 04/06/18 08:59 03/07/18 07:52 50 MG Trazodone HCl (Desyrel Tab) 25 mg QPM PO 03/06/18 21:00 04/05/18 20:59 03/06/18 20:26 25 MG Miscellaneous Information (Consult) 1 ea UD N/A 03/06/18 17:30 04/05/18 17:29 Piperacillin Sod/ Tazobactam Sod 3.375 gm/Sodium Chloride 115 ml @ 28.75 mls/ hr Q8H IV 03/07/18 02:00 03/17/18 01:59 03/07/18 10:17 28.75 MLS/HR Vancomycin HCl (Vancomycin Oral Soln) 125 mg Q6H PO 03/06/18 21:00 03/20/18 20:59 03/07/18 07:59 125 MG Raspberry (Raspberry Syrup 5ml Cup) 5 ml Q6H PO 03/06/18 21:00 03/20/18 20:59 03/07/18 07:56 5 ML Phenazopyridine HCl (Pyridium Tab) 200 mg TID PO 03/07/18 08:00 04/05/18 17:14 03/07/18 13:52 200 MG Acetaminophen (Tylenol Tab) 1,000 mg Q8H PO 03/07/18 04:00 04/06/18 03:59 03/07/18 11:54 1,000 MG Tramadol HCl (Ultram Tab) 50 mg Q6 PRN PO 03/07/18 14:00 04/06/18 13:59 UNV
[2018-03-07 14:57] VITALS: BP 118/71; PULSE 18; PULSE 65; TEMP 36.8; O2SAT 90
--- NOTE | 2018-03-07 15:02 | Pharmacy Progress Note ---
Pharmacy Abx Dose Short Note Date of Service Mar 07, 2018. Assessment & Plan Assessment 78 year old male receiving vancomycin for treatment of cellulitis/UTI Day # 2 of antimicrobial therapy. Patient received 2000mg total yesterday over ~ 4 hours. Random level ~16 hours later is 17.5. Renal function has slightly improved. Given continued VILMA, I will hold off on redosing today and order another random with AM labs. Plan Vancomycin * Trough or random level ordered for: 03/08/18 @0444 * will redose as necessary based on random level Pharmacy will continue to follow and will adjust dose/frequency as necessary. Thank you.
[2018-03-07] MEDS: TRAMADOL HCL 50 MG TAB PO PRN (15:20)
[2018-03-07 18:34] VITALS: Ht 167.6 cm; Wt 86.7 kg
[2018-03-07 19:18] VITALS: BP 159/77; PULSE 85; O2SAT 92
[2018-03-07] MEDS: TRAZODONE HCL 50 MG TAB PO SCH (20:44)
[2018-03-07] MEDS: LATANOPROST 0.005% OP SOLN 2.5 ML BTL OP SCH (20:45)
[2018-03-07 23:21] VITALS: BP 159/75; PULSE 68; TEMP 36.4; O2SAT 92
[2018-03-08] MEDS: PIPERACILL/TAZOBAC IV 3.375 GM in NSS 100ML IV SCH ×2 (02:00→09:03)
[2018-03-08] MEDS: TRAMADOL HCL 50 MG TAB PO PRN ×3 (02:03→14:02)
[2018-03-08] MEDS: SODIUM CHLORIDE 0.9% 1000ML 1,000 ML IV SCH ×2 (03:45→15:17)
[2018-03-08] MEDS: ACETAMINOPHEN 500 MG TAB PO SCH ×3 (03:45→21:38)
[2018-03-08] MEDS: RASPBERRY SYRUP 5 ML UDP PO SCH ×4 (03:45→21:38)
[2018-03-08] MEDS: VANCOMYCIN HCL 125 MG/2.5ML SOLN PO SCH ×4 (03:45→21:38)
[2018-03-08 06:02] LABS: HEMATOCRIT 33.5 % (42-52); HEMOGLOBIN 10.6 g/dL (14.0-18.0); MEAN CELL VOLUME 93.1 fL (80-100); MEAN CORPUSCULAR HEMOGLOBIN 29.4 pg (25-34); MEAN CORPUSCULAR HGB CONC 31.6 g/dl (32-36); MEAN PLATELET VOLUME 9.5 fL (7.4-10.4); PLATELET COUNT 308 K/uL (130-400); RED CELL DISTRIBUTION WIDTH CV 14.9 % (11.5-14.5); RED CELL DISTRIBUTION WIDTH SD 50.9 fL (36.4-46.3); WHITE BLOOD COUNT 17.73 K/uL (4.8-10.8)
[2018-03-08 06:27] LABS: CREATININE 2.84 mg/dl (0.60-1.40)
[2018-03-08 06:28] LABS: CALCIUM 8.3 mg/dl (8.5-10.1); POTASSIUM 4.6 mmol/L (3.5-5.1)
[2018-03-08 07:24] VITALS: BP 163/71; PULSE 101; TEMP 36.6; O2SAT 94
[2018-03-08] MEDS: CHOLECALCIFEROL 1000 INTER.UNIT TAB PO SCH (07:30)
[2018-03-08] MEDS: CARVEDILOL 6.25 MG TAB PO SCH ×2 (07:30→21:35)
[2018-03-08] MEDS: SERTRALINE HCL 50 MG TAB PO SCH (07:30)
[2018-03-08] MEDS: PHENAZOPYRIDINE HCL 200 MG TAB PO SCH ×4 (07:31→21:36)
[2018-03-08] MEDS: PANTOprazole SOD 40 MG TAB PO SCH (07:31)
[2018-03-08] MEDS: ASPIRIN 81 MG ECTAB PO SCH (07:32)
[2018-03-08] MEDS: INSULIN ASPART 100 UNITS/ML 3 ML PEN SC SCH ×4 (09:02→21:00)
--- NOTE | 2018-03-08 09:48 | Progress Note ---
Subjective Date of Service: Mar 08, 2018. Subjective Pt evaluation today including: conversation w/ patient, physical exam, chart review, lab review Voiding: bruner catheter in place No major changes overnight Continue to have lower abdominal pain Bruner catheter draining clear urine Occasional bladder spasms with leakage around the catheter Problem List Medical Problems: (1) VILMA (acute kidney injury) Status: Acute (2) Altered mental status Status: Acute (3) Bladder cancer Status: Acute (4) Cellulitis Status: Acute (5) Fall Status: Acute (6) Gross hematuria Status: Acute (7) Sepsis Status: Acute (8) UTI (urinary tract infection) Status: Acute (9) UTI (urinary tract infection) Status: Acute Review of Systems Constitutional: No see HPI, No fever, No chills, No sweats, No weight loss, No weakness, No fatigue, No problem reported Abdomen: + pain, No nausea Objective Vital Signs Date Time Temp Pulse Resp B/P (MAP) Pulse Ox O2 Delivery O2 Flow Rate FiO2 03/08/18 07:24 36.6 101 18 163/71 (101) 94 Nasal Cannula 2.0 03/08/18 00:00 Room Air 03/07/18 23:21 36.4 68 20 159/75 (103) 92 Nasal Cannula 2.0 03/07/18 20:00 Room Air 03/07/18 19:18 85 159/77 (104) 92 Nasal Cannula 2.0 03/07/18 15:26 Room Air 03/07/18 14:57 36.8 65 18 118/71 (87) 90 Room Air Physical Exam General Appearance: no apparent distress Eyes: normal inspection ENT: hearing grossly normal Neck: supple, no adenopathy Abdomen: soft (Bruner catheter draining clear urine) Extremities: normal inspection Neurologic/Psychiatric: alert, normal mood/affect, oriented x 3 Skin: normal color, warm/dry Laboratory Results Last 24 Hours Test 03/07/18 11:54 03/07/18 13:01 03/07/18 16:35 03/07/18 20:21 Bedside Glucose 134 mg/dl 168 mg/dl 121 mg/dl Random Vancomycin Level 17.5 mcg/ml Test 03/08/18 05:14 03/08/18 07:34 White Blood Count 17.73 K/uL Red Blood Count 3.60 M/uL Hemoglobin 10.6 g/dL Hematocrit 33.5 % Mean Corpuscular Volume 93.1 fL Mean Corpuscular Hemoglobin 29.4 pg Mean Corpuscular Hemoglobin Concent 31.6 g/dl RDW Standard Deviation 50.9 fL RDW Coefficient of Variation 14.9 % Platelet Count 308 K/uL Mean Platelet Volume 9.5 fL Sodium Level 140 mmol/L Potassium Level 4.6 mmol/L Chloride Level 112 mmol/L Carbon Dioxide Level 22 mmol/L Anion Gap 6.0 mmol/L Blood Urea Nitrogen 30 mg/dl Creatinine 2.84 mg/dl Est Creatinine Clear Calc Drug Dose 21.3 ml/min Estimated GFR () 23.4 Estimated GFR (Non- 20.2 BUN/Creatinine Ratio 10.6 Random Glucose 129 mg/dl Calcium Level 8.3 mg/dl Random Vancomycin Level 12.3 mcg/ml Bedside Glucose 119 mg/dl Assessment and Plan Muscle invasive bladder cancer in the midst of chemotherapy; renal dysfunction; gross hematuria; urinary retention Urine has cleared and is draining appropriately I am hesitant to treat his bladder spasms right now with any additional medications His creatinine unfortunately is not improving If his renal failure continues to progress, I would strongly consider obtaining an renal ultrasound to rule out significant or progressing hydronephrosis as he is at high risk for worsening upper tract obstruction secondary to his bladder disease
--- NOTE | 2018-03-08 10:39 | DIAGNOSTIC IMAGING REPORT ---
(RENAL)RETROPERITON COMP CLINICAL HISTORY: 78 years-old Male presenting with VILMA on CKD. TECHNIQUE: Real-time grayscale and limited color Doppler ultrasound imaging of the kidneys and bladder was performed. COMPARISON: None. FINDINGS: Right kidney: Mildly increased echogenicity of renal parenchyma. Right kidney measures 12.0 cm. Mild pelvocaliectasis. No convincing evidence of calculus or mass. Left kidney: Mildly increased echogenicity of renal parenchyma. Left kidney measures 13.6 cm. Mild pelvocaliectasis. No convincing evidence of calculus or mass. Bladder: Decompressed with a catheter. Bilateral ureteral jets not visualized. Other: Mild splenomegaly with the spleen measuring 14.1 cm in maximal sagittal dimension. IMPRESSION: 1. Mild bilateral pelvocaliectasis. Mild bilateral hydronephrosis cannot be excluded. 2. Increased echogenicity of the renal parenchyma suggests underlying medical renal disease. 3. Mild splenomegaly. Electronically signed by: Miles Coleman M.D. 03/08/2018 10:38 AM Dictated Date/Time: 03/08/2018 10:35 AM
[2018-03-08 15:08] VITALS: BP 150/91; PULSE 71; TEMP 37; O2SAT 92
[2018-03-08] MEDS ORDERED: OXYCODONE/ACETAMINOPHEN 5-325 TAB ONE (15:11)
[2018-03-08] MEDS: OXYCODONE/ACETAMINOPHEN 5-325 TAB PO PRN (17:35)
--- NOTE | 2018-03-08 18:02 | Progress Note ---
Medicine Progress Note Date & Time of Visit: Mar 08, 2018 at 17:43. Subjective Pt was seen and examined Lying in bed complaint of bladder discomfort Pt said that he is having tenderness above his bladder Pt understands that he needs the Puri so that he can urinate His is sick in the hospital Nurse said that he had 3 episodes of diarrhea today Denies any chest pain, palpitation, dizziness and SOB Objective Last 8 Hrs Date Time Temp Pulse Resp B/P (MAP) Pulse Ox O2 Delivery O2 Flow Rate FiO2 03/08/18 16:58 Room Air 03/08/18 15:08 37.0 71 20 150/91 (110) 92 Nasal Cannula 2.0 Physical Exam: General- No acute distress Head- atraumatic Eyes- PERRL, EOMI ENT- oropharynx clear Neck- supple, no JVD Lungs- clear to auscultation Heart- regular rhythm Abdomen- normal bowel sounds,tender in hypogastric area with palpation Pelvis- Suprapubic tenderness Extremities- no calf tenderness, Dressing in LLE Neuro- alert, oriented PERRL Skin- warm & dry, mild erythema in left LE Laboratory Results: Last 24 Hours Test 03/07/18 20:21 03/08/18 05:14 03/08/18 07:34 03/08/18 11:53 Bedside Glucose 121 mg/dl 119 mg/dl 129 mg/dl White Blood Count 17.73 K/uL Red Blood Count 3.60 M/uL Hemoglobin 10.6 g/dL Hematocrit 33.5 % Mean Corpuscular Volume 93.1 fL Mean Corpuscular Hemoglobin 29.4 pg Mean Corpuscular Hemoglobin Concent 31.6 g/dl RDW Standard Deviation 50.9 fL RDW Coefficient of Variation 14.9 % Platelet Count 308 K/uL Mean Platelet Volume 9.5 fL Sodium Level 140 mmol/L Potassium Level 4.6 mmol/L Chloride Level 112 mmol/L Carbon Dioxide Level 22 mmol/L Anion Gap 6.0 mmol/L Blood Urea Nitrogen 30 mg/dl Creatinine 2.84 mg/dl Est Creatinine Clear Calc Drug Dose 21.3 ml/min Estimated GFR () 23.4 Estimated GFR (Non- 20.2 BUN/Creatinine Ratio 10.6 Random Glucose 129 mg/dl Calcium Level 8.3 mg/dl Random Vancomycin Level 12.3 mcg/ml Test 03/08/18 16:05 Bedside Glucose 107 mg/dl Assessment & Plan VILMA ON CKD STAGE III Present to the ER with hematuria Creatinine on admission 2.7 Creatine increased to 2.8 Continue IVF Avoid nephrotoxic agents Continue holding lasix Renal U/S showed mild bilateral pelvocaliectasis. Mild bilateral hydronephrosis cannot be excluded. LEFT LOWER EXTREMITY CELLULITIS Left lower extremity erythema and fluid filled blisters on admission WBC elevated on admission 18K, trending down to 16K Erythema improves Received Vanco IV in the ER Received Zosyn and Vanco IV Wound culture grew staph species Abx changed to doxycycline Blood cx no growth HEMATURIA Mostly related due to trauma from the [facility] urology on board recommended to continue follow and do not attempt any intervention Monitor hemoglobin Stable POSSIBLE UTI was supposed to start on Keflex as an outpatient, but never black pickler the script. UA negative and urine cx no growth Afebrile Elevated WBC Continue monitor C. DIFFICILE Diagnosed at [facility] Denies any diarrhea Was discharged on metronidazole however prescription was not picked up from the pharmacy Continue oral vancomycin 125 every 6 hours Diarrhea improved HISTORY OF BLADDER CANCER WITH POSSIBLE LUNG METASTASES Follows with Dr. Velásquez Currently receiving gemcitabine weekly Not a candidate for radiation therapy due to prior prostate cancer Poor prognosis Bladder pain Continue to have pain Continue tramadol Percocet 5mgx1 given ELEVATED D-DIMER V/Q scan normal Doppler LE negative for DVT Saturated well on RA HISTORY OF CORONARY ARTERY DISEASE asymptomatic Continue aspirin and beta-boogie DIABETES Hgb A1c 5.9 01/2018 Hold oral agents On NovoLog per protocol while hospitalized DVT PROPHYLAXIS SCDs due to hematuria CODE STATUS FULL CODE DISPOSITION Will discharge once medically stable Current Inpatient Medications: Current Inpatient Medications Medications (Trade) Dose Ordered Sig/Kailash Route Start Time Stop Time Status Last Admin Dose Admin Ioversol (Optiray 300) 100 ml UD PRN IV 03/06/18 14:45 03/10/18 14:44 Ondansetron HCl (Zofran Inj) 4 mg Q6H PRN IV 03/06/18 17:00 04/05/18 16:59 Sodium Chloride 1,000 ml @ 100 mls/hr Q10H IV 03/06/18 17:00 04/05/18 16:59 03/08/18 15:17 100 MLS/HR Insulin Aspart (novoLOG ASPART) SLIDING SCALE If C... ACHS SC 03/06/18 21:00 04/05/18 20:59 03/08/18 17:26 4 UNITS Glucose (Glucose 40% Gel) 15-30 GRAMS 15 GRAMS... UD PRN PO 03/06/18 17:15 04/05/18 17:14 Glucose (Glucose Chew Tab) 4-8 Tablets 4 Tabl... UD PRN PO 03/06/18 17:15 04/05/18 17:14 Dextrose (Dextrose 50% 50ML Syringe) 25-50ML OF 50% DW IV FOR... UD PRN IV 03/06/18 17:15 04/05/18 17:14 Glucagon (Glucagon Inj) 1 mg UD PRN SQ 03/06/18 17:15 04/05/18 17:14 Aspirin (Ecotrin Tab) 81 mg DAILY PO 03/07/18 08:00 04/06/18 08:59 03/08/18 07:32 81 MG Carvedilol (Coreg Tab) 6.25 mg BID PO 03/06/18 20:00 04/05/18 20:59 03/08/18 07:30 6.25 MG Cholecalciferol (Vitamin D Tab) 2,000 inter.unit QAM PO 03/07/18 08:00 04/06/18 08:59 03/08/18 07:30 2,000 INTER.UNIT Latanoprost (Xalatan Oph Soln) 1 drops HS OP 03/06/18 21:00 04/05/18 20:59 03/07/18 20:45 1 DROPS Pantoprazole Sodium (Protonix Tab) 40 mg QAM PO 03/07/18 08:00 04/06/18 08:59 03/08/18 07:31 40 MG Sertraline HCl (Zoloft Tab) 50 mg DAILY PO 03/07/18 08:00 04/06/18 08:59 03/08/18 07:30 50 MG Trazodone HCl (Desyrel Tab) 25 mg QPM PO 03/06/18 21:00 04/05/18 20:59 03/07/18 20:44 25 MG Vancomycin HCl (Vancomycin Oral Soln) 125 mg Q6H PO 03/06/18 21:00 03/20/18 20:59 03/08/18 15:16 125 MG Raspberry (Raspberry Syrup 5ml Cup) 5 ml Q6H PO 03/06/18 21:00 03/20/18 20:59 03/08/18 15:16 5 ML Acetaminophen (Tylenol Tab) 1,000 mg Q8H PO 03/07/18 04:00 04/06/18 03:59 03/08/18 11:59 1,000 MG Tramadol HCl (Ultram Tab) 50 mg Q6 PRN PO 03/07/18 14:00 04/06/18 13:59 03/08/18 14:02 50 MG Doxycycline Hyclate (Vibramycin Cap) 100 mg Q12H PO 03/08/18 21:00 03/16/18 20:59 Phenazopyridine HCl (Pyridium Tab) 200 mg QID PO 03/08/18 17:00 04/05/18 17:14 03/08/18 17:24 200 MG Oxycodone/ Acetaminophen (Percocet 5-325mg Tab) 1 tab ONE PRN PO 03/08/18 15:00
[2018-03-08] MEDS: DOXYCYCLINE HYCLATE 100 MG CAP PO SCH (21:32)
[2018-03-08 21:34] VITALS: BP 147/70; PULSE 96
[2018-03-08] MEDS: TRAZODONE HCL 50 MG TAB PO SCH (21:36)
[2018-03-08] MEDS: LATANOPROST 0.005% OP SOLN 2.5 ML BTL OP SCH (21:38)
[2018-03-08 23:27] VITALS: BP 170/71; PULSE 104; TEMP 37.3; O2SAT 90
[2018-03-09] MEDS: TRAMADOL HCL 50 MG TAB PO PRN ×4 (00:23→20:51)
[2018-03-09] MEDS: SODIUM CHLORIDE 0.9% 1000ML 1,000 ML IV SCH ×3 (01:34→21:52)
[2018-03-09] MEDS: VANCOMYCIN HCL 125 MG/2.5ML SOLN PO SCH ×4 (04:02→20:51)
[2018-03-09] MEDS: RASPBERRY SYRUP 5 ML UDP PO SCH ×4 (04:02→20:51)
[2018-03-09] MEDS: ACETAMINOPHEN 500 MG TAB PO SCH ×2 (04:03→12:14)
[2018-03-09 04:36] VITALS: BP 138/71; PULSE 92; TEMP 37; O2SAT 93
[2018-03-09 06:37] LABS: CREATININE 3.49 mg/dl (0.60-1.40)
[2018-03-09 07:16] VITALS: BP 138/78; PULSE 82; TEMP 36.6; O2SAT 91
[2018-03-09] MEDS: SERTRALINE HCL 50 MG TAB PO SCH (08:21)
[2018-03-09] MEDS: CHOLECALCIFEROL 1000 INTER.UNIT TAB PO SCH (08:21)
[2018-03-09] MEDS: PHENAZOPYRIDINE HCL 200 MG TAB PO SCH ×4 (08:21→19:44)
[2018-03-09] MEDS: ASPIRIN 81 MG ECTAB PO SCH (08:22)
[2018-03-09] MEDS: DOXYCYCLINE HYCLATE 100 MG CAP PO SCH ×2 (08:22→20:52)
[2018-03-09] MEDS: PANTOprazole SOD 40 MG TAB PO SCH (08:22)
[2018-03-09] MEDS: CARVEDILOL 6.25 MG TAB PO SCH ×2 (08:23→19:44)
[2018-03-09] MEDS: INSULIN ASPART 100 UNITS/ML 3 ML PEN SC SCH ×4 (08:30→20:53)
--- NOTE | 2018-03-09 11:46 | Progress Note ---
Subjective Date of Service: Mar 09, 2018. Subjective Pt evaluation today including: conversation w/ patient, chart review, lab review Voiding: bruner catheter in place (patent, draining dark diallo colored urine with some old clot ) 78 yo male with hx of bladder and prostate cancer. consulted after the pt traumatically removed his own bruner catheter. Now with bruner in place draining dark diallo urine with some old clot. Per RN, he did not previously tolerate bruner irrigation; he was crying out loudly in pain. The pt does not recall pulling out his own catheter. He states this did not occur. He is currently under 1:1 supervision. His is currently admitted as well for [place]. Problem List Medical Problems: (1) VILMA (acute kidney injury) Status: Acute (2) Altered mental status Status: Acute (3) Bladder cancer Status: Acute (4) Cellulitis Status: Acute (5) Fall Status: Acute (6) Gross hematuria Status: Acute (7) Sepsis Status: Acute (8) UTI (urinary tract infection) Status: Acute (9) UTI (urinary tract infection) Status: Acute Review of Systems Constitutional: No fever, No chills Respiratory: No shortness of breath Cardiac: No chest pain Abdomen: No pain, No nausea, No vomiting Male : + hematuria Objective Vital Signs Date Time Temp Pulse Resp B/P (MAP) Pulse Ox O2 Delivery O2 Flow Rate FiO2 03/09/18 08:30 Room Air 03/09/18 07:16 36.6 82 16 138/78 (98) 91 03/09/18 04:36 37.0 92 16 138/71 (93) 93 Nasal Cannula 2.0 03/09/18 00:00 Room Air 03/08/18 23:27 37.3 104 20 170/71 (104) 90 Nasal Cannula 2.0 03/08/18 21:34 96 147/70 (95) 03/08/18 20:00 Room Air 03/08/18 16:58 Room Air 03/08/18 15:08 37.0 71 20 150/91 (110) 92 Nasal Cannula 2.0 Physical Exam General Appearance: no apparent distress, + obese Eyes: normal inspection ENT: hearing grossly normal Neck: no JVD Respiratory/Chest: no respiratory distress, no accessory muscle use Cardiovascular: no JVD Extremities: normal inspection Neurologic/Psychiatric: alert, normal mood/affect, oriented x 3 Skin: normal color Laboratory Results Last 24 Hours Test 03/08/18 11:53 03/08/18 16:05 03/08/18 20:24 03/09/18 05:14 Bedside Glucose 129 mg/dl 107 mg/dl 117 mg/dl Creatinine 3.49 mg/dl Est Creatinine Clear Calc Drug Dose 17.3 ml/min Estimated GFR () 18.2 Estimated GFR (Non- 15.7 Test 03/09/18 07:33 Bedside Glucose 111 mg/dl Assessment and Plan A/P: Bladder and prostate cancer, gross hematuria, ARF AFVSS. See previous admission notes as well. Unfortunately the pt has had several incidents of confusion resulting in traumatic bruner catheter removal. Would recommend avoiding technician terminal and repeater bruner and transitioning him to CIC indefinitely prior to discharge if hematuria improves. For now, will avoid bladder irrigation unless bruner clots off as this has been painful for the pt. As for his ARF, slight hydro on renal u/s from yesterday noted, but nothing significant to likely benefit from stent placement at this time. Will consult oncology regarding the nursing home plan of care and prognosis for his cancer. May need to consider palliative care and nursing home SNF where CIC can be done by trained nursing staff for technician terminal and repeater goals. Unfortunately it does not sound that his will be able to provide care for him at this time. Will continue to follow along with primary service.
[2018-03-09] MEDS: OXYCODONE/ACETAMINOPHEN 5-325 TAB PO PRN (15:28)
[2018-03-09 15:30] VITALS: BP 191/92; PULSE 106; TEMP 36.6; O2SAT 87
--- NOTE | 2018-03-09 19:06 | Medical Consult ---
Consultation Date of Consultation: Mar 09, 2018. Attending Physician: An Albert M.D. History of Present Illness Hematology/Oncology consult: Date of consultation: 03/09/2018 Date of admission 03/06/2018 HPI: 78-year-old male, came to ER with hematuria, recently he was admitted at [facility] between 02/11/2013-02/13/2013, he had E coli UTI and bacteremia, he was then transferred at [facility] and then he was discharged from there, he has chronic indwelling Puri 's catheter which he pulled out, now has hematuria, he was discharge on cephalexin for left leg cellulitis and Flagyl for C difficile colitis. He has chronic bilateral leg edema more on the left side, there was no evidence of DVT noted in the previous Doppler evaluations. Earlier he was diagnosed a case of high-grade urothelial carcinoma, he received gemcitabine/cisplatin under the guidance of Dr. Madera but because of worsening kidney function test, the cisplatin was discontinued, cisplatin was received on 11/10/2017 and 12/01/2017 (30 mg/m2), presently he is receiving gemcitabine single agent chemotherapy (weekly x2 followed by 1 week off), last dose received on 02/09/2018. Last CT scan of the abdomen done on 01/05/2018--> right lung nodule is smaller, suggest treatment response, no new lung nodules noted, diffuse thickening of the bladder wall with perivesical fat stranding, Puri 's catheter present new bilateral mild to moderate hydronephrosis noted, possible splenic infarction noted, left inguinal lymphadenopathy appears to be reactive. History of prostate cancer (2010): -PSA level 10.3, biopsy of the prostate Rudy score 4+ 3, 4+ 4, 4+ 5 and 5+ 4, S/P androgen deprivation between 06/2011-01/2014 S/P external beam radiation treatment completed in in November 2011. I saw him at bedside, sitting comfortably in the bed, has indwelling Puri catheter draining dark red urine, he was somewhat uncomfortable in the abdomen earlier in the day, received Percocet with improvement of the abdominal pain, no bleeding from any sites, no fever, he is receiving vancomycin for C difficile colitis, had 2 bowel movements earlier, no increasing nausea or vomiting, chronic left leg edema present with some blister formation suggest presence of cellulitis, received Zocin earlier, he is on doxycycline at this time. REVIEW OF SYSTEMS: GENERAL: No recent change in weight, feeling weak and tired, no fever, sweats or chills. SKIN: No skin rash, no bruising. HEAD: No new headache, no dizziness. EYES: No recent change in the vision, no diplopia, EARS: No earache no tinnitus, NOSE: No epistaxis, No nasal discharge or stuffiness, MOUTH: No sores, no dysphagia, no hoarseness of voice, NECK: No lumps, No swelling in thyroid area. No stiffness. PULMONARY: No cough, shortness of breath on minimal exertion present, no hemoptysis, no chest pain, No wheezing. CARDIOVASCULAR: No anginal chest pain, no PND, no orthopnea. No palpitation, chronic leg edema present more on the left side. No syncope. GASTROINTESTINAL: No abdominal pain, no nausea or vomiting. Mild diarrhea present, No constipation. No blood in stool or black tarry stools. No abdominal distention. UROLOGIC: He has Puri 's catheter, ongoing hematuria present. MUSCULOSKELETAL: No new joint pain, No joint swelling, no muscle weakness. HEMATOLOGIC: Mild anemia noted, no bleeding disorder, No bruising. No history of blood transfusion. NEUROLOGIC: No seizures, no focal weakness, no speech difficulty, No memory disturbances. No tingling or numbness of the extremities. PSYCHIATRIC: No depression. No anxiety. No psychosis. SLEEP: No sleep disorder. Past medical and surgical history: - Diabetes mellitus - CV stroke, no residual deficit at this time. - Coronary artery disease, S/P CABG in the past - Prostate cancer. - He discontinued smoking habit somewhere in . - He lives with his who has some disability. - Abnormal kidney functions tests serum creatinine level 1.5-1.8 mg. -C difficile colitis Social history: History of smoking in the past, no ETOH abuse. Family history: Not significant Medications: Please review his chart for detailed list of medications. Allergies: None. On exam: - Alert and oriented x3, well built man, not in any distress. - HEENT: no icterus, no pallor, Throat: Normal. - Neck: No palpable cervical lymphadenopathy. - Chest: clear to auscultation. - Abdomen: soft, nontender, no hepatomegaly, no splenomegaly. - No focal neuro deficit. - Extremities: no finger clubbing, left leg edema present. Lab: Blood workup done on admission (03/06/2018: -WBC 07295, H&H of 10.9/34.5, Platelet count of 323,000. -BUN/Creat: 34/2.7, calcium 9.3, proBNP 1068 His serum creatinine level was around 1.1 mg/dL on 02/12/2018 Serum creatinine level has increased to around 3.4 as of 03/09/2018. He had E coli bacteremia and E coli UTI earlier on 01/22/2018. Blood and urine culture--> negative (03/06/2018) Imaging: -kidney ultrasound done on 03/08/2018--> mild bilateral hydronephrosis cannot be ruled out, medical renal disease noted. -lower extremity Doppler evaluation--> no evidence of DVT -V/Q scan--> negative -CT scan of the chest done on 01/22/2018--> no evidence of pulmonary embolism, findings suggestive congestive heart failure, unchanged minimal mediastinal/ hilar lymphadenopathy and lung nodule, 6 mm right mid-lung lesion. ASSESSMENT AND PLAN: 78-year-old male, a case of high-grade urethral carcinoma diagnosed in 08/2017, S/P TURBT not a candidate for surgical intervention because of comorbid conditions, also recommended for radiation treatment because he had pelvic radiation treatment for the prostate cancer diagnosis earlier, earlier he was seen by Dr. Madera, received gemcitabine and cisplatin but because of worsening kidney functions, decided to discontinue cisplatin in early November 2017, then continued with gemcitabine single agent once a week x2 followed by 1 week off, imaging studies done in December 2017 showed some partial response, he also has some lung nodule which is possible metastatic site involving the right lung, last cycle of chemotherapy received on 02/09/2018. Gradual declining performed status noted, recently he was admitted at [facility] for E coli UTI and bacteremia also has left leg cellulitis, treated with cephalexin, recently diagnosed with C difficile colitis, presently he is on vancomycin, now admitted for ongoing hematuria, has chronic indwelling Puri 's catheter, blood workup shows worsening kidney function test, no increasing hydronephrosis noted in the recent ultrasound of the kidney. Blood cultures urine cultures negative so far. Because of his declining performed status, increasing comorbid conditions, recent infectious complications, worsening kidney functions, I do not think he will derive any meaningful benefit of additional systemic chemotherapy. I think we should focus for supportive and symptomatic treatment. I will check with family members regarding his overall l clinical condition, also we should talk to them about advanced directive. Palliative care consult would be appropriate. Thanks for the consultation. Dr. Ralph Velásquez Hem/Onc (This note was completed using the dictation program Fluency Direct. As such, there may be misspellings, word substitutions, or other variations that should not change the essence of the clinical content of this encounter note. If there is need for further clarification, please direct questions to the provider listed above.) Past Medical/Surgical History Medical Problems: (1) VILMA (acute kidney injury) Status: Acute (2) Altered mental status Status: Acute (3) Bladder cancer Status: Acute (4) Cellulitis Status: Acute (5) Fall Status: Acute (6) Gross hematuria Status: Acute (7) Sepsis Status: Acute (8) UTI (urinary tract infection) Status: Acute (9) UTI (urinary tract infection) Status: Acute Family History Cancer Heart disease Hypertension Social History Smoking Status: Former Smoker Alcohol Use: none Housing Status: lives with significant other Allergies Coded Allergies: No Known Allergies (Unverified , 02/11/18) Current Inpatient Medications Current Inpatient Medications Medications (Trade) Dose Ordered Sig/Kailash Route Start Time Stop Time Status Last Admin Dose Admin Ioversol (Optiray 300) 100 ml UD PRN IV 03/06/18 14:45 03/10/18 14:44 Ondansetron HCl (Zofran Inj) 4 mg Q6H PRN IV 03/06/18 17:00 04/05/18 16:59 Sodium Chloride 1,000 ml @ 100 mls/hr Q10H IV 03/06/18 17:00 04/05/18 16:59 03/09/18 11:18 100 MLS/HR Insulin Aspart (novoLOG ASPART) SLIDING SCALE If C... ACHS SC 03/06/18 21:00 04/05/18 20:59 03/09/18 18:10 4 UNITS Glucose (Glucose 40% Gel) 15-30 GRAMS 15 GRAMS... UD PRN PO 03/06/18 17:15 04/05/18 17:14 Glucose (Glucose Chew Tab) 4-8 Tablets 4 Tabl... UD PRN PO 03/06/18 17:15 04/05/18 17:14 Dextrose (Dextrose 50% 50ML Syringe) 25-50ML OF 50% DW IV FOR... UD PRN IV 03/06/18 17:15 04/05/18 17:14 Glucagon (Glucagon Inj) 1 mg UD PRN SQ 03/06/18 17:15 04/05/18 17:14 Aspirin (Ecotrin Tab) 81 mg DAILY PO 03/07/18 08:00 04/06/18 08:59 03/09/18 08:22 81 MG Carvedilol (Coreg Tab) 6.25 mg BID PO 03/06/18 20:00 04/05/18 20:59 03/09/18 08:23 6.25 MG Cholecalciferol (Vitamin D Tab) 2,000 inter.unit QAM PO 03/07/18 08:00 04/06/18 08:59 03/09/18 08:21 2,000 INTER.UNIT Latanoprost (Xalatan Oph Soln) 1 drops HS OP 03/06/18 21:00 04/05/18 20:59 03/08/18 21:38 1 DROPS Pantoprazole Sodium (Protonix Tab) 40 mg QAM PO 03/07/18 08:00 04/06/18 08:59 03/09/18 08:22 40 MG Sertraline HCl (Zoloft Tab) 50 mg DAILY PO 03/07/18 08:00 04/06/18 08:59 03/09/18 08:21 50 MG Trazodone HCl (Desyrel Tab) 25 mg QPM PO 03/06/18 21:00 04/05/18 20:59 03/08/18 21:36 25 MG Vancomycin HCl (Vancomycin Oral Soln) 125 mg Q6H PO 03/06/18 21:00 03/20/18 20:59 03/09/18 14:46 125 MG Raspberry (Raspberry Syrup 5ml Cup) 5 ml Q6H PO 03/06/18 21:00 03/20/18 20:59 03/09/18 14:46 5 ML Acetaminophen (Tylenol Tab) 1,000 mg Q8H PO 03/07/18 04:00 04/06/18 03:59 03/09/18 12:14 1,000 MG Tramadol HCl (Ultram Tab) 50 mg Q6 PRN PO 03/07/18 14:00 04/06/18 13:59 03/09/18 14:23 50 MG Doxycycline Hyclate (Vibramycin Cap) 100 mg Q12H PO 03/08/18 21:00 03/16/18 20:59 03/09/18 08:22 100 MG Phenazopyridine HCl (Pyridium Tab) 200 mg QID PO 03/08/18 17:00 04/05/18 17:14 03/09/18 17:10 200 MG Physical Exam Date Time Temp Pulse Resp B/P (MAP) Pulse Ox O2 Delivery O2 Flow Rate FiO2 03/09/18 16:00 Nasal Cannula 2.0 03/09/18 15:30 36.6 106 20 191/92 (125) 87 Nasal Cannula 3.0 03/09/18 08:30 Room Air 03/09/18 07:16 36.6 82 16 138/78 (98) 91 03/09/18 04:36 37.0 92 16 138/71 (93) 93 Nasal Cannula 2.0 03/09/18 00:00 Room Air 03/08/18 23:27 37.3 104 20 170/71 (104) 90 Nasal Cannula 2.0 03/08/18 21:34 96 147/70 (95) 03/08/18 20:00 Room Air Laboratory Results Last 24 Hours Test 03/08/18 20:24 03/09/18 05:14 03/09/18 07:33 03/09/18 11:48 Bedside Glucose 117 mg/dl 111 mg/dl 144 mg/dl Creatinine 3.49 mg/dl Est Creatinine Clear Calc Drug Dose 17.3 ml/min Estimated GFR () 18.2 Estimated GFR (Non- 15.7 Test 03/09/18 16:29 Bedside Glucose 176 mg/dl
[2018-03-09 19:50] VITALS: BP_SYST 190; BP_DIAS 81; BP_DIAS 99; PULSE 107; TEMP 36.7; O2SAT 91
--- NOTE | 2018-03-09 20:26 | Progress Note ---
Medicine Progress Note Date & Time of Visit: Mar 09, 2018 at 11:10. Subjective Pt was seen and examined Lying in bed seems to be in less pain 1:1 observation Pt said that he does have bladder pain on/off diarrhea improves Discussed with patient about SNF, pt said that he does not want to go Denies any chest pain, palpitation, dizziness and SOB Objective Last 8 Hrs Date Time Temp Pulse Resp B/P (MAP) Pulse Ox O2 Delivery O2 Flow Rate FiO2 03/09/18 19:50 36.7 107 20 190/99 (129) 91 Nasal Cannula 5.0 190/81 (117) 03/09/18 16:00 Nasal Cannula 2.0 03/09/18 15:30 36.6 106 20 191/92 (125) 87 Nasal Cannula 3.0 Physical Exam: General- No acute distress Head- atraumatic Eyes- PERRL, EOMI ENT- oropharynx clear Neck- supple, no JVD Lungs- clear to auscultation Heart- regular rhythm Abdomen- normal bowel sounds,tender in hypogastric area with palpation Pelvis- Suprapubic tenderness Extremities- no calf tenderness, Dressing in LLE Neuro- alert, oriented PERRL Skin- warm & dry, mild erythema in left LE Laboratory Results: Last 24 Hours Test 03/08/18 20:24 03/09/18 05:14 03/09/18 07:33 03/09/18 11:48 Bedside Glucose 117 mg/dl 111 mg/dl 144 mg/dl Creatinine 3.49 mg/dl Est Creatinine Clear Calc Drug Dose 17.3 ml/min Estimated GFR () 18.2 Estimated GFR (Non- 15.7 Test 03/09/18 16:29 Bedside Glucose 176 mg/dl Assessment & Plan VILMA ON CKD STAGE III Present to the ER with hematuria Creatinine on admission 2.7 Creatine worsening to 3.4 Continue IVF Avoid nephrotoxic agents Continue to hold lasix Renal U/S showed mild bilateral pelvocaliectasis. Mild bilateral hydronephrosis cannot be excluded. Nephrology consulted LEFT LOWER EXTREMITY CELLULITIS Left lower extremity erythema and fluid filled blisters on admission WBC elevated on admission 18K, trending down to 16K Erythema improves Received Vanco IV in the ER Received Zosyn and Vanco IV Wound culture grew staph species continue doxycycline Blood cx no growth HEMATURIA URINARY RETENTION Due to bladder cancer Mostly related due to trauma from the Bruner urology on board recommended to continue follow and do not attempt any intervention Monitor hemoglobin case discussed with urology team, recommended for for possible straight cath since bruner causing pain Do not think patient or daughter will be able to straight cath him Will need to manage at a SNF POSSIBLE UTI was supposed to start on Keflex as an outpatient, but never crab picker the script. UA negative and urine cx no growth Afebrile Elevated WBC Continue monitor C. DIFFICILE Diagnosed at [facility] Denies any diarrhea Was discharged on metronidazole however prescription was not picked up from the pharmacy Continue oral vancomycin 125 every 6 hours Diarrhea improved HISTORY OF BLADDER CANCER WITH POSSIBLE LUNG METASTASES Follows with Dr. Velásquez Currently receiving gemcitabine weekly Not a candidate for radiation therapy due to prior prostate cancer Poor prognosis Continue to have bladder pain Will add percocet prn Oncology on board and recommended no additional systemic chemotherapy. Will focus on supportive therapy palliative care consult ELEVATED D-DIMER V/Q scan normal Doppler LE negative for DVT Saturated well on RA HISTORY OF CORONARY ARTERY DISEASE asymptomatic Continue aspirin and beta-boogie DIABETES Hgb A1c 5.9 01/2018 Hold oral agents On NovoLog per protocol while hospitalized DVT PROPHYLAXIS SCDs due to hematuria CODE STATUS FULL CODE DISPOSITION Will discharge once medically stable Current Inpatient Medications: Current Inpatient Medications Medications (Trade) Dose Ordered Sig/Kailash Route Start Time Stop Time Status Last Admin Dose Admin Ioversol (Optiray 300) 100 ml UD PRN IV 03/06/18 14:45 03/10/18 14:44 Ondansetron HCl (Zofran Inj) 4 mg Q6H PRN IV 03/06/18 17:00 04/05/18 16:59 Sodium Chloride 1,000 ml @ 100 mls/hr Q10H IV 03/06/18 17:00 04/05/18 16:59 03/09/18 11:18 100 MLS/HR Insulin Aspart (novoLOG ASPART) SLIDING SCALE If C... ACHS SC 03/06/18 21:00 04/05/18 20:59 03/09/18 18:10 4 UNITS Glucose (Glucose 40% Gel) 15-30 GRAMS 15 GRAMS... UD PRN PO 03/06/18 17:15 04/05/18 17:14 Glucose (Glucose Chew Tab) 4-8 Tablets 4 Tabl... UD PRN PO 03/06/18 17:15 04/05/18 17:14 Dextrose (Dextrose 50% 50ML Syringe) 25-50ML OF 50% DW IV FOR... UD PRN IV 03/06/18 17:15 04/05/18 17:14 Glucagon (Glucagon Inj) 1 mg UD PRN SQ 03/06/18 17:15 04/05/18 17:14 Aspirin (Ecotrin Tab) 81 mg DAILY PO 03/07/18 08:00 04/06/18 08:59 03/09/18 08:22 81 MG Carvedilol (Coreg Tab) 6.25 mg BID PO 03/06/18 20:00 04/05/18 20:59 03/09/18 19:44 6.25 MG Cholecalciferol (Vitamin D Tab) 2,000 inter.unit QAM PO 03/07/18 08:00 04/06/18 08:59 03/09/18 08:21 2,000 INTER.UNIT Latanoprost (Xalatan Oph Soln) 1 drops HS OP 03/06/18 21:00 04/05/18 20:59 03/08/18 21:38 1 DROPS Pantoprazole Sodium (Protonix Tab) 40 mg QAM PO 03/07/18 08:00 04/06/18 08:59 03/09/18 08:22 40 MG Sertraline HCl (Zoloft Tab) 50 mg DAILY PO 03/07/18 08:00 04/06/18 08:59 03/09/18 08:21 50 MG Trazodone HCl (Desyrel Tab) 25 mg QPM PO 03/06/18 21:00 04/05/18 20:59 03/08/18 21:36 25 MG Vancomycin HCl (Vancomycin Oral Soln) 125 mg Q6H PO 03/06/18 21:00 03/20/18 20:59 03/09/18 14:46 125 MG Raspberry (Raspberry Syrup 5ml Cup) 5 ml Q6H PO 03/06/18 21:00 03/20/18 20:59 03/09/18 14:46 5 ML Acetaminophen (Tylenol Tab) 1,000 mg Q8H PO 03/07/18 04:00 04/06/18 03:59 03/09/18 12:14 1,000 MG Tramadol HCl (Ultram Tab) 50 mg Q6 PRN PO 03/07/18 14:00 04/06/18 13:59 03/09/18 14:23 50 MG Doxycycline Hyclate (Vibramycin Cap) 100 mg Q12H PO 03/08/18 21:00 03/16/18 20:59 03/09/18 08:22 100 MG Phenazopyridine HCl (Pyridium Tab) 200 mg QID PO 03/08/18 17:00 04/05/18 17:14 03/09/18 19:44 200 MG Morphine Sulfate (MoRPHine SULFATE INJ) 2 mg Q6H PRN IV 03/09/18 20:15 03/23/18 20:14 UNV
[2018-03-09] MEDS: ONDANSETRON INJ 2 MG/ML 2 ML VIAL IV PRN (20:50)
[2018-03-09] MEDS: TRAZODONE HCL 50 MG TAB PO SCH (20:52)
[2018-03-09] MEDS: LATANOPROST 0.005% OP SOLN 2.5 ML BTL OP SCH (20:52)
[2018-03-09 23:21] VITALS: BP 181/76; PULSE 98; TEMP 37.5; O2SAT 92
[2018-03-09 23:30] VITALS: O2SAT 92
[2018-03-10] MEDS: OXYCODONE/ACETAMINOPHEN 5-325 TAB PO PRN ×3 (00:45→14:33)
[2018-03-10] MEDS: VANCOMYCIN HCL 125 MG/2.5ML SOLN PO SCH ×4 (03:01→20:21)
[2018-03-10] MEDS: RASPBERRY SYRUP 5 ML UDP PO SCH ×4 (03:01→20:11)
[2018-03-10] MEDS: TRAMADOL HCL 50 MG TAB PO PRN (03:02)
[2018-03-10 04:03] VITALS: BP 156/69; TEMP 36.7; O2SAT 95
[2018-03-10 06:16] LABS: HEMATOCRIT 32.9 % (42-52); HEMOGLOBIN 10.1 g/dL (14.0-18.0); MEAN CELL VOLUME 95.4 fL (80-100); MEAN CORPUSCULAR HEMOGLOBIN 29.3 pg (25-34); MEAN CORPUSCULAR HGB CONC 30.7 g/dl (32-36); MEAN PLATELET VOLUME 9.7 fL (7.4-10.4); PLATELET COUNT 303 K/uL (130-400); RED CELL DISTRIBUTION WIDTH CV 15.2 % (11.5-14.5); RED CELL DISTRIBUTION WIDTH SD 52.5 fL (36.4-46.3); WHITE BLOOD COUNT 20.22 K/uL (4.8-10.8)
[2018-03-10 06:49] LABS: CALCIUM 8.2 mg/dl (8.5-10.1); CREATININE 3.59 mg/dl (0.60-1.40); POTASSIUM 4.4 mmol/L (3.5-5.1)
[2018-03-10] MEDS: MoRPHine SULFATE 2 MG/ML CARP IV PRN ×2 (07:18→18:19)
[2018-03-10] MEDS: CHOLECALCIFEROL 1000 INTER.UNIT TAB PO SCH (07:23)
[2018-03-10] MEDS: PANTOprazole SOD 40 MG TAB PO SCH (07:24)
[2018-03-10] MEDS: PHENAZOPYRIDINE HCL 200 MG TAB PO SCH ×4 (07:24→20:09)
[2018-03-10] MEDS: ASPIRIN 81 MG ECTAB PO SCH (07:24)
[2018-03-10] MEDS: SERTRALINE HCL 50 MG TAB PO SCH (07:24)
[2018-03-10] MEDS: SODIUM CHLORIDE 0.9% 1000ML 1,000 ML IV SCH ×2 (07:31→20:10)
[2018-03-10 08:01] VITALS: BP 158/80; PULSE 94; TEMP 36.8; O2SAT 92
[2018-03-10] MEDS: CARVEDILOL 6.25 MG TAB PO SCH ×2 (08:47→20:09)
[2018-03-10] MEDS: DOXYCYCLINE HYCLATE 100 MG CAP PO SCH ×2 (08:48→20:10)
[2018-03-10] MEDS: INSULIN ASPART 100 UNITS/ML 3 ML PEN SC SCH ×4 (09:19→20:19)
--- NOTE | 2018-03-10 09:27 | NEPHROLOGY CONSULTATION ---
DATE OF CONSULTATION: 03/10/2018 ATTENDING OF RECORD: Dr. Auguste. REASON FOR CONSULTATION: VILMA. HISTORY OF PRESENT ILLNESS: This 78-year-old male was admitted with hematuria. Does have a chronic indwelling Puri. Patient also with recent history of urinary tract infection as well as C. diff. The patient does have a significant history of bladder cancer as well as prostate cancer. The patient's creatinine on admission was 2.74, started to climb and is now up to 3.59 despite getting IV fluids. No NSAIDs. No contrast. No nephrotoxic antibiotics. Renal ultrasound does show mild bilateral pelvocaliectasis, mild bilateral hydro with some increased echogenicity and mild splenomegaly. The patient is somewhat confused, not knowing the year or the president. Appetite is decreased. Tolerating the IV fluids well. PAST MEDICAL AND SURGICAL HISTORY: Bladder cancer, prostate cancer, hypertension, diabetes, CKD stage III, heart disease, history of bypass surgery to the heart. FAMILY HISTORY: No renal disease in family. SOCIAL HISTORY: Former smoker, no alcohol, no drugs. CURRENT MEDICATIONS: Doxycycline 100 mg p.o. q. 12, Pyridium 200 mg 4 times a day, aspirin 81 mg a day, vitamin D 2000 units a day, Protonix 40 mg a day, Zoloft 50 mg a day, sliding scale insulin, Trazodone 25 mg at night. Oral vancomycin 125 mg q. 6 hours, raspberry syrup 5 mL q. 6 hours, Coreg 6.25 mg p.o. b.i.d., normal saline 100 mL an hour. REVIEW OF SYSTEMS: The patient is complaining of decreased appetite, nausea, vomiting, diarrhea, bladder pain and tenderness to the legs. No headaches, no blurry vision. No chest pain or shortness of breath. All other review of systems otherwise negative. PHYSICAL EXAMINATION: VITAL SIGNS: Temperature 37, pulse 94, respiratory rate 20, blood pressure 158/80, satting 92% on 5 liters nasal cannula. GENERAL: Awake, alert, oriented x2. HEENT: Moist mucous membranes. NECK: Supple. PULMONARY: Clear to auscultation. CARDIAC: Regular rate and rhythm. ABDOMEN: Bowel sounds positive. Has some tenderness to the lower abdomen. EXTREMITIES: Mild edema. NEUROLOGIC: Nonfocal. GENITOURINARY: Positive Puri with some dark urine. LABORATORIES: Sodium is 142, potassium is 4.4, chloride is 115, bicarbonate is 21, BUN is 32, creatinine is 3.59, glucose is 114, calcium is 8.2. White count is 20. H and H 10 and 32, platelet count is 303. Vancomycin level is 12. UA shows a specific gravity of 1.012, greater than 30 RBCs, 5-10 WBCs. D-dimer is 31-40. Blood cultures negative. Urine cultures negative. ASSESSMENT AND PLAN: Acute kidney injury, nonoliguric; however urinating less each day initially 2 liters out, then, 950 then 875. Continue the aggressive IV fluids. Unclear etiology to the acute kidney injury may have had some mild acute tubular necrosis like episode, given the patient's bladder cancer with possible mild bilateral hydro, greatly appreciate urology's help. No hemodynamic compromise. No contrast. No NSAIDs. Hopefully, creatinine eventually starts to peak and eventually starts to improve. No indication for emergent dialysis at this time; however, given the patient's age and comorbidities with worsening kidney function, the patient overall has a poor prognosis. For now, continue conservative measures with IV fluids. Monitoring kidney function. We would like to see the creatinine trending down for 2 consecutive days before considering sending home. I appreciate consultation.
--- NOTE | 2018-03-10 09:30 | Progress Note ---
Subjective Date of Service: Mar 10, 2018. Subjective Pt evaluation today including: conversation w/ patient, chart review, lab review Voiding: bruner catheter in place (patent, draining orange colored urine ) 78 yo male with bladder cancer. Pt c/o severe lower abdominal pain and cramping this morning. + nausea. Denies vomiting. Problem List Medical Problems: (1) VILMA (acute kidney injury) Status: Acute (2) Altered mental status Status: Acute (3) Bladder cancer Status: Acute (4) Cellulitis Status: Acute (5) Fall Status: Acute (6) Gross hematuria Status: Acute (7) Sepsis Status: Acute (8) UTI (urinary tract infection) Status: Acute (9) UTI (urinary tract infection) Status: Acute Review of Systems Constitutional: No fever, No chills Respiratory: No shortness of breath Cardiac: No chest pain Abdomen: + see HPI, + pain, + nausea, No vomiting Male : + hematuria Heme: No abnormal bleeding/bruising Objective Vital Signs Date Time Temp Pulse Resp B/P (MAP) Pulse Ox O2 Delivery O2 Flow Rate FiO2 03/10/18 08:01 36.8 94 20 158/80 (106) 92 5.0 03/10/18 08:00 Room Air 03/10/18 04:03 36.7 18 156/69 (98) 95 Nasal Cannula 5.0 03/09/18 23:30 92 Nasal Cannula 5.0 03/09/18 23:21 37.5 98 20 181/76 (111) 92 Nasal Cannula 5.0 03/09/18 19:50 36.7 107 20 190/99 (129) 91 Nasal Cannula 5.0 190/81 (117) 03/09/18 16:00 Nasal Cannula 2.0 03/09/18 15:30 36.6 106 20 191/92 (125) 87 Nasal Cannula 3.0 Physical Exam General Appearance: + moderate distress, + obese Eyes: normal inspection ENT: hearing grossly normal Neck: no JVD Respiratory/Chest: no respiratory distress, no accessory muscle use Cardiovascular: no JVD Extremities: normal inspection Neurologic/Psychiatric: alert, oriented x 3 Skin: normal color Laboratory Results Last 24 Hours Test 03/09/18 11:48 03/09/18 16:29 03/09/18 20:21 03/10/18 05:39 Bedside Glucose 144 mg/dl 176 mg/dl 149 mg/dl White Blood Count 20.22 K/uL Red Blood Count 3.45 M/uL Hemoglobin 10.1 g/dL Hematocrit 32.9 % Mean Corpuscular Volume 95.4 fL Mean Corpuscular Hemoglobin 29.3 pg Mean Corpuscular Hemoglobin Concent 30.7 g/dl RDW Standard Deviation 52.5 fL RDW Coefficient of Variation 15.2 % Platelet Count 303 K/uL Mean Platelet Volume 9.7 fL Sodium Level 142 mmol/L Potassium Level 4.4 mmol/L Chloride Level 115 mmol/L Carbon Dioxide Level 21 mmol/L Anion Gap 6.0 mmol/L Blood Urea Nitrogen 32 mg/dl Creatinine 3.59 mg/dl Est Creatinine Clear Calc Drug Dose 17.5 ml/min Estimated GFR () 17.6 Estimated GFR (Non- 15.2 BUN/Creatinine Ratio 8.9 Random Glucose 114 mg/dl Calcium Level 8.2 mg/dl Test 03/10/18 07:36 Bedside Glucose 106 mg/dl Assessment and Plan A/P: Bladder and prostate cancer, gross hematuria, ARF AFVSS. Noted rise in Cr and white count this morning or 20.22 and 3.59. Oncology consult noted. Palliative care and supportive management have been recommended. Palliative care consulted. I suspect the pt's pain is r/t bladder spasms this morning. Continue Pyridium. Will also add in oxybutynin 5mg BID PRN as well as one dose of B&O suppository for pain. Monitor for worsening confusion with oxybutynin. Will also d/c bruner catheter. Start CIC q6hrs. The pt will need to continue CIC indefinitely. This will be better for him in the long run considering his periods of confusion and hx of pulling out his own catheter. Will continue to follow along with primary service.
[2018-03-10] MEDS ORDERED: BELLADONNA/OPIUM SUPP 60 MG SUPP PR ONE (09:37)
--- NOTE | 2018-03-10 09:53 | Palliative Care Progress Note ---
Palliative Care Progress Note Date of Service Mar 10, 2018. Subjective Reviewed patient's chart, studies and recent lab work. Spoke with patient. Patient has one-to-one sitter at bedside. Patient is alert and oriented to self , he was unable to say that he was in the hospital but did state that he was in [place]. He did give the correct year as 2017 but the month was June. When asked about his previously stated wishes regarding intubation and resuscitation patient just shrugged his shoulders and stated that he leaves those kind decisions up to his daughter. Attempted to call daughter, no answer left a message at [phone] for her to call me back on my cell phone. Plan to meet with daughter to discuss CODE STATUS, and goals of care. Objective Vital Signs Date Time Temp Pulse Resp B/P (MAP) Pulse Ox O2 Delivery O2 Flow Rate FiO2 03/10/18 08:01 36.8 94 20 158/80 (106) 92 5.0 03/10/18 08:00 Room Air 03/10/18 04:03 36.7 18 156/69 (98) 95 Nasal Cannula 5.0 03/09/18 23:30 92 Nasal Cannula 5.0 03/09/18 23:21 37.5 98 20 181/76 (111) 92 Nasal Cannula 5.0 03/09/18 19:50 36.7 107 20 190/99 (129) 91 Nasal Cannula 5.0 190/81 (117) 03/09/18 16:00 Nasal Cannula 2.0 03/09/18 15:30 36.6 106 20 191/92 (125) 87 Nasal Cannula 3.0 Laboratory Results Last 24 Hours Test 03/09/18 11:48 03/09/18 16:29 03/09/18 20:21 03/10/18 05:39 Bedside Glucose 144 mg/dl 176 mg/dl 149 mg/dl White Blood Count 20.22 K/uL Red Blood Count 3.45 M/uL Hemoglobin 10.1 g/dL Hematocrit 32.9 % Mean Corpuscular Volume 95.4 fL Mean Corpuscular Hemoglobin 29.3 pg Mean Corpuscular Hemoglobin Concent 30.7 g/dl RDW Standard Deviation 52.5 fL RDW Coefficient of Variation 15.2 % Platelet Count 303 K/uL Mean Platelet Volume 9.7 fL Sodium Level 142 mmol/L Potassium Level 4.4 mmol/L Chloride Level 115 mmol/L Carbon Dioxide Level 21 mmol/L Anion Gap 6.0 mmol/L Blood Urea Nitrogen 32 mg/dl Creatinine 3.59 mg/dl Est Creatinine Clear Calc Drug Dose 17.5 ml/min Estimated GFR () 17.6 Estimated GFR (Non- 15.2 BUN/Creatinine Ratio 8.9 Random Glucose 114 mg/dl Calcium Level 8.2 mg/dl Test 03/10/18 07:36 Bedside Glucose 106 mg/dl
[2018-03-10] MEDS: OXYBUTYNIN CHLORIDE 5 MG TAB PO PRN ×2 (10:13→20:44)
--- NOTE | 2018-03-10 11:01 | Clinical Documentation Query ---
ALEX Mi : CLINICAL DOCUMENTATION QUERY Patient is a 78 year old male admitted for evaluation of VILMA on CKD III, LLE cellulitis, possible UTI, hematuria, and C.Difficile. Please explicitly specify the condition being treated in regards to "C.Difficile", as this cannot be assumed to be related to colitis/enteritis. Thank you. In your clinical opinion is this patient being managed for: ( ) Enterocolitis due to Clostridium difficile ( x ) Not Agree ( ) Other explanation of clinical findings (Please Explain) ( ) Unable to determine (Please Define) ( ) Need to Discuss The medical record reflects the following clinical findings, treatment, and risk factors. Clinical Indicators: As above Treatment: Handwashing precautions, oral Vancomycin Risk Factors: Recent diagnosis at [facility]. Please clarify and document your clinical opinion in the progress notes and discharge summary. Terms such as "probable", "suspected", "likely", "questionable", "possible", or "still to be ruled out" are acceptable. IF IN AGREEMENT, YOU MUST DOCUMENT ABOVE DIAGNOSTIC STATEMENT IN DAILY PROGRESS NOTES AND DISCHARGE SUMMARY. This document is not part of the patient's record. Thank You, Tamir Ordonez, RN [phone]
[2018-03-10 12:54] VITALS: BP 131/69; PULSE 76; TEMP 36.7; O2SAT 93
[2018-03-10 15:33] VITALS: BP 144/92; PULSE 87; TEMP 36.9; O2SAT 92
[2018-03-10] MEDS: BELLADONNA/OPIUM SUPP 60 MG SUPP PR PRN (17:30)
--- NOTE | 2018-03-10 17:42 | Progress Note ---
Internal Med Progress Note Date of Service: Mar 10, 2018. Provider Documentation: SUBJECTIVE: Catheter removed earlier today as per urology recommendation Continue to have bladder spasm on Pyridium /B and O suppository as needed Patient appear to be more lucid today Complaints of suprapubic discomfort No fever or chills OBJECTIVE: Vital Signs-as noted below Exam: General- No acute distress Head- atraumatic Eyes- PERRL, EOMI ENT- oropharynx clear Neck- supple, no JVD Lungs- clear to auscultation Heart- regular rhythm Abdomen- normal bowel sounds,tender in hypogastric area with palpation Pelvis- Suprapubic tenderness Extremities- no calf tenderness, Dressing in LLE Neuro- alert, oriented PERRL Skin- warm & dry, mild erythema in left LE Lab data as noted below. ASSESSMENT & PLAN: VILMA ON CKD STAGE III Presented to the ER with hematuria Creatinine on admission 2.7 Creatine worsening to 3.4 Continue IVF Avoid nephrotoxic agents Continue to hold lasix Renal U/S showed mild bilateral pelvocaliectasis. Mild bilateral hydronephrosis cannot be excluded. Nephrology consulted-appreciate input LEFT LOWER EXTREMITY CELLULITIS Left lower extremity erythema and fluid filled blisters on admission WBC elevated on admission 18K, trending down to 16K Erythema improves Received Zosyn and Vanco IV Wound culture grew staph species MSSA IV antibiotic discontinue continue p.o. doxycycline Blood cx no growth HEMATURIA URINARY RETENTION Due to bladder cancer Mostly related due to trauma from the Puri Appreciate input from urology recommended to DC catheter and intermittent straight cath POSSIBLE UTI was supposed to start on Keflex as an outpatient, but never pickle maker the script. UA negative and urine cx no growth Afebrile Elevated WBC Continue monitor C. DIFFICILE Diagnosed at [facility] Denies any diarrhea Was discharged on metronidazole however prescription was not picked up from the pharmacy Continue oral vancomycin 125 every 6 hours Diarrhea improved HISTORY OF BLADDER CANCER WITH POSSIBLE LUNG METASTASIS Poor prognosis Continue to have bladder pain ON Percocet prn Oncology on board and recommended no additional systemic chemotherapy. palliative care consult appreciated ELEVATED D-DIMER V/Q scan normal Doppler LE negative for DVT HISTORY OF CORONARY ARTERY DISEASE asymptomatic Continue aspirin and beta-boogie DIABETES Hgb A1c 5.9 01/2018 Hold oral agents On NovoLog per protocol while hospitalized DVT PROPHYLAXIS SCDs due to hematuria CODE STATUS FULL CODE Continue discussion with family to address CODE STATUS as patient's overall prognosis remains extremely poor DISPOSITION To be determined Vital Signs: Date Time Temp Pulse Resp B/P (MAP) Pulse Ox O2 Delivery O2 Flow Rate FiO2 03/11/18 03:05 37.2 113 20 157/92 (113) 91 Nasal Cannula 6.0 03/11/18 02:50 37.2 118 20 168/79 (108) 89 Nasal Cannula 6.0 03/11/18 00:01 Room Air 6.0 88 03/10/18 22:32 37.0 107 20 168/97 (120) 91 Nasal Cannula 5.0 03/10/18 18:48 36.3 104 22 170/66 (100) 90 Nasal Cannula 5.0 03/10/18 16:00 Nasal Cannula 2.0 03/10/18 15:33 36.9 87 18 144/92 (109) 92 Nasal Cannula 5.0 03/10/18 12:54 36.7 76 20 131/69 (89) 93 03/10/18 08:01 36.8 94 20 158/80 (106) 92 5.0 03/10/18 08:00 Room Air Lab Results: Results Past 24 Hours Test 03/10/18 05:39 03/10/18 07:36 03/10/18 12:49 03/10/18 16:29 Range/Units White Blood Count 20.22 4.8-10.8 K/uL Red Blood Count 3.45 4.7-6.1 M/uL Hemoglobin 10.1 14.0-18.0 g/dL Hematocrit 32.9 42-52 % Mean Corpuscular Volume 95.4 80-100 fL Mean Corpuscular Hemoglobin 29.3 25-34 pg Mean Corpuscular Hemoglobin Concent 30.7 32-36 g/dl RDW Standard Deviation 52.5 36.4-46.3 fL RDW Coefficient of Variation 15.2 11.5-14.5 % Platelet Count 303 130-400 K/uL Mean Platelet Volume 9.7 7.4-10.4 fL Sodium Level 142 136-145 mmol/L Potassium Level 4.4 3.5-5.1 mmol/L Chloride Level 115 98-107 mmol/L Carbon Dioxide Level 21 21-32 mmol/L Anion Gap 6.0 3-11 mmol/L Blood Urea Nitrogen 32 7-18 mg/dl Creatinine 3.59 0.60-1.40 mg/dl Est Creatinine Clear Calc Drug Dose 17.5 ml/min Estimated GFR () 17.6 Estimated GFR (Non- 15.2 BUN/Creatinine Ratio 8.9 10-20 Random Glucose 114 70-99 mg/dl Calcium Level 8.2 8.5-10.1 mg/dl Bedside Glucose 106 140 149 70-99 mg/dl Test 03/10/18 19:35 Range/Units Bedside Glucose 156 70-99 mg/dl
[2018-03-10 18:48] VITALS: BP 170/66; PULSE 104; TEMP 36.3; O2SAT 90
[2018-03-10] MEDS: ONDANSETRON INJ 2 MG/ML 2 ML VIAL IV PRN (18:48)
[2018-03-10] MEDS: TRAZODONE HCL 50 MG TAB PO SCH (20:10)
[2018-03-10] MEDS: LATANOPROST 0.005% OP SOLN 2.5 ML BTL OP SCH (20:11)
[2018-03-10 22:32] VITALS: BP 168/97; PULSE 107; TEMP 37; O2SAT 91
[2018-03-10] MEDS ORDERED: MoRPHine SULFATE 2 MG/ML CARP IV STA (23:07)
[2018-03-11] VITALS (7 sets, daily range): BP systolic 110–170; BP diastolic 67–92; PULSE 71–118; TEMP 36.6–37.2; O2SAT 89–95
[2018-03-11] MEDS: OXYCODONE/ACETAMINOPHEN 5-325 TAB PO PRN ×3 (02:10→20:55)
[2018-03-11] MEDS: RASPBERRY SYRUP 5 ML UDP PO SCH ×4 (02:12→20:51)
[2018-03-11] MEDS: VANCOMYCIN HCL 125 MG/2.5ML SOLN PO SCH ×4 (02:12→20:51)
[2018-03-11] MEDS: MoRPHine SULFATE 2 MG/ML CARP IV PRN ×2 (03:53→14:28)
[2018-03-11 06:09] LABS: HEMATOCRIT 32.6 % (42-52); HEMOGLOBIN 9.8 g/dL (14.0-18.0); MEAN CELL VOLUME 96.4 fL (80-100); MEAN CORPUSCULAR HGB CONC 30.1 g/dl (32-36); MEAN PLATELET VOLUME 9.7 fL (7.4-10.4); PLATELET COUNT 322 K/uL (130-400); RED CELL DISTRIBUTION WIDTH CV 15.5 % (11.5-14.5); WHITE BLOOD COUNT 25.44 K/uL (4.8-10.8)
[2018-03-11] MEDS: BELLADONNA/OPIUM SUPP 60 MG SUPP PR PRN ×2 (06:23→16:10)
[2018-03-11 06:34] LABS: CALCIUM 8.5 mg/dl (8.5-10.1); CREATININE 3.45 mg/dl (0.60-1.40); POTASSIUM 4.9 mmol/L (3.5-5.1)
--- NOTE | 2018-03-11 07:07 | DIAGNOSTIC IMAGING REPORT ---
CHEST ONE VIEW PORTABLE CLINICAL HISTORY: congestion dyspnea COMPARISON STUDY: 03/06/2018 FINDINGS: Increase in cardiac size. Median sternotomy. Radiographic findings of congestive heart failure. Small left pleural effusion. IMPRESSION: Congestive heart failure. This is progressive from the prior study. The above report was generated using voice recognition software. It may contain grammatical, syntax or spelling errors. Electronically signed by: Michel Villafana M.D. 03/11/2018 7:05 AM Dictated Date/Time: 03/11/2018 7:05 AM
[2018-03-11] MEDS: OXYBUTYNIN CHLORIDE 5 MG TAB PO PRN ×2 (08:05→20:51)
[2018-03-11] MEDS: CHOLECALCIFEROL 1000 INTER.UNIT TAB PO SCH (08:05)
[2018-03-11] MEDS: CARVEDILOL 6.25 MG TAB PO SCH ×2 (08:05→20:52)
[2018-03-11] MEDS: SERTRALINE HCL 50 MG TAB PO SCH (08:05)
[2018-03-11] MEDS: PANTOprazole SOD 40 MG TAB PO SCH (08:06)
[2018-03-11] MEDS: PHENAZOPYRIDINE HCL 200 MG TAB PO SCH ×4 (08:06→20:53)
[2018-03-11] MEDS: DOXYCYCLINE HYCLATE 100 MG CAP PO SCH ×2 (08:12→20:53)
[2018-03-11] MEDS: ONDANSETRON INJ 2 MG/ML 2 ML VIAL IV PRN (08:16)
--- NOTE | 2018-03-11 08:51 | Progress Note ---
Subjective Date of Service: Mar 11, 2018. Subjective Pt evaluation today including: conversation w/ patient, chart review, lab review Voiding: incontinence 78 yo male with bladder cancer. Pt continues to c/o lower abdominal pain. Bruner catheter removed yesterday. Pt has been mostly incontinent. PVRs have been 0ml. He has not required straight cath. Per RN, pt vomited last evening and O2 sat dropped to 53 off O2 last evening. Pt noted to have removed his own oxygen when I entered the room. Chest x-ray this morning demonstrates worsening CHF. The pt remains somewhat confused. Problem List Medical Problems: (1) VILMA (acute kidney injury) Status: Acute (2) Altered mental status Status: Acute (3) Bladder cancer Status: Acute (4) Cellulitis Status: Acute (5) Fall Status: Acute (6) Gross hematuria Status: Acute (7) Sepsis Status: Acute (8) UTI (urinary tract infection) Status: Acute (9) UTI (urinary tract infection) Status: Acute Review of Systems Pt c/o pain, but unable to completely answer other questions d/t slight confusion. Objective Vital Signs Date Time Temp Pulse Resp B/P (MAP) Pulse Ox O2 Delivery O2 Flow Rate FiO2 03/11/18 07:16 37.2 71 16 138/74 (95) 92 Nasal Cannula 6.0 03/11/18 03:05 37.2 113 20 157/92 (113) 91 Nasal Cannula 6.0 03/11/18 02:50 37.2 118 20 168/79 (108) 89 Nasal Cannula 6.0 03/11/18 00:01 Room Air 6.0 88 03/10/18 22:32 37.0 107 20 168/97 (120) 91 Nasal Cannula 5.0 03/10/18 18:48 36.3 104 22 170/66 (100) 90 Nasal Cannula 5.0 03/10/18 16:00 Nasal Cannula 2.0 03/10/18 15:33 36.9 87 18 144/92 (109) 92 Nasal Cannula 5.0 03/10/18 12:54 36.7 76 20 131/69 (89) 93 Physical Exam General Appearance: no apparent distress Eyes: normal inspection ENT: hearing grossly normal Neck: no JVD Respiratory/Chest: no respiratory distress, no accessory muscle use Cardiovascular: no JVD Extremities: normal inspection Neurologic/Psychiatric: alert, normal mood/affect, + disoriented Skin: normal color Laboratory Results Last 24 Hours Test 03/10/18 12:49 03/10/18 16:29 03/10/18 19:35 03/11/18 05:24 Bedside Glucose 140 mg/dl 149 mg/dl 156 mg/dl White Blood Count 25.44 K/uL Red Blood Count 3.38 M/uL Hemoglobin 9.8 g/dL Hematocrit 32.6 % Mean Corpuscular Volume 96.4 fL Mean Corpuscular Hemoglobin 29.0 pg Mean Corpuscular Hemoglobin Concent 30.1 g/dl RDW Standard Deviation 54.0 fL RDW Coefficient of Variation 15.5 % Platelet Count 322 K/uL Mean Platelet Volume 9.7 fL Sodium Level 141 mmol/L Potassium Level 4.9 mmol/L Chloride Level 115 mmol/L Carbon Dioxide Level 20 mmol/L Anion Gap 7.0 mmol/L Blood Urea Nitrogen 34 mg/dl Creatinine 3.45 mg/dl Est Creatinine Clear Calc Drug Dose 18.3 ml/min Estimated GFR () 18.5 Estimated GFR (Non- 15.9 BUN/Creatinine Ratio 9.9 Random Glucose 160 mg/dl Calcium Level 8.5 mg/dl Test 03/11/18 07:31 Bedside Glucose 144 mg/dl Assessment and Plan A/P: Bladder and prostate cancer, gross hematuria, ARF AFVSS. White count continues to rise at 25.44 this morning. Cr stable at 3.45. Oncology consult noted. Palliative care and supportive management have been recommended. Palliative care consulted. Continue to leave bruner catheter out for now. Bladder scans q6hrs. Straight cath for PVRs >250ml. Continue Pyridium, oxybutynin, and B&O suppositories PRN for bladder spasms. Will continue to follow along with primary service.
[2018-03-11] MEDS: INSULIN ASPART 100 UNITS/ML 3 ML PEN SC SCH ×4 (08:57→20:53)
--- NOTE | 2018-03-11 13:56 | Palliative Care Consultation ---
Consultation Date of Consultation: Mar 11, 2018. Requesting Physician: Dr. Albert Attending Physician: Dr. Albert Reason for Consultation: Goals of care History of Present Illness Patient is a 78-year-old male who presented to the ED with hematuria. Patient has an extensive history of bladder and prostate CA for which he was receiving Cisplatin; however, this was discontinued by Dr. Madera due to worsening kidney function (most recent creatinine was 3.4). He had a recent admission from -02/13/18 for which he was transferred to [facility] post discharge for continued treatment of a UTI and bacteremia. I saw him at bedside, lying comfortably in the bed. He initially had an indwelling bruner catheter in place, but that was removed and he is now having bladder scans Q6 hrs. He is currently on 6 LNC and his most recent SPO2 92%. Per nursing, his SPO2 dropped into the 50's when his O2 was removed - not sure on the accuracy of this. At this time, goals of care, CODE STATUS and discharge planning need to be addressed - the patient is able to state where he is, but notably has confusion for which I do not feel comfortable having him be the sole decision maker. His daughter, Mecca, is to be coming in today for us to have a meeting - I called and left a message to determine a time - I also advised nursing to contact me when she arrives in order to have a family meeting. The patient's reportedly is currently living with her son (not the patients son) while she recovers from a recent hospitalization. Per friends in the room, the patients typically cares for the patient, but has declined and they do not feel she would be able to do so upon his return home. The patient has been increasingly confused and has required a 1:1 for safety. Sondra Orellana from [facility] happened to walk in when I was walking out of the room. I stated that we would be having a family meeting to discuss goals of care and determine next steps. She stated that due to patient's level of confusion that she would come back tomorrow to evaluate. Past Medical/Surgical History Medical History: Prostate CA, Bladder CA, bladder spasms, CAD s/p CABG, C-diff Social History Smoking Status: Former Smoker History of Alcohol Use: No Review of Systems Abdomen: + pain (patient states that everything hurts and that ) patient denies CP, SOB, dizziness, ROSARIO, swelling Allergies Coded Allergies: No Known Allergies (Unverified , 02/11/18) Medications Current Inpatient Medications Medications (Trade) Dose Ordered Sig/Kailash Route Start Time Stop Time Status Last Admin Dose Admin Ondansetron HCl (Zofran Inj) 4 mg Q6H PRN IV 03/06/18 17:00 04/05/18 16:59 03/11/18 08:16 4 MG Insulin Aspart (novoLOG ASPART) SLIDING SCALE If C... ACHS SC 03/06/18 21:00 04/05/18 20:59 03/11/18 08:57 3 UNITS Glucose (Glucose 40% Gel) 15-30 GRAMS 15 GRAMS... UD PRN PO 03/06/18 17:15 04/05/18 17:14 Glucose (Glucose Chew Tab) 4-8 Tablets 4 Tabl... UD PRN PO 03/06/18 17:15 04/05/18 17:14 Dextrose (Dextrose 50% 50ML Syringe) 25-50ML OF 50% DW IV FOR... UD PRN IV 03/06/18 17:15 04/05/18 17:14 Glucagon (Glucagon Inj) 1 mg UD PRN SQ 03/06/18 17:15 04/05/18 17:14 Carvedilol (Coreg Tab) 6.25 mg BID PO 03/06/18 20:00 04/05/18 20:59 03/11/18 08:05 6.25 MG Cholecalciferol (Vitamin D Tab) 2,000 inter.unit QAM PO 03/07/18 08:00 04/06/18 08:59 03/11/18 08:05 2,000 INTER.UNIT Latanoprost (Xalatan Oph Soln) 1 drops HS OP 03/06/18 21:00 04/05/18 20:59 03/10/18 20:11 1 DROPS Pantoprazole Sodium (Protonix Tab) 40 mg QAM PO 03/07/18 08:00 04/06/18 08:59 03/11/18 08:06 40 MG Sertraline HCl (Zoloft Tab) 50 mg DAILY PO 03/07/18 08:00 04/06/18 08:59 03/11/18 08:05 50 MG Trazodone HCl (Desyrel Tab) 25 mg QPM PO 03/06/18 21:00 04/05/18 20:59 03/10/18 20:10 25 MG Vancomycin HCl (Vancomycin Oral Soln) 125 mg Q6H PO 03/06/18 21:00 03/20/18 20:59 03/11/18 08:12 125 MG Raspberry (Raspberry Syrup 5ml Cup) 5 ml Q6H PO 03/06/18 21:00 03/20/18 20:59 03/11/18 08:12 5 ML Doxycycline Hyclate (Vibramycin Cap) 100 mg Q12H PO 03/08/18 21:00 03/16/18 20:59 03/11/18 08:12 100 MG Phenazopyridine HCl (Pyridium Tab) 200 mg QID PO 03/08/18 17:00 04/05/18 17:14 03/11/18 11:58 200 MG Morphine Sulfate (MoRPHine SULFATE INJ) 2 mg Q6H PRN IV 03/09/18 20:15 03/23/18 20:14 03/11/18 03:53 2 MG Oxycodone/ Acetaminophen (Percocet 5-325mg Tab) 1 tab Q8 PRN PO 03/09/18 20:30 03/23/18 20:29 03/11/18 09:55 1 TAB Oxybutynin Chloride (Ditropan Tab) 5 mg BID PRN PO 03/10/18 09:15 04/09/18 09:14 03/11/18 08:05 5 MG Belladonna/Opium (B & O Adult Supp) 60 mg Q6 PRN MI 03/10/18 10:15 03/24/18 10:14 03/11/18 06:23 60 MG Physical Exam Date Time Temp Pulse Resp B/P (MAP) Pulse Ox O2 Delivery O2 Flow Rate FiO2 03/11/18 11:14 36.7 90 20 110/67 (81) 95 Nasal Cannula 6.0 03/11/18 08:10 Room Air 03/11/18 07:16 37.2 71 16 138/74 (95) 92 Nasal Cannula 6.0 03/11/18 03:05 37.2 113 20 157/92 (113) 91 Nasal Cannula 6.0 03/11/18 02:50 37.2 118 20 168/79 (108) 89 Nasal Cannula 6.0 03/11/18 00:01 Room Air 6.0 88 03/10/18 22:32 37.0 107 20 168/97 (120) 91 Nasal Cannula 5.0 03/10/18 18:48 36.3 104 22 170/66 (100) 90 Nasal Cannula 5.0 03/10/18 16:00 Nasal Cannula 2.0 03/10/18 15:33 36.9 87 18 144/92 (109) 92 Nasal Cannula 5.0 General Appearance: no apparent distress Neck: thyroid normal, no JVD Respiratory: no respiratory distress, no accessory muscle use, + decreased breath sounds Cardiovascular: regular rate, rhythm, no edema, no gallop, no JVD Abdomen: normal bowel sounds, non tender, soft Neurologic/Psychiatric: + pertinent finding (oriented to self and location - disoriented to time and situation) Laboratory Results Last 24 Hours Test 03/10/18 16:29 03/10/18 19:35 03/11/18 05:24 03/11/18 07:31 Bedside Glucose 149 mg/dl 156 mg/dl 144 mg/dl White Blood Count 25.44 K/uL Red Blood Count 3.38 M/uL Hemoglobin 9.8 g/dL Hematocrit 32.6 % Mean Corpuscular Volume 96.4 fL Mean Corpuscular Hemoglobin 29.0 pg Mean Corpuscular Hemoglobin Concent 30.1 g/dl RDW Standard Deviation 54.0 fL RDW Coefficient of Variation 15.5 % Platelet Count 322 K/uL Mean Platelet Volume 9.7 fL Sodium Level 141 mmol/L Potassium Level 4.9 mmol/L Chloride Level 115 mmol/L Carbon Dioxide Level 20 mmol/L Anion Gap 7.0 mmol/L Blood Urea Nitrogen 34 mg/dl Creatinine 3.45 mg/dl Est Creatinine Clear Calc Drug Dose 18.3 ml/min Estimated GFR () 18.5 Estimated GFR (Non- 15.9 BUN/Creatinine Ratio 9.9 Random Glucose 160 mg/dl Calcium Level 8.5 mg/dl Pro-B-Type Natriuretic Peptide 51793 pg/ml Test 03/11/18 11:41 Bedside Glucose 226 mg/dl Assessment & Plan Palliative Performance Scale: 40 % Palliative Care Encounter Goals of Care Bladder CA Prostate CA C-Diff DM2 Palliative Care Recommendations: - Continue Percocet for pain PRN - Continue BellaDonna for bladder spasm/incontinence - Discuss goals of care with daughter when she is available today or tomorrow - Discuss CODE STATUS with patient's daughter when available - Continue to keep case management abreast of any developments regarding plan of care
[2018-03-11] MEDS ORDERED: FUROSEMIDE INJ 20 MG in SYRINGE 0 ML IV ONE (14:00)
--- NOTE | 2018-03-11 17:43 | Progress Note ---
Internal Med Progress Note Date of Service: Mar 11, 2018. Provider Documentation: SUBJECTIVE: Continues requiring pain meds for intermittent bladder spasm Puri catheter discontinued OBJECTIVE: Vital Signs-as noted below Exam: General-in distress for abdominal pain Head- atraumatic Eyes- PERRL, EOMI ENT- oropharynx clear Neck- supple, no JVD Lungs- clear to auscultation Heart- regular rhythm Abdomen- normal bowel sounds,tender in hypogastric area with palpation Pelvis- Suprapubic tenderness Extremities- no calf tenderness, Dressing in LLE Neuro- alert, oriented PERRL Skin- warm & dry, mild erythema in left LE Lab data as noted below. ASSESSMENT & PLAN: VILMA ON CKD STAGE III IV fluids discontinued as chest x-ray shows pulmonary congestion Patient developed respiratory distress/hypoxia Given 20 mg of IV Lasix Monitor clinically Renal U/S showed mild bilateral pelvocaliectasis. Mild bilateral hydronephrosis cannot be excluded. Nephrology consulted-appreciate input ACUTE DECOMPENSATION OF CHRONIC DIASTOLIC CHF Developed hypoxia/respiratory distress/positive rales on auscultation Chest x-ray shows question of pulmonary congestion, elevated proBNP more than 24 ,000 Lasix 20 mg 1 dose given IV Continue to monitor volume status LEFT LOWER EXTREMITY CELLULITIS Left lower extremity erythema and fluid filled blisters on admission Marked leukocytosis Received Zosyn and Vanco IV Wound culture grew staph species MSSA IV antibiotic discontinue continue p.o. doxycycline Blood cx no growth HEMATURIA URINARY RETENTION Due to bladder cancer Mostly related due to trauma from the Puri Appreciate input from urology Puri catheter discontinued Recommend intermittent straight cath C. DIFFICILE Diagnosed at [facility] Denies any diarrhea Was discharged on metronidazole however prescription was not picked up from the pharmacy Continue oral vancomycin 125 every 6 hours Diarrhea improved HISTORY OF BLADDER CANCER WITH POSSIBLE LUNG METASTASIS Poor prognosis Continue to have bladder pain ON Percocet prn Oncology on board and recommended no additional systemic chemotherapy. palliative care consult appreciated ELEVATED D-DIMER V/Q scan normal Doppler LE negative for DVT HISTORY OF CORONARY ARTERY DISEASE asymptomatic Continue aspirin and beta-boogie DIABETES Hgb A1c 5.9 01/2018 Hold oral agents On NovoLog per protocol while hospitalized DVT PROPHYLAXIS SCDs due to hematuria CODE STATUS: Full code Very poor prognosis/ continue to discuss with the family member to address CODE STATUS DISPOSITION Patient will need skilled rehab and possible transition to hospice care Left message to daughter and -discuss plan of care Vital Signs: Date Time Temp Pulse Resp B/P (MAP) Pulse Ox O2 Delivery O2 Flow Rate FiO2 03/12/18 16:00 Humidified Oxygen 6.0 Mask 03/12/18 15:38 37.3 103 20 150/74 (99) 92 Oxymask 5.5 03/12/18 11:15 37.8 105 20 125/54 (77) 90 Nasal Cannula 6.0 03/12/18 08:00 92 Nasal Cannula 6.0 03/12/18 07:35 36.8 100 20 146/80 (102) 92 Nasal Cannula 6.0 03/12/18 00:05 Nasal Cannula 6.0 03/12/18 00:03 36.6 105 20 158/98 (118) 90 6.0 03/11/18 19:25 36.9 103 20 170/81 (110) 92 Nasal Cannula 5.0 Lab Results: Results Past 24 Hours Test 03/11/18 20:14 03/12/18 07:40 03/12/18 08:13 03/12/18 11:50 Range/Units Bedside Glucose 150 163 129 70-99 mg/dl Sodium Level 145 136-145 mmol/L Potassium Level 4.8 3.5-5.1 mmol/L Chloride Level 117 98-107 mmol/L Carbon Dioxide Level 19 21-32 mmol/L Anion Gap 9.0 3-11 mmol/L Blood Urea Nitrogen 38 7-18 mg/dl Creatinine 3.39 0.60-1.40 mg/dl Est Creatinine Clear Calc Drug Dose 18.4 ml/min Estimated GFR () 18.9 Estimated GFR (Non- 16.3 BUN/Creatinine Ratio 11.2 10-20 Random Glucose 133 70-99 mg/dl Calcium Level 9.2 8.5-10.1 mg/dl Test 03/12/18 16:20 Range/Units Bedside Glucose 131 70-99 mg/dl
[2018-03-11] MEDS: TRAZODONE HCL 50 MG TAB PO SCH (20:52)
[2018-03-11] MEDS: LATANOPROST 0.005% OP SOLN 2.5 ML BTL OP SCH ×2 (20:53→20:58)
[2018-03-12] VITALS (7 sets, daily range): BP systolic 125–158; BP diastolic 54–98; PULSE 87–105; TEMP 36.6–37.8; O2SAT 90–94
[2018-03-12] MEDS: MoRPHine SULFATE 2 MG/ML CARP IV PRN ×6 (00:47→20:27)
[2018-03-12] MEDS: BELLADONNA/OPIUM SUPP 60 MG SUPP PR PRN ×3 (01:05→17:56)
[2018-03-12] MEDS: ONDANSETRON INJ 2 MG/ML 2 ML VIAL IV PRN ×2 (01:15→20:27)
[2018-03-12] MEDS: RASPBERRY SYRUP 5 ML UDP PO SCH ×4 (03:00→20:34)
[2018-03-12] MEDS: VANCOMYCIN HCL 125 MG/2.5ML SOLN PO SCH ×4 (03:00→20:34)
[2018-03-12] MEDS: OXYCODONE/ACETAMINOPHEN 5-325 TAB PO PRN ×2 (05:26→18:01)
[2018-03-12] MEDS: OXYBUTYNIN CHLORIDE 5 MG TAB PO PRN (08:41)
[2018-03-12] MEDS: SERTRALINE HCL 50 MG TAB PO SCH (08:41)
[2018-03-12] MEDS: DOXYCYCLINE HYCLATE 100 MG CAP PO SCH ×2 (08:42→20:38)
[2018-03-12] MEDS: CHOLECALCIFEROL 1000 INTER.UNIT TAB PO SCH (08:42)
[2018-03-12] MEDS: PHENAZOPYRIDINE HCL 200 MG TAB PO SCH ×4 (08:43→20:28)
[2018-03-12] MEDS: PANTOprazole SOD 40 MG TAB PO SCH (08:43)
[2018-03-12] MEDS: CARVEDILOL 6.25 MG TAB PO SCH ×2 (08:43→20:28)
[2018-03-12] MEDS: INSULIN ASPART 100 UNITS/ML 3 ML PEN SC SCH ×4 (08:49→20:46)
[2018-03-12 09:02] LABS: CALCIUM 9.2 mg/dl (8.5-10.1); CREATININE 3.39 mg/dl (0.60-1.40); POTASSIUM 4.8 mmol/L (3.5-5.1)
--- NOTE | 2018-03-12 09:36 | Progress Note ---
Subjective Date of Service: Mar 12, 2018. Subjective Pt evaluation today including: conversation w/ patient, chart review, lab review Voiding: incontinence Pt continues to c/o lower abdominal pain this morning. Denies n/v. Remains oriented to person, but otherwise confused. Cr noted to be 3.39. Palliative care consult/planning to be discussed with family today. He continues to have incontinence. PVRs have been low. He has not required straight cathing. Problem List Medical Problems: (1) VILMA (acute kidney injury) Status: Acute (2) Altered mental status Status: Acute (3) Bladder cancer Status: Acute (4) Cellulitis Status: Acute (5) Fall Status: Acute (6) Gross hematuria Status: Acute (7) Sepsis Status: Acute (8) UTI (urinary tract infection) Status: Acute (9) UTI (urinary tract infection) Status: Acute Review of Systems Constitutional: No fever, No chills Respiratory: No shortness of breath Cardiac: No chest pain Abdomen: No pain, No nausea, No vomiting Male : No hematuria Heme: No abnormal bleeding/bruising Objective Vital Signs Date Time Temp Pulse Resp B/P (MAP) Pulse Ox O2 Delivery O2 Flow Rate FiO2 03/12/18 07:35 36.8 100 20 146/80 (102) 92 Nasal Cannula 6.0 03/12/18 00:05 Nasal Cannula 6.0 03/12/18 00:03 36.6 105 20 158/98 (118) 90 6.0 03/11/18 19:25 36.9 103 20 170/81 (110) 92 Nasal Cannula 5.0 03/11/18 16:00 93 Nasal Cannula 6.0 03/11/18 15:44 36.6 83 18 125/75 (92) 93 6.0 03/11/18 11:14 36.7 90 20 110/67 (81) 95 Nasal Cannula 6.0 Physical Exam General Appearance: no apparent distress, + obese Eyes: normal inspection ENT: hearing grossly normal Neck: no JVD Respiratory/Chest: no respiratory distress, no accessory muscle use Cardiovascular: no JVD Extremities: normal inspection Neurologic/Psychiatric: alert, normal mood/affect, + disoriented Skin: normal color Laboratory Results Last 24 Hours Test 03/11/18 11:41 03/11/18 16:31 03/11/18 20:14 03/12/18 07:40 Bedside Glucose 226 mg/dl 124 mg/dl 150 mg/dl 163 mg/dl Test 03/12/18 08:13 Sodium Level 145 mmol/L Potassium Level 4.8 mmol/L Chloride Level 117 mmol/L Carbon Dioxide Level 19 mmol/L Anion Gap 9.0 mmol/L Blood Urea Nitrogen 38 mg/dl Creatinine 3.39 mg/dl Est Creatinine Clear Calc Drug Dose 18.4 ml/min Estimated GFR () 18.9 Estimated GFR (Non- 16.3 BUN/Creatinine Ratio 11.2 Random Glucose 133 mg/dl Calcium Level 9.2 mg/dl Assessment and Plan A/P: Bladder and prostate cancer, gross hematuria, ARF AFVSS. Oncology consult noted. Palliative care and supportive management have been recommended. Palliative care consulted. Continue to leave bruner catheter out for now. Bladder scans q6hrs. Straight cath for PVRs >250ml. Continue Pyridium, oxybutynin, and B&O suppositories PRN for bladder spasms. Further pain management per primary service. Will continue to follow along with primary service.
[2018-03-12] MEDS ORDERED: MoRPHine SULFATE 2 MG/ML CARP IV STA (11:24)
--- NOTE | 2018-03-12 12:57 | Palliative Care Progress Note ---
Palliative Care Progress Note Date of Service Mar 12, 2018. Subjective Pt evaluation today including: conversation w/ patient, conversation w/ family , physical exam Pain: appears uncomfortable - unable to comment on a number PO Intake: sips Voiding: requires PRN straight cath (requiring bladder scans Q6 to assess for retention) Patient was evaluated today for follow up. Patient has an extensive history of bladder and prostate CA for which he was receiving Cisplatin; however, this was discontinued by Dr. Madera due to worsening kidney function (most recent creatinine was 3.4). He had a recent admission from 02/11/18-02/13/18 for which he was transferred to [facility] post discharge for continued treatment of a UTI and bacteremia. Today, the patient is increasingly confused and was not able to identify his friends who were in the room, unlike yesterday. The patient is receiving Morphine 2 mg Q 6 PRN for pain. He appears to be agitated and guards his abdomen on assessment. Despite his bruner being removed, he has not required straight cath. Lengthy discussion held with patients over the phone today - she has recently suffered from an AMI and PNA for which she was hospitalized and is now living with her son - she stated that this is a permanent move for her. We talked at length about his current medical condition with worsening CHF, worsening kidney failure and a poor prognosis of his bladder and prostate CA. The patient has a poor prognosis and has been evaluated by PT/OT and would not be safe returning home without 24 hour care. CODE STATUS was discussed with pt's , Benita stated that the patient has never wanted to be resuscitated and she would like him to be DNR/DNI. Francois with Case management offered some options regarding skilled facilities with a hospice benefit. The family plans to discuss tonight and present a decision tomorrow on 03/13. Review of Systems Pt states he is having abdominal pain. PT denies CP, dizziness, SOB - unable to comment more on his symptoms due to confusion Objective Vital Signs Date Time Temp Pulse Resp B/P (MAP) Pulse Ox O2 Delivery O2 Flow Rate FiO2 03/12/18 11:15 37.8 105 20 125/54 (77) 90 Nasal Cannula 6.0 03/12/18 08:00 92 Nasal Cannula 6.0 03/12/18 07:35 36.8 100 20 146/80 (102) 92 Nasal Cannula 6.0 03/12/18 00:05 Nasal Cannula 6.0 03/12/18 00:03 36.6 105 20 158/98 (118) 90 6.0 03/11/18 19:25 36.9 103 20 170/81 (110) 92 Nasal Cannula 5.0 03/11/18 16:00 93 Nasal Cannula 6.0 03/11/18 15:44 36.6 83 18 125/75 (92) 93 6.0 Physical Exam General Appearance: + mild distress (appears uncomfortable and is guarding on his abdomen) Respiratory/Chest: no respiratory distress, no accessory muscle use, + pertinent finding (pt on O2. coarse lung sounds) Cardiovascular: regular rate, rhythm, no JVD, no murmur Abdomen: normal bowel sounds (hypoactive), + tenderness (large abdomen - guarding RLQ. Tender upon palpation) Extremities: non-tender, no pedal edema Skin: warm/dry Laboratory Results Last 24 Hours Test 03/11/18 16:31 03/11/18 20:14 03/12/18 07:40 03/12/18 08:13 Bedside Glucose 124 mg/dl 150 mg/dl 163 mg/dl Sodium Level 145 mmol/L Potassium Level 4.8 mmol/L Chloride Level 117 mmol/L Carbon Dioxide Level 19 mmol/L Anion Gap 9.0 mmol/L Blood Urea Nitrogen 38 mg/dl Creatinine 3.39 mg/dl Est Creatinine Clear Calc Drug Dose 18.4 ml/min Estimated GFR () 18.9 Estimated GFR (Non- 16.3 BUN/Creatinine Ratio 11.2 Random Glucose 133 mg/dl Calcium Level 9.2 mg/dl Test 03/12/18 11:50 Bedside Glucose 129 mg/dl Assessment and Plan Goals of Care Prostate Cancer Bladder Cancer CHF C-Diff Palliative Care recommendations: -Pt to be DNR/DNI per patient -Consider increasing Morphine frequency to Q2 hours PRN and observe pain control -Transitioning care to comfort care after discussion with patients -Observe bowel movements to determine if any stool softeners are needed since he is on opioid management for pain control -Continue to follow patient and offer support to family -Pt and daughter to call in to case management tomorrow 03/13 with a decision regarding SNF Palliative Performance Scale: 30 % Continued [facility] stay due to: inadequate oral pain control, voiding difficulties , multiple IV medications needed, home environment unsafe for pt Discharge planning: shelter facility (with Hospice) Counseling and Coordination Total time spent 50 minutes with > 50% of that time discussing goals of care with pt on the phone and assessing patient
--- NOTE | 2018-03-12 15:32 | Nephrology Progress Note ---
Nephrology Progress Note Date of Service: Mar 12, 2018. Subjective 78 y/o male with vilma with hematuria in the setting of bladder cancer. creatinine peaked at 3.59 and now 3.39. patient is confused and complaining of pain. continually removing oxygen from face. confused and not oriented to time or place. bruner d/c'd. now being straight cathed q 6h. Objective Date Time Temp Pulse Resp B/P (MAP) Pulse Ox O2 Delivery O2 Flow Rate FiO2 03/12/18 11:15 37.8 105 20 125/54 (77) 90 Nasal Cannula 6.0 03/12/18 08:00 92 Nasal Cannula 6.0 03/12/18 07:35 36.8 100 20 146/80 (102) 92 Nasal Cannula 6.0 03/12/18 00:05 Nasal Cannula 6.0 03/12/18 00:03 36.6 105 20 158/98 (118) 90 6.0 03/11/18 19:25 36.9 103 20 170/81 (110) 92 Nasal Cannula 5.0 03/11/18 16:00 93 Nasal Cannula 6.0 03/11/18 15:44 36.6 83 18 125/75 (92) 93 6.0 Physical Exam: GENERAL: Awake, not oriented, slow to respond HEENT: Moist mucous membranes. NECK: Supple. PULMONARY: shallow breathing CARDIAC: Regular rate and rhythm. ABDOMEN: Bowel sounds positive. Has some tenderness to the lower abdomen. EXTREMITIES: Mild edema. NEUROLOGIC: Nonfocal. GENITOURINARY: bruner removed Current Inpatient Medications Medications (Trade) Dose Ordered Sig/Kailash Route Start Time Stop Time Status Last Admin Dose Admin Ondansetron HCl (Zofran Inj) 4 mg Q6H PRN IV 03/06/18 17:00 04/05/18 16:59 03/12/18 01:15 4 MG Insulin Aspart (novoLOG ASPART) SLIDING SCALE If C... ACHS SC 03/06/18 21:00 04/05/18 20:59 03/12/18 08:49 3 UNITS Glucose (Glucose 40% Gel) 15-30 GRAMS 15 GRAMS... UD PRN PO 03/06/18 17:15 04/05/18 17:14 Glucose (Glucose Chew Tab) 4-8 Tablets 4 Tabl... UD PRN PO 03/06/18 17:15 04/05/18 17:14 Dextrose (Dextrose 50% 50ML Syringe) 25-50ML OF 50% DW IV FOR... UD PRN IV 03/06/18 17:15 04/05/18 17:14 Glucagon (Glucagon Inj) 1 mg UD PRN SQ 03/06/18 17:15 04/05/18 17:14 Carvedilol (Coreg Tab) 6.25 mg BID PO 03/06/18 20:00 04/05/18 20:59 03/12/18 08:43 6.25 MG Cholecalciferol (Vitamin D Tab) 2,000 inter.unit QAM PO 03/07/18 08:00 04/06/18 08:59 03/12/18 08:42 2,000 INTER.UNIT Latanoprost (Xalatan Oph Soln) 1 drops HS OP 03/06/18 21:00 04/05/18 20:59 03/10/18 20:11 1 DROPS Pantoprazole Sodium (Protonix Tab) 40 mg QAM PO 03/07/18 08:00 04/06/18 08:59 03/12/18 08:43 40 MG Sertraline HCl (Zoloft Tab) 50 mg DAILY PO 03/07/18 08:00 04/06/18 08:59 03/12/18 08:41 50 MG Trazodone HCl (Desyrel Tab) 25 mg QPM PO 03/06/18 21:00 04/05/18 20:59 03/11/18 20:52 25 MG Vancomycin HCl (Vancomycin Oral Soln) 125 mg Q6H PO 03/06/18 21:00 03/20/18 20:59 03/12/18 08:51 125 MG Raspberry (Raspberry Syrup 5ml Cup) 5 ml Q6H PO 03/06/18 21:00 03/20/18 20:59 03/12/18 08:42 5 ML Doxycycline Hyclate (Vibramycin Cap) 100 mg Q12H PO 03/08/18 21:00 03/16/18 20:59 03/12/18 08:42 100 MG Phenazopyridine HCl (Pyridium Tab) 200 mg QID PO 03/08/18 17:00 04/05/18 17:14 03/12/18 12:00 200 MG Oxycodone/ Acetaminophen (Percocet 5-325mg Tab) 1 tab Q8 PRN PO 03/09/18 20:30 03/23/18 20:29 03/12/18 05:26 1 TAB Oxybutynin Chloride (Ditropan Tab) 5 mg BID PRN PO 03/10/18 09:15 04/09/18 09:14 03/12/18 08:41 5 MG Belladonna/Opium (B & O Adult Supp) 60 mg Q6 PRN [place] 03/10/18 10:15 03/24/18 10:14 03/12/18 10:11 60 MG Morphine Sulfate (MoRPHine SULFATE INJ) 2 mg Q2HWA PRN IV 03/12/18 11:30 03/23/18 20:14 03/12/18 12:53 2 MG Last 24 Hours Test 03/11/18 16:31 03/11/18 20:14 03/12/18 07:40 03/12/18 08:13 Bedside Glucose 124 mg/dl 150 mg/dl 163 mg/dl Sodium Level 145 mmol/L Potassium Level 4.8 mmol/L Chloride Level 117 mmol/L Carbon Dioxide Level 19 mmol/L Anion Gap 9.0 mmol/L Blood Urea Nitrogen 38 mg/dl Creatinine 3.39 mg/dl Est Creatinine Clear Calc Drug Dose 18.4 ml/min Estimated GFR () 18.9 Estimated GFR (Non- 16.3 BUN/Creatinine Ratio 11.2 Random Glucose 133 mg/dl Calcium Level 9.2 mg/dl Test 03/12/18 11:50 Bedside Glucose 129 mg/dl Other Studies: 03/11/18 03/12/18 03/13/18 07:59 07:59 07:59 Intake Total 2252 ml 370 ml Output Total 275 ml Balance 1977 ml 370 ml Assessment & Plan VILMA. creatinine peaked at 3.59 now 3.39. unable to assess urine output due to lack of bruner. continues to be in pain. decreased appetite. CXR suggestive of pleural effusion and CHF. patient not receiving fluids at this time. patient d/c 'd bruner due to discomfort. patient being transferred to comfort care. This patient was seen and treated with direct collaboration with Dr. Lockwood. Thank you for the opportunity to participate in this patient's care. Appreciate the Consult. ATTENDING NOTE: I performed a history and physical examination of the patient, including specifically on history-pt continues to be in pain, on physical exam-decreased at bases, shallow breathing, and my impression and plan are vilma-slowly resolving however overall poor prognosis, agree with plan to transition to comfort measures, appreciate palliative care. fluids off secondary to signs of volume overload. I have discussed the patient's management with Su Ghosh PA-C, Please refer to above note for the documented findings and plan of care. Troy Oncu DO
[2018-03-12] MEDS: LATANOPROST 0.005% OP SOLN 2.5 ML BTL OP SCH (20:30)
[2018-03-12] MEDS: TRAZODONE HCL 50 MG TAB PO SCH (20:32)
[2018-03-12] MEDS ORDERED: TRAMADOL HCL 50 MG TAB PO PRN (21:15)
[2018-03-12] MEDS: HYDROmorphone INJ 0.5 MG/0.5 ML SYR IV PRN (21:53)
[2018-03-13] MEDS ORDERED: CEFEPIME IV 2,000 MG in SYRINGE 7.5 ML IV SCH
[2018-03-13] MEDS ORDERED: CEFEPIME IV 2,000 MG in DEXTROSE 5% 100ML 100 ML IV ONE ×2
[2018-03-13] MEDS: HYDROmorphone INJ 0.5 MG/0.5 ML SYR IV PRN ×3 (02:17→08:09)
[2018-03-13] MEDS: RASPBERRY SYRUP 5 ML UDP PO SCH ×2 (03:01→08:05)
[2018-03-13] MEDS: VANCOMYCIN HCL 125 MG/2.5ML SOLN PO SCH ×2 (03:01→08:05)
[2018-03-13] MEDS ORDERED: CEFEPIME CONSULT ACTIVE PRN (08:00)
[2018-03-13] MEDS: DOXYCYCLINE HYCLATE 100 MG CAP PO SCH (08:05)
[2018-03-13] MEDS: OXYBUTYNIN CHLORIDE 5 MG TAB PO PRN (08:05)
[2018-03-13] MEDS: CHOLECALCIFEROL 1000 INTER.UNIT TAB PO SCH (08:05)
[2018-03-13] MEDS: CARVEDILOL 6.25 MG TAB PO SCH (08:05)
[2018-03-13] MEDS: PHENAZOPYRIDINE HCL 200 MG TAB PO SCH (08:06)
[2018-03-13] MEDS: SERTRALINE HCL 50 MG TAB PO SCH (08:06)
[2018-03-13] MEDS: PANTOprazole SOD 40 MG TAB PO SCH (08:06)
[2018-03-13] MEDS: INSULIN ASPART 100 UNITS/ML 3 ML PEN SC SCH (08:21)
[2018-03-13 08:24] VITALS: BP 156/72; PULSE 98; TEMP 38.1; O2SAT 92
[2018-03-13] MEDS ORDERED: HYDROmorphone INJ 2 MG/ML SYR/VIAL IV PRN (08:45)
--- NOTE | 2018-03-13 09:13 | Progress Note ---
Internal Med Progress Note Date of Service: Mar 12, 2018. Provider Documentation: pt seen at approx 7 pm on 03/12/18 SUBJECTIVE: pt continues to experience pain in lower abdomen /bladder area no getting any relief with PRN pain meds increased IV Morphine to 2 mg Q2 hrs during my round pt appeared to comfortable /sedated two of his friends were visiting at bedside showcase trimmer updated -she spoke with pt's Azra -wants pt to be comfortable and possible tx to [facility] with hospice code status changed to DNR/DNI called pt's Daughter Mecca around 7: 30 pm -updated regarding poor prognosis , rapidly declining status with metastatic CA , renal failure /CHF daughter wants -pt to be comfortable , not to be in pain , does not want any aggressive/invasive procedure will continue to titrate pain medication for adequate pain control extremely poor prognosis OBJECTIVE: Vital Signs-as noted below Exam: General-appeared to be comfortable /sedated Head- atraumatic Eyes- PERRL, EOMI Lungs- clear to auscultation Heart- regular rhythm Neuro: sedated Lab data as noted below. ASSESSMENT & PLAN: TERMINAL ILLNESS WITH METASTATIC BLADDER CA /MULTI ORGAN FAILURE : pt is experiencing severe pain in lower abdomen /due to advanced malignancy increased pain meds discussed with family willing for hospice cont to titrate pain meds for better control of pain /discomfort VILMA ON CKD STAGE III renal function continues to worsen very poor prognosis IV fluids discontinued as chest x-ray shows pulmonary congestion Patient developed respiratory distress/hypoxia Given 20 mg of IV Lasix Monitor clinically Renal U/S showed mild bilateral pelvocaliectasis. Mild bilateral hydronephrosis cannot be excluded. Nephrology consulted-appreciate input ACUTE DECOMPENSATION OF CHRONIC DIASTOLIC CHF Developed hypoxia/respiratory distress/positive rales on auscultation Chest x-ray shows question of pulmonary congestion, elevated proBNP more than 24 ,000 poor prognosis with ,multi organ failure HEMATURIA URINARY RETENTION due to advanced metastatic bladder CA poor prognosis HISTORY OF BLADDER CANCER WITH POSSIBLE LUNG METASTASIS Poor prognosis with advanced stage -incurable Continue to have bladder pain per Heme onc -not a candidate for any chemo tx palliative care consult appreciated family agreeable for Hospice DNR/DNI DISPOSITION discussed with Daughter Mecca -wants hospice /palliative care for her father family will not be able to do home hospice care referral made for [facility] Vital Signs: Date Time Temp Pulse Resp B/P (MAP) Pulse Ox O2 Delivery O2 Flow Rate FiO2 03/13/18 08:24 38.1 98 16 156/72 (100) 92 Oxymask 6.0 03/13/18 00:01 Oxymask 6.0 03/12/18 23:46 37.0 101 20 144/81 (102) 94 Mask 6.0 03/12/18 19:40 36.7 87 20 126/74 (91) 94 Oxymask 6.0 03/12/18 16:00 Humidified Oxygen 6.0 Mask 03/12/18 15:38 37.3 103 20 150/74 (99) 92 Oxymask 5.5 03/12/18 11:15 37.8 105 20 125/54 (77) 90 Nasal Cannula 6.0 Lab Results: Results Past 24 Hours Test 03/12/18 11:50 03/12/18 16:20 03/12/18 20:19 03/12/18 22:30 Range/Units Bedside Glucose 129 131 326 70-99 mg/dl Urine Color DK YELLOW Urine Appearance SL CLOUDY CLEAR Urine pH 5.0 4.5-7.5 Urine Specific [place] 1.010 1.000-1.030 Urine Protein 2+ NEG Urine Glucose (UA) TRACE NEG Urine Ketones NEG NEG Urine Occult Blood 3+ NEG Urine Nitrite POS NEG Urine Bilirubin NEG NEG Urine Urobilinogen NEG NEG Urine Leukocyte Esterase MODERATE NEG Urine RBC >30 0-4 /hpf Urine WBC 10-30 0-5 /hpf Urine Epithelial Cells 10-20 0-5 /lpf Urine Bacteria 1+ NEG Test 03/13/18 08:18 Range/Units Bedside Glucose 127 70-99 mg/dl Microbiology Results 03/12/18 Urine Culture, Received Pending
--- NOTE | 2018-03-13 09:14 | Progress Note ---
Subjective Date of Service: Mar 13, 2018. (Ernestine Pate CRNP) Subjective Pt evaluation today including: conversation w/ patient, chart review Voiding: bruner catheter in place (patent, draining light diallo colored urine ) 78 yo male with bladder cancer. Family pending palliative care decision today. Pt continues to be confused this morning. Arouses to stimuli. Mumbling, and remains in pain requiring Morphine. Oxybutynin, Pyridium, and B&O suppositories have been discontinued. Bruner catheter replaced last evening by primary service. Unclear why at this time. PVRs had been low, and the pt was experiencing incontinence. (Ernestine Pate CRNP) Problem List Medical Problems: (1) VILMA (acute kidney injury) Status: Acute (2) Altered mental status Status: Acute (3) Bladder cancer Status: Acute (4) Cellulitis Status: Acute (5) Fall Status: Acute (6) Gross hematuria Status: Acute (7) Sepsis Status: Acute (8) UTI (urinary tract infection) Status: Acute (9) UTI (urinary tract infection) Status: Acute (Ernestine Pate CRNP) Review of Systems Pt unable to answer questions d/t AMS. (Ernestine Pate CRNP) Objective Vital Signs Date Time Temp Pulse Resp B/P (MAP) Pulse Ox O2 Delivery O2 Flow Rate FiO2 03/13/18 08:24 38.1 98 16 156/72 (100) 92 Oxymask 6.0 03/13/18 00:01 Oxymask 6.0 03/12/18 23:46 37.0 101 20 144/81 (102) 94 Mask 6.0 03/12/18 19:40 36.7 87 20 126/74 (91) 94 Oxymask 6.0 03/12/18 16:00 Humidified Oxygen 6.0 Mask 03/12/18 15:38 37.3 103 20 150/74 (99) 92 Oxymask 5.5 03/12/18 11:15 37.8 105 20 125/54 (77) 90 Nasal Cannula 6.0 (Ernestine Pate CRNP) Physical Exam General Appearance: + mild distress Neck: no JVD Respiratory/Chest: no respiratory distress, no accessory muscle use, + pertinent finding (nasal cannula O2 in place) Cardiovascular: no JVD Extremities: normal inspection Neurologic/Psychiatric: + disoriented Skin: normal color (Ernestine Pate CRNP) Laboratory Results Last 24 Hours Test 03/12/18 11:50 03/12/18 16:20 03/12/18 20:19 03/12/18 22:30 Bedside Glucose 129 mg/dl 131 mg/dl 326 mg/dl Urine Color DK YELLOW Urine Appearance SL CLOUDY Urine pH 5.0 Urine Specific [place] 1.010 Urine Protein 2+ Urine Glucose (UA) TRACE Urine Ketones NEG Urine Occult Blood 3+ Urine Nitrite POS Urine Bilirubin NEG Urine Urobilinogen NEG Urine Leukocyte Esterase MODERATE Urine RBC >30 /hpf Urine WBC 10-30 /hpf Urine Epithelial Cells 10-20 /lpf Urine Bacteria 1+ Test 03/13/18 08:18 Bedside Glucose 127 mg/dl (Ernestine Pate CRNP) Assessment and Plan A/P: Bladder and prostate cancer, gross hematuria, ARF Pt increasingly obtunded. Discussed with Dr. Auguste this morning. He has been placed on comfort care only. Bruenr replaced for this reason. Close observation recommended. One to one supervision may be needed if the pt were to become agitated or confused and attempt to pull on bruner catheter. Can d /c and allow him to leak as he was previously if that is the case. No further management at this time. Will sign off for now. Recall PRN issues. Continued [facility] stay due to: inadequate oral pain control, voiding difficulties , multiple IV medications needed, home environment unsafe for pt Discharge planning: detention facility (with Hospice) (Ernestine Pate CRNP) discussed with hospitalist and pt on morphine drip We will sign off unless we can assist in comfort care (Ed Dixon M.D.)
[2018-03-13] MEDS ORDERED: NURSING VERBAL MED ORDER ONE ×3 (09:15→11:45)
[2018-03-13] MEDS: MoRPHine SULF/NSS 250MG/250ML 250 ML IV SCH ×2 (09:19→19:35)
[2018-03-13] MEDS: SCOPOLAMINE 1.5 MG TDSY TD SCH (09:19)
[2018-03-13] MEDS ORDERED: LORAZEPAM 2 MG/ML 1 ML VIAL IV STA (11:34)
[2018-03-13] MEDS ORDERED: LORAZEPAM 2 MG/ML 1 ML VIAL ONE (11:39)
[2018-03-13 13:19] VITALS: TEMP 37.4
[2018-03-13] MEDS: CHECK SCOPOLAMINE PATCH PLACEMENT SCH (16:37)
--- NOTE | 2018-03-13 19:02 | Progress Note ---
Internal Med Progress Note Date of Service: Mar 13, 2018. Provider Documentation: SUBJECTIVE: On IV morphine gtt comfort care OBJECTIVE: Vital Signs-as noted below Minimum exam for comfort care Exam: General-appeared to be comfortable /sedated Neuro: sedated Lab data as noted below. ASSESSMENT & PLAN: COMFORT CARE /END STAGE TERMINAL STATUS TERMINAL ILLNESS WITH METASTATIC BLADDER CA /MULTI ORGAN FAILURE : pt is experiencing severe pain in lower abdomen /due to advanced malignancy increased pain meds discussed with family ordered for IV morphine gtt -titrate to comfort comfort care only DNR/DNI POOR PROGNOSIS /TERMINAL ILLNESS ON IV MORPHINE GTT Vital Signs: Date Time Temp Pulse Resp B/P (MAP) Pulse Ox O2 Delivery O2 Flow Rate FiO2 03/14/18 00:01 Oxymask 6.0 03/13/18 16:15 Oxymask 6.0 03/13/18 13:19 37.4 03/13/18 08:24 38.1 98 16 156/72 (100) 92 Oxymask 6.0 Lab Results: Results Past 24 Hours Test 03/13/18 08:18 Range/Units Bedside Glucose 127 70-99 mg/dl
[2018-03-13] MEDS ORDERED: LORAZEPAM INJ 1 MG in SYRINGE 0.5 ML IV PRN (20:00)
[2018-03-14] MEDS ORDERED: CEFEPIME IV 1,000 MG in SYRINGE 0 ML IV SCH
[2018-03-14] MEDS: CHECK SCOPOLAMINE PATCH PLACEMENT SCH ×4 (00:28→23:19)
[2018-03-14] MEDS: ATROPINE SULFATE 1% OP SOLN 5 ML BTL SL PRN ×5 (06:22→18:00)
[2018-03-14] MEDS ORDERED: NURSING DECISION MEDICATION ORDER SCH (11:45)
[2018-03-14] MEDS: LORAZEPAM 2 MG/ML 1 ML VIAL IV PRN (12:22)
--- NOTE | 2018-03-14 20:20 | Progress Note ---
Internal Med Progress Note Date of Service: Mar 14, 2018. Provider Documentation: SUBJECTIVE: End-stage terminal status Remains on comfort care/IV morphine OBJECTIVE: Vital Signs-as noted below Minimum exam for comfort care Exam: General-appeared to be comfortable /sedated Neuro: sedated Lab data as noted below. ASSESSMENT & PLAN: COMFORT CARE /END STAGE TERMINAL STATUS Very poor prognosis Widespread metastatic bladder cancer/was experiencing intractable bladder/lower abdominal pain Pain control was not achieved on 2 mg IV morphine every hour Hematuria with passage of clots After discussion with family members-patient started with IV morphine drip for pain control Patient is on comfort care Hospice palliative care consulted TERMINAL ILLNESS WITH METASTATIC BLADDER CA /MULTI ORGAN FAILURE : End-stage On comfort/palliative care DNR/DNI POOR PROGNOSIS /TERMINAL ILLNESS ON IV MORPHINE GTT Vital Signs: Date Time Temp Pulse Resp B/P (MAP) Pulse Ox O2 Delivery O2 Flow Rate FiO2 03/14/18 15:45 Oxymask 2.0 03/14/18 08:00 Oxymask 6.0 03/14/18 00:01 Oxymask 6.0
[2018-03-14 20:55] VITALS: TEMP 39.3
[2018-03-14] MEDS: ACETAMINOPHEN IV 650 MG in EMPTY BAG 0 ML IV PRN (21:20)
[2018-03-14] MEDS: SCOPOLAMINE 1.5 MG TDSY TD SCH (21:21)
[2018-03-15] MEDS: MoRPHine SULF/NSS 250MG/250ML 250 ML IV PRN (01:38)
[2018-03-15 06:25] VITALS: TEMP 39.1
[2018-03-15] MEDS: ACETAMINOPHEN IV 650 MG in EMPTY BAG 0 ML IV PRN ×2 (06:34→20:14)
[2018-03-15] MEDS ORDERED: SCOPOLAMINE 1.5 MG TDSY TD SCH (07:15)
[2018-03-15] MEDS ORDERED: CHECK SCOPOLAMINE PATCH PLACEMENT SCH (08:00)
[2018-03-15] MEDS: ATROPINE SULFATE 1% OP SOLN 5 ML BTL SL PRN ×4 (08:13→20:14)
[2018-03-15] MEDS: LORAZEPAM 2 MG/ML 1 ML VIAL IV PRN ×3 (08:13→17:04)
[2018-03-15] MEDS: CHECK SCOPOLAMINE PATCH PLACEMENT SCH ×3 (08:14→23:32)
[2018-03-15] MEDS ORDERED: NURSING DECISION MEDICATION ORDER SCH ×3 (08:15→17:15)
--- NOTE | 2018-03-15 21:12 | Progress Note ---
Internal Med Progress Note Date of Service: Mar 15, 2018. Provider Documentation: SUBJECTIVE: End-stage terminal status Remains on comfort care/IV morphine on 8 mg /hr gtt intermittent IV Ativan given for sign of discomfort daughter and grand daughter present at bedside , appreciate the care pt is receiving OBJECTIVE: Vital Signs-as noted below Minimum exam for comfort care Exam: General-appeared to be comfortable /sedated Neuro: sedated Lab data as noted below. ASSESSMENT & PLAN: COMFORT CARE /END STAGE TERMINAL STATUS Very poor prognosis-terminal status Widespread metastatic bladder cancer/was experiencing intractable bladder/lower abdominal pain Pain control was not achieved on 2 mg IV morphine every hour Hematuria with passage of clots After discussion with family members-patient started with IV morphine drip for pain control Patient is on comfort care/ palliative care consulted TERMINAL ILLNESS WITH METASTATIC BLADDER CA /MULTI ORGAN FAILURE : End-stage On comfort/palliative care DNR/DNI POOR PROGNOSIS /TERMINAL ILLNESS ON IV MORPHINE GTT Vital Signs: Date Time Temp Pulse Resp B/P (MAP) Pulse Ox O2 Delivery O2 Flow Rate FiO2 03/16/18 09:00 Nasal Cannula 2.0 03/16/18 00:00 Nasal Cannula 2.0 03/15/18 20:00 Nasal Cannula 2.0 03/15/18 16:00 Nasal Cannula 2.0
[2018-03-16] MEDS: ATROPINE SULFATE 1% OP SOLN 5 ML BTL SL PRN ×3 (05:00→13:36)
[2018-03-16] MEDS ORDERED: SCOPOLAMINE 1.5 MG TDSY TD SCH (08:00)
[2018-03-16] MEDS: CHECK SCOPOLAMINE PATCH PLACEMENT SCH (09:02)
[2018-03-16] MEDS: MoRPHine SULF/NSS 250MG/250ML 250 ML IV PRN (09:02)
--- NOTE | 2018-03-16 11:56 | Palliative Care Progress Note ---
Palliative Care Progress Note Date of Service Mar 16, 2018. Subjective Pt evaluation today including: conversation w/ family, physical exam Pain: appears comfortable PO Intake: mouth swabs for comfort Voiding: bruner catheter in place Patient evaluated for follow up. Patient with prostate and bladder CA. Starting on Friday, the patient was experiencing uncontrolled abdominal pain and was very guarding. Patient Morphine frequency was increased and he was started on a Morphine gtt. Currently, on assessment, the patient is obtunded, appears comfortable with his mouth open. He has been agonal with his breaths. Initially , the plan was to transfer the patient to a skilled facility with Hospice, however, he is requiring inpatient due to the Morphine IV drip and possible that could occur in transport to an outside facility. Patient was denied inpatient Hospice due to having an established level of comfort upon their assessment. Patient's daughter, Mecca, was at the patient's bedside and is comfortable with the situation. The patient's , Benita will not be coming to the hospital as she is not well enough - I encouraged Mecca to hold the phone up to the patient and allow Benita to talk to him. Currently the patient is requiring Morphine IV at 9 mg/hour. A scope patch is in place and he is receiving Atropine gtts PRN. Review of Systems Patient is obtunded and not responsive - can not participate in ROS. Objective Vital Signs Date Time Temp Pulse Resp B/P (MAP) Pulse Ox O2 Delivery O2 Flow Rate FiO2 03/16/18 09:00 Nasal Cannula 2.0 03/16/18 00:00 Nasal Cannula 2.0 03/15/18 20:00 Nasal Cannula 2.0 03/15/18 16:00 Nasal Cannula 2.0 Physical Exam General Appearance: no apparent distress Respiratory/Chest: + decreased breath sounds, + pertinent finding (agonal breaths) Cardiovascular: + irregularly irregular, + normal peripheral pulses (patient pulse radially is weak and thready - feels irregular ), + pertinent finding Abdomen: soft, + tenderness (tender upon palpation) Extremities: no pedal edema Neurologic/Psychiatric: + pertinent finding (pt obtunded and non-responsive) Skin: warm/dry Assessment and Plan Goals of Care Prostate Cancer Bladder Cancer CHF C-Diff Palliative Care recommendations: -Pt to remain on comfort measures -Consider Morphine infusion and titrate based on protocol for comfort -Consider supportive end of life medications such as Scope patch and Atropine gtts. Palliative Performance Scale: 10 % Continued [facility] stay due to: inadequate oral pain control, voiding difficulties , multiple IV medications needed, home environment unsafe for pt Discharge planning: other (remain inpatient with Morphine infusion - Outpatient Hospice agency denied inpatient coverage ) Counseling and Coordination Total time spent 35 minutes with > 50% of that time assessing patient and discussing end of life symptom management with patients daughter
--- NOTE | 2018-03-16 13:58 | Progress Note ---
Progress Note Date of Service Mar 16, 2018. Progress Note NOTE : pt ceased breathing at 1: 47 pm evaluated at bedside, no respiratory movement , pupils bilat dilated , fixed , no heart sound , no audible respiratory sound , absence of all reflexes pt time on 1347 on 03/16/18 pt is DNR/DNI was on comfort care /hospice for advanced metastatic bladder CA IV morphine GTT for intractable pain pt while in Comfort /palliative care daughter present at bedside
--- NOTE | 2018-03-16 14:00 | Discharge Summary ---
Discharge Summary Date of Service Mar 16, 2018. Discharge Summary Admission Date: Mar 06, 2018 at 16:50 Discharge Disposition: Admission Information HPI (per Admitting provider): 78-year-old male who presents the ED with hematuria. Patient was recently admitted to [facility] 02/11 through 02/13 for altered mental status. Patient was discharged [facility] at that time. Patient was discharged from [facility] about 1 week ago. Daughter is the bedside who provides some history. Patient has a chronic indwelling Puri. He has history of pulling on the catheter. Patient reports that due to increased pain yesterday, he tried to remove the catheter himself. It was also not draining yesterday. Home nursing came to evaluate the patient today who after 3 attempts was able to get the Puri catheter replaced. It then started to drain grossly bloody urine. Of note, when patient was discharged from [facility], he was discharged on cephalexin for cellulitis and UTI and also Flagyl for C. difficile. Daughter reports she was not aware of these 2 new medications and they were not picked up until yesterday. Patient denies abdominal pain, nausea , vomiting, or diarrhea. He has had increasing redness and swelling to the left lower extremity with development of blisters. He denies fever and chills. No chest pain or shortness of breath. He denies lightheadedness, dizziness, diaphoresis, or syncopal events. In the ED, patient was found to have a creatinine of 2.7 which is markedly elevated from his baseline. WBC 18 K, afebrile, vital signs stable. Patient was given a dose of IV vancomycin in the ED. Physical Exam (per Admitting): General Appearance: WD/WN, no apparent distress Head: normocephalic, atraumatic Eyes: normal inspection, EOMI, sclerae normal ENT: hearing grossly normal, + pertinent finding (Mucous membranes moist) Neck: supple, no JVD, trachea midline Respiratory/Chest: lungs clear, normal breath sounds, no respiratory distress Cardiovascular: regular rate, rhythm, normal peripheral pulses, + pertinent finding (+1-2 edema BL LE, L > R) Abdomen/GI: normal bowel sounds, non tender, soft, no organomegaly Genitourinary - Male: + pertinent finding (Puri in place draining orange/ red urine with clots) Extremities/Musculoskelatal: normal inspection, no calf tenderness, normal capillary refill Neurologic/Psych: no motor/sensory deficits, alert, normal mood/affect, oriented x 3, + pertinent finding (Forgetful, poor insight) Skin: + pertinent finding (Erythema noted to left anterior altamirano with a few clear fluid-filled blisters, mild erythema noted to right lower extremity, BL LE warm to touch) Hospital Course COMFORT CARE /END STAGE TERMINAL STATUS Very poor prognosis-terminal status Widespread metastatic bladder cancer/was experiencing intractable bladder/lower abdominal pain Pain control was not achieved on 2 mg IV morphine every hour Hematuria with passage of clots After discussion with family members-patient started with IV morphine drip for pain control Patient is on comfort care/ palliative care consulted TERMINAL ILLNESS WITH METASTATIC BLADDER CA /MULTI ORGAN FAILURE : End-stage On comfort/palliative care DNR/DNI POOR PROGNOSIS /TERMINAL ILLNESS ON IV MORPHINE GTT Pt
== END 2018-03-16 15:43 | disposition expired | DRG 686 ==
LOC: EDBD 13:23 → C.EDA 13:24 → C.4E 16:50 → ENRESERV 17:01
PROVIDERS: ADMIT Hospitalist; ATTEND Hospitalist
DX: C67.9 Malignant neoplasm of bladder, unspecified (principal); N17.9 Acute kidney failure, unspecified; I13.0 Hypertensive heart and chronic kidney disease with heart failure and stage 1 through stage 4 chronic kidney disease, or unspecified chronic kidney disease; I50.33 Acute on chronic diastolic (congestive) heart failure; I50.32 Chronic diastolic (congestive) heart failure; S37.30XA Unspecified injury of urethra, initial encounter; L03.116 Cellulitis of left lower limb; N39.0 Urinary tract infection, site not specified; A04.72 Enterocolitis due to Clostridium difficile, not specified as recurrent; Z51.5 Encounter for palliative care; R31.0 Gross hematuria; E11.22 Type 2 diabetes mellitus with diabetic chronic kidney disease; N18.3 Chronic kidney disease, stage 3 (moderate); I25.10 Atherosclerotic heart disease of native coronary artery without angina pectoris; E78.5 Hyperlipidemia, unspecified; R60.0 Localized edema; R33.9 Retention of urine, unspecified; N32.89 Other specified disorders of bladder; G89.3 Neoplasm related pain (acute) (chronic); R10.30 Lower abdominal pain, unspecified; Z66 Do not resuscitate; Z79.82 Long term (current) use of aspirin; Z79.899 Other long term (current) drug therapy; Z85.46 Personal history of malignant neoplasm of prostate; Z86.73 Personal history of transient ischemic attack (TIA), and cerebral infarction without residual deficits; Z92.3 Personal history of irradiation; Z95.1 Presence of aortocoronary bypass graft; Z99.81 Dependence on supplemental oxygen; Z87.891 Personal history of nicotine dependence; X58.XXXA Exposure to other specified factors, initial encounter; Y84.6 Urinary catheterization as the cause of abnormal reaction of the patient, or of later complication, without mention of misadventure at the time of the procedure